=== PATIENT | male | born 1945 | race Caucasian/White ===

== ENCOUNTER 2020-05-11 07:26 | Outpatient (REF) | payer MEDICARE, SELFPAY ==
[2020-05-11 08:45] LABS: Alanine Aminotransferase 24 U/L (0-40); Alkaline Phosphatase 92 U/L (39-117); Anion Gap 10 (12-20); Aspartate Amino Transferase 22 U/L (5-37); Bilirubin Total 0.7 mg/dL (0.0-1.0); Blood Urea Nitrogen 14 mg/dL (9-16); Carbon Dioxide 27 mmol/L (22-29); Chloride 105 mmol/L (96-108); Cholesterol 131 mg/dL; Estimated Glomerular Filt Rate > 60; Glucose Fasting 98 mg/dL (60-99); HDL Cholesterol 47 mg/dL; LDL Cholesterol Calculated 71 mg/dl; Potassium 4.3 mmol/l (3.3-5.1); Sodium 138 mmol/L (135-145); Total Protein 6.2 g/dL (6.5-8.0); Triglycerides 66 mg/dL
== END 2020-05-11 07:27 | disposition home or self-care (01) ==
LOC: HO.LAB 07:26
PROVIDERS: PCP Internal Medicine; Visit Provider Internal Medicine
DX: I10 Essential (primary) hypertension (principal)
CPT/HCPCS: 36415; 80053; 80061

== ENCOUNTER → 2020-08-21 14:20 | Outpatient (BNVA) | payer MEDICARE, SELFPAY | PROVIDERS: PCP Internal Medicine; Visit Provider Internal Medicine | DX: J44.9 Chronic obstructive pulmonary disease, unspecified (principal); Z87.891 Personal history of nicotine dependence | CPT/HCPCS: 99212 ==

== ENCOUNTER → 2020-09-18 08:35 | Outpatient (BNVA) | payer MEDICARE, SELFPAY | PROVIDERS: PCP Internal Medicine; Visit Provider Internal Medicine Cardiovascular Disease | DX: I25.10 Atherosclerotic heart disease of native coronary artery without angina pectoris (principal); I10 Essential (primary) hypertension; I51.7 Cardiomegaly | CPT/HCPCS: 93005; 99212 ==

== ENCOUNTER → 2020-10-24 11:01 | Outpatient (BNVA) | payer MEDICARE, SELFPAY | PROVIDERS: PCP Internal Medicine; Visit Provider Nurse Practitioner | DX: R10.9 Unspecified abdominal pain (principal); K21.9 Gastro-esophageal reflux disease without esophagitis; D12.6 Benign neoplasm of colon, unspecified; Z79.899 Other long term (current) drug therapy | CPT/HCPCS: Q3014 ==

== ENCOUNTER 2020-10-25 07:47 | Outpatient (REF) | payer MEDICARE, SELFPAY ==
--- NOTE | ~2020-10-25 | US_ITS ---
EXAMINATION: US RETROPERITONEAL LIMITED (AORTA) CLINICAL INFORMATION: Aneurysm of unspecified site. COMPARISON: Abdominal aortic aneurysm screening dated 06/02/2019 TECHNIQUE: Christine-scale, color Doppler and spectral Doppler evaluation of the abdominal aorta. FINDINGS: The measurements of the aorta in maximum AP and transverse dimensions respectively are as follows: Proximal: 2.7 x 3.1 cm. Mid: 2.6 x 2.4 cm. Distal: 2.0 x 1.9 cm. PSV: 70.5 cm/s. The measurements of the common iliac arteries in maximum AP and TRV dimensions are as follows: Right Common Iliac Artery: 1.4 x 1.4 cm. Left Common Iliac Artery: 1.3 x 1.1 cm. US/US aorta IMPRESSION: The aorta is ectatic and nondilated. There is mild atherosclerosis. The common iliac arteries are normal caliber.
[2020-10-25 08:56] LABS: MANUAL DIFF FLAG NO
[2020-10-25 09:04] LABS: Basophils Absolute Auto 0.1 X10*3/uL (0.0-0.2); Basophils Percent Auto 0.7 % (0-2); Eosinophils Absolute Auto 0.2 X10*3/uL (0.0-0.4); Eosinophils Percent Auto 2.6 % (0-4); Hematocrit 44.3 % (42-52); Hemoglobin 14.7 g/dl (14.0-18.0); Imm Gran Abs Auto 0.03 X10*3/uL (0.00-0.03); Imm Gran Pct Auto 0.4 % (0.0-0.4); Lymphocytes Absolute Auto 1.2 X10*3/uL (1.2-4.9); Mean Corpuscular HGB Conc 33.2 g/dl (31.0-36.0); Mean Corpuscular Hemoglobin 29.7 pg (27.0-33.0); Mean Corpuscular Volume 89.5 fL (80-98); Mean Platelet Volume 8.8 fL (9.4-12.4); Monocytes Absolute Auto 0.6 X10*3/uL (0.1-1.2); Neutrophils Percent Auto 74.3 % (45-73); Platelet Count 306 X10*3/uL (160-400); Red Blood Count 4.95 X10*6/uL (4.60-5.80); Red Cell Distribution Width 13.3 % (11.0-16.0)
[2020-10-25 09:48] LABS: Alanine Aminotransferase 20 U/L (0-40); Albumin Level 4.2 g/dL (3.5-5.0); Alkaline Phosphatase 92 U/L (39-117); Anion Gap 11 (12-20); Aspartate Amino Transferase 24 U/L (5-37); Bilirubin Total 0.8 mg/dL (0.0-1.0); Blood Urea Nitrogen 19 mg/dL (9-16); Calcium 8.7 mg/dL (8.4-10.2); Carbon Dioxide 27 mmol/L (22-29); Chloride 103 mmol/L (96-108); Cholesterol 140 mg/dL; Estimated Glomerular Filt Rate > 60; Glucose Fasting 105 mg/dL (60-99); HDL Cholesterol 54 mg/dL; LDL Cholesterol Calculated 76 mg/dl; Potassium 4.4 mmol/L (3.3-5.1); Sodium 137 mmol/L (135-145); Total Protein 6.3 g/dL (6.5-8.0); Triglycerides 51 mg/dL
[2020-10-25 10:15] LABS: Prostate Specific Antigen Scr 2.19 ng/mL (<0.05-4.0)
== END 2020-10-25 07:48 | disposition home or self-care (01) ==
LOC: HO.US 07:47
PROVIDERS: Nurse Practitioner Family; PCP Internal Medicine; Visit Provider Internal Medicine
DX: Z00.00 Encounter for general adult medical examination without abnormal findings (principal); Z12.5 Encounter for screening for malignant neoplasm of prostate; I72.9 Aneurysm of unspecified site; E78.00 Pure hypercholesterolemia, unspecified; E78.5 Hyperlipidemia, unspecified
CPT/HCPCS: 36415; 76775; 80053; 80061; 84153; 85025

== ENCOUNTER → 2020-10-30 10:23 | Outpatient (REF) | payer MEDICARE, SELFPAY ==
--- NOTE | 2020-10-30 10:28 | CA_ITS ---
Transthoracic Echocardiogram Patient (Last, First, Middle): Be Fontenot R Gender: Male Date of : 1945 Age: 74 Procedure Date: 10/30/2020 Procedure Type: Transthoracic Echocardiogram Location: OP Height: 167.64 cm Weight: 58.97 kg BSA: 1.67 m2 Heart Rate: bpm BP: 163 / 94 mmHg Dockmaster: RACHEL Referring MD: Slim Peña MD Symptoms: I51.7 - Cardiomegaly Study Quality: Fair ECG Rhythm: Sinus Conclusions: - The left ventricular systolic function is normal. The calculated ejection fraction is 56% by biplane method. - There is mild calcification of the aortic valve. - There is mild dilatation of the ascending aorta measuring 4.00 cm. Findings Left Ventricle Normal left ventricular cavity size. The left ventricular systolic function is normal. The visually estimated ejection fraction is between 55-60%. The calculated ejection fraction is 56% by biplane method. There is no evidence of regional wall motion abnormalities. E/E prime ratio is between 8 and 15 consistent with indeterminate filling pressures. Evidence suggests grade I (mild) diastolic dysfunction. Right Ventricle Normal right ventricular cavity size and systolic function. Atria Both atria are normal in size. Aortic Valve There is a normal trileaflet aortic valve. There is mild calcification of the aortic valve. There is trace (trivial) aortic valve regurgitation. Mitral Valve The mitral valve appears normal. There is trace mitral valve regurgitation. There is no mitral valve stenosis. Pulmonic Valve The pulmonic valve was not well visualized. Tricuspid Valve Normal tricuspid valve structure. There is trace tricuspid valve regurgitation. The pulmonary artery systolic pressure is normal. Great Vessels There is mild dilatation of the ascending aorta measuring 4.00 cm. Venous The inferior vena cava is normal in size and collapses greater than 50% with inspiration. Pericardium/Pleural There is no evidence of pericardial effusion. Prior Study Comparison Changes noted compared to prior study dated: 06/26/2015. See comments on ascending aorta. Measurements M-Mode Liner Measurements Normals - Women/Men AOV Cusps: 1.70 1.5-2.6 cm/m2 2D Linear Measurements IVSd: 0.88 0.6-0.9/0.6-1.0 cm LVIDd: 4.32 3.9-5.3/4.2-5.9 cm LVIDd Index: 2.59 2.4-3.2/2.2-3.1 cm/m2 LVIDs: 3.12 2.0-3.6 cm LVPWd: 1.06 0.7-1.1 cm Ao Root: 3.80 2.1-3.5 cm LA Diam: 2.90 2.7-3.8/3.0-4.0 cm LAIDs Index: 1.74 1.5-2.3 cm/m2 LV Mass: 171.28 67-162/88-224 g LV Mass Index: 102.56 43-95/49-115 g/m2 LVOT Diam: 1.80 3.0+(-)1.3 cm 2D Systolic Function EF 4C: 51.30 >55% EF 2C: 61.10 >55% EF BiP: 55.50 >55% Mitral Valve MV Pk E: 0.69 MV PK A: 0.74 MV Decel Time: 232.00 E/A: 0.90 E'Lateral: 6.20 E'Medial: 5.44 E/E' Med: 12.70 E/E' Lat: 11.10 PHT: 68.00 MVA PHT: 3.24 Decel Lee: 2.96 Aortic Valve AoV Pk Nabeel: 1.10 AoV Pk Grad: 5.00 LVOT LVOT Pk Nabeel: 0.93 LVOT Mn Nabeel: 0.60 LVOT VTI: 0.19 LVOT Pk Grad: 3.00 LVOT Mn Grad: 2.00 LVOT Diam: 1.80 LVOT Area: 2.54 Diastolic Function MV Pk E: 0.69 MV Pk A: 0.74 E/A: 0.90 E'Medial: 5.44 E/E' Med: 12.70 E' Laterial: 6.20 E/E' Lat: 11.10 Tricuspid Valve TR Pk Nabeel: 2.05 TR Pk Grad: 17.00 RA Press: 3.00 RVSP: 20.00 Great Vessels Aorta Ao Root-2D: 3.80 2.0-3.7 cm Ao Asc: 4.00 2.1-3.4 cm Ao Arch: 2.40 Pulmonary Valve PV Pk Nabeel: 1.03 Peak PV Grad: 4.00 Updated in Other Vendor System with Status of Final Gumaro Spears MD electronically signed on 11/02/2020 11:35:34 AM with status of Final
== END ==
LOC: HO.CARD 10:23
PROVIDERS: PCP Internal Medicine; Visit Provider Internal Medicine Cardiovascular Disease
DX: I25.10 Atherosclerotic heart disease of native coronary artery without angina pectoris (principal); I10 Essential (primary) hypertension; I51.7 Cardiomegaly
CPT/HCPCS: 93306; 99212

== ENCOUNTER → 2020-11-06 11:22 | Outpatient (BNVA) | payer MEDICARE, SELFPAY | PROVIDERS: PCP Internal Medicine; Visit Provider Surgery Vascular Surgery | DX: I71.4 Abdominal aortic aneurysm, without rupture (principal); I65.23 Occlusion and stenosis of bilateral carotid arteries; R10.9 Unspecified abdominal pain | CPT/HCPCS: 99202 ==

== ENCOUNTER 2020-11-20 09:20 | Day surgery (SDC) | payer MEDICARE, SELFPAY ==
[2020-11-14 15:46] VITALS: BMI 20.9
--- NOTE | 2020-11-16 13:52 | HO.ANESPROP2 ---
Documented by User: Karen Milian 11/16/20 13:57 HPI - Anesthesia Eval Consult details Narrative: 74yo F for Colonoscopy PMFSH Active Problems Active Problems: All Active Problems (Updated 11/14/20 @ 15:43 by Micheline Jose) LVH (left ventricular hypertrophy) (Acute) Annual physical exam (Acute) Tubular adenoma of colon (Acute) Left flank pain (Acute) AAA (abdominal aortic aneurysm) without rupture (Acute) Carotid stenosis, bilateral (Acute) Abdominal pain (Acute) Aneurysmal dilatation (Acute) Screening for colon cancer (Acute) CAD (coronary artery disease) (Acute) COPD (chronic obstructive pulmonary disease) (Acute) Shoulder pain (Acute) Pure hypercholesterolemia (Acute) GERD (gastroesophageal reflux disease) (Acute) Essential hypertension (Acute) Neck pain (Acute) Past Medical History Medical History (Updated 11/20/20 @ 11:30 by Aditi Rubio) Aneurysmal dilatation CAD (coronary artery disease) COPD (chronic obstructive pulmonary disease) Essential hypertension GERD (gastroesophageal reflux disease) H/O: CVA (cerebrovascular accident) Neck pain Pure hypercholesterolemia Screening for colon cancer Shoulder pain Family History Family History Father Bone cancer Mother CVD (cardiovascular disease) Brother No problems noted. Sister No problems noted. Daughter No problems noted. Surgical History Surgical History (Updated 11/14/20 @ 15:41 by Micheline Jose) History of appendectomy History of cervical spinal surgery History of esophagogastroduodenoscopy (EGD) History of foot surgery History of hemicolectomy History of hernia repair History of laminectomy History of partial colectomy Hx of colonoscopy Stented coronary artery Social History Social History (Updated 11/20/20 @ 11:31 by Aditi Rubio) Alcohol intake: never Smoking Status: Former smoker Tobacco Type: Cigarette Years Smoked: once in a while Smoking Quit Date: 1994 Use of substances other than those prescribed or required for medical reasons: Yes 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 Last Used Substance Other:: Yesterday Advance Directives: No Advance Directives Information Provided: No Advance Directives on File: No Meds Allergies Allergy/AdvReac Type Severity Reaction Status Date / Time aspirin [ASA] Allergy Mild UPSET Verified 11/06/20 11:24 STOMACH PT TAKES BABY ASA INSTEAD, stomach upset acetaminophen [From Vicodin] AdvReac Severe upset Verified 11/06/20 11:24 stomach hydrocodone [From Vicodin] AdvReac Severe upset Verified 11/06/20 11:24 stomach Home Medications Medication Instructions Recorded Confirmed Last Taken Type aspirin 81 mg tablet,delayed 81 mg PO DAILY 07/12/20 11/14/20 Unknown History release atorvastatin 80 mg tablet 80 mg PO DAILY 07/12/20 11/14/20 Unknown History [id number]-oyl-[id number] acid 300 1 tab PO DAILY 07/12/20 11/14/20 Unknown History mcg-lycopene 600 mcg-lutein 300 mcg tablet omeprazole 20 mg capsule,delayed 20 mg PO DAILY 07/12/20 11/14/20 Unknown History release tamsulosin 0.4 mg capsule 0.8 mg PO DAILY 07/12/20 11/14/20 Unknown History flu vacc (66yr ml IM 08/21/20 10/08/20 Unknown History up)-MF59C(PF) 60 mcg(15 mcgx4)/0.5 mL IM syringe ropinirole 1 mg tablet 1 mg PO BEDTIME 09/18/20 11/14/20 Unknown History Exam Exam Date and Time: November 16, 2020 1352 Height,Weight and Vital Signs: Height 5 ft 6 in Weight 58.967 kg Pertinent Lab Results Pertinent Lab Results: Laboratory Tests 10/25/20 10/25/20 08:12 08:12 WBC 8.0 Hgb 14.7 Hct 44.3 Plt Count 306 Sodium 137 Potassium 4.4 Chloride 103 Carbon Dioxide 27 BUN 19 H Creatinine 1.03 Narrative Narrative: ECHO 10/2020 Conclusions: - The left ventricular systolic function is normal. The calculated ejection fraction is 56% by biplane method. - There is mild calcification of the aortic valve. - There is mild dilatation of the ascending aorta measuring 4.00 cm. 09/2020 SB @ 59 ?LVH Assessment and Plan Assessment Anesthesia Assessment: Chart Reviewed Documented by User: Aditi Rubio 11/20/20 11:33 [facility] Past Medical History Medical History (Updated 11/20/20 @ 11:30 by Aditi Rubio) Aneurysmal dilatation CAD (coronary artery disease) COPD (chronic obstructive pulmonary disease) Essential hypertension GERD (gastroesophageal reflux disease) H/O: CVA (cerebrovascular accident) Neck pain Pure hypercholesterolemia Screening for colon cancer Shoulder pain Family History Family History Father Bone cancer Mother CVD (cardiovascular disease) Brother No problems noted. Sister No problems noted. Daughter No problems noted. Family history of problems with anesthesia: No Surgical History Surgical History (Updated 11/14/20 @ 15:41 by Micheline Jose) History of appendectomy History of cervical spinal surgery History of esophagogastroduodenoscopy (EGD) History of foot surgery History of hemicolectomy History of hernia repair History of laminectomy History of partial colectomy Hx of colonoscopy Stented coronary artery History of Problems with Anesthesia: No Social History Social History (Updated 11/20/20 @ 11:31 by Aditi Rubio) Alcohol intake: never Smoking Status: Former smoker Tobacco Type: Cigarette Years Smoked: once in a while Smoking Quit Date: 1994 Use of substances other than those prescribed or required for medical reasons: Yes 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 Last Used Substance Other:: Yesterday Advance Directives: No Advance Directives Information Provided: No Advance Directives on File: No Meds Allergies Allergy/AdvReac Type Severity Reaction Status Date / Time aspirin [ASA] Allergy Mild UPSET Verified 11/06/20 11:24 STOMACH PT TAKES BABY ASA INSTEAD, stomach upset acetaminophen [From Vicodin] AdvReac Severe upset Verified 11/06/20 11:24 stomach hydrocodone [From Vicodin] AdvReac Severe upset Verified 11/06/20 11:24 stomach Home Medications Medication Instructions Recorded Confirmed Last Taken Type aspirin 81 mg tablet,delayed 81 mg PO DAILY 07/12/20 11/14/20 Unknown History release atorvastatin 80 mg tablet 80 mg PO DAILY 07/12/20 11/14/20 Unknown History kltyxcjx-hpp-ykvpr acid 300 1 tab PO DAILY 07/12/20 11/14/20 Unknown History mcg-lycopene 600 mcg-lutein 300 mcg tablet omeprazole 20 mg capsule,delayed 20 mg PO DAILY 07/12/20 11/14/20 Unknown History release tamsulosin 0.4 mg capsule 0.8 mg PO DAILY 07/12/20 11/14/20 Unknown History flu vacc 2020-(65yr ml IM 08/21/20 10/08/20 Unknown History up)-MF59C(PF) 60 mcg(15 mcgx4)/0.5 mL IM syringe ropinirole 1 mg tablet 1 mg PO BEDTIME 09/18/20 11/14/20 Unknown History Exam Height,Weight and Vital Signs: Vital Signs Temp Pulse Resp BP Pulse Ox 11/20/20 10:12 98.8 F 63 16 133/80 96 Airway Mallampati Class: II TM Dist: >3cm Neck ROM: Limited (S/p ACDF) Denture: Upper and Lower Heart: RRR Lungs: CTAB Assessment and Plan Assessment Anesthesia Assessment: Anesthesia Plan Discussed and Chart Reviewed Final Anesthetic Review NPO: Yes ASA Class: III Final Preanesthetic Review: No Changes in Pt Med Stat, Meds/Allgs Chart Reviewed, Consent Obtained/Reviewed and Anes Risks/Benef Reviewed Patient Risk: Intermediate Procedure Risk: Low Assessment/Block/Sedation in SS: Assess/Block/Sedation-SS Anesthetic Plan Anesthetic Plan: MAC: Disposition: Standard PACU
[2020-11-20 10:12] VITALS: BP 133/80; PULSE 63; RESP 16; TEMP 37.1; O2SAT 96
[2020-11-20] MEDS: Lactated Ringers 1,000 ML 100 ML IVCONT (10:21)
--- NOTE | 2020-11-20 10:33 | PC.NURSE ---
LAYING ON LEFT SIDE FOR FLEET ENEMA. PEYTON WELL. MD AN AWARE. AWAITING FOR RESULTS.
--- NOTE | 2020-11-20 10:49 | PC.NURSE ---
PATIENTS FECAL OUTPUT WAS CLEAR/YELLOW.
--- NOTE | 2020-11-20 11:30 | W.PM.OPN ---
Operative Note Operative Note Date of Service: 11/20/20 Narrative: Pre-op diagnosis: Colon cancer screening, history of colon polyps Post-op diagnosis: other (Colon polyp, diverticulosis, hemorrhoids) Procedure: COLONOSCOPY TILL CECUM WITH SNARE POLYPECTOMY Consent: Indications for the procedure and potential complications of bleeding, perforation, reaction to medications and missed diagnosis were discussed with the patient and informed consent was obtained. Instrument: Olympus PCF H 190 L variable stiffness pediatric colonoscope Monitoring: Vital signs and clinical assessment, intermittent blood pressure monitoring, continuous EKG monitoring, Pulse oximetry and Carbon Dioxide monitoring were done throughout the procedure. Colon withdrawl time was 18 minutes. Procedure: The patient was placed in the left lateral decubitis position and pre-procedure medications were administered. After a digital rectal examination of the ano-rectum, the video colonoscope was inserted into the rectum and advanced through the colon to the cecum. The colonoscope was slowly withdrawn in a retrograde panoramic fashion and the colon mucosa was carefully examined including a retroflexed view of the rectum. Findings and interventions are described below. Procedure Difficulty: Without difficulty Findings: Terminal Ileum: Not evaluated Cecum: A 1.5 to 2 cms flat polyp in the cecum overlying a fold opposite the ileocecal valve - removed with a hot snare Ascending Colon: Scattered diverticulosis Transverse Colon: Scattered diverticula Descending Colon: Scattered diverticula Sigmoid Colon: End to side colo-colic anastomosis at 20 cm and moderate diverticulosis Rectum: Normal Ano-rectum: Moderate internal hemorrhoids Colon preparation: Good copious irrigation Impression and Post Procedure Diagnosis: Colonoscopy Findings: One medium-size polyp removed Moderate diverticulosis seen in the entire colon Moderate hemorrhoids on retroflexed exam. Plan: Await pathology results Patient will be informed regarding biopsy results via letter Repeat Colonoscopy interval based on path results - in 3 years if polyps are adenomatous and 5 years due to history of colon polyps. Above findings were reviewed with the patient and colon polyps and diverticulosis handouts were given in the discharge area Surgeon: Louise Wells MD Anesthesia: MAC (Dr Rubio) [employer] Log[employer] Engineer: Hiren Lala Estimated blood loss (mL): 0 Pathology: other (A. cecal polyp x1) Condition: stable Disposition: PACU
--- NOTE | 2020-11-20 11:30 | MHC.SHP ---
Pre-Procedural Eval Section A The patient is an INPATIENT: No Changes since office visit: Yes Patient answered all questions; No Cold of Flu in the past 2 weeks, No New Medical Problems and No Changes in Medication The History & Physical has been completed within 30 days and I have reviewed it.: Yes Section B Chief Complaint: polyps Allergies: Allergies Allergy/AdvReac Type Severity Reaction Status Date / Time aspirin [ASA] Allergy Mild UPSET Verified 11/06/20 11:24 STOMACH PT TAKES BABY ASA INSTEAD, stomach upset acetaminophen [From Vicodin] AdvReac Severe upset Verified 11/06/20 11:24 stomach hydrocodone [From Vicodin] AdvReac Severe upset Verified 11/06/20 11:24 stomach Exam Surgical H&P Exam: Normal: Heart, Normal: Lungs, Normal: Extremities and Normal: Abdomen Plan Diagnosis/Plan: Unchanged I have reviewed the history and physical and performed a pertinent physical examination on my patient. No changes have occurred unless specified.
[2020-11-20 12:18] VITALS: BP 108/60; PULSE 70; RESP 14; TEMP 36.7; O2SAT 100
[2020-11-20 12:31] VITALS: BP 132/80; PULSE 68; RESP 18; TEMP 37.3; O2SAT 96
== END 2020-11-20 13:42 | disposition home or self-care (01) ==
PROVIDERS: PCP Internal Medicine; Visit Provider Internal Medicine Gastroenterology
PROC: 0DJD8ZZ Inspection of Lower Intestinal Tract, Via Natural or Artificial Opening Endoscopic (ICD-10-PCS; CPT 45378; principal; 2020-11-20 10:50)
DX: Z12.11 Encounter for screening for malignant neoplasm of colon (principal); Z86.010 Personal history of colon polyps; D12.0 Benign neoplasm of cecum; K57.30 Diverticulosis of large intestine without perforation or abscess without bleeding; K64.8 Other hemorrhoids; K21.9 Gastro-esophageal reflux disease without esophagitis; I10 Essential (primary) hypertension; J44.9 Chronic obstructive pulmonary disease, unspecified; I25.10 Atherosclerotic heart disease of native coronary artery without angina pectoris; Z98.61 Coronary angioplasty status; Z79.899 Other long term (current) drug therapy; Z79.51 Long term (current) use of inhaled steroids; Z79.82 Long term (current) use of aspirin; Z87.891 Personal history of nicotine dependence; Z90.49 Acquired absence of other specified parts of digestive tract; Z88.8 Allergy status to other drugs, medicaments and biological substances; Z86.73 Personal history of transient ischemic attack (TIA), and cerebral infarction without residual deficits
CPT/HCPCS: 45385; 88305

== ENCOUNTER 2020-11-21 09:54 | Outpatient (REF) | payer MEDICARE, SELFPAY ==
--- NOTE | ~2020-11-21 | US_ITS ---
EXAMINATION: US EXTRACRANIAL CAROTID DUPLEX, BILATERAL CLINICAL INFORMATION: Occlusion of the bilateral carotid arteries COMPARISON: None TECHNIQUE: Real-time ultrasound and Doppler techniques (integrating B-mode 2-D vascular images, Doppler spectral analysis and color-flow Doppler imaging) were utilized to interrogate the extracranial carotid arteries, the vertebral arteries and proximal subclavian arteries bilaterally. The degree of stenosis is determined by criteria similar to NASCET. FINDINGS: Right Side: 1. There is no significant atherosclerotic plaque seen in the bifurcation/proximal ICA region. 2. The common carotid artery PSV proximally is 54.2 cm/s and distally 54.6 cm/s. 3. The proximal internal carotid artery velocities are 50.3 cm/s systolic and 18.9 cm/s diastolic. 4. The proximal external carotid artery PSV is 66.0 cm/s. 5. The vertebral artery shows antegrade flow. 6. The subclavian artery waveforms are normal. Small amount of plaque in the proximal right subclavian artery. Left Side: 1. There is minimal atherosclerotic plaque seen in the bifurcation/proximal ICA region. 2. The common carotid artery PSV proximally is 72.1 cm/s and distally 53.4 cm/s. 3. The proximal internal carotid artery velocities are 33.6 cm/s systolic and 15.5 cm/s diastolic. 4. The proximal external carotid artery PSV is 96.7 cm/s. 5. The vertebral artery shows antegrade flow. 6. The subclavian artery waveforms are normal. US/US carotid duplex BI IMPRESSION: 1. RIGHT: Normal right internal carotid artery without atherosclerotic plaque or hemodynamically significant stenosis. 2. LEFT: Minimal, non-hemodynamically significant stenosis of the proximal left internal carotid artery corresponding to a 0-49% stenosis by velocity criteria. 3. Small amount of atherosclerotic plaque at the origin of the right subclavian artery.
== END 2020-11-21 09:55 | disposition home or self-care (01) ==
LOC: HO.US 09:54
PROVIDERS: PCP Internal Medicine; Visit Provider Surgery Vascular Surgery
DX: I65.23 Occlusion and stenosis of bilateral carotid arteries (principal)
CPT/HCPCS: 93880

== ENCOUNTER → 2020-11-23 11:26 | Outpatient (BNVA) | payer MEDICARE, SELFPAY | PROVIDERS: PCP Internal Medicine; Visit Provider Surgery Vascular Surgery | CPT/HCPCS: 99212 ==

== ENCOUNTER 2021-03-18 09:50 | Emergency (ER) | payer MEDICARE, OTHER, SELFPAY ==
[2021-03-18 10:26] VITALS: BP 131/93; PULSE 55; RESP 18; TEMP 36.6; O2SAT 97; BMI 21.7
--- NOTE | 2021-03-18 11:34 | ED.EXTPRO ---
HPI - Extremity Problem General Chief complaint: Extremity Problem Stated complaint: swollen finger Time Seen by Provider: 03/18/21 11:34 History of Present Illness HPI Narrative: Patient is a 75-year-old right-hand dominant male. Presents today with having pain to the left index finger distally. Patient claimed that there was a lesion there starting a few months ago. It has since gotten worse. Specifically worsened over the last 2 weeks or so. There is no discharge from the wound. There is no fever no chills. Patient is able to bend his finger. Finally came in for help. Patient denies any history of diabetes. Positive history of smoking but quit in 1993. History of coronary artery disease. History of COPD in the past. No fever no chills. No nausea no vomiting. No systemic complaints. Related Data Home Medications Medication Instructions Recorded Confirmed aspirin 81 mg tablet,delayed 81 mg PO DAILY 07/12/20 11/14/20 release (Adult Low Dose Aspirin) atorvastatin 80 mg tablet 80 mg PO DAILY 07/12/20 11/14/20 zvfvmhtb-zkf-mwort acid 300 1 tab PO DAILY 07/12/20 11/14/20 mcg-lycopene 600 mcg-lutein 300 mcg tablet (Centrum Silver Men) omeprazole 20 mg capsule,delayed 20 mg PO DAILY 07/12/20 11/14/20 release tamsulosin 0.4 mg capsule 0.8 mg PO DAILY 07/12/20 11/14/20 Previous Rx's Medication Instructions Recorded clotrimazole 10 mg lindsey 10 mg PO TID #21 gaurav 12/11/20 ropinirole 1 mg tablet 1 mg PO BEDTIME 90 Days #90 tab 02/28/21 oxycodone 10 mg tablet 10 mg PO Q6H PRN 30 Days #120 tab 03/14/21 Breo Ellipta 200 mcg-25 mcg/dose 1 ea PO DAILY #60 ea NS 03/18/21 powder for inhalation (fluticasone furoate-vilanterol) amoxicillin 875 mg-potassium 1 tab PO BID 7 Days #14 tab 03/18/21 clavulanate 125 mg tablet (Augmentin) Allergies Allergy/AdvReac Type Severity Reaction Status Date / Time aspirin [ASA] Allergy Mild UPSET Verified 03/18/21 10:25 STOMACH PT TAKES BABY ASA INSTEAD, stomach upset acetaminophen [From Vicodin] AdvReac Severe upset Verified 03/18/21 10:25 stomach hydrocodone [From Vicodin] AdvReac Severe upset Verified 03/18/21 10:25 stomach Review of Systems Review of Systems: Constitutional: No Weight loss, No Fever, No Chills, No Night Sweats, No Fatigue, No Malaise ENT/Mouth: No Hearing loss, No Ear Pain, No Nasal Congestion, No Sinus Pain, No Hoarseness, No sore throat, No Rhinorrhea, No Swallowing Difficulty Eyes: No Eye Pain, No Swelling, No Redness, No Foreign Body, No Discharge, No Vision Changes Cardiovascular: No Chest Pain, No SOB, No Dyspnea on Exertion, No Orthopnea, No Edema, No Palpitations Respiratory: No Cough, No Sputum, No Wheezing, No Smoke Exposure, No Dyspnea Gastrointestinal: No Nausea, No Vomiting, No Diarrhea, No Constipation, No abdominal Pain, No Hematochezia, No Melena Genitourinary: no irregular bleeding, No Dysuria, No Urinary Frequency, No Hematuria, No Urinary Incontinence, No Urgency, No Flank Pain, No Urinary Flow Changes, No Hesitancy Musculoskeletal: Positive swelling and lesion to the left index finger distally Skin: Positive skin lesion to the left index finger Neuro: No Weakness, No Numbness, No Paresthesias, No Loss of Consciousness, No Dizziness, No Headache Psych: No Anxiety/Panic, No Depression, No SI/HI/AH/VH, No Social Issues, Heme/Lymph: No Bruising, No Bleeding,No Lymphadenopathy Endocrine: No Polyuria, No Polydipsia, No Temperature Intolerance [facility] Past Medical History Attestation statement: The following information was validated with the patient. Medical History Aneurysmal dilatation CAD (coronary artery disease) COPD (chronic obstructive pulmonary disease) Essential hypertension GERD (gastroesophageal reflux disease) H/O: CVA (cerebrovascular accident) Neck pain Pure hypercholesterolemia Screening for colon cancer Shoulder pain Surgical History History of appendectomy History of cervical spinal surgery History of esophagogastroduodenoscopy (EGD) History of foot surgery History of hemicolectomy History of hernia repair History of laminectomy History of partial colectomy Hx of colonoscopy Stented coronary artery Family History Family History Father Bone cancer Mother CVD (cardiovascular disease) Brother No problems noted. Sister No problems noted. Daughter No problems noted. Social History Social History Alcohol intake: never Years Smoked: once in a while Substance Use Type: Marijuana Advance Directives: Yes Advance Directives Information Provided: Yes Advance Directives on File: No Physical Exam Vital Signs: Vital Signs: Last Vital Signs Temp 97.9 F 03/18/21 10:26 Pulse 55 03/18/21 10:26 Resp 18 03/18/21 10:26 BP 131/93 H 03/18/21 10:26 Pulse Ox 97 03/18/21 10:26 Body Mass Index 21.7 Appearance: Alert. Oriented X3. No acute distress. Eyes: Pupils equal, round and reactive to light. ENT: Pharynx normal. Neck: Normal inspection. Neck supple. No lymph nodes noted. No crepitus CVS: Normal heart rate and rhythm. Pulses normal. Normal S1 and S2 Respiratory: No respiratory distress. Breath sounds normal. No Wheezing. No rales Abdomen: Soft and nontender. No rigidity. No distention. good BS x4 Skin: Examination is skin and distal extremity on the left hand showed a lesion in the distal aspect of the left index finger it is approximately 1 cm x 1 cm in size. There is a slight red base there is slight opening. There is no discharge noted. There is no fluctuance noted. There is no pain on palpation of the distal IP joint. Patient has good capillary refill. Sensation intact. There is good movement of the proximal IP and MCP joint. There is no sausage fingers. Patient is able to move the finger without any difficulty. Extremities: No lower extremity edema. Neurovascular intact to all extremities. No Lacerations. See above Neuro: Oriented X 3. No motor deficit. No sensory deficit. Moving all extermities. No slurred speech MDM - Extremity (Nontraumatic) MDM Narrative Medical decision making narrative: Well-appearing there is good movement of the distal IP joint. There is no sausage finger observed. There is no pain on full extension. There is no tenderness on palpation of the flexor sheath. There is an area of erythema base. Question if it is a wart. Patient symptom has been ongoing for months. Will have patient follow-up with wound care. Will also give patient antibiotics and follow-up with orthopedic hand on an outpatient basis. In stable condition. No evidence for tenosynovitis at this point. Discharge Plan Discharge Clinical Impression: Wart, Cellulitis Patient Disposition: Home, Self-Care Instructions: Cellulitis (ED), Common Wart (ED) Prescriptions: New amoxicillin-pot clavulanate [Augmentin] 875-125 mg tablet 1 tab PO BID 7 Days Qty: 14 RF: 0 No Action clotrimazole 10 mg lindsey 10 mg PO TID Qty: 21 RF: 3 ropinirole 1 mg tablet 1 mg PO BEDTIME 90 Days Qty: 90 RF: 3 oxycodone 10 mg tablet 10 mg PO Q6H PRN (Reason: pain) 30 Days Qty: 120 RF: 0 Breo Ellipta 200-25 mcg/dose blister with device 1 ea PO DAILY Qty: 60 RF: 3 aspirin [Adult Low Dose Aspirin] 81 mg tablet,delayed release (DR/EC) 81 mg PO DAILY RF: 0 atorvastatin 80 mg tablet 80 mg PO DAILY RF: 0 tamsulosin 0.4 mg capsule 0.8 mg PO DAILY RF: 0 omeprazole 20 mg capsule,delayed release(DR/EC) 20 mg PO DAILY RF: 0 Centrum Silver Men 300-600-300 mcg tablet 1 tab PO DAILY RF: 0 Referrals: Bessy Blackman PA [Physician Float Operator] - 2 days Mikala Simmons MD [Physician] - 2 days
== END 2021-03-18 12:37 | disposition home or self-care (01) ==
PROVIDERS: Emergency Provider Emergency Medicine Emergency Medical Services; PCP Internal Medicine
DX: L03.012 Cellulitis of left finger (principal); J44.9 Chronic obstructive pulmonary disease, unspecified; I25.10 Atherosclerotic heart disease of native coronary artery without angina pectoris; F12.90 Cannabis use, unspecified, uncomplicated; Z79.899 Other long term (current) drug therapy
CPT/HCPCS: 99283

== ENCOUNTER 2021-03-20 08:30 | Outpatient (REF) | payer MEDICARE, SELFPAY ==
--- NOTE | ~2021-03-20 | XR_ITS ---
EXAMINATION: XR HAND, LEFT CLINICAL INFORMATION: Left hand pain. COMPARISON: None TECHNIQUE: PA, lateral, and oblique views of the left hand. FINDINGS: Soft tissue defect and swelling at the radial aspect of the 2nd distal phalanx. Soft tissue swelling extends through the entirety of the index finger. No acute osseous abnormality. No fracture or dislocation. Prominent joint space narrowing with marginal osteophytes at the triscaphe joint, 1st carpometacarpal joint, and 1st metacarpal phalangeal joint. More mild degenerative arthritis scattered throughout the remaining metacarpophalangeal and interphalangeal joints. No abnormal soft tissue calcification or radiopaque foreign body. XR/XR hand LT min 3V IMPRESSION: Soft tissue defect and prominent soft tissue swelling at the 2nd digit. No radiopaque foreign body. No acute osseous abnormality. Degenerative changes throughout the hand as described above.
== END 2021-03-20 08:31 | disposition home or self-care (01) ==
LOC: HO.HOSX 08:30
PROVIDERS: Visit Provider Orthopaedic Surgery
DX: L03.012 Cellulitis of left finger (principal); M79.89 Other specified soft tissue disorders
CPT/HCPCS: 73130; 99202

== ENCOUNTER 2021-03-21 10:39 | Day surgery (SDC) | payer MEDICARE, OTHER, SELFPAY ==
[2021-03-21 11:00] VITALS: BMI 21.7
[2021-03-21 11:01] VITALS: BP 126/83; PULSE 87; RESP 18; TEMP 36.8; O2SAT 96
--- NOTE | 2021-03-21 13:45 | HO.ANESPROP2 ---
COUNTS INCLUDE 234 BEDS AT THE [facility] Active Problems Active Problems: All Active Problems (Updated 03/20/21 @ 13:26 by Mikala Simmons MD) Felon of finger of left hand (Acute) Mass of soft tissue of left upper extremity (Acute) H/O: CVA (cerebrovascular accident) (Acute) LVH (left ventricular hypertrophy) (Acute) Annual physical exam (Acute) Tubular adenoma of colon (Acute) Left flank pain (Acute) AAA (abdominal aortic aneurysm) without rupture (Acute) Carotid stenosis, bilateral (Acute) Abdominal pain (Acute) Aneurysmal dilatation (Acute) Screening for colon cancer (Acute) CAD (coronary artery disease) (Acute) COPD (chronic obstructive pulmonary disease) (Acute) Shoulder pain (Acute) Pure hypercholesterolemia (Acute) GERD (gastroesophageal reflux disease) (Acute) Essential hypertension (Acute) Neck pain (Acute) Past Medical History Medical History Aneurysmal dilatation CAD (coronary artery disease) COPD (chronic obstructive pulmonary disease) Essential hypertension GERD (gastroesophageal reflux disease) H/O: CVA (cerebrovascular accident) Neck pain Pure hypercholesterolemia Screening for colon cancer Shoulder pain Family History Family History Father Bone cancer Mother CVD (cardiovascular disease) Brother No problems noted. Sister No problems noted. Daughter No problems noted. Family history of problems with anesthesia: No Surgical History Surgical History History of appendectomy History of cervical spinal surgery History of esophagogastroduodenoscopy (EGD) History of foot surgery History of hemicolectomy History of hernia repair History of laminectomy History of partial colectomy Hx of colonoscopy Stented coronary artery History of Problems with Anesthesia: No Social History Social History (Updated 03/20/21 @ 12:37 by Yris Marquez) Alcohol intake: never Patient Tobacco Use Status: Former Tobacco user Years Smoked: once in a while Use of substances other than those prescribed or required for medical reasons: Yes Substance Use Type: Marijuana Have you been hit, kicked, punched, or otherwise hurt by someone within the past year? 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 Meds Allergies Allergy/AdvReac Type Severity Reaction Status Date / Time aspirin [ASA] Allergy Mild UPSET Verified 03/21/21 11:09 STOMACH PT TAKES BABY ASA INSTEAD, stomach upset acetaminophen [From Vicodin] AdvReac Severe upset Verified 03/21/21 11:09 stomach hydrocodone [From Vicodin] AdvReac Severe upset Verified 03/21/21 11:09 stomach Active Medications: Current Medications Generic Name Dose Route Start Last Admin Trade Name Deonna PRN Reason Stop Dose Admin Acetaminophen 650 mg 03/21/21 11:53 Acetaminophen 325 Mg Tablet PO ONCE PRN Pain, Mild (Pain Scale 1-3) Hydromorphone HCl 0.25 mg 03/21/21 11:52 Hydromorphone Hcl 0.5 Mg/0.5 Ml Syringe IVPUSH Q5M PRN Pain, Severe (Pain Scale 7-10) Protocol Lactated Ringer's 1,000 mls @ 50 mls/hr 03/21/21 12:00 Lr IVCONT .Q20H BASIL Promethazine HCl 12.5 mg/ 50.5 mls @ 202 mls/hr 03/21/21 11:53 Sodium Chloride IV ONCE PRN Nausea and Vomiting Ondansetron HCl 4 mg 03/21/21 11:53 Ondansetron Hcl 4 Mg/2 Ml Vial IVPUSH ONCE PRN Nausea and Vomiting Oxycodone HCl 5 mg 03/21/21 11:52 Oxycodone Hcl Immed Release 5 Mg Tablet PO ONCE PRN Pain, Severe (Pain Scale 7-10) Home Medications Medication Instructions Recorded Confirmed Last Taken Type aspirin 81 mg tablet,delayed 81 mg PO DAILY 07/12/20 11/14/20 03/20/21 History release (Adult Low Dose Aspirin) atorvastatin 80 mg tablet 80 mg PO DAILY 07/12/20 11/14/20 Unknown History eqvyjeko-gsf-lhfhc acid 300 1 tab PO DAILY 07/12/20 11/14/20 Unknown History mcg-lycopene 600 mcg-lutein 300 mcg tablet (Centrum Silver Men) omeprazole 20 mg capsule,delayed 20 mg PO DAILY 07/12/20 11/14/20 Unknown History release tamsulosin 0.4 mg capsule 0.8 mg PO DAILY 07/12/20 11/14/20 Unknown History Exam Exam Date and Time: March 21, 2021 1345 Height,Weight and Vital Signs: Height 5 ft 6 in Weight 135 lb Last Vital Signs Temp 98.2 F 03/21/21 11:01 Pulse 87 03/21/21 11:01 Resp 18 03/21/21 11:01 BP 126/83 03/21/21 11:01 Pulse Ox 96 03/21/21 11:01 Airway Mallampati Class: II TM Dist: >3cm Neck ROM: Full Denture: Upper and Lower Heart: RRR Assessment and Plan Assessment Anesthesia Assessment: Anesthesia Plan Discussed and Chart Reviewed Final Anesthetic Review Family History of Problems with Anesthesia: No History of Problems with Anesthesia: No NPO: Yes ASA Class: III Final Preanesthetic Review: No Changes in Pt Med Stat, Meds/Allgs Chart Reviewed, Consent Obtained/Reviewed and Anes Risks/Benef Reviewed Patient Risk: Intermediate Procedure Risk: Low Anesthetic Plan Anesthetic Plan: GA and Regional Block Disposition: Standard PACU
[2021-03-21] MEDS: Lactated Ringers 1,000 ML 50 ML IVCONT (13:46)
[2021-03-21 15:50] VITALS: BP 126/75; PULSE 80; RESP 16; TEMP 36.2; O2SAT 98
--- NOTE | 2021-03-21 15:56 | P.OP_ITS ---
Operative Note Operative Note Date of Service: 03/21/21 Narrative: Operative Note Narrative: Preop diagnosis: 1. Left index finger felon 2. Left index finger mass Postop diagnosis: Same Procedure: 1. Left index finger I and D of felon 2. Left index finger mass excisional biopsy Surgeon: Mikala Simmons MD Anesthesia: Mac plus regional block Findings: Copious thick yellow creamy purulent material from the pulp area of the left index finger was cultured. There was a white somewhat empty cyst-like cavity that was removed from the finger and placed on the back table to be sent for histopathology. The pus under pressure caused some loss of skin over the volar radial aspect of the index finger distal to the D IP joint. Implants: None Tourniquet time: 5 minutes EBL: 5.0 ml Specimen: The purulent material was cultured, and the left index finger mass wa s sent for histopathology. Drains: None Complications: None Disposition: Brought to the recovery room in stable condition Plan: Continue Augmentin until finished. Follow-up tomorrow for wound check, and referral to wound care Indications: The patient is a 75 year old man with a history of a mass in the distal radial aspect of the left index finger that they and became red swollen painful in purulent over the last several days. . The risks and benefits of operative treatment, including but not limited to risk of damage to blood vessels, nerves, tendons, infection, recurrence, persistent pain or numbness, incomplete resolution of preoperative symptoms, or need for further surgery were discussed with the patient and they wished to proceed with surgery. Procedure: Once consent was obtained patient was brought back to the operating suite and placed in the operating table in a supine position. A regional block was performed by the anesthesia team before hand in preop hold. Mac anesthesia was administered by the anesthesia team. . We placed a finger tourniquet at the base of the left index finger. I then used a 15. Blade to make a longitudinal incision in the abscess on the volar radial aspect of the left index finger. It was a large abscess measuring perhaps 2 cm in length by 1.5-2 cm in width. This soon is the blade passed through the tissue copious thick yellow pus was expressed and cultured.. The finger tourniquet did not appear to be working very well so I used an Esmarch and wrapped around the hand and the wrist for a total time of perhaps 5 minutes. I used a 15. Blade to debride the skin that constituted the abscess bubble from the finger. The underlying tissue was hyperemic. There is also has more centralized area of skin loss. Within the wound I was able to visualize what looked like a white sac that had ruptured within the pulp of the finger. It is possible that this could have been an epithelial cyst that became infected. This was excised from the finger placed on the back table to be sent for histopathology. There was another white area of what I believe to be skin that measures perhaps 8 mm in length by perhaps 4 mm in width. It was somewhat unusual looking, but given that all of this skin and tissue was macerated and some of it was hyperemic I felt it best to allow this to heal as it may be normal but macerated skin. This was in the central aspect of the wound. We can evaluate this and see if it looks abnormal as the skin and wound is healing. The pulp was gently explored with tenotomy scissors to assure there were no other walled off areas of purulence. The finger and wound were then copiously irrigated with normal saline. At this point the Esmarch tourniquet was removed, and hemostasis obtained with a brief period of local pressure . The wound was copiously irrigated with normal saline. A sterile dressing was then applied. The patient appears to have tolerated the procedure well and with no complications. All digits were well vascularized conclusion of the case.
--- NOTE | 2021-03-21 15:56 | MHC.SHP ---
Pre-Procedural Eval Section A Date of Service: 03/21/21 The patient is an INPATIENT: No Changes since office visit: No Cold of Flu in the past 2 weeks, No New Medical Problems, No Changes in Medication and No Patient answered all questions The History & Physical has been completed within 30 days and I have reviewed it.: Yes Section B Chief Complaint: Cellulitis, Soft tissue disorder Allergies: Allergies Allergy/AdvReac Type Severity Reaction Status Date / Time aspirin [ASA] Allergy Mild UPSET Verified 03/21/21 11:09 STOMACH PT TAKES BABY ASA INSTEAD, stomach upset acetaminophen [From Vicodin] AdvReac Severe upset Verified 03/21/21 11:09 stomach hydrocodone [From Vicodin] AdvReac Severe upset Verified 03/21/21 11:09 stomach Plan I have reviewed the history and physical and performed a pertinent physical examination on my patient. No changes have occurred unless specified.
[2021-03-21 16:04] VITALS: BP 114/84; PULSE 66; RESP 16; O2SAT 97
[2021-03-21 16:20] VITALS: BP 157/89; PULSE 61; RESP 16; O2SAT 95
[2021-03-21 16:34] VITALS: BP 145/92; PULSE 64; RESP 16; TEMP 36.6; O2SAT 95
== END 2021-03-21 16:56 | disposition home or self-care (01) ==
PROVIDERS: PCP Internal Medicine; Visit Provider Orthopaedic Surgery
PROC: (CPT 10060; principal; 2021-03-21 12:30)
DX: M79.89 Other specified soft tissue disorders (principal); L03.012 Cellulitis of left finger; L72.0 Epidermal cyst; J44.9 Chronic obstructive pulmonary disease, unspecified; I25.10 Atherosclerotic heart disease of native coronary artery without angina pectoris; Z98.61 Coronary angioplasty status; I10 Essential (primary) hypertension; Z79.899 Other long term (current) drug therapy; Z88.8 Allergy status to other drugs, medicaments and biological substances; F12.90 Cannabis use, unspecified, uncomplicated; Z86.73 Personal history of transient ischemic attack (TIA), and cerebral infarction without residual deficits; Z87.891 Personal history of nicotine dependence
CPT/HCPCS: 10060; 87071; 87077; 87186; 87205; 88304; J0690; J1100; J2250

== ENCOUNTER → 2021-03-22 09:56 | Outpatient (BNVA) | payer MEDICARE, SELFPAY | PROVIDERS: PCP Internal Medicine; Visit Provider Physician Assistant | DX: L03.012 Cellulitis of left finger (principal); M79.89 Other specified soft tissue disorders | CPT/HCPCS: 99212 ==

== ENCOUNTER 2021-03-28 08:45 | Outpatient (RCR) | payer MEDICARE, SELFPAY | END 2021-04-04 10:43 | disposition home or self-care (01) | LOC: HO.WCC 08:45 | PROVIDERS: PCP Internal Medicine; Visit Provider Surgery | DX: S61.201D Unspecified open wound of left index finger without damage to nail, subsequent encounter (principal); L03.012 Cellulitis of left finger; F12.90 Cannabis use, unspecified, uncomplicated; Z87.891 Personal history of nicotine dependence | CPT/HCPCS: 99212; 99213 ==

== ENCOUNTER → 2021-04-02 09:34 | Outpatient (BNVA) | payer MEDICARE, SELFPAY | PROVIDERS: Visit Provider Physician Assistant | DX: Z48.817 Encounter for surgical aftercare following surgery on the skin and subcutaneous tissue (principal); M79.89 Other specified soft tissue disorders; L03.012 Cellulitis of left finger | CPT/HCPCS: 99212 ==

== ENCOUNTER 2021-04-15 12:11 | Emergency (ER) | payer MEDICARE, OTHER, SELFPAY ==
--- NOTE | ~2021-04-15 | XR_ITS ---
EXAMINATION: XR SHOULDER, LEFT CLINICAL INFORMATION: Pain COMPARISON: None TECHNIQUE: Three views of the left shoulder. FINDINGS: The humeral head articular to the glenoid. No visible acute fracture or dislocation. AC joint is intact. Limited evaluation/visualization of the glenohumeral joint space secondary to positioning/technique. No abnormal soft tissue calcification seen. No suspicious findings in the left hemithorax. XR/XR shoulder LT min 2V IMPRESSION: No radiographic evidence of acute fracture or dislocation.
[2021-04-15 12:16] VITALS: BP 146/84; PULSE 82; RESP 16; TEMP 36.7; O2SAT 96; BMI 20.9
== END 2021-04-15 14:59 | disposition left against medical advice (07) ==
PROVIDERS: Emergency Provider Emergency Medicine; PCP Internal Medicine
DX: M25.512 Pain in left shoulder (principal)
CPT/HCPCS: 73030; 99282; 99283

== ENCOUNTER 2021-04-19 06:24 | Emergency (ER) | payer MEDICARE, OTHER, SELFPAY ==
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
[2021-04-19 06:37] VITALS: BP 144/77; PULSE 77; RESP 20; O2SAT 95; BMI 20.9
--- NOTE | 2021-04-19 06:56 | ED.NECK ---
HPI - Neck Pain/Injury General Chief Complaint: Neck Pain/Injury Stated Complaint: neck pain Time Seen by Provider: 04/19/21 06:56 Source: patient Mode of arrival: ambulatory Limitations: no limitations History of Present Illness MD complaint: neck pain Onset (ago): day(s) (2) Place: home Radiation: right lateral and left lateral Severity: severe and constant Quality: spasming and throbbing Duration: constant Relieving factors: none Exacerbating factors: immobilization, movement of extremity and movement of neck Context: unknown (woke up one AM like this) Associated symptoms: none Treatments prior to arrival: prescription analgesic Related Data Home Medications Medication Instructions Recorded Confirmed aspirin 81 mg tablet,delayed 81 mg PO DAILY 07/12/20 04/11/21 release (Adult Low Dose Aspirin) atorvastatin 80 mg tablet 80 mg PO DAILY 07/12/20 04/11/21 [id number] acid 300 1 tab PO DAILY 07/12/20 04/11/21 mcg-lycopene 600 mcg-lutein 300 mcg tablet (Centrum Silver Men) omeprazole 20 mg capsule,delayed 20 mg PO DAILY 07/12/20 04/11/21 release Previous Rx's Medication Instructions Recorded clotrimazole 10 mg lindsey 10 mg PO TID #21 gaurav 12/11/20 ropinirole 1 mg tablet 1 mg PO BEDTIME 90 Days #90 tab 02/28/21 Breo Ellipta 200 mcg-25 mcg/dose 1 ea PO DAILY #60 ea NS 03/18/21 powder for inhalation (fluticasone furoate-vilanterol) oxycodone 10 mg tablet 10 mg PO Q6H PRN 30 Days #120 tab 04/11/21 oxycodone 5 mg tablet 10 mg PO .every 6 hours PRN 7 Days 04/16/21 #56 tab tamsulosin 0.4 mg capsule 0.4 mg PO BID 90 Days #180 cap 04/16/21 diazepam 5 mg tablet (Valium) 5 mg PO TID PRN #10 tab 04/19/21 lidocaine 4 % topical patch 1 patch TOPICAL DAILY PRN #10 ea 04/19/21 Allergies Allergy/AdvReac Type Severity Reaction Status Date / Time aspirin [ASA] Allergy Mild UPSET Verified 04/11/21 08:42 STOMACH PT TAKES BABY ASA INSTEAD, stomach upset acetaminophen [From Vicodin] AdvReac Severe upset Verified 04/11/21 08:42 stomach hydrocodone [From Vicodin] AdvReac Severe upset Verified 04/11/21 08:42 stomach Review of Systems Review of Systems: Constitutional : No Weight loss, No Fever, No Chills, No Fatigue, No Malaise ENT/Mouth : No sore throat, No Rhinorrhea Eyes: No Eye Pain, No Swelling, No Redness Cardiovascular : No Chest Pain, No SOB, No Dyspnea on Exertion, No Orthopnea, No Edema, No Palpitations Respiratory : No Cough, No Sputum, No Wheezing Gastrointestinal : No Nausea, No Vomiting, No Diarrhea, No Constipation, No abdominal Pain, No Hematochezia, No Melena Genitourinary : No Dysuria, No Urinary Frequency, No Hematuria, Musculoskeletal : pos joint pain, No Myalgias, No Joint Swelling Skin : No Skin Lesions, No rash Neuro : No Weakness, No Numbness, No Dizziness, No Headache Psych : No Anxiety/Panic, No Depression Heme/Lymph: No Bruising, No Bleeding,No Lymphadenopathy Endocrine : No Polyuria, No Polydipsia All other systems reviewed and are negative [facility] Past Medical History Medical History Aneurysmal dilatation CAD (coronary artery disease) COPD (chronic obstructive pulmonary disease) Essential hypertension GERD (gastroesophageal reflux disease) H/O: CVA (cerebrovascular accident) Neck pain Pure hypercholesterolemia Screening for colon cancer Shoulder pain Surgical History History of appendectomy History of cervical spinal surgery History of esophagogastroduodenoscopy (EGD) History of foot surgery History of hemicolectomy History of hernia repair History of laminectomy History of partial colectomy Hx of colonoscopy Stented coronary artery Family History Family History (Updated 04/11/21 @ 08:36 by Annemarie Davis) Father Bone cancer Mother CVD (cardiovascular disease) Brother No problems noted. Sister No problems noted. Daughter No problems noted. 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 Oriented X3. No acute distress. Eyes: Pupils equal, round and reactive to light. ENT: Pharynx normal. Neck: spasm of bilateral trapezius into posterior neck muscles, held down in flexion, distal NV in UE CVS: Normal heart rate and rhythm. Pulses normal. Respiratory: No respiratory distress. Breath sounds normal. Abdomen: Soft and nontender. Skin: Skin warm and dry. Normal skin color. Normal skin turgor. Extremities: No lower extremity edema. No calf ttp Neuro: Oriented X 3. No motor deficit. No sensory deficit. Course Course Course Narrative: feels better stable for DC will start on patches and valium MDM - Neck Pain/Injury MDM Narrative Medical decision making narrative: 75 yo male with hx of CVA, CAD< COPD not on AC therapy comes in with c/o neck pain upon waking 2 days ago he is distal NV intact, it appears MSK in nature has prior fusion - at this time will need CT cspine to check hardware, IM ativan for anti spasm Discharge Plan Discharge Clinical Impression: Muscle spasms of neck Patient Disposition: Home, Self-Care Instructions: Muscle Spasm (ED) Additional Instructions: return to ED for any worsening symptoms or concerns please call your doctor 1. Anterior cervical fusion C6-C7. Hardware intact. No destructive process. 2. No vertebral compression or prevertebral soft tissue swelling. Alignment is similar to prior study. 3. Multilevel facet degeneration and degenerative disc changes again noted. 4. Bilateral apical emphysematous changes and chronic right posterior apical pleural-parenchymal scarring. No pneumothorax. Prescriptions: New lidocaine 4 % adhesive patch,medicated 1 patch topical DAILY PRN (Reason: pain) Qty: 10 RF: 0 diazepam [Valium] 5 mg tablet 5 mg PO TID PRN (Reason: muscle spasm) Qty: 10 RF: 0 No Action clotrimazole 10 mg lindsey 10 mg PO TID Qty: 21 RF: 3 ropinirole 1 mg tablet 1 mg PO BEDTIME 90 Days Qty: 90 RF: 3 Breo Ellipta 200-25 mcg/dose blister with device 1 ea PO DAILY Qty: 60 RF: 3 oxycodone 5 mg tablet 10 mg PO .every 6 hours PRN (Reason: pain) 7 Days Qty: 56 RF: 0 tamsulosin 0.4 mg capsule 0.4 mg PO BID 90 Days Qty: 180 RF: 0 aspirin [Adult Low Dose Aspirin] 81 mg tablet,delayed release (DR/EC) 81 mg PO DAILY RF: 0 atorvastatin 80 mg tablet 80 mg PO DAILY RF: 0 omeprazole 20 mg capsule,delayed release(DR/EC) 20 mg PO DAILY RF: 0 Centrum Silver Men 300-600-300 mcg tablet 1 tab PO DAILY RF: 0 oxycodone 10 mg tablet 10 mg PO Q6H PRN (Reason: pain) 30 Days Qty: 120 RF: 0 Referrals: Francie Velazquez MD [Primary Care Provider] - 2 days Stand Alone Forms: Work/School Release
[2021-04-19] MEDS: LORazepam 2 MG/ML VIAL IM (07:29)
[2021-04-19 09:56] VITALS: BP 136/80; PULSE 78; RESP 16; TEMP 36.5; O2SAT 96
== END 2021-04-19 10:45 | disposition home or self-care (01) ==
PROVIDERS: Emergency Provider Emergency Medicine; PCP Internal Medicine
DX: M54.2 Cervicalgia (principal); M62.838 Other muscle spasm; Z79.899 Other long term (current) drug therapy; Z79.82 Long term (current) use of aspirin
CPT/HCPCS: 72125; 99283; 99284; J2060

== ENCOUNTER 2021-04-19 20:11 | Emergency (ER) | payer OTHER, MEDICARE, SELFPAY ==
--- NOTE | ~2021-04-19 | XR_ITS ---
EXAMINATION: XR CHEST CLINICAL INFORMATION: Cough COMPARISON: 07.03.2019 TECHNIQUE: 2 views of the chest were obtained. FINDINGS: Severe emphysema with biapical bullous changes. Chain sutures redemonstrated along the right superior hilar region and within the right upper lobe. Mild patchy opacities within right midlung. Left lung clear of infiltrates. Normal heart size and pulmonary vascularity. Aorta is atherosclerotic. XR/XR chest 2V IMPRESSION: Severe bullous emphysema. Patchy opacities within the right midlung may represent a superimposed infiltrate.
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
[2021-04-19 20:33] VITALS: BP 144/82; BP 166/91; PULSE 97; PULSE 98; RESP 16; TEMP 37.7; O2SAT 92; BMI 22.0
[2021-04-19 21:17] LABS: COVID-19 Test Negative (Negative)
[2021-04-19 21:38] VITALS: BP 160/94; PULSE 93; RESP 18
[2021-04-19 21:58] LABS: MANUAL DIFF FLAG NO
[2021-04-19 21:59] LABS: Basophils Percent Auto 0.2 % (0-2); Eosinophils Percent Auto 0.1 % (0-4); Hematocrit 40.1 % (42-52); Hemoglobin 14.3 g/dl (14.0-18.0); Imm Gran Abs Auto 0.05 X10*3/uL (0.00-0.03); Imm Gran Pct Auto 0.4 % (0.0-0.4); Lymphocytes Absolute Auto 0.7 X10*3/uL (1.2-4.9); Lymphocytes Percent Auto 5.1 % (20-40); Mean Corpuscular HGB Conc 35.7 g/dl (31.0-36.0); Mean Corpuscular Hemoglobin 30.6 pg (27.0-33.0); Mean Corpuscular Volume 85.7 fL (80-98); Mean Platelet Volume 8.4 fL (9.4-12.4); Monocytes Absolute Auto 1.2 X10*3/uL (0.1-1.2); Monocytes Percent Auto 9.2 % (2-11); Neutrophils Absolute Auto 10.9 X10*3/uL (2.0-8.3); Platelet Count 266 X10*3/uL (160-400); Red Blood Count 4.68 X10*6/uL (4.60-5.80); Red Cell Distribution Width 12.5 % (11.0-16.0); White Blood Count 12.8 X10*3/uL (4.8-10.8)
[2021-04-19 22:14] LABS: Alanine Aminotransferase 18 U/L (0-40); Albumin Level 3.9 g/dL (3.5-5.0); Alkaline Phosphatase 112 U/L (39-117); Anion Gap 13 (12-20); Aspartate Amino Transferase 17 U/L (5-37); Bilirubin Total 1.6 mg/dL (0.0-1.0); Blood Urea Nitrogen 13 mg/dL (9-16); Calcium 9.2 mg/dL (8.4-10.2); Carbon Dioxide 24 mmol/L (22-29); Chloride 101 mmol/L (96-108); Creatinine Clr Calc Pharmacy 66.2; Estimated Glomerular Filt Rate > 60; Glucose Random 96 mg/dL (60-115); Potassium 3.9 mmol/L (3.3-5.1); Sodium 134 mmol/L (135-145); Total Protein 6.4 g/dL (6.5-8.0)
--- NOTE | 2021-04-19 22:41 | PC.NURSE ---
IN ROOM FOR EVAL.
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
[2021-04-19] MEDS: Ketorolac Tromethamine 15 MG/ML VIAL IVPUSH (23:05)
[2021-04-19] MEDS: Acetaminophen 325 MG TABLET 975 MG PO (23:05)
[2021-04-19] MEDS: Lidocaine 4 % Patch ADH..PATCH 1 PATCH TRANSDERMA (23:06)
[2021-04-19 23:10] VITALS: BP 145/88; PULSE 90; RESP 18
--- NOTE | 2021-04-19 23:46 | PC.NURSE ---
c-collar applied to neck as per MD's orders. pt awaiting x-ray. pt still c/o pain in neck and head. will continue to monitor pt.
--- NOTE | 2021-04-20 01:16 | PC.NURSE ---
pt resting in stretcher, respirations easy, n/l. skin w/d. will continue to monitor pt.
[2021-04-20 01:32] VITALS: BP 142/85; PULSE 84; RESP 18; O2SAT 97
[2021-04-20 02:45] VITALS: BP 133/90; PULSE 78; RESP 18
--- NOTE | 2021-04-20 02:55 | PC.NURSE ---
pt to x-ray for cxr.
== END 2021-04-20 06:40 | disposition home or self-care (01) ==
PROVIDERS: Emergency Provider Student in an Organized Health Care Education/Training Program
DX: J18.9 Pneumonia, unspecified organism (principal); R51.9 Headache, unspecified; M54.5 Low back pain; M54.2 Cervicalgia; Z79.899 Other long term (current) drug therapy; F12.90 Cannabis use, unspecified, uncomplicated; Z20.822 Contact with and (suspected) exposure to COVID-19
CPT/HCPCS: 36415; 70450; 71046; 72125; 80053; 85025; 87635; 96374; 99283; 99284; J1885

== ENCOUNTER 2021-05-01 13:32 | Outpatient (REF) | payer MEDICARE, SELFPAY ==
--- NOTE | ~2021-05-01 | XR_ITS ---
EXAMINATION: XR CHEST CLINICAL INFORMATION: History of pneumonia. COMPARISON: Chest radiograph dated from 04/20/2021 and 03/15/2018. TECHNIQUE: 2 views of the chest were obtained. FINDINGS: Unchanged appearance of the cardiomediastinal silhouette. There is redemonstration of significant architectural distortion and parenchymal scarring in the right upper lobe which is progressed since 2018. Right apical surgical sutures are again noted. Hazy opacities in the right midlung are decreased since the most recent study from 04/20/2021. There is however a new small right pleural effusion. No pneumothorax. No acute osseous findings. Cervical ACDF is redemonstrated. XR/XR chest 2V IMPRESSION: New small right pleural effusion of uncertain etiology. Architectural distortion and parenchymal scarring in the right upper lobe has progressed since 2018. Consider further evaluation with a diagnostic chest CT to rule out underlying lesions.
== END 2021-05-01 13:33 | disposition home or self-care (01) ==
LOC: HO.XRAY 13:32
PROVIDERS: PCP Internal Medicine; Visit Provider Physician Assistant
DX: Z87.01 Personal history of pneumonia (recurrent) (principal)
CPT/HCPCS: 71046

== ENCOUNTER 2021-05-21 10:19 | Outpatient (REF) | payer MEDICARE, SELFPAY ==
--- NOTE | ~2021-05-21 | CT_ITS ---
EXAMINATION: CT CHEST WITHOUT CONTRAST CLINICAL INFORMATION: Pleural effusion. COMPARISON: Previous chest x-ray most recent April [address] July 2011 TECHNIQUE: Multidetector volumetric CT imaging of the chest was done. Axial MIP volume rendering provided. Sagittal and coronal reformatted images were obtained. This CT examination was performed using dose optimization techniques as appropriate, variously including the following: *Automated exposure control *Adjustment of mA and/or kV according to patient size (this includes techniques or standardized protocols for targeted exams where dose is matched to indication/reason for exam; i.e. extremities or head) *Use of iterative reconstruction technique DLP: 125 mGy-cm FINDINGS: LUNGS: There is severe emphysema. There is evidence of right apical pleural and parenchymal scarring and calcification. This is similar to July 2011 exam. There is a triangular-shaped abnormal parenchymal density at the right lung apex that measures approximately 2 cm axial image 105 series 5 that is stable. There is a new abnormal partially cystic, partially solid parenchymal density in the right upper lobe in the more inferior lateral right upper lobe. This measures approximately 2 x 5.5 cm in transverse and AP dimension and has area of cystic change or cavity formation and focal bronchiectasis and peripheral scarring. There is a second smaller similar-appearing abnormal parenchymal density in the adjacent superior segment of the right lower lobe with solid and cystic change. This measures approximately 2 cm including the solid and cystic component, has peripheral scarring and focal bronchiectasis. There is volume loss to the right upper lobe and thickening of the posterior right major fissure. There is a 3 mm calcified peripheral right upper lobe nodule axial image 125 series 5. There is a 5 mm noncalcified peripheral left upper lobe nodule axial image 159 series 5. There are partially calcified peripheral or subpleural nodules adjacent to the left upper lobe measuring 4 and 5 mm axial image 195 series 5. There are small peripheral or subpleural nodules adjacent to the left pleural fissure, largest partially calcified measuring 5 mm axial image 228 series 5. These are similar to July 2011 exam. There are peripheral pleural and parenchymal changes in both lower lobes at the lung bases that are unchanged. MEDIASTINUM: The ascending thoracic aorta is dilated and measures 4.8 cm in diameter. This is increased in size from 4.3 cm on July 2011 exam. There is coronary artery and aortic valve calcification. The heart does not appear enlarged. There is no pericardial effusion. PLEURA: There is no pleural effusion. No pleural mass or thickening. AXILLA: No lymphadenopathy. UPPER ABDOMEN: The gallbladder has been removed. OSSEOUS STRUCTURES: There are old right-sided rib fractures. There are degenerative changes of the thoracic spine. There are postsurgical changes of the cervical spine. CT/CT chest wo con IMPRESSION: Severe emphysema. Stable right apical pleural and parenchymal scarring. New abnormal parenchymal densities, partially solid, partially cystic or cavitary in the posterior segment of the right upper lobe and superior segment of the right lower lobe and thickening of the right major fissure. Infectious, inflammatory and neoplastic processes should be considered. Followup PET/CT scan, followup imaging or tissue sampling should be considered. Coronary artery and aortic valve calcification. Aneurysm of the ascending thoracic aorta. This measures 4.8 cm in diameter and is increased in size from July 2011 exam. No pleural effusion. Findings will be communicated by the [facility] work flow floor nurse Maliha Sparks.
== END 2021-05-21 10:20 | disposition home or self-care (01) ==
LOC: HO.CT 10:19
PROVIDERS: Visit Provider Physician Assistant
DX: J90 Pleural effusion, not elsewhere classified (principal); J98.4 Other disorders of lung
CPT/HCPCS: 71250

== ENCOUNTER → 2021-05-30 09:24 | Outpatient (BNVA) | payer MEDICARE, SELFPAY | PROVIDERS: PCP Internal Medicine; Visit Provider Internal Medicine | DX: J44.9 Chronic obstructive pulmonary disease, unspecified (principal); J84.10 Pulmonary fibrosis, unspecified; J98.4 Other disorders of lung | CPT/HCPCS: 99212 ==

== ENCOUNTER 2021-06-12 10:09 | Outpatient (REF) | payer MEDICARE, OTHER, SELFPAY ==
--- NOTE | ~2021-06-12 | XR_ITS ---
EXAMINATION: XR SHOULDER, LEFT CLINICAL INFORMATION: Pain in the left shoulder COMPARISON: 04/15/2021 TECHNIQUE: AP external rotation, Grashey, scapular Y, and axillary views of the left shoulder. FINDINGS: There is no fracture or dislocation. The glenohumeral joint is well aligned. Joint space is mildly narrowed with small marginal osteophytes. The acromioclavicular joint is intact. The visualized lung is clear. The visualized ribs are intact. Cervical fusion hardware noted. XR/XR shoulder LT min 2V IMPRESSION: Mild degenerative changes at the left glenohumeral joint.
== END 2021-06-12 10:10 | disposition home or self-care (01) ==
LOC: HO.XRAY 10:09
PROVIDERS: Visit Provider Internal Medicine
DX: M25.512 Pain in left shoulder (principal)
CPT/HCPCS: 73030

== ENCOUNTER 2021-07-09 10:00 | Outpatient (RCR) | payer MEDICARE, OTHER, SELFPAY ==
--- NOTE | 2021-06-07 09:45 | MHC.PT.EP ---
[facility] [place] Office [place] Office [place] Office [address] Jai Hernández [address] [phone] F: [phone] F: [phone] F: [phone] F: [phone] Physical Therapy Plan of Care Date of Evaluation: Date of Surgery: N/A Diagnosis: cervical spine degeneration Assessment: pt's symptoms appear to be related to recent acute trauma, habitual poor posturing, and chronic impaired cervical mobility secondary to cervical fusion. pt presents to physical therapy with pain, decreased range of motion, decreased strength, impaired functional mobility, impaired postural awareness, and gait deviations. pt is a fair candidate for skilled PT due to age, potential remediation of impairments, typical disease/condition progression and prognosis, comorbidities, and motivation. pt would benefit from tailored strengthening and stretching exercise program, functional training, gait training, postural re-training, neuromuscular re-education, modalities as needed for pain, equipment safety demonstration. Frequency and Duration: The patient will be seen 2x/wk for 4 wks Short Term Goals: pt will be I w/ HEP to promote self-management of condition. pt will demo proper sitting posture w/ lumbar roll to promote neutral spine w/ seated ADLs. pt will improve L shoulder flexion and abduction by 10 degrees to promote ease in reaching for objects on higher shelves. Expressive Therapist Goals: pt will report a statistically significant improvement in self-reported outcome measure to promote return to PLOF. pt will report <3/10 neck pain w/ cervical extension while performing shaving. pt will improve L shoulder strength to 4/5 in all planes to promote functional strengthening for rn managed care. Treatment Plan: Modalities to reduce pain, spasms and effusion. Manual therapy to restore motion and function. Therapeutic exercise to improve strength and flexibility. Neuromuscular re-education for posture and balance. Therapeutic activities to return to functional activities of daily living. Electronically signed by: Marychuy Boyd PT, DPT Please sign and return to therapist. Thank you for your referral.
--- NOTE | 2021-07-09 10:51 | MHC.PT.DC ---
[facility] [place] Office [place] Office [place] Office [address] Jai Hernández [address] [phone] F: [phone] F: [phone] F: [phone] F: [phone] Physical Therapy Discharge Report Diagnosis: cervical spine degeneration Date of Surgery: N/A Date of Evaluation: 06/07/21 Date of Discharge: 07/09/21 Treatments to Date: 8 Cancellations to Date: 0 No Shows to Date: 0 Discharge Status: Independent with HEP Recommend MD Follow-up Discharge Summary: The patient overall has been reporting no change in his pain symptoms since starting physical therapy. He still has reproduction of sharp cervical pain with extension movements which limits his ability to perform self-care tasks such as shaving. He has demonstrated a significant improvement in his sitting and standing posture and postural awareness. He demonstrates improved ability to find neutral position to reduce forward head and increased thoracic kyphosis. He has a home exercise program to continue to work on his cervical and thoracic mobility. He is discharged from this physical therapy plan of care. He would benefit from a follow-up with an orthopedic or pain management to determine another plan to work on managing his symptoms. Electronically signed by: Marychuy Boyd PT, DPT Please sign and return to therapist. Thank you for your referral.
== END 2021-07-09 10:52 | disposition home or self-care (01) ==
LOC: HO.PT 10:00
PROVIDERS: PCP Internal Medicine; Visit Provider Physician Assistant
DX: M47.12 Other spondylosis with myelopathy, cervical region (principal)
CPT/HCPCS: 97110; 97112; 97140; 97150; 97162

== ENCOUNTER 2021-07-22 12:55 | Outpatient (REF) | payer MEDICARE, OTHER, SELFPAY ==
[2021-07-22 13:34] LABS: COVID-19 Test Negative (Negative); IDNOW Serial# 16C4AD1C
== END 2021-07-22 12:56 | disposition home or self-care (01) ==
LOC: HO.LAB 12:55
PROVIDERS: Visit Provider Internal Medicine
DX: Z20.822 Contact with and (suspected) exposure to COVID-19 (principal)
CPT/HCPCS: 36415; 87635; C9803

== ENCOUNTER → 2021-07-25 12:10 | Outpatient (BNVA) | payer MEDICARE, OTHER, SELFPAY | PROVIDERS: Visit Provider Orthopaedic Surgery | DX: M75.102 Unspecified rotator cuff tear or rupture of left shoulder, not specified as traumatic (principal); M54.2 Cervicalgia; S13.4XXA Sprain of ligaments of cervical spine, initial encounter | CPT/HCPCS: 20610; 99202; J1100 ==

== ENCOUNTER 2021-08-07 11:22 | Outpatient (REF) | payer MEDICARE, OTHER, SELFPAY | END 2021-08-07 11:23 | disposition home or self-care (01) | LOC: HO.WFDLDS 11:22 | PROVIDERS: Visit Provider Internal Medicine | DX: Z20.822 Contact with and (suspected) exposure to COVID-19 (principal) | CPT/HCPCS: C9803; U0003; U0005 ==

== ENCOUNTER → 2021-08-27 09:13 | Outpatient (BNVA) | payer OTHER, SELFPAY | PROVIDERS: PCP Internal Medicine; Visit Provider Internal Medicine | DX: J44.9 Chronic obstructive pulmonary disease, unspecified (principal); J98.4 Other disorders of lung; J84.10 Pulmonary fibrosis, unspecified | CPT/HCPCS: 99212 ==

== ENCOUNTER → 2021-09-02 10:39 | Outpatient (BNVA) | payer OTHER, SELFPAY | PROVIDERS: PCP Internal Medicine; Visit Provider Anesthesiology | DX: M96.1 Postlaminectomy syndrome, not elsewhere classified (principal); M47.812 Spondylosis without myelopathy or radiculopathy, cervical region; G89.4 Chronic pain syndrome | CPT/HCPCS: 99202 ==

== ENCOUNTER 2021-09-17 07:21 | Outpatient (REF) | payer MEDICARE, OTHER, SELFPAY ==
--- NOTE | ~2021-09-17 | CT_ITS ---
EXAMINATION: CT CHEST WITHOUT CONTRAST CLINICAL INFORMATION: Pulmonary fibrosis. COMPARISON: Previous chest CT scans, most recent May 2021. TECHNIQUE: Multidetector volumetric CT imaging of the chest was done. Axial MIP volume rendering provided. Sagittal and coronal reformatted images were obtained. This CT examination was performed using dose optimization techniques as appropriate, variously including the following: *Automated exposure control *Adjustment of mA and/or kV according to patient size (this includes techniques or standardized protocols for targeted exams where dose is matched to indication/reason for exam; i.e. extremities or head) *Use of iterative reconstruction technique DLP: 142 mGy-cm FINDINGS: LUNGS: There is evidence of emphysema. There is right apical pleural-parenchymal scarring and calcification that is stable. There is volume loss to the right upper lobe. There is interval decrease in consolidation, scarring or atelectasis in the right upper lobe and superior segment of the right lower lobe adjacent to the major fissure. There is mild residual traction bronchiectasis seen in this region. There are severe cystic changes seen at the right lung base. There is a calcified 4 mm left upper lobe nodule axial image 69 series 10 that is stable. There is a 3 mm left upper lobe nodule axial image 64 series 10 that is stable. There is a 4 mm left upper lobe nodule axial image 69 series 10 that is stable. There are several new left upper lobe nodules. There is a linear abnormal parenchymal density in the left upper lobe measuring 5 x 1.4 cm axial image 40 series 10. There is a 5 mm left upper lobe nodule axial image 58 series 10. There is a peripheral or subpleural left upper lobe nodule that measures 3 x 9 mm axial image 70 series 10 that appears increased. There is a 5 x 10 mm peripheral or subpleural left lower lobe nodule axial image 100 series 10 that appears increased. There is a 4 mm peripheral or subpleural left upper lobe nodule axial image 122 series 10 that appears increased. There is a focal pleural thickening adjacent to the posterior medial left lower lobe measuring 5 x 20 mm axial image 146 series 10 that appears unchanged. MEDIASTINUM: The ascending thoracic aorta is dilated measuring up to 4.8 cm. This is unchanged. There is coronary artery and aortic valve calcification. The heart does not appear enlarged. There is no pericardial effusion. There are no enlarged hilar or mediastinal lymph nodes. PLEURA: There is no pleural effusion or pneumothorax. AXILLA: No lymphadenopathy. UPPER ABDOMEN: The gallbladder is been removed. OSSEOUS STRUCTURES: There are degenerative changes of the spine. CT/CT chest wo con IMPRESSION: Severe emphysema. Stable right apical pleural-parenchymal scarring and calcification. Interval decrease in the consolidation in the posterior segment of the right upper lobe and superior segment of the right lower lobe with new scarring and traction bronchiectasis and volume loss to the right upper lobe. Several new left upper lobe nodules and abnormal parenchymal densities. Attention on follow-up recommended. Coronary artery and aortic valve calcification. Dilated ascending thoracic aorta measuring up to 4.8 cm similar to most recent exam. Fleischner guidelines were followed.
== END 2021-09-17 07:22 | disposition home or self-care (01) ==
LOC: HO.CT 07:21
PROVIDERS: Visit Provider Internal Medicine
DX: J98.4 Other disorders of lung (principal)
CPT/HCPCS: 71250

== ENCOUNTER 2022-02-25 07:17 | Outpatient (REF) | payer MEDICARE, SELFPAY ==
[2022-02-25 08:21] LABS: Alanine Aminotransferase 27 U/L (0-40); Albumin Level 4.1 g/dL (3.5-5.0); Alkaline Phosphatase 99 U/L (39-117); Anion Gap 9 (12-20); Aspartate Amino Transferase 25 U/L (5-37); Bilirubin Total 0.6 mg/dL (0.0-1.0); Blood Urea Nitrogen 17 mg/dL (9-16); Calcium 8.9 mg/dL (8.4-10.2); Carbon Dioxide 28 mmol/L (22-29); Chloride 104 mmol/L (96-108); Cholesterol 129 mg/dL; Estimated Glomerular Filt Rate > 60; Glucose Fasting 105 mg/dL (60-99); HDL Cholesterol 51 mg/dL; LDL Cholesterol Calculated 67 mg/dl; Potassium 4.2 mmol/L (3.3-5.1); Sodium 137 mmol/L (135-145); Total Protein 6.3 g/dL (6.5-8.0); Triglycerides 58 mg/dL
== END 2022-02-25 07:18 | disposition home or self-care (01) ==
LOC: HO.LAB 07:17
PROVIDERS: PCP Internal Medicine; Visit Provider Internal Medicine
DX: J44.9 Chronic obstructive pulmonary disease, unspecified (principal); E78.5 Hyperlipidemia, unspecified
CPT/HCPCS: 36415; 80053; 80061

== ENCOUNTER → 2022-03-03 12:56 | Outpatient (BNVA) | payer MEDICARE, OTHER, SELFPAY | PROVIDERS: PCP Internal Medicine; Visit Provider Internal Medicine | DX: J44.9 Chronic obstructive pulmonary disease, unspecified (principal); J84.10 Pulmonary fibrosis, unspecified; R91.8 Other nonspecific abnormal finding of lung field; Z79.899 Other long term (current) drug therapy | CPT/HCPCS: 99212 ==

== ENCOUNTER → 2022-09-02 09:35 | Outpatient (BNVA) | payer OTHER, SELFPAY | PROVIDERS: PCP Internal Medicine; Visit Provider Internal Medicine | DX: J44.9 Chronic obstructive pulmonary disease, unspecified (principal); J84.10 Pulmonary fibrosis, unspecified; R91.8 Other nonspecific abnormal finding of lung field | CPT/HCPCS: 99212 ==

== ENCOUNTER 2022-09-17 09:42 | Outpatient (REF) | payer OTHER, SELFPAY ==
--- NOTE | ~2022-09-17 | CT_ITS ---
EXAMINATION: CT CHEST WITHOUT CONTRAST CLINICAL INFORMATION: COPD. COMPARISON: Prior chest CT examinations, most recently 09/17/2021. TECHNIQUE: Multidetector volumetric CT imaging of the chest was done. Axial MIP volume rendering provided. Sagittal and coronal reformatted images were obtained. This CT examination was performed using dose optimization techniques as appropriate, variously including the following: *Automated exposure control *Adjustment of mA and/or kV according to patient size (this includes techniques or standardized protocols for targeted exams where dose is matched to indication/reason for exam; i.e. extremities or head) *Use of iterative reconstruction technique DLP: 125 mGy-cm FINDINGS: LUNGS: There are diffuse centrilobular emphysematous changes. There is stable biapical pleural and parenchymal scarring, most pronounced posteriorly at the right apex, where there is associated calcification. There is increase in subpleural reticular markings noted at the right base, with honeycombing. There are scattered benign, calcified right lung granulomas. Within the anterior segment of the right upper lobe (11:76), a 3 mm noncalcified nodule is redemonstrated. Abutting the lower major fissure (11:126), a 1.2 cm x 0.8 mildly spiculated nodule is newly seen. Centrally within the left upper lobe (11:52), a 4 mm noncalcified nodule is newly seen. In the apicoposterior segment of the left upper lobe (11:55), a stable 5 mm noncalcified nodule is seen. There is a neighboring adjacent 4 mm noncalcified nodule (11:69), which appears stable. There are several further benign, calcified left lung granulomas. No mass, infiltrate or groundglass opacity is seen. There is no small airway thickening. The central airways appear patent. MEDIASTINUM: The thyroid is unremarkable. There is aneurysmal dilatation of the ascending thoracic aorta, which measures 4.6 x 4.6 cm (10:30). There are atherosclerotic calcifications of the great vessel origins, thoracic aorta and coronary arteries. No mediastinal or hilar lymphadenopathy is seen. CORONARY ARTERY CALCIFICATION: Moderate. PLEURA: There is no pleural effusion. There is no generalized pleural thickening. AXILLA: No lymphadenopathy. UPPER ABDOMEN: The gallbladder is surgically absent. Otherwise, unremarkable. OSSEOUS STRUCTURES: There is multi-level thoracic degenerative disc disease, spondylosis and Schmorl's node formation. Lower cervical orthopedic hardware is noted. No acute or aggressive osseous abnormality is seen. CT/CT chest wo IV con IMPRESSION: 1. Abutting the lower right major fissure, a 1.2 cm mildly spiculated pleural-based nodule is newly seen. Further evaluation with PET/CT is recommended. 2. A further 4 mm noncalcified nodule is newly seen within the left upper lobe. Recommend continued attention on follow-up. 3. There are further bilateral benign, stable noncalcified and calcified pulmonary nodules. 4. There are underlying changes of emphysema and chronic interstitial lung disease. 5. No thoracic lymphadenopathy or pleural effusion is seen. 6. No aggressive osseous lesion is seen. Fleischner guidelines were followed.
== END 2022-09-17 09:43 | disposition home or self-care (01) ==
LOC: HO.CT 09:42
PROVIDERS: PCP Internal Medicine; Visit Provider Internal Medicine
DX: J44.9 Chronic obstructive pulmonary disease, unspecified (principal); R91.1 Solitary pulmonary nodule
CPT/HCPCS: 71250

== ENCOUNTER 2022-11-06 09:44 | Outpatient (REF) | payer OTHER, SELFPAY ==
--- NOTE | ~2022-11-06 | XR_ITS ---
EXAMINATION: XR SHOULDER, LEFT CLINICAL INFORMATION: Left shoulder pain. COMPARISON: 06/14/2021 TECHNIQUE: AP external rotation, Grashey, scapular Y, and axillary views of the left shoulder. FINDINGS: There is no evidence of acute fracture or dislocation of the left shoulder. There is mild superior subluxation of the humeral head. There are pit erosions seen at the site of insertion of the supraspinatus tendon on the humeral head. No significant abnormality of the acromioclavicular joint is seen. There is some mild spurring about the glenohumeral joint without significant narrowing. No calcific tendinitis is identified. No widening of the coracoclavicular space is seen. Patient is status post previous cervical spine surgery. XR/XR shoulder LT min 2V IMPRESSION: Mild degenerative change of the left shoulder without evidence of acute fracture, dislocation, or calcific tendinitis.
[2022-11-06 12:06] LABS: Alanine Aminotransferase 25 U/L (0-40); Albumin Level 4.2 g/dL (3.5-5.0); Alkaline Phosphatase 100 U/L (39-117); Anion Gap 15 (12-20); Aspartate Amino Transferase 24 U/L (5-37); Bilirubin Total 0.9 mg/dL (0.0-1.0); Blood Urea Nitrogen 15 mg/dL (9-16); Calcium 9.4 mg/dL (8.4-10.2); Carbon Dioxide 26 mmol/L (22-29); Chloride 104 mmol/L (96-108); Cholesterol 146 mg/dL; Estimated Glomerular Filt Rate > 60; Glucose Fasting 101 mg/dL (60-99); HDL Cholesterol 52 mg/dL; LDL Cholesterol Calculated 81 mg/dl; Potassium 4.6 mmol/L (3.3-5.1); Sodium 140 mmol/L (135-145); Total Protein 6.3 g/dL (6.5-8.0); Triglycerides 66 mg/dL
== END 2022-11-06 09:45 | disposition home or self-care (01) ==
LOC: HO.XRAY 09:44
PROVIDERS: PCP Internal Medicine; Visit Provider Internal Medicine
DX: Z00.00 Encounter for general adult medical examination without abnormal findings (principal); E78.5 Hyperlipidemia, unspecified; M25.512 Pain in left shoulder
CPT/HCPCS: 36415; 73030; 80053; 80061

== ENCOUNTER → 2022-11-28 08:09 | Outpatient (BNVA) | payer OTHER, SELFPAY | PROVIDERS: PCP Internal Medicine; Visit Provider Physician Assistant | DX: M75.22 Bicipital tendinitis, left shoulder (principal); M75.82 Other shoulder lesions, left shoulder | CPT/HCPCS: 20610; 99212; J1040 ==

== ENCOUNTER 2022-12-15 10:31 | Day surgery (SDC) | payer OTHER, SELFPAY ==
--- NOTE | 2022-12-04 13:12 | ECG_ITS ---
Test Reason : PREOP Blood Pressure : / mmHG Vent. Rate : 069 BPM Atrial Rate : 069 BPM P-R Int : 166 ms QRS Dur : 094 ms QT Int : 402 ms P-R-T Axes : 087 082 080 degrees QTc Int : 430 ms Normal sinus rhythm Normal ECG When compared with ECG of 03-JUL-2018 13:36, No significant change was found Referred By: Dilma Chaudhary Electronically Signed By:Amando Darden
[2022-12-04 13:46] LABS: Hematocrit 44.4 % (42.0-52.0); Hemoglobin 15.1 g/dl (14.0-18.0); Mean Corpuscular Hemoglobin 29.8 pg (27.0-33.0); Mean Corpuscular Volume 87.6 fL (80.0-98.0); Mean Platelet Volume 8.5 fL (9.4-12.4); Platelet Count 316 X10*3/uL (160-400); Red Blood Count 5.07 X10*6/uL (4.60-5.80); Red Cell Distribution Width 13.2 % (11.0-16.0); White Blood Count 8.8 X10*3/uL (4.8-10.8)
[2022-12-04 14:03] LABS: Prothrombin Time 11.2 SEC (10.0-13.1)
[2022-12-04 14:11] LABS: Alanine Aminotransferase 30 U/L (0-40); Albumin Level 4.2 g/dL (3.5-5.0); Alkaline Phosphatase 99 U/L (39-117); Anion Gap 10 (12-20); Aspartate Amino Transferase 24 U/L (5-37); Bilirubin Total 0.5 mg/dL (0.0-1.0); Blood Urea Nitrogen 18 mg/dL (9-16); Calcium 9.7 mg/dL (8.4-10.2); Carbon Dioxide 27 mmol/L (22-29); Chloride 104 mmol/L (96-108); Cholesterol 137 mg/dL; Estimated Glomerular Filt Rate > 60; Glucose Fasting 135 mg/dL (60-99); Glucose Random 135 mg/dL (60-115); HDL Cholesterol 49 mg/dL; LDL Cholesterol Calculated 73 mg/dl; Potassium 4.2 mmol/L (3.3-5.1); Sodium 137 mmol/L (135-145); Total Protein 6.3 g/dL (6.5-8.0); Triglycerides 75 mg/dL
[2022-12-04 14:35] LABS: TSH reflex Free T4 1.21 uIU/mL (0.32-4.0)
[2022-12-10 09:38] VITALS: BMI 20.6
--- NOTE | 2022-12-12 08:06 | MHC.SHP ---
Pre-Procedural Eval Section A Date of Service: 12/12/22 The patient is an INPATIENT: No Changes since office visit: No Cold of Flu in the past 2 weeks, No New Medical Problems, No Changes in Medication and No Patient answered all questions The History & Physical has been completed within 30 days and I have reviewed it.: Yes Section B Chief Complaint: Age-related nuclear cataract, right eye Allergies: Allergies Allergy/AdvReac Type Severity Reaction Status Date / Time aspirin [ASA] Allergy Mild UPSET Verified 12/04/22 12:06 STOMACH PT TAKES BABY ASA INSTEAD, stomach upset acetaminophen [From Vicodin] AdvReac Severe upset Verified 12/04/22 12:06 stomach hydrocodone [From Vicodin] AdvReac Severe upset Verified 12/04/22 12:06 stomach Plan Diagnosis/Plan: Unchanged I have reviewed the history and physical and performed a pertinent physical examination on my patient. No changes have occurred unless specified. Time Spent With Patient Time: Total time managing care of this patient today ____ minutes.
[2022-12-15] MEDS: Lactated Ringers 500 ML 50 ML IV (11:32)
[2022-12-15] MEDS: Cyclopentolate 1 % Ophth Sol 2 ML DRPBTL 1 DROP EYE-RIGHT ×3 (11:35→11:49)
[2022-12-15] MEDS: Tetracaine HCl/PF 0.5% Oph Sol 4 ML DROPS 1 DROP EYE-RIGHT (11:35)
[2022-12-15] MEDS: Ketorolac Tromethamine 0.5% Op 5 ML DROPS 1 DROP EYE-RIGHT ×3 (11:35→11:48)
[2022-12-15] MEDS: Phenylephrine HCL 2.5% Oph SoL 2 ML BOTTLE 1 DROP EYE-RIGHT ×3 (11:35→11:48)
[2022-12-15] MEDS: Tropicamide 1 % Ophth Sol 3 ML BTL 1 DROP EYE-RIGHT ×3 (11:35→11:49)
--- NOTE | 2022-12-15 11:46 | P.CONAN_ITS ---
[facility] Active Problems Active Problems: All Active Problems (Updated 12/04/22 @ 13:00 by OMAIRA Torres) Cataract (Acute) Preoperative clearance (Acute) Tendonitis of left rotator cuff (Acute) Biceps tendonitis on left (Acute) LVH (left ventricular hypertrophy) (Acute) Annual physical exam (Acute) Tubular adenoma of colon (Acute) Left flank pain (Acute) AAA (abdominal aortic aneurysm) without rupture (Acute) Carotid stenosis, bilateral (Acute) Abdominal pain (Acute) Mass of soft tissue of left upper extremity (Acute) Felon of finger of left hand (Acute) Cervical spine degeneration (Acute) H/O: pneumonia (Acute) Scarring of lung (Acute) Pulmonary nodule (Acute) Ascending aortic aneurysm (Acute) Cervicalgia (Acute) Arthritis of shoulder region, left, degenerative (Acute) Whiplash (Acute) Painful arc syndrome of left shoulder (Acute) Left shoulder pain (Acute) Pulmonary nodules (Acute) Oral thrush (Acute) Physical exam (Acute) Chronic pain syndrome (Acute) Spondylosis, cervical (Acute) Postlaminectomy syndrome of cervical region (Acute) COPD (chronic obstructive pulmonary disease) (Acute) Left shoulder pain (Acute) Lung density on x-ray (Acute) Pulmonary fibrosis (Acute) Pleural effusion (Acute) H/O: CVA (cerebrovascular accident) (Acute) Aneurysmal dilatation (Acute) Screening for colon cancer (Acute) CAD (coronary artery disease) (Acute) COPD (chronic obstructive pulmonary disease) (Acute) Shoulder pain (Acute) Pure hypercholesterolemia (Acute) GERD (gastroesophageal reflux disease) (Acute) Essential hypertension (Acute) Neck pain (Acute) Past Medical History Medical History Aneurysmal dilatation CAD (coronary artery disease) Chronic pain syndrome COPD (chronic obstructive pulmonary disease) COPD (chronic obstructive pulmonary disease) Essential hypertension GERD (gastroesophageal reflux disease) H/O: CVA (cerebrovascular accident) Left shoulder pain Lung density on x-ray Neck pain Oral thrush Physical exam Pleural effusion Postlaminectomy syndrome of cervical region Pulmonary fibrosis Pulmonary nodules Pure hypercholesterolemia Screening for colon cancer Shoulder pain Spondylosis, cervical Family History Family History Father Bone cancer Mother CVD (cardiovascular disease) Brother No problems noted. Sister No problems noted. Daughter No problems noted. Family history of problems with anesthesia: No Surgical History Surgical History History of appendectomy History of back surgery History of cervical spinal surgery History of esophagogastroduodenoscopy (EGD) History of foot surgery History of hand surgery History of hemicolectomy History of hernia repair History of laminectomy History of partial colectomy Hx of colonoscopy Hx of neck surgery Stented coronary artery History of Problems with Anesthesia: No Social History Social History Household Members Other:: Daughter Housing: House Are you a primary managed care specialist to a significant other at home: No Do you presently have visiting nurse or other home services: No Alcohol intake: never Patient Tobacco Use Status: Former Tobacco user Years Smoked: once in a while e-Cigarette/Vaping Use: Never Used Second Hand Smoke Exposure: No Use of substances other than those prescribed or required for medical reasons: Yes Substance Use Type: Marijuana Substance Use Frequency: Occasionally Are you DNR?: No Advance Directives: Yes Advance Directives Information Provided: No Advance Directives on File: Yes Advance Directives Date on File: 09/13/12 service: No Current occupational status: retired 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 Cognitive needs: No Hearing needs: No Vision needs: No Meds Allergies Allergy/AdvReac Type Severity Reaction Status Date / Time aspirin [ASA] Allergy Mild UPSET Verified 12/04/22 12:06 STOMACH PT TAKES BABY ASA INSTEAD, stomach upset acetaminophen [From Vicodin] AdvReac Severe upset Verified 12/04/22 12:06 stomach hydrocodone [From Vicodin] AdvReac Severe upset Verified 12/04/22 12:06 stomach Active Medications: Current Medications Albuterol Sulfate (Albuterol Sulfate (0.083%) 2.5 Mg/3 Ml Vial.Neb) 2.5 mg INHALE ONCE PRN PRN Reason: Shortness of Breath/Wheezing Cyclopentolate HCl (Cyclopentolate 1 % Ophth Nataliia 2 Ml Drpbtl) 1 drop EYE-RIGHT Q5M [facility] Stop: 12/15/22 11:56 Lactated Ringer's (Lr) 500 mls @ 50 mls/hr IV .Q10H [facility] Stop: 12/15/22 21:29 Last Admin: 12/15/22 11:32 Dose: 50 mls/hr Ketorolac Tromethamine (Ketorolac Tromethamine 0.5% Op 5 Ml Drops) 1 drop EYE- RIGHT Q5M [facility] Stop: 12/15/22 11:56 Phenylephrine HCl (Phenylephrine Hcl 2.5% Oph Nataliia 2 Ml Bottle) 1 drop EYE-RIGHT Q5M [facility] Stop: 12/15/22 11:56 Povidone Iodine (Povidone Iodine 5 % Ophth Soln 30 Ml Bottle) 1 appl EYE-RIGHT PREOP PRN PRN Reason: Pre-Op Surgical Implant Prophy Povidone Iodine (Povidone Iodine 5 % Ophth Soln 30 Ml Bottle) 1 appl EYE-RIGHT PREOP PRN PRN Reason: Pre-Op Surgical Implant Prophy Tropicamide (Tropicamide 1 % Ophth Nataliia 3 Ml Btl) 1 drop EYE-RIGHT Q5M [facility] Stop: 12/15/22 11:56 Home Medications Medication Instructions Recorded Confirmed Last Taken Type aspirin 81 mg tablet,delayed 81 mg PO DAILY 07/12/20 12/10/22 03/20/21 History release (Adult Low Dose Aspirin) bgidqvqd-rqs-glybq acid 300 1 tab PO DAILY 07/12/20 12/10/22 Unknown History mcg-lycopene 600 mcg-lutein 300 mcg tablet (Centrum Silver Men) Exam Exam Date and Time: December 15, 2022 1146 Height,Weight and Vital Signs: Height 5 ft 6 in Weight 57.969 kg Pertinent Lab Results Pertinent Lab Results: Laboratory Tests 12/04/22 12/04/22 12/04/22 13:22 13:22 13:22 WBC 8.8 RBC 5.07 Hgb 15.1 Hct 44.4 MCV 87.6 MCH 29.8 MCHC 34.0 RDW 13.2 Plt Count 316 MPV 8.5 L Absolute Nucleated RBC 0.000 Nucleated RBC % (auto) 0.0 PT 11.2 INR 1.0 Sodium 137 Potassium 4.2 Chloride 104 Carbon Dioxide 27 Anion Gap 10 L BUN 18 H Creatinine 0.84 Estim Creat Clear Calc TNP Estimated GFR > 60 Random Glucose 135 H Fasting Glucose 135 H Calcium 9.7 Total Bilirubin 0.5 AST 24 ALT 30 Alkaline Phosphatase 99 Total Protein 6.3 L Albumin 4.2 Triglycerides 75 Cholesterol 137 LDL Cholesterol, Calc 73 HDL Cholesterol 49 TSH 12/04/22 13:22 WBC RBC Hgb Hct MCV MCH MCHC RDW Plt Count MPV Absolute Nucleated RBC Nucleated RBC % (auto) PT INR Sodium Potassium Chloride Carbon Dioxide Anion Gap BUN Creatinine Estim Creat Clear Calc Estimated GFR Random Glucose Fasting Glucose Calcium Total Bilirubin AST ALT Alkaline Phosphatase Total Protein Albumin Triglycerides Cholesterol LDL Cholesterol, Calc HDL Cholesterol TSH 1.21 Airway Mallampati Class: II (edentulous) TM Dist: >3cm Neck ROM: Full Denture: Upper and Lower Loose/Missing/Broken Teeth: Yes, Upper and Lower Heart: RRR Lungs: CTA Assessment and Plan Final Anesthetic Review Family History of Problems with Anesthesia: No History of Problems with Anesthesia: No NPO: Yes ASA Class: III Final Preanesthetic Review: Meds/Allgs Chart Reviewed, Consent Obtained/Reviewed and Anes Risks/Benef Reviewed Patient Risk: Intermediate Procedure Risk: Low Anesthetic Plan Anesthetic Plan: MAC: Disposition: Standard PACU
[2022-12-15 12:02] VITALS: BP 161/88; PULSE 59; RESP 18; TEMP 36.3; O2SAT 97
--- NOTE | 2022-12-15 12:59 | HO.PNOPHT ---
Ophthalmology Procedure Procedure Date of Service: 12/15/22 Ophthalmology Viscoelastic: Chris Khan Dual Pack Pro Ophthalmology Lenses: ANICETO [id number] (23) Procedure Notes: PREOPERATIVE DIAGNOSIS: Decreased visual acuity right eye secondary to cataract POSTOPERATIVE DIAGNOSIS: Same PROCEDURE: Right cataract extraction with intraocular lens insertion SURGEON: Donis Sanchez M.D. ANESTHESIA: Topical/MAC ESTIMATED BLOOD LOSS: None COMPLICATIONS: None After obtaining informed consent, the patient was brought to the operating room suite and placed in the supine position. After adequate sedation per anesthesia, topical drops of Tetracaine were given to the right eye. The eye was then prepped and draped in the usual sterile fashion. The operating room microscope was then positioned over the operative eye and a lid speculum placed. A paracentesis was created. Viscoelastic was then instilled into the anterior chamber. A three plane incision was then created temporally, utilizing a 2.85 mm keratome. Capsulotomy forceps were then utilized to create a circular tear capsulotomy. Hydrodissection and hydrodelineation were carried out until adequate mobilization of the nucleus occurred. Phacoemulsification was then utilized to remove the dense central nucleus followed by removal of the cortical material utilizing the automated aspiration irrigation unit. Viscoelastic was instilled into the posterior capsular bag followed by placement of a posterior chamber intraocular lens without difficulty. The residual Viscoelastic was then removed utilizing the automated IA machine. The wound was checked and found to be watertight. The patient tolerated the procedure well and the lid speculum was removed. Intracameral injection of Vigamox 0.1 mL followed by a subtenon injection of Kenalog-40 0.2 mL were administered. The patient will be seen in the a.m.
[2022-12-15 13:40] VITALS: BP 148/78; PULSE 68; RESP 16; TEMP 37.1; O2SAT 97
== END 2022-12-15 13:43 | disposition home or self-care (01) ==
PROVIDERS: Nurse Practitioner Family; PCP Internal Medicine; Visit Provider Ophthalmology
PROC: (CPT 66985; principal; 2022-12-15 13:00)
DX: H25.11 Age-related nuclear cataract, right eye (principal); H54.7 Unspecified visual loss; E78.5 Hyperlipidemia, unspecified; J44.9 Chronic obstructive pulmonary disease, unspecified; I10 Essential (primary) hypertension; I25.10 Atherosclerotic heart disease of native coronary artery without angina pectoris; Z86.73 Personal history of transient ischemic attack (TIA), and cerebral infarction without residual deficits; Z79.82 Long term (current) use of aspirin; Z79.51 Long term (current) use of inhaled steroids; Z79.899 Other long term (current) drug therapy; Z88.8 Allergy status to other drugs, medicaments and biological substances; Z87.891 Personal history of nicotine dependence
CPT/HCPCS: 66984; 36415; 80048; 80053; 80061; 84443; 85027; 85610; 93005; J2250; J3010; J3301; V2632

== ENCOUNTER 2022-12-29 09:23 | Day surgery (SDC) | payer OTHER, SELFPAY ==
--- NOTE | 2022-12-26 08:32 | MHC.SHP ---
Pre-Procedural Eval Section A Date of Service: 12/26/22 The patient is an INPATIENT: No Changes since office visit: No Cold of Flu in the past 2 weeks, No New Medical Problems, No Changes in Medication and No Patient answered all questions The History & Physical has been completed within 30 days and I have reviewed it.: Yes Section B Chief Complaint: Age-related nuclear cataract, left eye Allergies: Allergies Allergy/AdvReac Type Severity Reaction Status Date / Time aspirin [ASA] Allergy Mild UPSET Verified 12/15/22 12:06 STOMACH PT TAKES BABY ASA INSTEAD, stomach upset acetaminophen [From Vicodin] AdvReac Severe upset Verified 12/15/22 12:06 stomach hydrocodone [From Vicodin] AdvReac Severe upset Verified 12/15/22 12:06 stomach Plan Diagnosis/Plan: Unchanged I have reviewed the history and physical and performed a pertinent physical examination on my patient. No changes have occurred unless specified. Time Spent With Patient Time: Total time managing care of this patient today ____ minutes.
--- NOTE | 2022-12-26 09:40 | P.CONAN_ITS ---
Documented by User: Karen Milian NP 12/26/22 09:40 HPI - Anesthesia Eval Consult details Narrative: 76yo M for Left Cataract Extraction IOL Insertion PCP cleared 1st eye 12/15/22 with Fent 100, Midaz 2 PMFSH Active Problems Active Problems: All Active Problems (Updated 12/04/22 @ 13:00 by OMAIRA Torres) LVH (left ventricular hypertrophy) (Acute) Annual physical exam (Acute) Tubular adenoma of colon (Acute) Left flank pain (Acute) AAA (abdominal aortic aneurysm) without rupture (Acute) Carotid stenosis, bilateral (Acute) Abdominal pain (Acute) Mass of soft tissue of left upper extremity (Acute) Felon of finger of left hand (Acute) Cervical spine degeneration (Acute) H/O: pneumonia (Acute) Scarring of lung (Acute) Pulmonary nodule (Acute) Ascending aortic aneurysm (Acute) Cervicalgia (Acute) Arthritis of shoulder region, left, degenerative (Acute) Whiplash (Acute) Painful arc syndrome of left shoulder (Acute) Left shoulder pain (Acute) Biceps tendonitis on left (Acute) Tendonitis of left rotator cuff (Acute) Preoperative clearance (Acute) Cataract (Acute) Pulmonary nodules (Acute) Oral thrush (Acute) Physical exam (Acute) Chronic pain syndrome (Acute) Spondylosis, cervical (Acute) Postlaminectomy syndrome of cervical region (Acute) COPD (chronic obstructive pulmonary disease) (Acute) Left shoulder pain (Acute) Lung density on x-ray (Acute) Pulmonary fibrosis (Acute) Pleural effusion (Acute) H/O: CVA (cerebrovascular accident) (Acute) Aneurysmal dilatation (Acute) Screening for colon cancer (Acute) CAD (coronary artery disease) (Acute) COPD (chronic obstructive pulmonary disease) (Acute) Shoulder pain (Acute) Pure hypercholesterolemia (Acute) GERD (gastroesophageal reflux disease) (Acute) Essential hypertension (Acute) Neck pain (Acute) Past Medical History Medical History Aneurysmal dilatation CAD (coronary artery disease) Chronic pain syndrome COPD (chronic obstructive pulmonary disease) COPD (chronic obstructive pulmonary disease) Essential hypertension GERD (gastroesophageal reflux disease) H/O: CVA (cerebrovascular accident) Left shoulder pain Lung density on x-ray Neck pain Oral thrush Physical exam Pleural effusion Postlaminectomy syndrome of cervical region Pulmonary fibrosis Pulmonary nodules Pure hypercholesterolemia Screening for colon cancer Shoulder pain Spondylosis, cervical Family History Family History Father Bone cancer Mother CVD (cardiovascular disease) Brother No problems noted. Sister No problems noted. Daughter No problems noted. Family history of problems with anesthesia: No Surgical History Surgical History (Updated 12/19/22 @ 13:08 by Micheline Jose RN) History of appendectomy History of back surgery History of cervical spinal surgery History of esophagogastroduodenoscopy (EGD) History of foot surgery History of hand surgery History of hemicolectomy History of hernia repair History of laminectomy History of partial colectomy History of right cataract extraction Hx of colonoscopy Hx of neck surgery Stented coronary artery History of Problems with Anesthesia: No Social History Social History Household Members Other:: Daughter Housing: House Are you a primary transitional care manager to a significant other at home: No Do you presently have visiting nurse or other home services: No Alcohol intake: never Patient Tobacco Use Status: Former Tobacco user Years Smoked: once in a while e-Cigarette/Vaping Use: Never Used Second Hand Smoke Exposure: No Use of substances other than those prescribed or required for medical reasons: Yes Substance Use Type: Marijuana Are you DNR?: No Advance Directives: No Advance Directives Information Provided: Yes Advance Directives Date on File: 09/13/12 Recently lost weight without trying: No Nutrition Risks: No Nutritional Risk service: No Current occupational status: retired 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 Cognitive needs: No Hearing needs: No Vision needs: No Meds Allergies Allergy/AdvReac Type Severity Reaction Status Date / Time aspirin [ASA] Allergy Mild UPSET Verified 12/15/22 12:06 STOMACH PT TAKES BABY ASA INSTEAD, stomach upset acetaminophen [From Vicodin] AdvReac Severe upset Verified 12/15/22 12:06 stomach hydrocodone [From Vicodin] AdvReac Severe upset Verified 12/15/22 12:06 stomach Home Medications Medication Instructions Recorded Confirmed Last Taken Type aspirin 81 mg tablet,delayed 81 mg PO DAILY 07/12/20 12/10/22 12/15/22 History release (Adult Low Dose Aspirin) lbunimow-ofm-lpoxs acid 300 1 tab PO DAILY 07/12/20 12/10/22 Unknown History mcg-lycopene 600 mcg-lutein 300 mcg tablet (Centrum Silver Men) Exam Exam Date and Time: December 26, 2022 0940 Assessment and Plan Assessment Anesthesia Assessment: Chart Reviewed Final Anesthetic Review Family History of Problems with Anesthesia: No History of Problems with Anesthesia: No Documented by User: Vicky Levy MD 12/29/22 10:12 [facility] Past Medical History Medical History Aneurysmal dilatation CAD (coronary artery disease) Chronic pain syndrome COPD (chronic obstructive pulmonary disease) COPD (chronic obstructive pulmonary disease) Essential hypertension GERD (gastroesophageal reflux disease) H/O: CVA (cerebrovascular accident) Left shoulder pain Lung density on x-ray Neck pain Oral thrush Physical exam Pleural effusion Postlaminectomy syndrome of cervical region Pulmonary fibrosis Pulmonary nodules Pure hypercholesterolemia Screening for colon cancer Shoulder pain Spondylosis, cervical Family History Family History Father Bone cancer Mother CVD (cardiovascular disease) Brother No problems noted. Sister No problems noted. Daughter No problems noted. Surgical History Surgical History (Updated 12/19/22 @ 13:08 by Micheline Jose RN) History of appendectomy History of back surgery History of cervical spinal surgery History of esophagogastroduodenoscopy (EGD) History of foot surgery History of hand surgery History of hemicolectomy History of hernia repair History of laminectomy History of partial colectomy History of right cataract extraction Hx of colonoscopy Hx of neck surgery Stented coronary artery Social History Social History Household Members Other:: Daughter Housing: House Are you a primary transitional care manager to a significant other at home: No Do you presently have visiting nurse or other home services: No Alcohol intake: never Patient Tobacco Use Status: Former Tobacco user Years Smoked: once in a while e-Cigarette/Vaping Use: Never Used Second Hand Smoke Exposure: No Use of substances other than those prescribed or required for medical reasons: Yes Substance Use Type: Marijuana Are you DNR?: No Advance Directives: No Advance Directives Information Provided: Yes Advance Directives Date on File: 09/13/12 Recently lost weight without trying: No Nutrition Risks: No Nutritional Risk service: No Current occupational status: retired 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 Cognitive needs: No Hearing needs: No Vision needs: No Meds Allergies Allergy/AdvReac Type Severity Reaction Status Date / Time aspirin [ASA] Allergy Mild UPSET Verified 12/15/22 12:06 STOMACH PT TAKES BABY ASA INSTEAD, stomach upset acetaminophen [From Vicodin] AdvReac Severe upset Verified 12/15/22 12:06 stomach hydrocodone [From Vicodin] AdvReac Severe upset Verified 12/15/22 12:06 stomach Home Medications Medication Instructions Recorded Confirmed Last Taken Type aspirin 81 mg tablet,delayed 81 mg PO DAILY 07/12/20 12/10/22 12/15/22 History release (Adult Low Dose Aspirin) lefrbzhl-dxu-akklq acid 300 1 tab PO DAILY 07/12/20 12/10/22 Unknown History mcg-lycopene 600 mcg-lutein 300 mcg tablet (Centrum Silver Men) Exam Airway Mallampati Class: II TM Dist: >3cm Neck ROM: Full Denture: Upper and Lower Loose/Missing/Broken Teeth: Yes, Upper and Lower Heart: rrr Lungs: cta Assessment and Plan Assessment Anesthesia Assessment: Anesthesia Plan Discussed Final Anesthetic Review NPO: Yes ASA Class: III Final Preanesthetic Review: No Changes in Pt Med Stat, Meds/Allgs Chart Reviewed and Anes Risks/Benef Reviewed Patient Risk: Low Procedure Risk: Low Anesthetic Plan Anesthetic Plan: MAC: Disposition: Standard PACU
[2022-12-29 09:58] VITALS: BMI 21.8
[2022-12-29] MEDS: Tetracaine HCl/PF 0.5% Oph Sol 4 ML DROPS 1 DROP EYE-LEFT (10:10)
[2022-12-29] MEDS: Lactated Ringers 500 ML 50 ML IV (10:11)
[2022-12-29] MEDS: Tropicamide 1 % Ophth Sol 3 ML BTL 1 DROP EYE-LEFT ×3 (10:11→10:22)
[2022-12-29] MEDS: Cyclopentolate 1 % Ophth Sol 2 ML DRPBTL 1 DROP EYE-LEFT ×3 (10:12→10:23)
[2022-12-29] MEDS: Ketorolac Tromethamine 0.5% Op 5 ML DROPS 1 DROP EYE-LEFT ×3 (10:13→10:24)
[2022-12-29] MEDS: Phenylephrine HCL 2.5% Oph SoL 2 ML BOTTLE 1 DROP EYE-LEFT ×3 (10:14→10:25)
--- NOTE | 2022-12-29 11:38 | HO.PNOPHT ---
Ophthalmology Procedure Procedure Date of Service: 12/29/22 Ophthalmology Viscoelastic: Chris Sparrowt Dual Pack Pro Ophthalmology Lenses: [id number] (23) Procedure Notes: PREOPERATIVE DIAGNOSIS: Decreased visual acuity left eye secondary to cataract POSTOPERATIVE DIAGNOSIS: Same PROCEDURE: Left cataract extraction with intraocular lens insertion SURGEON: Donis Sanchez M.D. ANESTHESIA: Topical/MAC ESTIMATED BLOOD LOSS: None COMPLICATIONS: None After obtaining informed consent, the patient was brought to the operation room suite and placed in the supine position. After adequate sedation per anesthesia, topical drops of Tetracaine were given to the left eye. The eye was then prepped and draped in the usual sterile fashion. The operating room microscope was then positioned over the operative eye and a lid speculum placed. A paracentesis was created. Poor dilation reqired MPF lidocaine 1% with placement of a Maylygin Ring. Viscoelastic was then instilled into the anterior chamber. A three plane incision was then created temporally, utilizing a 2.85 mm keratome. Capsulotomy forceps were then utilized to create a circular tear capsulotomy. Hydrodissection and hydrodelineation were carried out until adequate mobilization of the nucleus occurred. Phacoemulsification was then utilized to remove the dense central nucleus followed by removal of the cortical material utilizing the automated aspiration irrigation unit. Viscoat elastic was instilled into the posterior capsular bag followed by placement of a posterior chamber intraocular lens without difficulty. The Maylygin Ring was removed. The residual Viscoat elastic was then removed utilizing the automated IA machine. The wound was check and found to be watertight. The patient tolerated the procedure well and the lid speculum was removed. Intracameral injection of Vigamox 0.1 mL followed by a subtenon injection of Kenalog-40 0.2 mL were administered. The patient will be seen in the a.m.
[2022-12-29 12:10] VITALS: BP 152/90; PULSE 72; RESP 16; TEMP 36.7; O2SAT 95
== END 2022-12-29 12:23 | disposition home or self-care (01) ==
PROVIDERS: PCP Internal Medicine; Visit Provider Ophthalmology
PROC: (CPT 66985; principal; 2022-12-29 12:20)
DX: H25.12 Age-related nuclear cataract, left eye (principal); H52.4 Presbyopia; H40.033 Anatomical narrow angle, bilateral; I25.10 Atherosclerotic heart disease of native coronary artery without angina pectoris; Z95.5 Presence of coronary angioplasty implant and graft; I10 Essential (primary) hypertension; J44.9 Chronic obstructive pulmonary disease, unspecified; E78.00 Pure hypercholesterolemia, unspecified; Z86.73 Personal history of transient ischemic attack (TIA), and cerebral infarction without residual deficits; G89.29 Other chronic pain; R91.8 Other nonspecific abnormal finding of lung field; Z79.82 Long term (current) use of aspirin; Z79.51 Long term (current) use of inhaled steroids; Z79.899 Other long term (current) drug therapy; Z88.8 Allergy status to other drugs, medicaments and biological substances; Z90.49 Acquired absence of other specified parts of digestive tract; Z98.890 Other specified postprocedural states; Z87.891 Personal history of nicotine dependence
CPT/HCPCS: 66984; J2250; J3010; J3301; V2632

== ENCOUNTER 2023-01-09 10:12 | Emergency (ER) | payer OTHER, SELFPAY ==
[2023-01-09 10:21] VITALS: BP 135/76; PULSE 81; RESP 16; TEMP 36.6; O2SAT 99; BMI 21.8
--- NOTE | 2023-01-09 10:36 | PC.NURSE ---
TICK REMOVED WITHOUT DIFFICULTY
[2023-01-09] MEDS: Doxycycline Monohydrate 100 MG CAPSULE PO ×2 (10:48)
--- NOTE | 2023-01-09 10:55 | ED.SKABFB ---
HPI - Skin/Abscess/Foreign Bdy General Chief complaint: Skin/Abscess/Foreign Body Stated complaint: tick bite Time Seen by Provider: 01/09/23 10:23 History of Present Illness HPI narrative: Patient complains of tick attached to his back for over 24 hours, no other complaint no fever no rash Related Data Home Medications Medication Instructions Recorded Confirmed aspirin 81 mg tablet,delayed 81 mg PO DAILY 07/12/20 12/10/22 release (Adult Low Dose Aspirin) clgurqdh-ncq-kwafg acid 300 1 tab PO DAILY 07/12/20 12/10/22 mcg-lycopene 600 mcg-lutein 300 mcg tablet (Centrum Silver Men) Previous Rx's Medication Instructions Recorded tamsulosin 0.4 mg capsule 0.4 mg PO BID 90 days #180 caps 06/11/22 Breo Ellipta 200 mcg-25 mcg/dose 1 ea PO DAILY #60 ea 09/08/22 powder for inhalation (fluticasone furoate-vilanterol) ropinirole 1 mg tablet 1 mg PO BEDTIME 90 days #90 tabs 09/08/22 omeprazole 20 mg capsule,delayed 20 mg PO DAILY 90 days #90 caps 09/10/22 release atorvastatin 80 mg tablet 80 mg PO DAILY 90 days #90 tabs 10/14/22 fluocinolone acetonide oil 0.01 % 5 drp otic (ear) left BID 7 days 10/28/22 ear drops (DermOtic Oil) #20 mL clotrimazole 10 mg lindsey 10 mg PO TID PRN oral thrush 10 12/03/22 days #30 gaurav oxycodone 10 mg tablet 10 mg PO Q6H PRN pain 30 days #120 12/17/22 tabs Allergies Allergy/AdvReac Type Severity Reaction Status Date / Time aspirin [ASA] Allergy Mild UPSET Verified 12/15/22 12:06 STOMACH PT TAKES BABY ASA INSTEAD, stomach upset acetaminophen [From Vicodin] AdvReac Severe upset Verified 12/15/22 12:06 stomach hydrocodone [From Vicodin] AdvReac Severe upset Verified 12/15/22 12:06 stomach PMFSH Past Medical History Source: nursing notes reviewed Medical History (Updated 01/09/23 @ 10:57 by KASSANDRA Jensen) Aneurysmal dilatation CAD (coronary artery disease) Chronic pain syndrome COPD (chronic obstructive pulmonary disease) COPD (chronic obstructive pulmonary disease) Essential hypertension GERD (gastroesophageal reflux disease) H/O: CVA (cerebrovascular accident) Left shoulder pain Lung density on x-ray Neck pain Oral thrush Physical exam Pleural effusion Postlaminectomy syndrome of cervical region Pulmonary fibrosis Pulmonary nodules Pure hypercholesterolemia Screening for colon cancer Shoulder pain Spondylosis, cervical Surgical History (Updated 12/19/22 @ 13:08 by Micheline Jose RN) History of appendectomy History of back surgery History of cervical spinal surgery History of esophagogastroduodenoscopy (EGD) History of foot surgery History of hand surgery History of hemicolectomy History of hernia repair History of laminectomy History of partial colectomy History of right cataract extraction Hx of colonoscopy Hx of neck surgery Stented coronary artery Family History Family History Father Bone cancer Mother CVD (cardiovascular disease) Brother No problems noted. Sister No problems noted. Daughter No problems noted. 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 Cognitive needs: No Hearing needs: No Vision needs: No Physical Exam Vital Signs: Vital Signs: Last Vital Signs Temp 97.9 F 01/09/23 10:21 Pulse 81 01/09/23 10:21 Resp 16 01/09/23 10:21 BP 135/76 01/09/23 10:21 Pulse Ox 99 01/09/23 10:21 O2 Del Method Room Air 01/09/23 10:21 BMI result Body Mass Index 21.8 General appearance no distress Neck is supple Respiratory no distress Skin exam on the right upper back there is an attached tick, there is no surrounding rash or redness Course Course Course Narrative: Tick easily removed with tweezers Given prophylactic doxycycline Medications Administered Discontinued Medications Generic Name Dose Route Start Last Admin Trade Name Freq PRN Reason Stop Dose Admin Doxycycline Monohydrate 100 mg 01/09/23 10:36 01/09/23 10:48 Doxycycline Monohydrate 100 Mg Capsule PO 01/09/23 10:37 100 mg ONCE ONE Administration Doxycycline Monohydrate 100 mg 01/09/23 10:37 01/09/23 10:48 Doxycycline Monohydrate 100 Mg Capsule PO 01/09/23 10:38 100 mg ONCE ONE Administration Discharge Plan Discharge Clinical Impression: Tick bite Patient Disposition: Home, Self-Care Additional Instructions: Tick was easily removed We gave doxycycline 1 time dose to help prevent Lyme disease Symptoms of Lyme disease are bull's-eye rash, any new rash, fever illness then you would refer turn to your doctor for Lyme testing or possible treatment Prescriptions: No Action tamsulosin 0.4 mg capsule 0.4 mg PO BID 90 Days Qty: 180 0RF ropinirole 1 mg tablet 1 mg PO BEDTIME 90 Days Qty: 90 3RF Breo Ellipta 200-25 mcg/dose blister with device 1 ea PO DAILY Qty: 60 3RF omeprazole 20 mg capsule,delayed release(DR/EC) 20 mg PO DAILY 90 Days Qty: 90 3RF atorvastatin 80 mg tablet 80 mg PO DAILY 90 Days Qty: 90 2RF fluocinolone acetonide oil [DermOtic Oil] 0.01 % drops 5 drp otic (ear) left BID 7 Days Qty: 20 0RF clotrimazole 10 mg lindsey 10 mg PO TID PRN (Reason: oral thrush) 10 Days Qty: 30 1RF oxycodone 10 mg tablet 10 mg PO Q6H PRN (Reason: pain) 30 Days Qty: 120 0RF aspirin [Adult Low Dose Aspirin] 81 mg tablet,delayed release (DR/EC) 81 mg PO DAILY Centrum Silver Men 300-600-300 mcg tablet 1 tab PO DAILY
== END 2023-01-09 11:03 | disposition home or self-care (01) ==
PROVIDERS: Emergency Provider Emergency Medicine; PCP Internal Medicine
DX: S20.461A Insect bite (nonvenomous) of right back wall of thorax, initial encounter (principal); W57.XXXA Bitten or stung by nonvenomous insect and other nonvenomous arthropods, initial encounter; Y93.9 Activity, unspecified; Y92.9 Unspecified place or not applicable; Y99.9 Unspecified external cause status
CPT/HCPCS: 99282; 99283

== ENCOUNTER 2023-02-11 09:00 | Outpatient (RCR) | payer OTHER, SELFPAY ==
--- NOTE | 2023-01-16 12:58 | MHC.PT.EP ---
[facility] [place] Office [place] Office [place] Office [address] [phone] F: [phone] F: [phone] F: [phone] F: [phone] Physical Therapy Plan of Care Date of Evaluation: Date of Surgery: Diagnosis: L shoulder bicipital tendonitis (MD Dx) LEFT shoulder subacromial impingement, likely supraspinatus (PT Dx) Assessment: Patient is a 77 y.o. male who is referred to PT by KASSANDRA Westbrook, with Dx of LEFT shoulder bicipital tendonitis. PT diagnosis is LEFT shoulder subacromial impingement, likely supraspinatus. Patient impairments include poor posture, pain, limited ROM in neck and shoulders, weakness i shoulders, cervical stabilizers and scapular stabilizers. 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 Patient will benefit from skilled PT to address aforementioned impairments and functional limitations to meet established goals. Frequency and Duration: The patient will be seen 2x/week for 4 weeks Short Term Goals: 2 weeks Patient demonstrates consistency and independence with HEP to self manage symptoms. Patient presents without slouched posture in sitting with neck and shoulders in neutral position without needing cues for correction. Chcf Goals: 4 weeks Patient presents with increased L shoulder flexion 160 degrees to be able to reach to high cabinet. Patient presents with increased L shoulder flexion strength MMT 4+/5 to lift and carry gallon of milk. Treatment Plan: Modalities to reduce pain, spasms and effusion. Manual therapy to restore motion and function. Therapeutic exercise to improve strength and flexibility. Neuromuscular re-education for posture and balance. Therapeutic activities to return to functional activities of daily living. Electronically signed by: Abdiel Williamson, PT, DPT Please sign and return to therapist. Thank you for your referral.
--- NOTE | 2023-03-09 13:19 | MHC.PT.DC ---
[facility] [place] Office [place] Office [place] Office [address] Hernández [address] [phone] F: [phone] F: [phone] F: [phone] F: [phone] Physical Therapy Discharge Report Diagnosis: L shoulder bicipital tendonitis (MD Dx) LEFT shoulder subacromial impingement, likely supraspinatus (PT Dx) Date of Surgery: Date of Evaluation: 01/16/23 Date of Discharge: 03/09/23 Treatments to Date: 8 Cancellations to Date: No Shows to Date: Discharge Status: Independent with HEP Patient Elected to Stop Discharge Summary: Patient would benefit form continued PT as this was my assessment during his last visit with me on 02/11/23, He reports having a previous MRI of his shoulder 1-2 years ago but cannot recall results, does not have print out. He reports he plans on calling to get the report. He is showing improved ROM and strength in shoulder, but pain levels still remain moderate to high with functional deficits persisting. He is still tending to impinge subacromial space with overhead reach/lift. I want to continue to work on this with him with PT interventions including modalities (US, moist heat), manual therapy to improve joint mobility to reduce impingement and exercise program to improve posture, increase strength and ROM. Recommend continued PT 2x/week for 4 weeks for 8 total visits. However, patient NS and cancelled appointments after 02/11/23 and ceased attending PT on his own accord. Electronically signed by: Abdiel Williamson, PT, DPT Please sign and return to therapist. Thank you for your referral.
== END 2023-04-02 08:10 | disposition home or self-care (01) ==
LOC: HO.PT 09:00
PROVIDERS: PCP Internal Medicine; Visit Provider Physician Assistant
DX: M75.22 Bicipital tendinitis, left shoulder (principal); M75.82 Other shoulder lesions, left shoulder
CPT/HCPCS: 97035; 97110; 97112; 97140; 97162

== ENCOUNTER 2023-03-05 09:29 | Outpatient (AMB) | payer OTHER, SELFPAY ==
[2023-03-05 09:32] VITALS: BP 124/70; BMI 19.4
--- NOTE | 2023-03-05 09:32 | MHC.PC.OV ---
Vital Signs 03/05/23 09:32 Height 5 ft 6 in Weight 120 lb BMI 19.4 BP 124/70 Blood Pressure Location Lt brachial Position Sitting Intake Visit Reasons: lipids, copd Intake Note: Patient here for a follow up lipids, copd Etiology Teacher Required: No Accompanied by: Self / Same As Patient Allergies aspirin [ASA] Allergy (Mild, Verified 03/05/23 09:41) UPSET STOMACH PT TAKES BABY ASA INSTEAD, stomach upset acetaminophen [From Vicodin] Adverse Reaction (Severe, Verified 03/05/23 09:41) upset stomach hydrocodone [From Vicodin] Adverse Reaction (Severe, Verified 03/05/23 09:41) upset stomach Medication List - Last Reconciled 03/05/23 by Francie Ann MD aspirin (Adult Low Dose Aspirin) 81 mg PO DAILY atorvastatin 80 mg PO DAILY 90 days Breo Ellipta 200-25 mcg/dose (fluticasone furoate-vilanterol) 1 ea PO DAILY NS clotrimazole 10 mg PO TID PRN 10 days nakrpvze-hac-ZE-lycopen-lutein 300-600-300 mcg (Centrum Silver Men) 1 tab PO DAILY omeprazole 20 mg PO DAILY 90 days oxycodone 10 mg PO Q6H PRN 30 days ropinirole 1 mg PO BEDTIME 90 days tamsulosin 0.4 mg PO BID 90 days Tobacco use date assessed: 12/04/22 Fall risk assessment: No Falls in past year Last assessed Fall Risk: 03/05/23 Dental Screening Dental Screen Date: 03/05/23 Did you have a dental visit in the last 12 months?: Yes Did you have a dental problem in the last 6 months where you did not have access to dental care?: No Was dental information given to patient?: Patient has dentist HPI HPI Comments History of Present Illness Details This is a 77-year-old male with COPD, GERD and pure hypercholesterolemia that comes today complaining of left shoulder pain with limited elevation and abduction that has been present for over 6 months. He did receive physical therapy with no improvement. I will refer him to Ortho. Labs show impaired glucose tolerance with a fasting blood glucose over 126 and I will repeat fasting blood glucose. He denies any unintentional weight loss, polyuria or polydipsia. GERD stable with PPIs. COPD stable with Breo and use rescue inhaler once or twice a month. Cholesterol well controlled with statins. Has BPH and complain of some occasional nocturia and will be referred to Urology. [facility] Medical History (Updated 03/05/23 @ 09:48 by Francie Ann MD) Aneurysmal dilatation CAD (coronary artery disease) Chronic pain syndrome COPD (chronic obstructive pulmonary disease) COPD (chronic obstructive pulmonary disease) Essential hypertension GERD (gastroesophageal reflux disease) H/O: CVA (cerebrovascular accident) Left shoulder pain Lung density on x-ray Neck pain Oral thrush Physical exam Pleural effusion Postlaminectomy syndrome of cervical region Pulmonary fibrosis Pulmonary nodules Pure hypercholesterolemia Screening for colon cancer Shoulder pain Spondylosis, cervical Surgical History History of appendectomy History of back surgery History of cervical spinal surgery History of esophagogastroduodenoscopy (EGD) History of foot surgery History of hand surgery History of hemicolectomy History of hernia repair History of laminectomy History of partial colectomy History of right cataract extraction Hx of colonoscopy Hx of neck surgery Stented coronary artery Family History Father Bone cancer Mother CVD (cardiovascular disease) Brother No problems noted. Sister No problems noted. Daughter No problems noted. 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 Omar Cesar, Thalia Castillo, Bassam Pelletier and colleagues, with an educational becki from [employer] Review of Systems Const All systems reviewed & are unremarkable except as noted in HPI and below Eyes Reports no additional complaints, Denies change in vision and Denies other visual disturbances Card Denies chest pain at rest, Denies chest pain with activity, Denies edema, Denies irregular heart rhythm, Denies claudication, Denies dyspnea, Denies dyspnea on exertion, Denies orthopnea, Denies paroxysmal nocturnal dyspnea and Denies slow heart rate Resp Denies cough, Denies dyspnea and Denies dyspnea on exertion GI Denies abdominal pain, Denies change in bowel habits, Denies excessive flatus, Denies nausea and Denies vomiting Denies urinary hesitancy, Denies urinary incontinence and Denies urinary urgency Musc Denies abnormal gait, Denies atrophy, Denies deformity and Denies limited range of motion Skin/Breast Denies bleeding lesions, Denies changing lesions and Denies rash Neuro Denies abnormal gait and Denies lack of coordination Physical exam (Primary Care) Vital Signs: Last Vital Signs BP 124/70 03/05/23 09:32 BMI result Body Mass Index 19.4 Tobacco/Smoking Status: Tobacco use Status Tobacco use date assessed 12/04/22 03/05/23 09:37 Patient Tobacco Use Status Former Tobacco user 03/05/23 09:37 e-Cigarette/Vaping Use Never Used 03/05/23 09:37 Thrive Assessment: Date of Thrive Assessment Date Thrive assessed 10/28/22 03/05/23 09:37 Eyes General: appearance normal, both eyes and all related structures Eyelids: Yes eyelids normal Conjunctivae: conjunctivae normal Neck Neck: Yes normal visual inspection and Yes supple Resp Effort & Inspection: normal respiratory effort Auscultation: clear to auscultation bilaterally Cardio Jugular venous distension: no JVD Rate: regular rate Rhythm: regular rhythm Heart sounds: S1 normal heart sound present and S2 normal heart sound present Extrem Left upper extremity: shoulder/upper arm Details: abnormal ROM Details: pain with active ROM Details: in ABduction Assessment and Plan Assessment & Plan (1) COPD (chronic obstructive pulmonary disease): Comment: Patient does have chronic obstructive pulmonary disease but it is well controlled with the current regimen. TX: Advised to continue: Breo-200 1 inhalation daily. And ProAir 2 puffs Q 4-6 hours only p.r.n. FOR INCREASED COUGH USE ROBITUSSIN, LIQUID 2 TSP 3 TIMES A DAY ESPECIALLY IN THE MORNING HOURS. Code(s): J44.9 - Chronic obstructive pulmonary disease, unspecified Plan: Continue Breo. Use rescue inhaler as needed. (2) GERD (gastroesophageal reflux disease): Code(s): K21.9 - Gastro-esophageal reflux disease without esophagitis Qualifiers: Esophagitis presence: esophagitis presence not specified Qualified Code(s): K21.9 - Gastro-esophageal reflux disease without esophagitis Plan: Continue PPIs (3) Pure hypercholesterolemia: Code(s): E78.00 - Pure hypercholesterolemia, unspecified Plan: Continue statins. (4) Impaired glucose tolerance: Code(s): R73.02 - Impaired glucose tolerance (oral) Plan: Repeat fasting blood glucose. (5) Arthritis of shoulder region, left, degenerative: Code(s): M19.012 - Primary osteoarthritis, left shoulder Plan: Continue oxycodone as needed. Referred to Ortho. Orders: Orders Comprehensive Irma. Panel Fast Today R73.02 - Impaired glucose tolerance (oral) Referrals Orthopedics Referral M19.012 - Primary osteoarthritis, left shoulder Urology Referral N40.0 - Benign prostatic hyperplasia without lower urinary tract symptoms Coding Level of Care Code Est Pt Level 4 (78133) Diagnoses COPD (chronic obstructive pulmonary disease) J44.9 GERD (gastroesophageal reflux disease) K21.9 Esophagitis presence: esophagitis presence not specified Pure hypercholesterolemia E78.00 Impaired glucose tolerance R73.02 Arthritis of shoulder region, left, degenerative M19.012 Time Spent (min) 24
== END 2023-03-05 09:49 | disposition home or self-care (01) ==
PROVIDERS: PCP Internal Medicine; Visit Provider Internal Medicine
DX: J44.9 Chronic obstructive pulmonary disease, unspecified (principal); K21.9 Gastro-esophageal reflux disease without esophagitis; E78.00 Pure hypercholesterolemia, unspecified; R73.02 Impaired glucose tolerance (oral); M19.012 Primary osteoarthritis, left shoulder
CPT/HCPCS: 99214

== ENCOUNTER 2023-03-10 09:38 | Outpatient (AMB) | payer OTHER, SELFPAY ==
[2023-03-10 09:44] VITALS: BP 130/70; PULSE 72; O2SAT 97; BMI 19.2
--- NOTE | 2023-03-10 09:44 | MHC.OFFVIS ---
Intake Vital Signs 03/10/23 09:44 Height 5 ft 6 in Weight 119 lb BMI 19.2 BP 130/70 Blood Pressure Location Lt brachial Position Standing Pulse 72 Pulse Source Pulse Oximeter Pulse Oximetry (%) 97 Oxygen Delivery Method Room Air Intake Visit Reasons: COPD Intake Note: pt is here for follow up and states he does get shortness of breath with stairs and exertion. Director Of Loss Prevention Required: No Allergies aspirin [ASA] Allergy (Mild, Verified 03/10/23 10:04) UPSET STOMACH PT TAKES BABY ASA INSTEAD, stomach upset acetaminophen [From Vicodin] Adverse Reaction (Severe, Verified 03/10/23 10:04) upset stomach hydrocodone [From Vicodin] Adverse Reaction (Severe, Verified 03/10/23 10:04) upset stomach Medication List - Last Reconciled 03/10/23 by Angela Michelle MD aspirin (Adult Low Dose Aspirin) 81 mg PO DAILY atorvastatin 80 mg PO DAILY 90 days Breo Ellipta 200-25 mcg/dose (fluticasone furoate-vilanterol) 1 ea PO DAILY NS clotrimazole 10 mg PO TID PRN 10 days [id number] mcg (Centrum Silver Men) 1 tab PO DAILY omeprazole 20 mg PO DAILY 90 days oxycodone 10 mg PO Q6H PRN 30 days ropinirole 1 mg PO BEDTIME 90 days tamsulosin 0.4 mg PO BID 90 days Do you need a note to return to daycare/school/sports/work: No HPI COPD HPI Details 77 years old very pleasant gentleman, comes for his 6 months follow-up. Past history of smoking but quit in mid Being treated for COPD with Breo-25 only 1 inhalation daily, and he hardly needs to use the rescue inhaler. He does have some congestion and cough only in the morning hours. Physically remains active, does get short of breath if he does heavy physical work or walking up hill or climbing stairs. He is being monitored for pulmonary nodules. Last CT scan in September 2022 showed a new 1.2 cm spiculated nodule in right lower lobe abutting the major fissure. This needs to be followed up. He eats well but remains physically active and sometimes forgets to eat during the day. Thus his weight is not changing much. The weight remains on the low side but has been stable. [facility] Medical History (Updated 03/10/23 @ 10:20 by Angela Michelle MD) Aneurysmal dilatation CAD (coronary artery disease) Chronic pain syndrome COPD (chronic obstructive pulmonary disease) COPD (chronic obstructive pulmonary disease) Essential hypertension GERD (gastroesophageal reflux disease) H/O: CVA (cerebrovascular accident) Left shoulder pain Lung density on x-ray Neck pain Oral thrush Physical exam Pleural effusion Postlaminectomy syndrome of cervical region Pulmonary fibrosis Pulmonary nodule Pulmonary nodules Pure hypercholesterolemia Screening for colon cancer Shoulder pain Spondylosis, cervical Surgical History History of appendectomy History of back surgery History of cervical spinal surgery History of esophagogastroduodenoscopy (EGD) History of foot surgery History of hand surgery History of hemicolectomy History of hernia repair History of laminectomy History of partial colectomy History of right cataract extraction Hx of colonoscopy Hx of neck surgery Stented coronary artery Family History Father Bone cancer Mother CVD (cardiovascular disease) Brother No problems noted. Sister No problems noted. Daughter No problems noted. 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 Cognitive needs: No Hearing needs: No Vision needs: No Review of Systems Const All systems reviewed & are unremarkable except as noted in HPI and below Eyes Reports no additional complaints ENT Reports no additional complaints Card Denies chest pain, Denies irregular heart rhythm and Denies leg edema Resp Reports as per HPI GI Reports heartburn (Controlled with med) Reports no additional complaints Musc Reports back pain Skin/Breast Reports system reviewed and no additional complaints, except as documented Neuro Reports no additional complaints Psych Reports no additional complaints Endo Reports no additional complaints Physical Exam Vital Signs: Last Vital Signs Pulse 72 03/10/23 09:44 BP 130/70 03/10/23 09:44 Pulse Ox 97 03/10/23 09:44 Oxygen Delivery Method Room Air 03/10/23 09:44 BMI result Body Mass Index 19.2 Const General: comfortable, no acute distress, alert and awake Orientation/consciousness: patient oriented x3 HEENT Head: Yes normal to inspection General nose exam: No nasal polyps present and No nasal discharge present Face and sinus: Yes sinuses nontender Mouth: oropharynx normal Throat: Yes posterior oropharynx normal Eyes General: appearance normal, both eyes and all related structures Neck Neck: Yes normal visual inspection, Yes no lymphadenopathy, Yes trachea midline and Yes no JVD Thyroid: Thyroid normal Chest Chest palpation & inspection: normal inspection of the chest, normal palpation of entire chest wall and no tenderness Resp Other: Percussion note hyper-resonant on both sides, Breath sounds are distant with prolonged expiratory phase. No wheezes rhonchi or crepitations are heard. Cardio Palpation: normal PMI Rate: regular rate Rhythm: regular rhythm Heart sounds: no gallops and no murmurs Peripheral pulses: Peripheral pulses 2+ throughout GI Palpation (GI): Soft to palpation, nontender, No hepatosplenomegaly present and no masses Auscultation: normal bowel sounds Back/Spine/Pelvis Thoracic/Lumbar Spine: thoracic and lumbar spine normal to inspection Skin General skin exam: no rashes or lesions noted Neuro General: patient oriented x3 and no focal motor deficits Cranial nerves: Yes CN's II-XII intact bilaterally Extrem General: Yes normal to inspection, Yes no clubbing, cyanosis or edema and Yes no calf tenderness Psych Appearance: grossly normal and well kempt Speech and movement: Normal speech and movement present Results Reviewed Results Reviewed: CT scan of the chest on 09/17/2022, 1.2 cm spiculated pulmonary nodule, in right lower lobe, pleural based, abutting right lower lobe major fissure was noted. In addition he has small pulmonary nodules which remain unchanged. SPIROMETRY TODAY : OFG=065 % FEV1= 101 % FEV1/FVC= 61 FEF 25-75 = 69 % STABLE , ACTUALLY THE NUNBERS ARE SLIGHTLY IMPROVED COMPARED TO SPIROMETRY IN 2020 Assessment & Plan Assessment & Plan (1) COPD (chronic obstructive pulmonary disease): Comment: Patient does have chronic obstructive pulmonary disease but it is well controlled with the current regimen. TX: Advised to continue: Breo-200 1 inhalation daily. And ProAir 2 puffs Q 4-6 hours only p.r.n. FOR INCREASED COUGH USE ROBITUSSIN, LIQUID 2 TSP 3 TIMES A DAY ESPECIALLY IN THE MORNING HOURS. Code(s): J44.9 - Chronic obstructive pulmonary disease, unspecified (2) Pulmonary fibrosis: Comment: As per his previous the CT scan, patient does have pleural and parenchymal scarring in right upper lobe, related to his previous surgery. Patient had thoracostomy and repair of ruptured lung in mid . It is staying quite stable. Code(s): J84.10 - Pulmonary fibrosis, unspecified (3) Pulmonary nodule: Comment: 1.2 CM , PARTIALLY SPICULATED,, PLEURAL BASED ABUTTING THE MAJOR FISSURE OF RIGHT LOWER LOBE,, WAS SEEN ON CT SCAN IN SEPTEMBER 2022. NEEDS CLOSE FOLLOW-UP. A REPEAT CT SCAN IS ORDERED, AND FURTHER DECISION ABOUT TREATMENT WILL BE MADE AFTER THIS CURRENT CT SCAN. I DISCUSSED WITH THE PATIENT IN DETAIL. Code(s): R91.1 - Solitary pulmonary nodule Orders: Orders CT chest wo IV con Today J44.9 - Chronic obstructive pulmonary disease, unspecified, R91.1 - Solitary pulmonary nodule Coding Level of Care Code Est Pt Level 3 (45260) Diagnoses COPD (chronic obstructive pulmonary disease) J44.9 Pulmonary fibrosis J84.10 Pulmonary nodule R91.1
== END 2023-03-10 10:14 | disposition home or self-care (01) ==
PROVIDERS: PCP Internal Medicine; Visit Provider Internal Medicine
DX: J44.9 Chronic obstructive pulmonary disease, unspecified (principal); J84.10 Pulmonary fibrosis, unspecified; R91.1 Solitary pulmonary nodule
CPT/HCPCS: 94010; 99213

== ENCOUNTER → 2023-03-10 09:38 | Outpatient (BNVA) | payer OTHER, SELFPAY | PROVIDERS: PCP Internal Medicine; Visit Provider Internal Medicine | DX: J44.9 Chronic obstructive pulmonary disease, unspecified (principal); J84.10 Pulmonary fibrosis, unspecified; R91.1 Solitary pulmonary nodule | CPT/HCPCS: 94010; 99212 ==

== ENCOUNTER 2023-03-26 07:20 | Outpatient (REF) | payer OTHER, SELFPAY ==
--- NOTE | ~2023-03-26 | CT_ITS ---
EXAMINATION: CT CHEST WITHOUT CONTRAST CLINICAL INFORMATION: Solitary pulmonary nodule. COMPARISON: Previous chest CT September 2022. TECHNIQUE: Multidetector volumetric CT imaging of the chest was done. Axial MIP volume rendering provided. Sagittal and coronal reformatted images were obtained. This CT examination was performed using dose optimization techniques as appropriate, variously including the following: *Automated exposure control *Adjustment of mA and/or kV according to patient size (this includes techniques or standardized protocols for targeted exams where dose is matched to indication/reason for exam; i.e. extremities or head) *Use of iterative reconstruction technique DLP: 192 mGy-cm FINDINGS: LUNGS: There is evidence of severe emphysema. There is biapical pleural and parenchymal scarring and volume loss. Right lung: In the right upper lobe there is focal bronchiectasis extending to the right lung apex. There is extensive pleural and parenchymal calcification at the right lung apex. There is a focal 1.5 x 2 cm pleural and parenchymal calcification for example axial image 46 series 5 that is stable. There is right upper lobe bronchiectasis, areas of scarring and calcified and noncalcified nodules that are all stable. There is increased focal pleural thickening adjacent to the right lower lobe axial image 198 series 5. There is a new peripheral or subpleural right lower lobe nodule measuring 5 mm axial image 345 series 5. There is extensive cystic change with question of honeycombing in the right lower lobe. Left lung: There is a stable 7 x 13 mm noncalcified nodule in the left upper lobe axial image 116 series 5. Immediately adjacent to this there are multiple new nodular opacities seen in the left upper lobe. There is a new 1 x 1.5 cm peripheral or subpleural nodular opacity with question cystic or cavitary change versus bronchiectasis in the anterior segment of the left upper lobe. There is a more solid-appearing 1.8 x 1 cm nodule axial image 96 series 5. This has spicules that extend to the pleural surface. There is new peripheral or subpleural consolidation in the lateral apical posterior segment of the left upper lobe abutting the major fissure and some involvement of the superior segment of the left lower lobe for example axial image 164 series 5. Calcified left pulmonary nodules are stable. MEDIASTINUM: Atherosclerotic disease. Dilated ascending thoracic aorta up to 4.6 cm. This is similar to previous exams. Aortic valve calcification. Normal heart size. Trace pericardial effusion. Triple-vessel coronary artery calcification. No enlarged hilar or mediastinal lymph nodes. Normal visualized thyroid gland. CORONARY ARTERY CALCIFICATION: Moderate to severe. PLEURA: There is no pleural effusion. No pleural mass or thickening. AXILLA: No lymphadenopathy. UPPER ABDOMEN: Unremarkable. OSSEOUS STRUCTURES: Degenerative changes of the thoracic spine. Postsurgical changes to the lower cervical spine. CT/CT chest wo IV con IMPRESSION: Severe emphysema. Severe volume loss and scarring in both upper lobes. New 5 mm peripheral or subpleural right lower lobe nodule. Multiple new nodular opacities in the left upper lobe. Given new appearance in a short period of time, this probably represents an infectious or inflammatory process. Short-term followup chest CT in several months recommended. 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 Fleischner guidelines were followed.
== END 2023-03-26 07:21 | disposition home or self-care (01) ==
LOC: HO.CT 07:20
PROVIDERS: PCP Internal Medicine; Visit Provider Internal Medicine
DX: R91.1 Solitary pulmonary nodule (principal); J44.9 Chronic obstructive pulmonary disease, unspecified
CPT/HCPCS: 71250

== ENCOUNTER 2023-03-26 09:18 | Outpatient (AMB) | payer OTHER, SELFPAY ==
[2023-03-26 09:21] VITALS: BMI 19.2
--- NOTE | 2023-03-26 09:21 | MHC.OFFVIS ---
Intake Vital Signs 03/26/23 09:21 Height 5 ft 6 in Weight 119 lb BMI 19.2 Intake Visit Reasons: OV - Left Shoulder OA - Last Injection 11/28/22 Intake Note: Be is a 77 year old male who presents today for a follow up of his left shoulder. Last injections done 11/28/2022. Patient reports that this injection was helpful. He is unsure about repeat injection. He takes oxycodone which is prescribed by his pcp, this helps his pain until he is active Allergies aspirin [ASA] Allergy (Mild, Verified 03/26/23 09:24) UPSET STOMACH PT TAKES BABY ASA INSTEAD, stomach upset acetaminophen [From Vicodin] Adverse Reaction (Severe, Verified 03/26/23 09:24) upset stomach hydrocodone [From Vicodin] Adverse Reaction (Severe, Verified 03/26/23 09:24) upset stomach HPI OV - Left Shoulder OA - Last Injection 11/28/22 HPI Details Be Fontenot is a 77-year-old male who presents today in the office for a follow-up of left shoulder osteoarthritis. The patient has been complaining of left shoulder pain with limited elevation and abduction since his accident in 2020. He tried physical therapy with no benefits. The patient had two injections in the past. He received his left shoulder injection on 11/28/22 with moderate relief. He has difficulty sleeping on his sides. He states that occasionally his shoulder pain radiates upward to his neck, back, and hands. [facility] Medical History (Updated 03/26/23 @ 09:40 by Jorge Lee MD) Aneurysmal dilatation CAD (coronary artery disease) Chronic pain syndrome COPD (chronic obstructive pulmonary disease) COPD (chronic obstructive pulmonary disease) Essential hypertension GERD (gastroesophageal reflux disease) H/O: CVA (cerebrovascular accident) Internal derangement of left shoulder Left shoulder pain Lung density on x-ray Neck pain Oral thrush Physical exam Pleural effusion Postlaminectomy syndrome of cervical region Pulmonary fibrosis Pulmonary nodule Pulmonary nodules Pure hypercholesterolemia Screening for colon cancer Shoulder pain Spondylosis, cervical Surgical History History of appendectomy History of back surgery History of cervical spinal surgery History of esophagogastroduodenoscopy (EGD) History of foot surgery History of hand surgery History of hemicolectomy History of hernia repair History of laminectomy History of partial colectomy History of right cataract extraction Hx of colonoscopy Hx of neck surgery Stented coronary artery Family History Father Bone cancer Mother CVD (cardiovascular disease) Brother No problems noted. Sister No problems noted. Daughter No problems noted. 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 Cognitive needs: No Hearing needs: No Vision needs: No Physical Exam Vital Signs: BMI result Body Mass Index 19.2 Const General: no acute distress, alert and awake Orientation/consciousness: patient oriented x3 HEENT Head: Yes normocephalic and Yes atraumatic Eyes EOM: EOMs intact bilaterally Resp Effort & Inspection: normal respiratory effort and able to speak in complete sentences Cardio Jugular venous distension: no JVD Skin General skin exam: turgor normal Rashes: no rashes Neuro General: patient oriented x3 Extrem Other: + brady and Neer Neg emty can +O'demetri's Full ROM Psych Appearance: grossly normal Affect: normal affect Attitude: cooperative Results Reviewed Results Reviewed: I personally reviewed relevant radiographs. Mild shoulder OA Assessment & Plan Assessment & Plan (1) Internal derangement of left shoulder: Code(s): M24.812 - Other specific joint derangements of left shoulder, not elsewhere classified Plan 77 yo with ongoing shoulder pain for 2 years. No improvement iwth PT nad injections. I ordered an MRI scan of the left shoulder for further evaluation. The patient will follow up to review the result and discuss further treatment options. Scribed for Dr. Jorge Lee by Sid Tubbs, medical or surgical instrument maker, on 03/26/2023. I, Dr. Jorge Lee, have personally reviewed and agree with the information entered by the scribe. Orders: Orders MR shoulder LT wo con Today M24.812 - Other specific joint derangements of left shoulder, not elsewhere classified Coding Level of Care Code Est Pt Level 3 (21993) Diagnoses Internal derangement of left shoulder M24.812
== END 2023-03-26 09:41 | disposition home or self-care (01) ==
PROVIDERS: PCP Internal Medicine; Visit Provider Orthopaedic Surgery
DX: M24.812 Other specific joint derangements of left shoulder, not elsewhere classified (principal)
CPT/HCPCS: 99214

== ENCOUNTER 2023-04-03 09:57 | Outpatient (AMB) | payer OTHER, SELFPAY ==
--- NOTE | 2023-04-03 10:00 | A.OFFVIS_ITS ---
Intake Intake Visit Reasons: Benign prostatic hyperplasia Intake Note: New Patient presents for initial visit BPH (previously seen Dr. Mirza) Urology Medications: tamsulosin Blood Thinner: aspirin PVR: 21ml's Financial Foundations Associate Required: No Accompanied by: Self / Same As Patient Allergies aspirin [ASA] Allergy (Mild, Verified 04/03/23 10:28) UPSET STOMACH PT TAKES BABY ASA INSTEAD, stomach upset acetaminophen [From Vicodin] Adverse Reaction (Severe, Verified 04/03/23 10:28) upset stomach hydrocodone [From Vicodin] Adverse Reaction (Severe, Verified 04/03/23 10:28) upset stomach Medication List - Last Reconciled 04/03/23 by OMAIRA Dacosta-BC aspirin (Adult Low Dose Aspirin) 81 mg PO DAILY atorvastatin 80 mg PO DAILY 90 days Breo Ellipta 200-25 mcg/dose (fluticasone furoate-vilanterol) 1 ea PO DAILY NS clotrimazole 10 mg PO TID PRN 10 days [id number] 821-21-234-300 mcg (Centrum Silver Men) 1 tab PO DAILY omeprazole 20 mg PO DAILY 90 days oxycodone 10 mg PO Q6H PRN 30 days ropinirole 1 mg PO BEDTIME 90 days tamsulosin 0.4 mg PO BID 90 days HPI HPI Comments History of Present Illness Details Be is a very pleasant 77-year-old male patient of Dr. Pappas. He has a past medical history of coronary artery disease, chronic pain syndrome, COPD, GERD, hypertension, CVA, pulmonary fibrosis, postlaminectomy syndrome of cervical region, pulmonary nodule, hypercholesteremia, and cervical spondylosis. He presents to the office today as a new patient for ongoing lower urinary tract symptoms. In discussion with the patient today he reports to be doing and feeling well. He reports discussing with his PCP at annual follow-up that he is experiencing urinary frequency, urgency, and nocturia at which time patient was referred here. When asked he reports to the have been on Flomax for a couple of years now in feels this is not working for him anymore. When asked he does endorse to drinking increased amounts of [employer] root beer. He otherwise denies incontinence, hematuria, dysuria, foul smelling urine, changes to urinary stream, flank pain, fever, and or chills. Discussed obtaining retroperitoneal ultrasound for further assessment evaluation as well as PSA discuss trial of terazosin. In office urinalysis results reviewed with the patient today. PVR 21 mL. SHERYL offered however deferred. Patient otherwise denies any other issues or concerns at this time. FORMERLY [facility] Medical History Aneurysmal dilatation CAD (coronary artery disease) Chronic pain syndrome COPD (chronic obstructive pulmonary disease) COPD (chronic obstructive pulmonary disease) Essential hypertension GERD (gastroesophageal reflux disease) H/O: CVA (cerebrovascular accident) Internal derangement of left shoulder Left shoulder pain Lung density on x-ray Neck pain Oral thrush Physical exam Pleural effusion Postlaminectomy syndrome of cervical region Pulmonary fibrosis Pulmonary nodule Pulmonary nodules Pure hypercholesterolemia Screening for colon cancer Shoulder pain Spondylosis, cervical Surgical History History of appendectomy History of back surgery History of cervical spinal surgery History of esophagogastroduodenoscopy (EGD) History of foot surgery History of hand surgery History of hemicolectomy History of hernia repair History of laminectomy History of partial colectomy History of right cataract extraction Hx of colonoscopy Hx of neck surgery Stented coronary artery Family History Father Bone cancer Mother CVD (cardiovascular disease) Brother No problems noted. Sister No problems noted. Daughter No problems noted. 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 Cognitive needs: No Hearing needs: No Vision needs: No Review of Systems Const Reports as per HPI Eyes Reports no additional complaints ENT Reports no additional complaints Card Reports as per HPI Resp Reports as per HPI GI Reports no additional complaints Reports as per HPI Musc Reports as per HPI Neuro Reports as per HPI Psych Reports no additional complaints Endo Reports no additional complaints Physical Exam Const General: cooperative, comfortable, no acute distress, well developed, alert and awake Orientation/consciousness: patient oriented x3 Limitations: no limitations HEENT Head: Yes normal to inspection, Yes normocephalic and Yes atraumatic Ears: hearing grossly normal bilaterally Eyes General: appearance normal, both eyes and all related structures Neck Neck: Yes normal visual inspection and Yes trachea midline Chest Chest palpation & inspection: normal inspection of the chest Resp Effort & Inspection: normal respiratory effort and able to speak in complete sentences Cardio Rate: regular rate GI Inspection: Yes normal to inspection Rectal Exam - Male: Yes deferred General: Yes no CVA tenderness Back/Spine/Pelvis Back: no CVA tenderness Skin General skin exam: no rashes or lesions noted Neuro General: patient oriented x3 Extrem General: Yes normal to inspection Psych Appearance: grossly normal and well kempt Mental Status: mental status grossly normal Speech and movement: Normal speech and movement present and Clear speech present Affect: normal affect Attitude: cooperative Thought process: Normal thought process present Thought content: Normal thought content present Insight: Fair insight present (Psych) Judgement: Fair judgement present (Psych) Office Procedures Post Void Residual Post Residual Void Post Void Residual (PVR): 21 [id number] Void Residual by ultrasound Results AMB Urinalysis, Automated UA Leukoctes 0 Herminia/uL Last Edit by Jennifer Jarrett on 04/03/23 10:22 UA Nitrite Last Edit by Jennifer Jarrett on 04/03/23 10:22 UA Urobilinogen 0.2 mg/dL Last Edit by Jennifer Jarrett on 04/03/23 10:22 UA Protein 0 mg/dL Last Edit by Jennifer Jarrett on 04/03/23 10:22 UA pH 6.0 Last Edit by [employer]Whe[employer] Jarrett on 04/03/23 10:22 UA Blood 0 Parvez/uL Last Edit by [employer] Jarrett on 04/03/23 10:22 UA [place] 1.025 Last Edit by Jennifer Jarrett on 04/03/23 10:22 UA Ketone Negative Last Edit by KarstenSkycast Solutionscharles Jarrett on 04/03/23 10:22 UA Bilirubin 0 mg/dL Last Edit by Jennifer Jarrett on 04/03/23 10:22 UA Glucose 0 mg/dL Last Edit by Jennifer Jarrett on 04/03/23 10:22 Results Reviewed Results Reviewed: Laboratory Last Values Urine pH (Auto) 6.0 04/03/23 10:03 [place] (Auto) 1.025 04/03/23 10:03 Urine Protein (Auto) 0 mg/dL 04/03/23 10:03 Glucose (UA)(Auto) 0 mg/dL 04/03/23 10:03 Urine Ketones (Auto) Negative 04/03/23 10:03 Urine Blood (Auto) 0 Parvez/uL 04/03/23 10:03 Urine Bilirubin (Auto) 0 mg/dL 04/03/23 10:03 Urine Urobilinogen (Auto) 0.2 mg/dL 04/03/23 10:03 Leukocyte Esterase (Auto) 0 Herminia/uL 04/03/23 10:03 Assessment & Plan Assessment & Plan (1) Nocturia: Code(s): R35.1 - Nocturia (2) Urinary frequency: Code(s): R35.0 - Frequency of micturition (3) Lower urinary tract symptoms: Code(s): R39.9 - Unspecified symptoms and signs involving the genitourinary system Plan In office urinalysis results reviewed with the patient today; as noted above. PVR 21ml's SHERYL offered however deferred. Discussed obtaining retroperitoneal ultrasound for further assessment evaluation. Will obtain PSA for further assessment evaluation. Stop Flomax as discussed. Start terazosin 5 mg as discussed and prescribed. Discussed bladder triggers/irritants. Discussed at length importance of limiting fluids 2-3 hours prior to bed to assist with decreasing episodes of nocturia. Discussed importance of drinking plenty of water daily. Discussed nicotine dependence on urinary symptoms as well as overall health and well-being. Follow-up in 6-8 weeks with imaging and lab to be completed prior; or sooner with any issues, concerns, and or questions. Orders: Orders PSA,Total (Free>4and<10) 04/03/23 N40.0 - Benign prostatic hyperplasia without lower urinary tract symptoms US retroperitoneal comp 04/03/23 R35.0 - Frequency of micturition, R35.1 - Nocturia AMB Urinalysis Automated 04/03/23 Z13.9 - Encounter for screening, unspecified AMB Post Void Residual by ultrasound 08/25/23 N40.0 - Benign prostatic hyperplasia without lower urinary tract symptoms Medications: New terazosin 5 mg PO BEDTIME 30 days 30 caps 1RF N40.1 - Benign prostatic hyperplasia with lower urinary tract symptoms, R35.0 - Frequency of micturition Discontinued tamsulosin Discontinued Reason: Doctor's Order 0.4 mg PO BID 90 days 180 caps 0RF Coding Level of Care Code New Pt Level 4 (94894) Diagnoses Nocturia R35.1 Urinary frequency R35.0 Lower urinary tract symptoms R39.9 CPT Codes Post Residual Void - PVR CPT Code: 84722-Ueek Void Residual by ultrasound ([id number])
== END 2023-04-03 10:36 | disposition home or self-care (01) ==
PROVIDERS: PCP Internal Medicine; Visit Provider Nurse Practitioner Family
DX: Z13.9 Encounter for screening, unspecified (principal)
CPT/HCPCS: 99204; 99214

== ENCOUNTER → 2023-04-03 09:57 | Outpatient (BNVA) | payer OTHER, SELFPAY | PROVIDERS: PCP Internal Medicine; Visit Provider Nurse Practitioner Family | DX: N40.1 Benign prostatic hyperplasia with lower urinary tract symptoms (principal); R35.1 Nocturia; R35.0 Frequency of micturition; R39.9 Unspecified symptoms and signs involving the genitourinary system | CPT/HCPCS: 51798; 81003; 99202 ==

== ENCOUNTER 2023-04-15 08:34 | Outpatient (REF) | payer OTHER, SELFPAY ==
[2023-04-15 10:19] LABS: Alanine Aminotransferase 25 U/L (0-40); Albumin Level 3.8 g/dL (3.5-5.0); Alkaline Phosphatase 87 U/L (39-117); Anion Gap 12 (12-20); Aspartate Amino Transferase 25 U/L (5-37); Bilirubin Total 0.5 mg/dL (0.0-1.0); Blood Urea Nitrogen 12 mg/dL (9-16); Calcium 9.2 mg/dL (8.4-10.2); Carbon Dioxide 27 mmol/L (22-29); Chloride 107 mmol/L (96-108); Estimated Glomerular Filt Rate > 60; Glucose Fasting 104 mg/dL (60-99); Potassium 3.9 mmol/L (3.3-5.1); Sodium 142 mmol/L (135-145)
== END 2023-04-15 08:35 | disposition home or self-care (01) ==
LOC: HO.LAB 08:34
PROVIDERS: Absent Provider Nurse Practitioner Family; PCP Internal Medicine; Visit Provider Internal Medicine
DX: Z12.5 Encounter for screening for malignant neoplasm of prostate (principal); R73.02 Impaired glucose tolerance (oral); N40.0 Benign prostatic hyperplasia without lower urinary tract symptoms
CPT/HCPCS: 36415; 80053; 84153

== ENCOUNTER 2023-04-29 10:06 | Outpatient (REF) | payer OTHER, SELFPAY ==
--- NOTE | ~2023-04-29 | US_ITS ---
EXAMINATION: US RETROPERITONEAL COMPLETE (RENAL) CLINICAL INFORMATION: Nocturia. COMPARISON: CT abdomen and pelvis 09/07/2012. TECHNIQUE: Real-time imaging of the kidneys and bladder. FINDINGS: RIGHT KIDNEY: 10.4 x 4.0 x 5.1 cm (SAG x AP x TRV). The kidney is normal in size, contour, and echogenicity. Renal cortical thickness is normal. No renal calculi or hydronephrosis. Benign-appearing renal cyst measuring 1.5 cm. No follow up imaging is recommended. Incidentally noted extrarenal pelvis. LEFT KIDNEY: 10.0 x 3.5 x 4.5 cm (SAG x AP x TRV). The kidney is normal in size, contour, and echogenicity. Renal cortical thickness is normal. No calculi or focal parenchymal lesions. No hydronephrosis. BLADDER: Well distended. Bilateral ureteral jets are demonstrated. Prevoid bladder volume is 201 mL. Postvoid bladder volume is 140 mL. 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 Enlarged prostate, volume measuring 67.9 mL. US/US retroperitoneal comp IMPRESSION: * Prostatomegaly. 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 Large postvoid bladder residual of 140 mL. * No hydronephrosis or nephrolithiasis.
== END 2023-04-29 10:07 | disposition home or self-care (01) ==
LOC: HO.US 10:06
PROVIDERS: Visit Provider Nurse Practitioner Family
DX: R35.1 Nocturia (principal); R35.0 Frequency of micturition
CPT/HCPCS: 76770

== ENCOUNTER 2023-05-12 13:18 | Outpatient (AMB) | payer OTHER, SELFPAY ==
--- NOTE | 2023-05-12 13:31 | A.OFFVIS_ITS ---
Intake Intake Visit Reasons: BPH- follow up/PSA/US(set) Intake Note: Patient presents for follow up visit BPH /psa/ultrasound (psa 2.70) (imaging 04/29/23) Urology Medications: tamsulosin Blood Thinner: aspirin PVR: 0ml's Formulator Compounder Required: No Accompanied by: Self / Same As Patient Allergies aspirin [ASA] Allergy (Mild, Verified 04/03/23 10:28) UPSET STOMACH PT TAKES BABY ASA INSTEAD, stomach upset acetaminophen [From Vicodin] Adverse Reaction (Severe, Verified 04/03/23 10:28) upset stomach hydrocodone [From Vicodin] Adverse Reaction (Severe, Verified 04/03/23 10:28) upset stomach Medication List - Last Reconciled 05/12/23 by HUGH Dacosta aspirin (Adult Low Dose Aspirin) 81 mg PO DAILY atorvastatin 80 mg PO DAILY 90 days Breo Ellipta 200-25 mcg/dose (fluticasone furoate-vilanterol) 1 ea PO DAILY NS clotrimazole 10 mg PO TID PRN 10 days doxazosin 4 mg PO BEDTIME 30 days finasteride 5 mg PO DAILY 30 days [id number] 807-82-644-300 mcg (Centrum Silver Men) 1 tab PO DAILY omeprazole 20 mg PO DAILY 90 days oxycodone 10 mg PO Q6H PRN 30 days ropinirole 1 mg PO BEDTIME 90 days HPI HPI Comments History of Present Illness Details Be is a very pleasant 77-year-old male patient of Dr. Pappas. He has a past medical history of coronary artery disease, chronic pain syndrome, COPD, GERD, hypertension, CVA, pulmonary fibrosis, postlaminectomy syndrome of cervical region, pulmonary nodule, hypercholesteremia, and cervical spondylosis. He presents to the office today for follow-up. Of note, patient was seen approximately 6 weeks ago as a new patient for ongoing lower urinary tract symptoms at which time a retroperitoneal ultrasound was ordered and a PSA. These results reviewed with the patient today. Right kidney with no calculi and or hydronephrosis.Benign-appearing renal cyst measuring 1.5 cm. No follow up imaging is recommended per radiology report. Incidentally noted extrarenal pelvis. Left kidney with no calculi, lesions, and or hydronephrosis. The bladder is well distended. Bilateral ureteral jets are demonstrated. Prevoid bladder volume is approximately 200 mL. Postvoid bladder volume is approximate and 40 mL. 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 Enlarged prostate, volume measuring approximately 70 mLs. In discussion with the patient today regarding his lower urinary tract symptoms he had been experiencing (urinary frequency, urgency, and nocturia) he feel symptoms had been improving with terazosin however have since somewhat return. He had previously been on Flomax with no improvement. He otherwise denies incontinence, hematuria, dysuria, foul-smelling urine, changes to urinary stream, flank pain, fever, and or chills. Recent PSA results reviewed with the patient today. PSA 05/02--2.7. Discussed given retroperitoneal ultrasound noting enlarged prostate and PSA 2.7 trial finasteride to help with enlarged prostate versus continuation of surveillance monitoring. Unable to obtain urine for urinalysis however PVR 0ml's. Patient otherwise denies any issues or concerns at this time. FORMERLY [facility] Medical History Aneurysmal dilatation CAD (coronary artery disease) Chronic pain syndrome COPD (chronic obstructive pulmonary disease) COPD (chronic obstructive pulmonary disease) Essential hypertension GERD (gastroesophageal reflux disease) H/O: CVA (cerebrovascular accident) Internal derangement of left shoulder Left shoulder pain Lung density on x-ray Neck pain Oral thrush Physical exam Pleural effusion Postlaminectomy syndrome of cervical region Pulmonary fibrosis Pulmonary nodule Pulmonary nodules Pure hypercholesterolemia Screening for colon cancer Shoulder pain Spondylosis, cervical Surgical History History of appendectomy History of back surgery History of cervical spinal surgery History of esophagogastroduodenoscopy (EGD) History of foot surgery History of hand surgery History of hemicolectomy History of hernia repair History of laminectomy History of partial colectomy History of right cataract extraction Hx of colonoscopy Hx of neck surgery Stented coronary artery Family History Father Bone cancer Mother CVD (cardiovascular disease) Brother No problems noted. Sister No problems noted. Daughter No problems noted. 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 Cognitive needs: No Hearing needs: No Vision needs: No Review of Systems Const Reports as per HPI Eyes Reports no additional complaints ENT Reports no additional complaints Card Reports as per HPI Resp Reports as per HPI GI Reports no additional complaints Reports as per HPI Musc Reports as per HPI Neuro Reports as per HPI Psych Reports no additional complaints Endo Reports no additional complaints Physical Exam Const General: cooperative, comfortable, no acute distress, well developed, alert and awake Orientation/consciousness: patient oriented x3 Limitations: no limitations HEENT Head: Yes normal to inspection, Yes normocephalic and Yes atraumatic Ears: hearing grossly normal bilaterally Eyes General: appearance normal, both eyes and all related structures Neck Neck: Yes normal visual inspection and Yes trachea midline Chest Chest palpation & inspection: normal inspection of the chest Resp Effort & Inspection: normal respiratory effort and able to speak in complete sentences Cardio Rate: regular rate GI Inspection: Yes normal to inspection Rectal Exam - Male: Yes deferred General: Yes no CVA tenderness Back/Spine/Pelvis Back: no CVA tenderness Skin General skin exam: no rashes or lesions noted Neuro General: patient oriented x3 Extrem General: Yes normal to inspection Psych Appearance: grossly normal and well kempt Mental Status: mental status grossly normal Speech and movement: Normal speech and movement present and Clear speech present Affect: normal affect Attitude: cooperative Thought process: Normal thought process present Thought content: Normal thought content present Insight: Fair insight present (Psych) Judgement: Fair judgement present (Psych) Office Procedures Post Void Residual Post Residual Void Post Void Residual (PVR): 0 [id number] Void Residual by ultrasound Results Reviewed Results Reviewed: Date of Service: 04/29/23 EXAMINATION: US RETROPERITONEAL COMPLETE (RENAL) FINDINGS: RIGHT KIDNEY: 10.4 x 4.0 x 5.1 cm (SAG x AP x TRV). The kidney is normal in size, contour, and echogenicity. Renal cortical thickness is normal. No renal calculi or hydronephrosis. Benign-appearing renal cyst measuring 1.5 cm. No follow up imaging is recommended. Incidentally noted extrarenal pelvis. LEFT KIDNEY: 10.0 x 3.5 x 4.5 cm (SAG x AP x TRV). The kidney is normal in size, contour, and echogenicity. Renal cortical thickness is normal. No calculi or focal parenchymal lesions. No hydronephrosis. BLADDER: Well distended. Bilateral ureteral jets are demonstrated. Prevoid bladder volume is 201 mL. Postvoid bladder volume is 140 mL. 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 Enlarged prostate, volume measuring 67.9 mL. IMPRESSION: * Prostatomegaly. 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 Large postvoid bladder residual of 140 mL. * No hydronephrosis or nephrolithiasis. Assessment & Plan Assessment & Plan (1) Lower urinary tract symptoms: Code(s): R39.9 - Unspecified symptoms and signs involving the genitourinary system (2) Urinary frequency: Code(s): R35.0 - Frequency of micturition (3) Nocturia: Code(s): R35.1 - Nocturia (4) Enlarged prostate: Code(s): N40.0 - Benign prostatic hyperplasia without lower urinary tract symptoms (5) Bladder diverticulum: Code(s): N32.3 - Diverticulum of bladder (6) Bladder trabeculation: Code(s): N32.89 - Other specified disorders of bladder Plan Unable to obtain urine for urinalysis however PVR 0 mL. Stop terazosin 5 mg Start finasteride 5 mg daily. Start doxazosin 4 mg at bedtime. Discussed at length affects of recreational marijuana on urinary system as well as overall health and well-being. Recent retroperitoneal ultrasound results reviewed with the patient today; as noted above. Recent PSA results reviewed with the patient today; as noted above. Discussed, educated, encouraged on the importance of drinking plenty of water daily. Discussed possible near future in office cystoscopy if symptoms persist and/or worsen Follow-up in 6 weeks with PVR; or sooner with any issues, concerns, and or questions Orders: Orders AMB Post Void Residual by ultrasound Today N40.0 - Benign prostatic hyperplasia without lower urinary tract symptoms Medications: New finasteride 5 mg PO DAILY 30 days 30 tabs 1RF N40.1 - Benign prostatic hyperplasia with lower urinary tract symptoms, R33.9 - Retention of urine, unspecified doxazosin 4 mg PO BEDTIME 30 days 30 tabs 1RF N13.8 - Other obstructive and reflux uropathy, N40.0 - Benign prostatic hyperplasia without lower urinary tract symptoms, N40.1 - Benign prostatic hyperplasia with lower urinary tract symptoms Discontinued terazosin Discontinued Reason: Doctor's Order 5 mg PO BEDTIME 30 days 30 caps 1RF N40.1 - Benign prostatic hyperplasia with lower urinary tract symptoms, R35.0 - Frequency of micturition Patient Instructions: The patient had an opportunity to ask questions regarding the treatment plan. All questions were answered. Physical exam, labs, and imaging were discussed and reviewed in detail. As well as risks, benefits, and discussion of treatment choices. No major barriers to understanding were identified. The patient expressed understanding and agreement with the above treatment plan. The patient was made aware they should contact our office by phone for worsening of their current condition, the appearance of new symptoms, or with any questions or concerns. Compliance is encouraged with any medications and follow up testing that is ordered. It is a privilege to be allowed the opportunity to participate in? your urological care.? Again, if you have any questions or concerns If you have any questions or concerns please do not hesitate to contact me. The office is [phone]. This note is constructed using voice recognition software. While every effort has been made to ensure accuracy district adviser errors may have been included. Yours sincerely, HUGH Dacosta Coding Level of Care Code Est Pt Level 4 (26113) Diagnoses Lower urinary tract symptoms R39.9 Urinary frequency R35.0 Nocturia R35.1 Enlarged prostate N40.0 Bladder diverticulum N32.3 Bladder trabeculation N32.89 CPT Codes Post Residual Void - PVR CPT Code: 14222-[id number] Void Residual by ultrasound ([id number])
== END 2023-05-12 14:03 | disposition home or self-care (01) ==
PROVIDERS: PCP Internal Medicine; Visit Provider Nurse Practitioner Family
DX: R39.9 Unspecified symptoms and signs involving the genitourinary system (principal); R35.0 Frequency of micturition; R35.1 Nocturia; N40.0 Benign prostatic hyperplasia without lower urinary tract symptoms; N32.3 Diverticulum of bladder; N32.89 Other specified disorders of bladder
CPT/HCPCS: 99214

== ENCOUNTER → 2023-05-12 13:18 | Outpatient (BNVA) | payer OTHER, SELFPAY | PROVIDERS: PCP Internal Medicine; Visit Provider Nurse Practitioner Family | DX: N40.1 Benign prostatic hyperplasia with lower urinary tract symptoms (principal); R35.0 Frequency of micturition; R35.1 Nocturia; N32.3 Diverticulum of bladder; N32.89 Other specified disorders of bladder; R39.9 Unspecified symptoms and signs involving the genitourinary system | CPT/HCPCS: 51798; 99212 ==

== ENCOUNTER 2023-06-03 08:44 | Outpatient (REF) | payer OTHER, SELFPAY ==
--- NOTE | ~2023-06-03 | MR_ITS ---
EXAMINATION: MR SHOULDER WITHOUT CONTRAST, LEFT CLINICAL INFORMATION: Left shoulder pain and decreased range of motion. COMPARISON: Left shoulder radiographs dated 01/06/2023. TECHNIQUE: Multisequence MR imaging of the left shoulder was obtained without contrast on a high-field strength scanner. FINDINGS: Evaluation somewhat limited secondary to patient motion. ROTATOR CUFF: Supraspinatus and infraspinatus tendinosis. Significant attenuation and irregularity of the distal tendon fibers consistent with irregular articular surface partial tearing measuring up to 3.7 x 3.2 cm (AP x ML). There are small full-thickness components to the tear. Moderate subscapularis tendinosis with distal bursal surface partial tearing measuring up to 2.5 cm in ML dimension. Mild supraspinatus and infraspinatus muscle atrophy. BICEPS: Medial subluxation of the proximal long head biceps tendon through the subscapularis tendon tear. The tendon is flattened and irregular with longitudinal split tearing. Mild tenosynovitis. No full-thickness transverse tendon tear or tendon retraction. CORACOACROMIAL ARCH: The undersurface of the acromion is curved with no subacromial spur. Mild acromioclavicular osteoarthritis. LABRUM/CAPSULE: Linear fluid within the undersurface of the superior, posterosuperior, posterior, and posteroinferior labrum consistent with nondisplaced undersurface tearing. Intact inferior joint capsule. GLENOHUMERAL JOINT/MARROW: Mild articular cartilage signal heterogeneity with tiny marginal osteophytes. Small joint effusion. MR/MR shoulder LT wo con IMPRESSION: 1. Supraspinatus and infraspinatus tendinosis with irregular articular surface partial tearing measuring 3.7 x 3.2 cm (AP x ML). Small full-thickness components to the tear. Moderate subscapularis tendinosis with distal bursal surface partial tearing measuring 2.5 cm in ML dimension. Mild supraspinatus and infraspinatus muscle atrophy. 2. Medial subluxation of the proximal long head biceps tendon through the subscapularis tendon tear with longitudinal split tearing and mild tenosynovitis. No full-thickness transverse tendon tear or tendon retraction. 3. Mild acromioclavicular osteoarthritis. 4. Nondisplaced undersurface tearing of the superior, posterosuperior, posterior, and posteroinferior labrum. 5. Mild glenohumeral osteoarthritis and small joint effusion.
== END 2023-06-03 08:45 | disposition home or self-care (01) ==
LOC: HO.MRI 08:44
PROVIDERS: PCP Internal Medicine; Visit Provider Orthopaedic Surgery
DX: M24.812 Other specific joint derangements of left shoulder, not elsewhere classified (principal)
CPT/HCPCS: 73221

== ENCOUNTER 2023-06-11 11:26 | Emergency (ER) | payer OTHER, SELFPAY ==
--- NOTE | ~2023-06-11 | XR_ITS ---
EXAMINATION: BILATERAL ANKLES, BILATERAL FEET CLINICAL INFORMATION: Bilateral foot and ankle pain COMPARISON: Left foot 01/20/2019 TECHNIQUE: 2 views each ankle, 3 views each foot FINDINGS: Right: There is bilateral soft tissue swelling at the ankle, medial greater than lateral the ankle mortise appears stable. No fracture or dislocation. Imaging of the foot demonstrate degenerative changes at the DIP joints. No fracture is or dislocations. Left: There is a tiny linear calcifications seen at the distal end within the medial malleolus which is probably secondary to old trauma as there is no soft tissue swelling associated with this area. The ankle mortise appears stable. No acute fracture is seen. In the foot, there has been fusion at the first metatarsal phalangeal joint with a plate and screw device as well as a screw extending from the proximal phalanx into the metatarsal. A single screw is present in the second metatarsal head. No acute fractures are seen. XR/XR ankle RT min 3V IMPRESSION: 1. Soft tissue swelling around the right ankle. 2. No acute fracture is seen. 3. Postoperative changes left foot as described above.
--- NOTE | ~2023-06-11 | XR_ITS ---
EXAMINATION: BILATERAL ANKLES, BILATERAL FEET CLINICAL INFORMATION: Bilateral foot and ankle pain COMPARISON: Left foot 01/20/2019 TECHNIQUE: 2 views each ankle, 3 views each foot FINDINGS: Right: There is bilateral soft tissue swelling at the ankle, medial greater than lateral the ankle mortise appears stable. No fracture or dislocation. Imaging of the foot demonstrate degenerative changes at the DIP joints. No fracture is or dislocations. Left: There is a tiny linear calcifications seen at the distal end within the medial malleolus which is probably secondary to old trauma as there is no soft tissue swelling associated with this area. The ankle mortise appears stable. No acute fracture is seen. In the foot, there has been fusion at the first metatarsal phalangeal joint with a plate and screw device as well as a screw extending from the proximal phalanx into the metatarsal. A single screw is present in the second metatarsal head. No acute fractures are seen. XR/XR foot LT min 3V IMPRESSION: 1. Soft tissue swelling around the right ankle. 2. No acute fracture is seen. 3. Postoperative changes left foot as described above.
--- NOTE | ~2023-06-11 | XR_ITS ---
EXAMINATION: BILATERAL ANKLES, BILATERAL FEET CLINICAL INFORMATION: Bilateral foot and ankle pain COMPARISON: Left foot 01/20/2019 TECHNIQUE: 2 views each ankle, 3 views each foot FINDINGS: Right: There is bilateral soft tissue swelling at the ankle, medial greater than lateral the ankle mortise appears stable. No fracture or dislocation. Imaging of the foot demonstrate degenerative changes at the DIP joints. No fracture is or dislocations. Left: There is a tiny linear calcifications seen at the distal end within the medial malleolus which is probably secondary to old trauma as there is no soft tissue swelling associated with this area. The ankle mortise appears stable. No acute fracture is seen. In the foot, there has been fusion at the first metatarsal phalangeal joint with a plate and screw device as well as a screw extending from the proximal phalanx into the metatarsal. A single screw is present in the second metatarsal head. No acute fractures are seen. XR/XR ankle LT min 3V IMPRESSION: 1. Soft tissue swelling around the right ankle. 2. No acute fracture is seen. 3. Postoperative changes left foot as described above.
--- NOTE | ~2023-06-11 | CT_ITS ---
Indication: Pain, fall EXAMINATION: CT brain, CT cervical spine. Comparison previous dated 04/20/2021., CT chest dated 03/26/[address] examination was performed using dose optimization techniques as appropriate, variously including the following: *Automated exposure control *Adjustment of mA and/or kV according to patient size (this includes techniques or standardized protocols for targeted exams where dose is matched to indication/reason for exam; i.e. extremities or head) *Use of iterative reconstruction technique. Radiation dose [address] brain; There is no midline shift. There is no mass effect. There is no hemorrhage. The basal cisterns appear patent. The posterior fossa is grossly within normal limits. No extra-axial collection. Note is made of White matter ischemic changes. No evidence for fracture on the bone windows. Cervical spine; Hardware and degenerative changes. No evidence for an acute fracture or dislocation. Once again significant abnormality in the partially visualized upper lung dc. CT/CT head/brain wo IV con IMPRESSION: Negative acute noncontrast CT the brain. No acute fracture or dislocation of the cervical spine. Once again significant parenchymal abnormalities in the upper lung zones. As per recommendation of CT chest dated 03/26/[address] of the chest is recommended for further evaluation. This may be done on an outpatient basis
--- NOTE | ~2023-06-11 | XR_ITS ---
EXAMINATION: BILATERAL ANKLES, BILATERAL FEET CLINICAL INFORMATION: Bilateral foot and ankle pain COMPARISON: Left foot 01/20/2019 TECHNIQUE: 2 views each ankle, 3 views each foot FINDINGS: Right: There is bilateral soft tissue swelling at the ankle, medial greater than lateral the ankle mortise appears stable. No fracture or dislocation. Imaging of the foot demonstrate degenerative changes at the DIP joints. No fracture is or dislocations. Left: There is a tiny linear calcifications seen at the distal end within the medial malleolus which is probably secondary to old trauma as there is no soft tissue swelling associated with this area. The ankle mortise appears stable. No acute fracture is seen. In the foot, there has been fusion at the first metatarsal phalangeal joint with a plate and screw device as well as a screw extending from the proximal phalanx into the metatarsal. A single screw is present in the second metatarsal head. No acute fractures are seen. XR/XR foot RT min 3V IMPRESSION: 1. Soft tissue swelling around the right ankle. 2. No acute fracture is seen. 3. Postoperative changes left foot as described above.
--- NOTE | ~2023-06-11 | CT_ITS ---
Indication: Pain, fall EXAMINATION: CT brain, CT cervical spine. Comparison previous dated 04/20/2021., CT chest dated 03/26/[address] examination was performed using dose optimization techniques as appropriate, variously including the following: *Automated exposure control *Adjustment of mA and/or kV according to patient size (this includes techniques or standardized protocols for targeted exams where dose is matched to indication/reason for exam; i.e. extremities or head) *Use of iterative reconstruction technique. Radiation dose [address] brain; There is no midline shift. There is no mass effect. There is no hemorrhage. The basal cisterns appear patent. The posterior fossa is grossly within normal limits. No extra-axial collection. Note is made of White matter ischemic changes. No evidence for fracture on the bone windows. Cervical spine; Hardware and degenerative changes. No evidence for an acute fracture or dislocation. Once again significant abnormality in the partially visualized upper lung dc. CT/CT cervical spine wo IV con IMPRESSION: Negative acute noncontrast CT the brain. No acute fracture or dislocation of the cervical spine. Once again significant parenchymal abnormalities in the upper lung zones. As per recommendation of CT chest dated 03/26/[address] of the chest is recommended for further evaluation. This may be done on an outpatient basis
[2023-06-11 12:01] VITALS: BP 156/86; PULSE 70; RESP 18; TEMP 36.3; O2SAT 95; BMI 20.2
--- NOTE | 2023-06-11 12:04 | ED_ITS ---
HPI - Extremity Problem General Chief complaint: Extremity Injury, Lower Stated complaint: l and r foot pain fell on Thursday Time Seen by Provider: 06/11/23 12:10 Source: patient Mode of arrival: ambulatory Limitations: no limitations History of Present Illness HPI Narrative: Patient is a 77 year old assigned male at with a history of AAA, COPD, and CAD presenting to the emergency department today with bilateral foot and ankle pain. Patient states that 4 days ago, on 06/06/2023,he was working on a roof and fell off, approximately 10 feet, landing on his feet. Patient denies any head strike or loss of consciousness. Patient denies any dizziness, lightheadedness, abdominal pain, nausea, vomiting, fever, chills, blurry vision, double vision, loss of vision, chest pain, difficulty breathing, shortness of breath, back pain, night sweats, pain with urination, increased urinary frequency, increased urinary urgency, blood in his urine or stool, syncope or a near syncopal episode, bowel incontinence, bladder incontinence, bowel retention, bladder retention, or any other complaints at this time. MD Complaint: extremity pain Onset (ago): day(s) (4) Pain Consistency: constant Location: left, right and lower extremity Radiation: none Relieving factors: nothing Exacerbating factors: nothing Associated symptoms: denies other symptoms Related Data Home Medications Medication Instructions Recorded Confirmed aspirin 81 mg tablet,delayed 81 mg PO DAILY 07/12/20 05/12/23 release (Adult Low Dose Aspirin) [id number]-[id number] 300 mcg-K 60 1 tab PO DAILY 07/12/20 05/12/23 mcg-lycop 600 mcg-lutein 300 mcg tablet (Centrum Silver Men) Previous Rx's Medication Instructions Recorded ropinirole 1 mg tablet 1 mg PO BEDTIME 90 days #90 tabs 09/08/22 omeprazole 20 mg capsule,delayed 20 mg PO DAILY 90 days #90 caps 09/10/22 release atorvastatin 80 mg tablet 80 mg PO DAILY 90 days #90 tabs 10/14/22 doxazosin 4 mg tablet 4 mg PO BEDTIME 30 days #30 tabs 05/12/23 finasteride 5 mg tablet 5 mg PO DAILY 30 days #30 tabs 05/12/23 Breo Ellipta 200 mcg-25 mcg/dose 1 ea PO DAILY #60 ea 06/05/23 powder for inhalation (fluticasone furoate-vilanterol) clotrimazole 10 mg lindsey 10 mg PO TID PRN oral thrush 10 06/08/23 days #30 gaurav oxycodone 10 mg tablet 10 mg PO Q6H PRN pain 30 days #120 06/09/23 tabs Allergies Allergy/AdvReac Type Severity Reaction Status Date / Time aspirin [ASA] Allergy Mild UPSET Verified 04/03/23 10:28 STOMACH PT TAKES BABY ASA INSTEAD, stomach upset acetaminophen [From Vicodin] AdvReac Severe upset Verified 04/03/23 10:28 stomach hydrocodone [From Vicodin] AdvReac Severe upset Verified 04/03/23 10:28 stomach Review of Systems Constitutional: Constitutional: Reports no additional constitutional complaints, Denies chills, Denies fever(s) and Denies night sweats Eyes: Eyes: Reports no additional eye complaints, Denies blurry vision, Denies change in vision, Denies diplopia, Denies eye discharge, Denies loss of vision and Denies eye pain ENT: Denies dizziness Cardiovascular: Cardiovascular: Reports no additional cardiovascular complaints, Denies chest pain, Denies lightheadedness, Denies Loss of Consciousness and Denies dyspnea Respiratory: Respiratory: Reports no additional respiratory complaints and Denies dyspnea Gastrointestinal: Gastrointestinal: Reports no additional gastrointestinal complaints, Denies abdominal pain, Denies melena, Denies hematochezia, Denies change in bowel habits and Denies change in stool character Genitourinary: Genitourinary: Reports no additional male genitourinary complaints, Denies hematuria, Denies oliguria, Denies difficulty urinating, Denies dysuria, Denies urinary frequency, Denies urinary hesitancy, Denies urinary incontinence and Denies urinary urgency Musculoskeletal: Musculoskeletal: Reports no additional musculoskeletal complaints, Denies numbness and Denies tingling Comments: bilateral foot and ankle pain Neurologic: Denies dizziness, Denies loss of vision, Denies numbness and Denies tingling Psychiatric: Psychiatric: Reports no additional psychiatric complaints Endocrine: Endocrine: Reports no additional endocrine complaints Hematologic/Lymphatic: Hematologic/Lymphatic: Reports no additional hematologic/lymphatic complaints Allergic/Immunologic: Allergic/Immunologic: Reports no additional allergic/immunologic complaints PMFSH Past Medical History Attestation statement: The following information was validated with the patient. Source: old records reviewed and nursing notes reviewed Medical History Lower urinary tract symptoms Preoperative clearance Left shoulder pain Whiplash H/O: pneumonia Felon of finger of left hand Abdominal pain Left flank pain Annual physical exam Internal derangement of left shoulder Pulmonary nodule Pulmonary nodules Oral thrush Physical exam Chronic pain syndrome Spondylosis, cervical Postlaminectomy syndrome of cervical region COPD (chronic obstructive pulmonary disease) Left shoulder pain Lung density on x-ray Pulmonary fibrosis Pleural effusion H/O: CVA (cerebrovascular accident) Aneurysmal dilatation Screening for colon cancer CAD (coronary artery disease) COPD (chronic obstructive pulmonary disease) Shoulder pain Pure hypercholesterolemia GERD (gastroesophageal reflux disease) Essential hypertension Neck pain Surgical History History of right cataract extraction Hx of neck surgery History of back surgery History of hand surgery History of partial colectomy History of esophagogastroduodenoscopy (EGD) Hx of colonoscopy Stented coronary artery History of foot surgery History of hemicolectomy History of cervical spinal surgery History of laminectomy History of hernia repair History of appendectomy Family History Family History Father Bone cancer Mother CVD (cardiovascular disease) Brother No problems noted. Sister No problems noted. Daughter No problems noted. 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 Cognitive needs: No Hearing needs: No Vision needs: No Physical Exam Vital Signs: Vital Signs: Last Vital Signs Temp 97.4 F 06/11/23 12:01 Pulse 70 06/11/23 12:01 Resp 18 06/11/23 12:01 BP 156/86 H 06/11/23 12:01 Pulse Ox 95 11/02/23 12:01 O2 Del Method Room Air 06/11/23 12:01 BMI result Body Mass Index 20.2 Const: General: cooperative, no acute distress, alert and awake Nutritional Appearance: well nourished Orientation/consciousness: patient oriented x3 Limitations: no limitations HEENT: Head: Yes normal to inspection and Yes atraumatic Ears: hearing g rossly normal bilaterally and external ears normal General nose exam: Normal external nose present, no nasal discharge noted and no epistaxis Face and sinus: Yes normal facial exam, No abrasion and No laceration Mouth: Normal oral and palatal mucosa present, no drooling and no muffled voice Eyes: General: appearance normal, both eyes and all related structures Periorbital: periorbital findings normal Eyelids: Yes eyelids normal Conjunctivae: conjunctivae normal Pupils: Equal, round and reactive pupils present EOM: EOMs intact bilaterally Neck: Neck: Yes normal visual inspection, Yes full ROM and Yes no lymphadenopathy Chest: Chest palpation & inspection: normal inspection of the chest Resp: Effort & Inspection: normal respiratory effort and able to speak in complete sentences GI: Inspection: Yes normal to inspection Neuro: General: patient oriented x3 and moves all extremities Cranial nerves: Yes Equal, round and reactive pupils present Cognition (Neuro): normal cognition Motor exam (neuro): 5/5 motor strength present throughout Sensory Exam: Normal double simultaneous stimulation for sensation Coordination: qjasfl-vs-[id number] test normal Extrem: Other: minimal swelling present to the right ankle General: Yes full ROM and Yes capillary refill normal Psych: Appearance: grossly normal Mental Status: mental status grossly normal Affect: normal affect Attitude: cooperative Thought process: Normal thought process present Thought content: Normal thought content present Insight: Good insight present (Psych) Course Course Course Narrative: Patient complains of right foot and ankle pain worse than left foot and ankle pain both of which started hurting after he fell off a 10 ft roof and landed on his feet 5 days ago, he has been walking on it but it is painful Denies any other injury or new pain or new complaint since the fall This is rapid medical exam in triage pending full evaluation by provider in the ER for full history and physical review results and dispo X-rays over right and left foot and ankle are ordered Medical Decision Making Medical Decision Making MDM Narrative: Patient is a 77 year old assigned male at with a history of CAD, COPD, and AAA presenting to the emergency department today with bilateral foot pain after a fall. Patient's physical exam showed minimal swelling to the right ankle but was otherwise unremarkable. Patient's bilateral foot and ankle x-rays showed no acute process. Patient's head CT was negative for any acute process. Patient's c-spine CT showed no acute process but did show significant parenchymal abnormalities in the upper lungs. I explained my physical exam findings as well as all test results to the patient. I answered all questions asked by the patient. Patient stated that he was already aware of the chest findings and has follow up scheduled. Patient's right ankle was placed in a walking boot, without incident. Patient's PMS was intact prior to and after boot placement. I stressed the importance of the patient taking his medication as prescribed. I stressed the importance of the patient following up with his primary care provider and an orthopedic provider. I stressed the importance of the patient returning to the emergency department immediately if his symptoms were to worsen or if he were to develop any dizziness, shortness of breath, difficulty breathing, chest pain, blurry vision, loss of vision, nausea, vomiting, abdominal pain, fever, chills, back pain, or any other complaints. Patient verbalized agreement and understanding with this treatment plan and discharge. Differential Diagnosis Differential Diagnoses: The differential diagnosis associated with the presentation includes Fall Ankle fracture Foot fracture Ankle sprain Foot sprain Independent Interpretation I performed an independent interpretation of an: Plain X-Ray and CT Scan Interpretation: My interpretation is in agreement with the radiologist's impression of these imaging studies. EXAMINATION: CT brain, CT cervical spine. Comparison previous dated 04/20/2021., CT chest dated 03/26/[address] examination was performed using dose optimization techniques as appropriate, variously including the following: *Automated exposure control *Adjustment of mA and/or kV according to patient size (this includes techniques or standardized protocols for targeted exams where dose is matched to indication/reason for exam; i.e. extremities or head) *Use of iterative reconstruction technique. Radiation dose [address] brain; There is no midline shift. There is no mass effect. There is no hemorrhage. The basal cisterns appear patent. The posterior fossa is grossly within normal limits. No extra-axial collection. Note is made of White matter ischemic changes. No evidence for fracture on the bone windows. Cervical spine; Hardware and degenerative changes. No evidence for an acute fracture or dislocation. Once again significant abnormality in the partially visualized upper lung dc. CT/CT cervical spine wo IV con IMPRESSION: Negative acute noncontrast CT the brain. No acute fracture or dislocation of the cervical spine. Once again significant parenchymal abnormalities in the upper lung zones. As per recommendation of CT chest dated 03/26/[address] of the chest is recommended for further evaluation. This may be done on an outpatient basis Dictated By: Fazal Pierre MD Signed By: Electronically signed by Fazal Pierre MD 06/11/23 1427 EXAMINATION: BILATERAL ANKLES, BILATERAL FEET CLINICAL INFORMATION: Bilateral foot and ankle pain COMPARISON: Left foot 01/20/2019 TECHNIQUE: 2 views each ankle, 3 views each foot FINDINGS: Right: There is bilateral soft tissue swelling at the ankle, medial greater than lateral the ankle mortise appears stable. No fracture or dislocation. Imaging of the foot demonstrate degenerative changes at the DIP joints. No fracture is or dislocations. Left: There is a tiny linear calcifications seen at the distal end within the medial malleolus which is probably secondary to old trauma as there is no soft tissue swelling associated with this area. The ankle mortise appears stable. No acute fracture is seen. In the foot, there has been fusion at the first metatarsal phalangeal joint with a plate and screw device as well as a screw extending from the proximal phalanx into the metatarsal. A single screw is present in the second metatarsal head. No acute fractures are seen. XR/XR foot RT min 3V IMPRESSION: 1. Soft tissue swelling around the right ankle. 2. No acute fracture is seen. 3. Postoperative changes left foot as described above Dictated By: Floyd Miller MD Signed By: Electronically signed by Floyd Miller MD 06/11/23 0594 Radiology Impression Discussion of test interpretation with radiology: I have reviewed the radiologist's reading. Procedures Orthopedic Splinting/Casting Injury #1: Side: right Lower Extremity Injury Location: ankle and foot Lower Extremity Immobilizer: boot orthosis Discharge Plan Discharge Clinical Impression: Ankle sprain Patient Disposition: Home, Self-Care Instructions: Ankle Sprain (DC) Additional Instructions: Follow up with your primary care provider and an orthopedic provider. Return to the emergency department immediately if your symptoms worsen or if you develop any dizziness, shortness of breath, difficulty breathing, chest pain, blurry vision, loss of vision, nausea, vomiting, abdominal pain, fever, chills, back pain, or any other complaints. Prescriptions: No Action ropinirole 1 mg tablet 1 mg PO BEDTIME 90 Days Qty: 90 3RF omeprazole 20 mg capsule,delayed release(DR/EC) 20 mg PO DAILY 90 Days Qty: 90 3RF atorvastatin 80 mg tablet 80 mg PO DAILY 90 Days Qty: 90 2RF Breo Ellipta 200-25 mcg/dose blister with device 1 ea PO DAILY Qty: 60 0RF clotrimazole 10 mg lindsey 10 mg PO TID PRN (Reason: oral thrush) 10 Days Qty: 30 1RF oxycodone 10 mg tablet 10 mg PO Q6H PRN (Reason: pain) 30 Days Qty: 120 0RF aspirin [Adult Low Dose Aspirin] 81 mg tablet,delayed release (DR/EC) 81 mg PO DAILY Centrum Silver Men 300-600-300 mcg tablet 1 tab PO DAILY doxazosin 4 mg tablet 4 mg PO BEDTIME 30 Days Qty: 30 1RF finasteride 5 mg tablet 5 mg PO DAILY 30 Days Qty: 30 1RF Referrals: [facility] [place] [facility] [Provider Group] (Call to establish and follow up with an orthopedic provider.) Francie Velazquez MD [Primary Care Provider] - Discharge Date/Time: 06/11/23 14:47 Print Language: Ug[place]an
--- NOTE | 2023-06-11 12:27 | PC.NURSE ---
Pt reports he was pulling a tarp over his roof when he fell backwards off the roof on Thursday. Pt states he landed on his feet, denies head/neck trauma. Reports 7/10 pain in R ankle at this time. R ankle is more visibly swollen at this time
--- NOTE | 2023-06-11 13:43 | PC.NURSE ---
pt ambulating well with walking boot at this time
== END 2023-06-11 14:47 | disposition home or self-care (01) ==
PROVIDERS: Emergency Provider Emergency Medicine; PCP Internal Medicine
DX: S93.401A Sprain of unspecified ligament of right ankle, initial encounter (principal); S19.9XXA Unspecified injury of neck, initial encounter; R51.9 Headache, unspecified; M54.2 Cervicalgia; M25.571 Pain in right ankle and joints of right foot; M25.572 Pain in left ankle and joints of left foot; I25.10 Atherosclerotic heart disease of native coronary artery without angina pectoris; W13.2XXA Fall from, out of or through roof, initial encounter; Y93.9 Activity, unspecified; Y92.9 Unspecified place or not applicable; Y99.0 Civilian activity done for income or pay; Z87.891 Personal history of nicotine dependence; Z79.899 Other long term (current) drug therapy
CPT/HCPCS: 29515; 70450; 72125; 73610; 73630; 99284

== ENCOUNTER 2023-06-19 09:54 | Outpatient (AMB) | payer OTHER, SELFPAY ==
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
== END 2023-06-19 10:51 | disposition home or self-care (01) ==
PROVIDERS: PCP Internal Medicine; Visit Provider Orthopaedic Surgery
DX: M75.102 Unspecified rotator cuff tear or rupture of left shoulder, not specified as traumatic (principal); M25.571 Pain in right ankle and joints of right foot; J84.10 Pulmonary fibrosis, unspecified; I25.10 Atherosclerotic heart disease of native coronary artery without angina pectoris
CPT/HCPCS: 99214

== ENCOUNTER → 2023-06-19 09:54 | Outpatient (BNVA) | payer OTHER, SELFPAY | PROVIDERS: PCP Internal Medicine; Visit Provider Orthopaedic Surgery | DX: M75.102 Unspecified rotator cuff tear or rupture of left shoulder, not specified as traumatic (principal); M25.571 Pain in right ankle and joints of right foot; I25.10 Atherosclerotic heart disease of native coronary artery without angina pectoris; J84.10 Pulmonary fibrosis, unspecified | CPT/HCPCS: 99212 ==

== ENCOUNTER 2023-06-23 09:26 | Outpatient (AMB) | payer OTHER, SELFPAY ==
--- NOTE | 2023-06-23 09:30 | A.OFFVIS_ITS ---
Intake Intake Visit Reasons: 6w/PVR Intake Note: Patient presents for follow up visit BPH/PVR Urology Medications: finasteride, doxazosin Blood Thinner: aspirin PVR: 74ml's Central Office Equipment Installer Required: No Accompanied by: Self / Same As Patient Allergies aspirin [ASA] Allergy (Mild, Verified 06/23/23 09:37) UPSET STOMACH PT TAKES BABY ASA INSTEAD, stomach upset acetaminophen [From Vicodin] Adverse Reaction (Severe, Verified 06/23/23 09:37) upset stomach hydrocodone [From Vicodin] Adverse Reaction (Severe, Verified 06/23/23 09:37) upset stomach HPI HPI Comments History of Present Illness Details Be is a very pleasant 77-year-old male patient of Dr. Pappas. He has a past medical history of coronary artery disease, chronic pain syndrome, COPD, GERD, hypertension, CVA, pulmonary fibrosis, postlaminectomy syndrome of cervical region, pulmonary nodule, hypercholesteremia, and cervical spondylosis. He presents to the office today for follow-up. Of note, patient was seen approximately 6 weeks ago at which time recommendations were made for discontinuation of terazosin in trial of doxazosin 4 mg at bedtime. In discussion with the patient today he reports feeling lower urinary tract symptoms he had been experiencing has significantly improved with 4 mg of doxazosin at bedtime. Previous workup has included a retroperitoneal ultrasound noting right kidney with no calculi and or hydronephrosis. Benign-appearing renal cyst measuring 1.5 cm. No follow up imaging is recommended per radiology report. Incidentally noted extrarenal pelvis. Left kidney with no calculi, lesions, and or hydronephrosis. The bladder is well distended. Bilateral uretera l jets are demonstrated. Prevoid bladder volume is approximately 200 mL. Postvoid bladder volume is approximate and 40 mL. 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 Enlarged prostate, volume measuring approximately 70 mLs.He otherwise denies incontinence, hematuria, dysuria, foul-smelling urine, changes to urinary stream, flank pain, fever, and or chills. Recent PSA results reviewed with the patient today. PSA 05/02--2.7. Unable to obtain urine for urinalysis today as patient is unable to void however PVR 74 mL. Patient otherwise denies any issues or concerns at this time. [facility] Medical History Lower urinary tract symptoms Preoperative clearance Left shoulder pain Whiplash H/O: pneumonia Felon of finger of left hand Abdominal pain Left flank pain Annual physical exam Internal derangement of left shoulder Pulmonary nodule Pulmonary nodules Oral thrush Physical exam Chronic pain syndrome Spondylosis, cervical Postlaminectomy syndrome of cervical region COPD (chronic obstructive pulmonary disease) Left shoulder pain Lung density on x-ray Pulmonary fibrosis Pleural effusion H/O: CVA (cerebrovascular accident) Aneurysmal dilatation Screening for colon cancer CAD (coronary artery disease) COPD (chronic obstructive pulmonary disease) Shoulder pain Pure hypercholesterolemia GERD (gastroesophageal reflux disease) Essential hypertension Neck pain Surgical History History of right cataract extraction Hx of neck surgery History of back surgery History of hand surgery History of partial colectomy History of esophagogastroduodenoscopy (EGD) Hx of colonoscopy Stented coronary artery History of foot surgery History of hemicolectomy History of cervical spinal surgery History of laminectomy History of hernia repair History of appendectomy Family History Father Bone cancer Mother CVD (cardiovascular disease) Brother No problems noted. Sister No problems noted. Daughter No problems noted. 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 Cognitive needs: No Hearing needs: No Vision needs: No Review of Systems Const Reports as per HPI Eyes Reports no additional complaints ENT Reports no additional complaints Card Reports as per HPI Resp Reports as per HPI GI Reports no additional complaints Reports as per HPI Musc Reports as per HPI Neuro Reports as per HPI Psych Reports no additional complaints Endo Reports no additional complaints Physical Exam Const General: no acute distress, alert and awake Orientation/consciousness: patient oriented x3 Limitations: no limitations HEENT Head: Yes normocephalic and Yes atraumatic Ears: hearing grossly normal bilaterally Eyes General: appearance normal, both eyes and all related structures EOM: EOMs intact bilaterally Neck Neck: Yes normal visual inspection and Yes trachea midline Chest Chest palpation & inspection: normal inspection of the chest Resp Effort & Inspection: normal respiratory effort and able to speak in complete sentences Cardio Jugular venous distension: no JVD Rate: regular rate GI Inspection: Yes normal to inspection Rectal Exam - Male: Yes deferred General: Yes no CVA tenderness Back/Spine/Pelvis Back: no CVA tenderness Skin General skin exam: turgor normal Rashes: no rashes Neuro General: patient oriented x3 Extrem Other: Right Shoulder: 4/5 EC neg lag +H/N 45/90/130/L1 Right Ankle: Mild medial malleolus ttp General: Yes normal to inspection Psych Appearance: grossly normal Mental Status: mental status grossly normal Speech and movement: Normal speech and movement present and Clear speech present Affect: normal affect Attitude: cooperative Thought process: Normal thought process present Thought content: Normal thought content present Insight: Fair insight present (Psych) Judgement: Fair judgement present (Psych) Office Procedures Post Void Residual Post Residual Void Post Void Residual (PVR): [id number] Void Residual by ultrasound Assessment & Plan Assessment & Plan (1) Lower urinary tract symptoms: Code(s): R39.9 - Unspecified symptoms and signs involving the genitourinary system (2) Urinary frequency: Code(s): R35.0 - Frequency of micturition (3) Nocturia: Code(s): R35.1 - Nocturia (4) Enlarged prostate: Code(s): N40.0 - Benign prostatic hyperplasia without lower urinary tract symptoms (5) Bladder diverticulum: Code(s): N32.3 - Diverticulum of bladder (6) Bladder trabeculation: Code(s): N32.89 - Other specified disorders of bladder Plan Unable to obtain urine for urinalysis however PVR 76 mL. Continue doxazosin and finasteride as discussed and prescribed. Discussed at length potential causes for lower urinary tract symptoms patient has experience. Discussed near future in office cystoscopy if symptoms persist and/or worsen. Patient reports to be happy with current voiding parameters with doxazosin and finasteride daily. He denies any bothersome urinary issues or concerns at this time. PSA in 6 months. Follow-up in 6 months with PVR and lab to be completed prior; or sooner with any issues, concerns, and or questions. Orders: Orders AMB Urinalysis Automated 06/23/23 Z13.9 - Encounter for screening, unspecified Prostate Specific Antigen 6 Months N40.0 - Benign prostatic hyperplasia without lower urinary tract symptoms, R39.9 - Unspecified symptoms and signs involving the genitourinary system AMB Post Void Residual by ultrasound 06/23/23 R35.1 - Nocturia Patient Instructions: The patient had an opportunity to ask questions regarding the treatment plan. All questions were answered. Physical exam, labs, and imaging were discussed and reviewed in detail. As well as risks, benefits, and discussion of treatment choices. No major barriers to understanding were identified. The patient expressed understanding and agreement with the above treatment plan. The patient was made aware they should contact our office by phone for worsening of their current condition, the appearance of new symptoms, or with any questions or concerns. Compliance is encouraged with any medications and follow up testing that is ordered. It is a privilege to be allowed the opportunity to participate in? your urological care.? Again, if you have any questions or concerns If you have any questions or concerns please do not hesitate to contact me. The office is [phone]. This note is constructed using voice recognition software. While every effort has been made to ensure accuracy computer assistant errors may have been included. Yours sincerely, HUGH Dacosta Coding Level of Care Code Est Pt Level 3 (90063) Diagnoses Lower urinary tract symptoms R39.9 Urinary frequency R35.0 Nocturia R35.1 Enlarged prostate N40.0 Bladder diverticulum N32.3 Bladder trabeculation N32.89 CPT Codes Post Residual Void - PVR CPT Code: 10374-[id number] Void Residual by ultrasound ([id number])
== END 2023-06-23 11:02 | disposition home or self-care (01) ==
PROVIDERS: PCP Internal Medicine; Visit Provider Nurse Practitioner Family
DX: R39.9 Unspecified symptoms and signs involving the genitourinary system (principal); R35.0 Frequency of micturition; R35.1 Nocturia; N40.0 Benign prostatic hyperplasia without lower urinary tract symptoms; N32.3 Diverticulum of bladder; N32.89 Other specified disorders of bladder
CPT/HCPCS: 99213

== ENCOUNTER → 2023-06-23 09:26 | Outpatient (BNVA) | payer OTHER, SELFPAY | PROVIDERS: PCP Internal Medicine; Visit Provider Nurse Practitioner Family | DX: R39.9 Unspecified symptoms and signs involving the genitourinary system (principal); N32.3 Diverticulum of bladder; N32.89 Other specified disorders of bladder; N40.0 Benign prostatic hyperplasia without lower urinary tract symptoms; R35.0 Frequency of micturition; R35.1 Nocturia | CPT/HCPCS: 51798; 99212 ==

== ENCOUNTER 2023-07-30 09:48 | Outpatient (AMB) | payer OTHER, SELFPAY ==
[2023-07-30 09:49] VITALS: BP 126/80; PULSE 85; TEMP 36.1; BMI 21.5
--- NOTE | 2023-07-30 09:49 | A.OFFPC_ITS ---
Vital Signs 07/30/23 09:49 Height 5 ft 6 in Weight 133 lb BMI 21.5 BP 126/80 Blood Pressure Location Lt brachial Position Sitting Pulse 85 Pulse Source Pulse Oximeter Temp 97 F Temp Source Temporal Artery Scan Intake Visit Reasons: pre-op Intake Note: Patient here for a pre-op L RTC repair surgery with NE on 08/26/23 Fitting Room Inspector Required: No Accompanied by: Self / Same As Patient Allergies aspirin [ASA] Allergy (Mild, Verified 07/30/23 09:57) UPSET STOMACH PT TAKES BABY ASA INSTEAD, stomach upset acetaminophen [From Vicodin] Adverse Reaction (Severe, Verified 07/30/23 09:57) upset stomach hydrocodone [From Vicodin] Adverse Reaction (Severe, Verified 07/30/23 09:57) upset stomach Medication List - Last Reconciled 07/30/23 by Francie Ann MD aspirin (Adult Low Dose Aspirin) 81 mg PO DAILY atorvastatin 80 mg PO DAILY 90 days Breo Ellipta 200-25 mcg/dose (fluticasone furoate-vilanterol) 1 ea PO DAILY NS clotrimazole 10 mg PO TID PRN 10 days doxazosin 4 mg PO BEDTIME 90 days finasteride 5 mg PO DAILY 90 days [id number] mcg (Centrum Silver Men) 1 tab PO DAILY omeprazole 20 mg PO DAILY 90 days oxycodone 10 mg PO Q6H PRN 30 days ropinirole 1 mg PO BEDTIME 90 days Tobacco use date assessed: 12/04/22 Fall risk assessment: 1 Fall in past year Last assessed Fall Risk: 07/30/23 Dental Screening Dental Screen Date: 07/30/23 Did you have a dental visit in the last 12 months?: No Did you have a dental problem in the last 6 months where you did not have access to dental care?: No Was dental information given to patient?: Patient has dentist HPI HPI Comments History of Present Illness Details This is a 77-year-old male with COPD, hypertension, pure hypercholesterolemia and GERD that comes today as preop evaluation for left rotator cough tear repair scheduled for 08/26/2023. COPD has been stable with longstanding inhaler and this is follow by pulmonology. Blood pressure stable. Cholesterol well controlled with statins. GERD stable with medications. He complains of left shoulder pain that has been present for over 6 months with limited abduction. Labs and EKG are still pending for medical clearance. [facility] Medical History (Updated 07/30/23 @ 10:02 by Francie Ann MD) Lower urinary tract symptoms Preoperative clearance Left shoulder pain Whiplash H/O: pneumonia Felon of finger of left hand Abdominal pain Left flank pain Annual physical exam Internal derangement of left shoulder Pulmonary nodule Pulmonary nodules Oral thrush Physical exam Chronic pain syndrome Spondylosis, cervical Postlaminectomy syndrome of cervical region COPD (chronic obstructive pulmonary disease) Left shoulder pain Lung density on x-ray Pulmonary fibrosis Pleural effusion H/O: CVA (cerebrovascular accident) Aneurysmal dilatation Screening for colon cancer CAD (coronary artery disease) COPD (chronic obstructive pulmonary disease) Shoulder pain Pure hypercholesterolemia GERD (gastroesophageal reflux disease) Essential hypertension Neck pain Surgical History History of right cataract extraction Hx of neck surgery History of back surgery History of hand surgery History of partial colectomy History of esophagogastroduodenoscopy (EGD) Hx of colonoscopy Stented coronary artery History of foot surgery History of hemicolectomy History of cervical spinal surgery History of laminectomy History of hernia repair History of appendectomy Family History Father Bone cancer Mother CVD (cardiovascular disease) Brother No problems noted. Sister No problems noted. Daughter No problems noted. 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 Omar Cesar, Thalia Castillo, Bassam Pelletier and colleagues, with an educational becki from [employer]. Review of Systems Const All systems reviewed & are unremarkable except as noted in HPI and below Eyes Reports no additional complaints, Denies change in vision and Denies other visual disturbances Card Denies chest pain at rest, Denies chest pain with activity, Denies edema, Denies irregular heart rhythm, Denies claudication, Denies dyspnea, Denies dyspnea on exertion, Denies orthopnea, Denies paroxysmal nocturnal dyspnea and Denies slow heart rate Resp Denies cough, Denies dyspnea and Denies dyspnea on exertion GI Denies abdominal pain, Denies change in bowel habits, Denies excessive flatus, Denies nausea and Denies vomiting Denies urinary hesitancy, Denies urinary incontinence and Denies urinary urgency Musc Denies abnormal gait, Denies atrophy, Denies deformity and Denies limited range of motion Skin/Breast Denies bleeding lesions, Denies changing lesions and Denies rash Neuro Denies abnormal gait, Denies behavioral changes, Denies confusion and Denies lack of coordination Psych Denies behavioral changes and Denies confusion Physical exam (Primary Care) Vital Signs: Last Vital Signs Temp 97 F 07/30/23 09:49 Pulse 85 07/30/23 09:49 BP 126/80 07/30/23 09:49 BMI result Body Mass Index 21.5 Tobacco/Smoking Status: Tobacco use Status Tobacco use date assessed 12/04/22 07/30/23 09:55 Patient Tobacco Use Status Former Tobacco user 07/30/23 09:55 e-Cigarette/Vaping Use Never Used 07/30/23 09:55 Thrive Assessment: Date of Thrive Assessment Date Thrive assessed 10/28/22 07/30/23 09:55 Const General: No confusion Orientation/consciousness: patient oriented x3 and No confusion Eyes General: appearance normal, both eyes and all related structures Eyelids: Yes eyelids normal Conjunctivae: conjunctivae normal Neck Neck: Yes normal visual inspection and Yes supple Resp Effort & Inspection: normal respiratory effort Auscultation: clear to auscultation bilaterally Cardio Jugular venous distension: no JVD Rate: regular rate Rhythm: regular rhythm Heart sounds: S1 normal heart sound present and S2 normal heart sound present GI Inspection: Yes normal to inspection Palpation (GI): Soft to palpation and nontender Auscultation: normal bowel sounds Neuro General: patient oriented x3, no focal motor deficits and No confusion Extrem General: Yes full ROM Assessment and Plan Assessment & Plan (1) Pre-op evaluation: Code(s): Z01.818 - Encounter for other preprocedural examination Plan: Labs and EKG pending for medical clearance. Hold aspirin 5 days before surgery. (2) COPD (chronic obstructive pulmonary disease): Comment: Patient does have chronic obstructive pulmonary disease but it is well controlled with the current regimen. TX: Advised to continue: Breo-200 1 inhalation daily. And ProAir 2 puffs Q 4-6 hours only p.r.n. FOR INCREASED COUGH USE ROBITUSSIN, LIQUID 2 TSP 3 TIMES A DAY ESPECIALLY IN THE MORNING HOURS. Code(s): J44.9 - Chronic obstructive pulmonary disease, unspecified Plan: Continue longstanding inhaler. Use rescue inhaler as needed. Follow-up with pulmonology. (3) Essential hypertension: Code(s): I10 - Essential (primary) hypertension Plan: Continue doxazosin. Blood pressure goal is equal or less than 130/80. (4) GERD (gastroesophageal reflux disease): Code(s): K21.9 - Gastro-esophageal reflux disease without esophagitis Qualifiers: Esophagitis presence: esophagitis presence not specified Qualified Code(s): K21.9 - Gastro-esophageal reflux disease without esophagitis Plan: Continue PPIs (5) Pure hypercholesterolemia: Code(s): E78.00 - Pure hypercholesterolemia, unspecified Plan: Continue statins. LDL goal is less than 70. Orders: Orders ECG 12 lead EKG Today Z01.818 - Encounter for other preprocedural examination Comprehensive [place]. Panel Fast Today M75.82 - Other shoulder lesions, left shoulder Complete Blood Count Auto Diff Today M75.82 - Other shoulder lesions, left shoulder Coding Level of Care Code Est Pt Level 4 (85682) Diagnoses Pre-op evaluation Z01.81 COPD (chronic obstructive pulmonary disease) J44.9 Essential hypertension I10 Gastroesophageal reflux disease, unspecified whether esophagitis present K21.9 Esophagitis presence: esophagitis presence not specified Pure hypercholesterolemia E78.00 Time Spent (min) 22
== END 2023-07-30 10:05 | disposition home or self-care (01) ==
PROVIDERS: PCP Internal Medicine; Visit Provider Internal Medicine
DX: Z01.818 Encounter for other preprocedural examination (principal); J44.9 Chronic obstructive pulmonary disease, unspecified; I10 Essential (primary) hypertension; K21.9 Gastro-esophageal reflux disease without esophagitis; E78.00 Pure hypercholesterolemia, unspecified
CPT/HCPCS: 99214

== ENCOUNTER 2023-08-05 10:25 | Outpatient (AMB) | payer OTHER, SELFPAY ==
--- NOTE | 2023-08-05 10:33 | A.OFFVIS_ITS ---
Intake Vital Signs 08/05/23 10:34 Height 5 ft 6 in Weight 132 lb 4.438 oz BMI 21.3 BP 122/72 Blood Pressure Location Rt brachial Position Sitting Pulse 80 Pulse Source Pulse Oximeter Pulse Oximetry (%) 96 Oxygen Delivery Method Room Air Intake Visit Reasons: pre-op Intake Note: Pt reports nothing has changed since his last visit. Supervisor [employer] Required: No Allergies aspirin [ASA] Allergy (Mild, Verified 08/05/23 11:08) UPSET STOMACH PT TAKES BABY ASA INSTEAD, stomach upset acetaminophen [From Vicodin] Adverse Reaction (Severe, Verified 08/05/23 11:08) upset stomach hydrocodone [From Vicodin] Adverse Reaction (Severe, Verified 08/05/23 11:08) upset stomach Medication List - Last Reconciled 08/05/23 by Angela Michelle MD aspirin (Adult Low Dose Aspirin) 81 mg PO DAILY atorvastatin 80 mg PO DAILY 90 days Breo Ellipta 200-25 mcg/dose (fluticasone furoate-vilanterol) 1 ea PO DAILY NS clotrimazole 10 mg PO TID PRN 10 days doxazosin 4 mg PO BEDTIME 90 days finasteride 5 mg PO DAILY 90 days [id number] mcg (Centrum Silver Men) 1 tab PO DAILY omeprazole 20 mg PO DAILY 90 days oxycodone 10 mg PO Q6H PRN 30 days ropinirole 1 mg PO BEDTIME 90 days Do you need a note to return to daycare/school/sports/work: No HPI pre-op HPI Details This 77 years old gentleman is a known case of chronic obstructive pulmonary disease. He is remaining very stable, and has had no acute infection or acute exa cerbation. He can walk around on level ground without getting short of breath . He has very little cough or wheezing. He does not smoke. Uses his meds regularly. He is to undergo repair of rotator cuff of the left shoulder. [facility] Medical History Lower urinary tract symptoms Preoperative clearance Left shoulder pain Whiplash H/O: pneumonia Felon of finger of left hand Abdominal pain Left flank pain Annual physical exam Internal derangement of left shoulder Pulmonary nodule Pulmonary nodules Oral thrush Physical exam Chronic pain syndrome Spondylosis, cervical Postlaminectomy syndrome of cervical region COPD (chronic obstructive pulmonary disease) Left shoulder pain Lung density on x-ray Pulmonary fibrosis Pleural effusion H/O: CVA (cerebrovascular accident) Aneurysmal dilatation Screening for colon cancer CAD (coronary artery disease) COPD (chronic obstructive pulmonary disease) Shoulder pain Pure hypercholesterolemia GERD (gastroesophageal reflux disease) Essential hypertension Neck pain Surgical History History of right cataract extraction Hx of neck surgery History of back surgery History of hand surgery History of partial colectomy History of esophagogastroduodenoscopy (EGD) Hx of colonoscopy Stented coronary artery History of foot surgery History of hemicolectomy History of cervical spinal surgery History of laminectomy History of hernia repair History of appendectomy Family History Father Bone cancer Mother CVD (cardiovascular disease) Brother No problems noted. Sister No problems noted. Daughter No problems noted. 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 Cognitive needs: No Hearing needs: No Vision needs: Yes Review of Systems Const All systems reviewed & are unremarkable except as noted in HPI and below Eyes Reports no additional complaints ENT Reports no additional complaints Card Denies chest pain, Denies irregular heart rhythm and Denies leg edema Resp Reports as per HPI GI Reports heartburn (Controlled with med) Reports no additional complaints Musc Reports back pain Skin/Breast Reports system reviewed and no additional complaints, except as documented Neuro Reports no additional complaints Psych Reports no additional complaints Endo Reports no additional complaints Physical Exam Vital Signs: Last Vital Signs Pulse 80 08/05/23 10:34 BP 122/72 08/05/23 10:34 Pulse Ox 96 12/27/23 10:34 Oxygen Delivery Method Room Air 12/27/23 10:34 BMI result Body Mass Index 21.3 Const General: comfortable, no acute distress, alert and awake Orientation/consciousness: patient oriented x3 HEENT Head: Yes normal to inspection General nose exam: No nasal polyps present and No nasal discharge present Face and sinus: Yes sinuses nontender Mouth: oropharynx normal Throat: Yes posterior oropharynx normal Eyes General: appearance normal, both eyes and all related structures Neck Neck: Yes normal visual inspection, Yes no lymphadenopathy, Yes trachea midline and Yes no JVD Thyroid: Thyroid normal Chest Chest palpation & inspection: normal inspection of the chest, normal palpation of entire chest wall and no tenderness Resp Other: Percussion note hyper-resonant on both sides, Breath sounds are distant with prolonged expiratory phase. No wheezes rhonchi or crepitations are heard. Cardio Palpation: normal PMI Rate: regular rate Rhythm: regular rhythm Heart sounds: no gallops and no murmurs Peripheral pulses: Peripheral pulses 2+ throughout GI Palpation (GI): Soft to palpation, nontender, No hepatosplenomegaly present and no masses Auscultation: normal bowel sounds Back/Spine/Pelvis Thoracic/Lumbar Spine: thoracic and lumbar spine normal to inspection Skin General skin exam: no rashes or lesions noted Neuro General: patient oriented x3 and no focal motor deficits Cranial nerves: Yes CN's II-XII intact bilaterally Extrem General: Yes normal to inspection, Yes no clubbing, cyanosis or edema and Yes no calf tenderness Psych Appearance: grossly normal and well kempt Speech and movement: Normal speech and movement present Results Reviewed Results Reviewed: SPIROMETRY FVC 131% FEV1 91 % FEV1/FVC= 52 FEF 25-75 = 50 % C/W MILD TO MODERATE DEGREE OF OBSTRUCTIVE AIRWAY DISORDER. Assessment & Plan Assessment & Plan (1) COPD (chronic obstructive pulmonary disease): Comment: Patient does have chronic obstructive pulmonary disease mild to moderately severe but it is well controlled with the current regimen. Code(s): J44.9 - Chronic obstructive pulmonary disease, unspecified Plan: TX: Advised to continue: Breo-200 1 inhalation daily. And ProAir 2 puffs Q 4-6 hours only p.r.n. FOR INCREASED COUGH USE ROBITUSSIN, LIQUID 2 TSP 3 TIMES A DAY ESPECIALLY IN THE MORNING HOURS. (2) Pulmonary nodules: Comment: Multiple small nodules in the left upper lobe. Will monitor with yearly CT scan. CT scan IMPRESSION: Severe emphysema. Severe volume loss and scarring in both upper lobes. New 5 mm peripheral or subpleural right lower lobe nodule. Multiple new nodular opacities in the left upper lobe. Given new appearance in a short period of time, this probably represents an infectious or inflammatory process. Short-term followup chest CT in several months recommended. 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 Code(s): R91.8 - Other nonspecific abnormal finding of lung field Plan: will order a FU CT scan on next visit (3) Pre-op evaluation: Comment: PATIENT PRESENTS FOR PREOP PULMONARY EVALUATION FOR REPAIR OF LEFT LEFT SHOULDER ROTATOR COUGH. Code(s): Z01.818 - Encounter for other preprocedural examination Plan: IS HAS PER SPIROMETRY HIS COPD REMAINS VERY STABLE AND IS WELL CONTROLLED. NO CONTRAINDICATION NOTED TO HIS SURGERY. HE IS ADVISED TO CONTINUE USING HIS REGULAR REGIMEN. Coding Level of Care Code Est Pt Level 4 (64102) Diagnoses COPD (chronic obstructive pulmonary disease) J44.9 Pulmonary nodules R91.8 Pre-op evaluation Z01.818
[2023-08-05 10:34] VITALS: BP 122/72; PULSE 80; O2SAT 96; BMI 21.3
== END 2023-08-05 11:06 | disposition home or self-care (01) ==
PROVIDERS: PCP Internal Medicine; Visit Provider Internal Medicine
DX: J44.9 Chronic obstructive pulmonary disease, unspecified (principal); R91.8 Other nonspecific abnormal finding of lung field; Z01.818 Encounter for other preprocedural examination
CPT/HCPCS: 99214

== ENCOUNTER → 2023-08-05 10:25 | Outpatient (BNVA) | payer OTHER, SELFPAY | PROVIDERS: PCP Internal Medicine; Visit Provider Internal Medicine | DX: Z01.818 Encounter for other preprocedural examination (principal); R91.8 Other nonspecific abnormal finding of lung field; J44.9 Chronic obstructive pulmonary disease, unspecified | CPT/HCPCS: 99212 ==

== ENCOUNTER 2023-08-06 08:01 | Outpatient (REF) | payer OTHER, SELFPAY ==
[2023-08-06 08:12] LABS: MANUAL DIFF FLAG NO
--- NOTE | 2023-08-06 08:13 | ECG_ITS ---
Test Reason : pre op Blood Pressure : / mmHG Vent. Rate : 065 BPM Atrial Rate : 065 BPM P-R Int : 170 ms QRS Dur : 084 ms QT Int : 418 ms P-R-T Axes : 083 079 079 degrees QTc Int : 434 ms Normal sinus rhythm Normal ECG When compared with ECG of 04-DEC-2022 13:13, No significant change was found Referred By: Francie Ann Electronically Signed By:BERNARDO SANDOVAL
[2023-08-06 08:19] LABS: Basophils Absolute Auto 0.1 X10*3/uL (0.0-0.2); Eosinophils Absolute Auto 0.2 X10*3/uL (0.0-0.4); Eosinophils Percent Auto 2.9 % (0-4); Hematocrit 41.8 % (42.0-52.0); Hemoglobin 14.1 g/dl (14.0-18.0); Imm Gran Abs Auto 0.03 X10*3/uL (0.00-0.03); Imm Gran Pct Auto 0.4 % (0.0-0.4); Lymphocytes Absolute Auto 1.5 X10*3/uL (1.2-4.9); Lymphocytes Percent Auto 21.7 % (20-40); Mean Corpuscular HGB Conc 33.7 g/dl (31.0-36.0); Mean Corpuscular Hemoglobin 29.3 pg (27.0-33.0); Mean Corpuscular Volume 86.7 fL (80.0-98.0); Mean Platelet Volume 8.3 fL (9.4-12.4); Monocytes Absolute Auto 0.7 X10*3/uL (0.1-1.2); Monocytes Percent Auto 9.9 % (2-11); Neutrophils Absolute Auto 4.4 x10*3/uL (2.0-8.3); Neutrophils Percent Auto 64.1 % (45-73); Platelet Count 280 X10*3/uL (160-400); Red Blood Count 4.82 X10*6/uL (4.60-5.80); Red Cell Distribution Width 13.5 % (11.0-16.0); White Blood Count 6.9 X10*3/uL (4.8-10.8)
[2023-08-06 09:44] LABS: Alanine Aminotransferase 22 U/L (0-40); Albumin Level 3.9 g/dL (3.5-5.0); Alkaline Phosphatase 86 U/L (39-117); Anion Gap 12 (12-20); Aspartate Amino Transferase 22 U/L (5-37); Bilirubin Total 0.4 mg/dL (0.0-1.0); Blood Urea Nitrogen 15 mg/dL (9-16); Calcium 9.2 mg/dL (8.4-10.2); Carbon Dioxide 25 mmol/L (22-29); Chloride 106 mmol/L (96-108); Estimated Glomerular Filt Rate > 60; Glucose Fasting 95 mg/dL (60-99); Potassium 3.9 mmol/L (3.3-5.1); Sodium 139 mmol/L (135-145); Total Protein 6.3 g/dL (6.5-8.0)
== END 2023-08-06 08:02 | disposition home or self-care (01) ==
LOC: HO.LAB 08:01
PROVIDERS: PCP Internal Medicine; Visit Provider Internal Medicine
DX: Z01.818 Encounter for other preprocedural examination (principal); M75.82 Other shoulder lesions, left shoulder
CPT/HCPCS: 36415; 80053; 85025; 93005

== ENCOUNTER → 2023-08-06 08:13 | Outpatient (BNV) | payer OTHER, SELFPAY | PROVIDERS: PCP Internal Medicine; Visit Provider Internal Medicine | DX: Z01.810 Encounter for preprocedural cardiovascular examination (principal); M75.82 Other shoulder lesions, left shoulder | CPT/HCPCS: 93010 ==

== ENCOUNTER 2023-08-20 10:18 | Outpatient (AMB) | payer MEDICARE, SELFPAY ==
[2023-08-20 10:24] VITALS: BMI 21.8
--- NOTE | 2023-08-20 10:24 | A.OFFVIS_ITS ---
Intake Vital Signs 08/20/23 10:24 Height 5 ft 6 in Weight 135 lb BMI 21.8 Intake Visit Reasons: Pre Op L RTC 08/26/23 NE Intake Note: Be is a 77 year old male who presents today for a pre op appointment for his left shoulder RTC 08/26/23 NE. Pt also reports a tingling sensation starting from his ear down to his neck. The pain began 08/17/23 but there was no injury that caused the onset of the pain but it is causing him difficulty while sleeping. Death Clearance Coordinator Required: No Allergies aspirin [ASA] Allergy (Mild, Verified 08/20/23 10:27) UPSET STOMACH PT TAKES BABY ASA INSTEAD, stomach upset acetaminophen [From Vicodin] Adverse Reaction (Severe, Verified 08/20/23 10:27) upset stomach hydrocodone [From Vicodin] Adverse Reaction (Severe, Verified 08/20/23 10:27) upset stomach HPI Pre Op L RTC 08/26/23 NE HPI Details 77-year-old right hand dominant male who presents in the office today for his preoperative history and physical exam prior to a left shoulder rotator cuff repair to be performed on 08/26/[address] Lee. While in the office today the patient reports a tingling sensation from his ear radiating down to his neck. He also reports pain that began on 08/17/2023 with no injury to cause the onset of this pain. He states the pain is causing him to have a difficult time sleeping. Patient has an allergy history, as follows: -Aspirin; GI upset (Can take baby Aspiri n) -Acetaminophen; GI upset -Hydrocodone; GI upset Patient is currently taking, as follows: -Aspirin 81 mg PO daily -Atorvastatin 80 mg PO bedtime -Clotrimazole 10 mg PO TID PRN -Doxazosin 4 mg PO bedtime -Finasteride 5 mg PO daily -Fluticasone furoate-vilanterol 200-25 m cg/dose 1 inhalation daily -Vj-fob-yrtif-[id number]-[id number]-ofjtez 300-60-6 00-300 mcg 1 tab PO daily -Omeprazole 20 mg PO daily -Oxycodone 10 mg PO Q6H PRN -Ropinirole 1 mg PO bedtime Patient has a medical history, as follows: -Diverticulitis -Pulmonary nodule -Postlaminectomy syndrome of cervical re gion -Chronic pain syndrome -Spondylosis, cervical -COPD (chronic obstructive pulmonary dis ease) -Pulmonary fibrosis -Pleural effusion -H/O: CVA (cerebrovascular accident) -Aneurysmal dilatation -CAD (coronary artery disease) -Pure hypercholesterolemia -GERD (gastroesophageal reflux disease) -Essential hypertension Patient has a surgical history, as follows: -History of repair of right rotator cuff ; ? 2000 -Hx of cataract extraction; left -History of right cataract extraction; - Dr. Sanchez -Hx of neck surgery -History of back surgery -History of hand surgery; 2020- Excision Left Index Finger Mass- Dr. Simmons -History of partial colectomy; Remote in the from severe diverticulitis -History of esophagogastroduodenoscopy ( EGD) -Hx of colonoscopy; 2016- Dr Hernández -Stented coronary artery; Drug-eluting s tent to LAD and diagonal, April 2009 for exertional angina -History of foot surgery; 10/2017 (calcan eal bone graft, hallux valgus repair) -History of hemicolectomy; secondary to diverticulitis -History of cervical spinal surgery; 199 9 cervical disc repair with plate -History of laminectomy -History of hernia repair -History of appendectomy Patient has a social history, as follows: - Former smoker -Substance use: Marijuana [facility] Medical History (Updated 08/14/23 @ 12:46 by Ghada Sanchez, RN) Cough Diverticulitis Lower urinary tract symptoms Internal derangement of left shoulder Pulmonary nodule Preoperative clearance Pulmonary nodules Oral thrush Chronic pain syndrome Spondylosis, cervical Postlaminectomy syndrome of cervical region COPD (chronic obstructive pulmonary disease) Whiplash Left shoulder pain Lung density on x-ray Pulmonary fibrosis Pleural effusion H/O: pneumonia Felon of finger of left hand H/O: CVA (cerebrovascular accident) Left flank pain Aneurysmal dilatation Screening for colon cancer Annual physical exam CAD (coronary artery disease) Shoulder pain Pure hypercholesterolemia GERD (gastroesophageal reflux disease) Essential hypertension Neck pain Surgical History (Updated 08/14/23 @ 12:36 by Ghada Sanchez, RN) History of repair of right rotator cuff Hx of cataract extraction History of right cataract extraction Hx of neck surgery History of back surgery History of hand surgery History of partial colectomy History of esophagogastroduodenoscopy (EGD) Hx of colonoscopy Stented coronary artery History of foot surgery History of hemicolectomy History of cervical spinal surgery History of laminectomy History of hernia repair History of appendectomy Family History Father Bone cancer Mother CVD (cardiovascular disease) Brother No problems noted. Sister No problems noted. Daughter No problems noted. 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 Cognitive needs: No Hearing needs: No Vision needs: Yes Review of Systems Const All systems reviewed & are unremarkable except as noted in HPI and below Physical Exam Vital Signs: BMI result Body Mass Index 21.8 Const General: cooperative, healthy appearing, comfortable, no acute distress, well developed, alert and awake Orientation/consciousness: patient oriented x3 HEENT Head: Yes normal to inspection, Yes normocephalic and Yes atraumatic Eyes General: appearance normal, both eyes and all related structures EOM: EOMs intact bilaterally Neck Neck: Yes normal visual inspection and Yes no lymphadenopathy Resp Effort & Inspection: normal respiratory effort and able to speak in complete sentences Cardio Jugular venous distension: no JVD Rate: regular rate Peripheral pulses: Peripheral pulses 2+ throughout GI Inspection: Yes normal to inspection Palpation (GI): Soft to palpation Skin General skin exam: no rashes or lesions noted Rashes: no rashes Neuro General: patient oriented x3 Extrem Other: Left Shoulder: Skin is clean, dry, and intact. 4/5 EC neg lag +H/N 45/90/130/L1 Psych Appearance: grossly normal Mental Status: mental status grossly normal Affect: normal affect Attitude: cooperative Assessment & Plan Assessment & Plan (1) Left rotator cuff tear: Comment: MRI May 2023 left shoulder supraspinatus and infraspinatus partial tear/tendinosis acromioclavicular osteoarthritis nondisplaced labral tear superior posterior superior posterior posterior inferior glenohumeral osteoarthritis Code(s): M75.102 - Unspecified rotator cuff tear or rupture of left shoulder, not specified as traumatic Plan Mr. Fontenot is a 77-year-old right hand dominant male who presents in the office today for his preoperative history and physical exam prior to a left shoulder rotator cuff repair to be performed on 08/26/[address] Lee. While in the office today the patient reports a tingling sensation from his ear radiating down to his neck. He also reports pain that began on 08/17/2023 with no injury to cause the onset of this pain. He states the pain is causing him to have a difficult time sleeping. Patient has an allergy history, as follows: -Aspirin; GI upset (Can take baby Aspirin) -Acetaminophen; GI upset -Hydrocodone; GI upset Patient is currently taking, as follows: -Aspirin 81 mg PO daily -Atorvastatin 80 mg PO bedtime -Clotrimazole 10 mg PO TID PRN -Doxazosin 4 mg PO bedtime -Finasteride 5 mg PO daily -Fluticasone furoate-vilanterol 200-25 mcg/dose 1 inhalation daily -Ct-nbj-[id number]-[id number]-lshtovh-[id number] 545-69-326-300 mcg 1 tab PO daily -Omeprazole 20 mg PO daily -Oxycodone 10 mg PO Q6H PRN -Ropinirole 1 mg PO bedtime Patient has a medical history, as follows: -Diverticulitis -Pulmonary nodule -Postlaminectomy syndrome of cervical region -Chronic pain syndrome -Spondylosis, cervical -COPD (chronic obstructive pulmonary disease) -Pulmonary fibrosis -Pleural effusion -H/O: CVA (cerebrovascular accident) -Aneurysmal dilatation -CAD (coronary artery disease) -Pure hypercholesterolemia -GERD (gastroesophageal reflux disease) -Essential hypertension Patient has a surgical history, as follows: -History of repair of right rotator cuff; ? 1999 -Hx of cataract extraction; left -History of right cataract extraction; 12/15/21- Dr. Sanchez -Hx of neck surgery -History of back surgery -History of hand surgery; 2020- Excision Left Index Finger Mass- Dr. Simmons -History of partial colectomy; Remote in the from severe diverticulitis -History of esophagogastroduodenoscopy (EGD) -Hx of colonoscopy; 2017- Dr Hernández -Stented coronary artery; Drug-eluting stent to LAD and diagonal, April 2009 for exertional angina -History of foot surgery; 10/2017 (calcaneal bone graft, hallux valgus repair) -History of hemicolectomy; secondary to diverticulitis -History of cervical spinal surgery; 1998 cervical disc repair with plate -History of laminectomy -History of hernia repair -History of appendectomy Patient has a social history, as follows: - Former smoker -Substance use: Marijuana I discussed in detail the procedure and what to expect pre and post operatively. We discussed the risks, benefits and alternatives to the surgery as well as the rehabilitation course. The risks; which include, but are not limited to infection, bleeding, nerve injury, ongoing pain, swelling, and stiffness, perioperative risk of injury to bones and soft tissues, and blood clots. I have answered all questions and with their understanding they have consented to move forward with a left shoulder rotator cuff repair to be performed on 08/26/[address] Jorge Lee. Follow up will be at the post operative appointment on 09/01/2023, or sooner if needed. I will reach out to Dr. Pappas for the post operative pain management medications since he is currently prescribed Oxycodone 10mg q^hrs PO for chronic pain by Dr. Pappas. He was give a home exercise worksheet to work on after surgery, these were also demonstrated while in the office today. The physical therapy order was placed while in the office today. Patient was fitted for the sling, while in the office today. Orders: Orders PT Evaluation and Treatment Today M75.102 - Unspecified rotator cuff tear or rupture of left shoulder, not specified as traumatic Patient Instructions: Scribed for Alicia Montoya PA-C by Dania Tapia medical office secretary, on 08/20/2023 at 10:30 am, EST. Coding Level of Care Code Global (94530) Diagnoses Left rotator cuff tear M75.102
== END 2023-08-20 10:56 | disposition home or self-care (01) ==
PROVIDERS: PCP Internal Medicine; Visit Provider Physician Assistant
DX: M75.102 Unspecified rotator cuff tear or rupture of left shoulder, not specified as traumatic (principal)
CPT/HCPCS: 99024

== ENCOUNTER → 2023-08-20 10:18 | Outpatient (BNVA) | payer MEDICARE, SELFPAY | PROVIDERS: PCP Internal Medicine; Visit Provider Physician Assistant | DX: M75.102 Unspecified rotator cuff tear or rupture of left shoulder, not specified as traumatic (principal) | CPT/HCPCS: 99212 ==

== ENCOUNTER 2023-08-26 05:55 | Day surgery (SDC) | payer MEDICARE, SELFPAY ==
[2023-08-14 12:18] VITALS: BMI 21.6
[2023-08-14 12:22] VITALS: BP 156/86; PULSE 66; RESP 16; O2SAT 95
--- NOTE | 2023-08-14 12:49 | HO.ANESPROP2 ---
Documented by User: Karen Milian NP 08/14/23 13:01 HPI - Anesthesia Eval Consult details Narrative: 77yo M for Left Arthroscopic Rotator Cuff Repair Medically cleared Pulmo cleared No recent illness No CP/SOB with house projects COPD. Stable with daily Breo. No rescue inhaler Possible CVA 2008 CAD s/p stents 2008. No cardiac issues. Has not seen cardiology for a couple years. Follows PCP GERD. Well controlled with ppi [facility] Active Problems Active Problems: All Active Problems (Updated 08/14/23 @ 12:46 by Ghada Sanchez RN) Pre-op evaluation (Acute) Right ankle pain (Acute) Left rotator cuff tear (Acute) Rotator cuff arthropathy of left shoulder (Acute) Bladder trabeculation (Acute) Bladder diverticulum (Acute) Enlarged prostate (Acute) Urinary frequency (Acute) Nocturia (Acute) BPH (benign prostatic hyperplasia) (Acute) Impaired glucose tolerance (Acute) Cataract (Acute) Tendonitis of left rotator cuff (Acute) Biceps tendonitis on left (Acute) Physical exam (Acute) Painful arc syndrome of left shoulder (Acute) Arthritis of shoulder region, left, degenerative (Acute) Cervicalgia (Acute) Ascending aortic aneurysm (Acute) Pulmonary nodule (Acute) Scarring of lung (Acute) Cervical spine degeneration (Acute) Mass of soft tissue of left upper extremity (Acute) Carotid stenosis, bilateral (Acute) AAA (abdominal aortic aneurysm) without rupture (Acute) Tubular adenoma of colon (Acute) LVH (left ventricular hypertrophy) (Acute) COPD (chronic obstructive pulmonary disease) (Acute) Lower urinary tract symptoms (Acute) Internal derangement of left shoulder (Acute) Pulmonary nodule (Acute) Pulmonary nodules (Acute) Oral thrush (Acute) Chronic pain syndrome (Acute) Spondylosis, cervical (Acute) Postlaminectomy syndrome of cervical region (Acute) COPD (chronic obstructive pulmonary disease) (Acute) Left shoulder pain (Acute) Lung density on x-ray (Acute) Pulmonary fibrosis (Acute) Pleural effusion (Acute) H/O: CVA (cerebrovascular accident) (Acute) Aneurysmal dilatation (Acute) Screening for colon cancer (Acute) CAD (coronary artery disease) (Acute) Shoulder pain (Acute) Pure hypercholesterolemia (Acute) GERD (gastroesophageal reflux disease) (Acute) Essential hypertension (Acute) Neck pain (Acute) Past Medical History Medical History Cough Diverticulitis Lower urinary tract symptoms Internal derangement of left shoulder Pulmonary nodule Preoperative clearance Pulmonary nodules Oral thrush Chronic pain syndrome Spondylosis, cervical Postlaminectomy syndrome of cervical region COPD (chronic obstructive pulmonary disease) Whiplash Left shoulder pain Lung density on x-ray Pulmonary fibrosis Pleural effusion H/O: pneumonia Felon of finger of left hand H/O: CVA (cerebrovascular accident) Left flank pain Aneurysmal dilatation Screening for colon cancer Annual physical exam CAD (coronary artery disease) Shoulder pain Pure hypercholesterolemia GERD (gastroesophageal reflux disease) Essential hypertension Neck pain Family History Family History Father Bone cancer Mother CVD (cardiovascular disease) Brother No problems noted. Sister No problems noted. Daughter No problems noted. Family history of problems with anesthesia: No Surgical History Surgical History History of repair of right rotator cuff Hx of cataract extraction History of right cataract extraction Hx of neck surgery History of back surgery History of hand surgery History of partial colectomy History of esophagogastroduodenoscopy (EGD) Hx of colonoscopy Stented coronary artery History of foot surgery History of hemicolectomy History of cervical spinal surgery History of laminectomy History of hernia repair History of appendectomy History of Problems with Anesthesia: No Social History Social History Household Members Other:: Daughter Housing: House Are you a primary customer care specialist to a significant other at home: No Do you presently have visiting nurse or other home services: No Alcohol intake: never Patient Tobacco Use Status: Former Tobacco user Quit Date: 1994 Smoked: once in a while e-Cigarette/Vaping Use: Never Used Second Hand Smoke Exposure: No Use of substances other than those prescribed or required for medical reasons: Yes 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 Have you been hit, kicked, punched, or otherwise hurt by someone within the past year? 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 Cognitive needs: No Hearing needs: No Vision needs: Yes Meds Allergies Allergy/AdvReac Type Severity Reaction Status Date / Time aspirin [ASA] Allergy Mild UPSET Verified 08/20/23 10:27 STOMACH PT TAKES BABY ASA INSTEAD, stomach upset acetaminophen [From Vicodin] AdvReac Severe upset Verified 08/20/23 10:27 stomach hydrocodone [From Vicodin] AdvReac Severe upset Verified 08/20/23 10:27 stomach Home Medications Medication Instructions Recorded Confirmed Last Taken Type aspirin 81 mg tablet,delayed 81 mg PO DAILY 07/12/20 08/26/23 08/25/23 History release (Adult Low Dose Aspirin) [id number] 300 mcg-K 60 1 tab PO DAILY 07/12/20 08/14/23 Unknown History mcg-lycop 600 mcg-lutein 300 mcg tablet (Centrum Silver Men) atorvastatin 80 mg tablet 80 mg PO BEDTIME 08/14/23 08/14/23 Unknown History fluticasone furoate 200 1 inh inhalation DAILY 08/14/23 08/14/23 Unknown History mcg-vilanterol 25 mcg/dose inhalation powder (Breo Ellipta) Exam Height,Weight and Vital Signs: Height 5 ft 6 in Weight 60.781 kg Last Vital Signs Pulse 66 08/14/23 12:22 Resp 16 08/14/23 12:22 BP 156/86 H 08/14/23 12:22 Pulse Ox 95 08/14/23 12:22 O2 Del Method Room Air 08/14/23 12:22 Pertinent Lab Results Pertinent Lab Results: Laboratory Tests 08/06/23 08:11 WBC 6.9 Hgb 14.1 Hct 41.8 L Plt Count 280 Sodium 139 Potassium 3.9 Chloride 106 Carbon Dioxide 25 BUN 15 Creatinine 0.96 Narrative Narrative: EKG 07/2023 Vent. Rate : 065 BPM Atrial Rate : 065 BPM P-R Int : 170 ms QRS Dur : 084 ms QT Int : 418 ms P-R-T Axes : 083 079 079 degrees QTc Int : 434 ms Normal sinus rhythm Normal ECG When compared with ECG of 04-DEC-2022 13:13, No significant change was found Airway Mallampati Class: II TM Dist: >3cm Neck ROM: Limited (s/p cspine surgery with plate) Denture: Upper and Lower Heart: RRR Lungs: Faint wheeze upper lobes. Lower lobes clear. Assessment and Plan Assessment Anesthesia Assessment: Anesthesia Plan Discussed and PAT Visit Final Anesthetic Review Family History of Problems with Anesthesia: No History of Problems with Anesthesia: No Documented by User: Vicky Levy MD 08/26/23 08:46 PMFSH Past Medical History Medical History Cough Diverticulitis Lower urinary tract symptoms Internal derangement of left shoulder Pulmonary nodule Preoperative clearance Pulmonary nodules Oral thrush Chronic pain syndrome Spondylosis, cervical Postlaminectomy syndrome of cervical region COPD (chronic obstructive pulmonary disease) Whiplash Left shoulder pain Lung density on x-ray Pulmonary fibrosis Pleural effusion H/O: pneumonia Felon of finger of left hand H/O: CVA (cerebrovascular accident) Left flank pain Aneurysmal dilatation Screening for colon cancer Annual physical exam CAD (coronary artery disease) Shoulder pain Pure hypercholesterolemia GERD (gastroesophageal reflux disease) Essential hypertension Neck pain Family History Family History Father Bone cancer Mother CVD (cardiovascular disease) Brother No problems noted. Sister No problems noted. Daughter No problems noted. Surgical History Surgical History History of repair of right rotator cuff Hx of cataract extraction History of right cataract extraction Hx of neck surgery History of back surgery History of hand surgery History of partial colectomy History of esophagogastroduodenoscopy (EGD) Hx of colonoscopy Stented coronary artery History of foot surgery History of hemicolectomy History of cervical spinal surgery History of laminectomy History of hernia repair History of appendectomy Social History Social History Household Members Other:: Daughter Housing: House Are you a primary customer care specialist to a significant other at home: No Do you presently have visiting nurse or other home services: No Alcohol intake: never Patient Tobacco Use Status: Former Tobacco user Quit Date: 1994 Smoked: once in a while e-Cigarette/Vaping Use: Never Used Second Hand Smoke Exposure: No Use of substances other than those prescribed or required for medical reasons: Yes 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 Have you been hit, kicked, punched, or otherwise hurt by someone within the past year? 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 Cognitive needs: No Hearing needs: No Vision needs: Yes Meds Allergies Allergy/AdvReac Type Severity Reaction Status Date / Time aspirin [ASA] Allergy Mild UPSET Verified 08/20/23 10:27 STOMACH PT TAKES BABY ASA INSTEAD, stomach upset acetaminophen [From Vicodin] AdvReac Severe upset Verified 08/20/23 10:27 stomach hydrocodone [From Vicodin] AdvReac Severe upset Verified 08/20/23 10:27 stomach Home Medications Medication Instructions Recorded Confirmed Last Taken Type aspirin 81 mg tablet,delayed 81 mg PO DAILY 07/12/20 08/26/23 08/25/23 History release (Adult Low Dose Aspirin) kxsrigej-sz-irajg 300 mcg-K 60 1 tab PO DAILY 07/12/20 08/14/23 Unknown History mcg-lycop 600 mcg-lutein 300 mcg tablet (Centrum Silver Men) atorvastatin 80 mg tablet 80 mg PO BEDTIME 08/14/23 08/14/23 Unknown History fluticasone furoate 200 1 inh inhalation DAILY 08/14/23 08/14/23 Unknown History mcg-vilanterol 25 mcg/dose inhalation powder (Breo Ellipta) Assessment and Plan Assessment Anesthesia Assessment: Smoking Cess. Discussed and Chart Reviewed Final Anesthetic Review ASA Class: III Final Preanesthetic Review: No Changes in Pt Med Stat, Meds/Allgs Chart Reviewed, Consent Obtained/Reviewed and Anes Risks/Benef Reviewed Patient Risk: Intermediate Procedure Risk: Intermediate Anesthetic Plan Anesthetic Plan: GA and Regional Block Disposition: Standard PACU
[2023-08-26] VITALS (9 sets, daily range): BP systolic 118–144; BP diastolic 70–92; PULSE 57–71; RESP 7–18; TEMP 36.8–37.1; O2SAT 94–99; BMI 20.8
[2023-08-26] MEDS: Lactated Ringers 1,000 ML 100 ML IVCONT (06:46)
--- NOTE | 2023-08-26 09:49 | PM.OP ---
Brief Operative Note Date of Service: 08/26/23 Pre-op diagnosis: left rotator cuff tear Post-op diagnosis: same Procedure: RTC repair Biceps tenotomy sub acromial decompression Surgeon: Jorge Lee MD Anesthesia: GETA and regional Was an [employer] used for this Procedure?: Yes [employer]: [employer] Estimated blood loss (mL): 15 IV fluids (mL): 1,000 Pathology: none sent Condition: stable Disposition: PACU
--- NOTE | 2023-08-31 07:58 | P.OP_ITS ---
Operative Note Operative Note Date of Service: 08/26/23 Narrative: Date of Service: 08/26/23 Pre-op diagnosis: left rotator cuff tear Post-op diagnosis: same Procedure: RTC repair Biceps tenotomy sub acromial decompression Surgeon: Jorge Lee MD Anesthesia: GETA and regional Was an Asbestos Cloth Inspector used for this Procedure?: Yes Asbestos Cloth Inspector: Alicia Montoya Estimated blood loss (mL): 15 IV fluids (mL): 1,000 Pathology: none sent Condition: stable Disposition: PACU Procedure in detail: Patient was brought to the operating room and placed the the beach chair position. All bony prominences were well padded and the limb was prepped and draped in standard sterile fashion. A time out was called to identify proper site, proper procedure and proper surgeon. IV antibiotics per weight were administered. I began by making a posterolateral stab incision with a 15 blade. A blunt trochar was placed into the glenohumeral joint and I insufflated the joint with saline and a 30 degree arthroscope was placed. I established an outside- in anterior portal just distal to the biceps tendon. I then began my inspection of the glenohumeral joint. There was a large degenerative SLAP tear at the biceps anchor ( Type 2). There were mG1-2 cartilage changes at the inferior and anterior glenoid without humeral head changes. There was a full thickness undersurface RTC tear. The subcapularis was intact with partial thickness chronic tearing of the superior 20 %. I debrided the subscapularis and the loose cartilage of the glenoid and the degenerative labral tearing and performed a biceps tenotomy. I then removed the trochar and entered the subacromial space. A direct lateral portal was then established and I performed a bursectomy. The cuff was then examined. There was a full thickness tear of the supraspinatus without retraction. The tear was mobile. I placed two medial row double loaded anchors after using a tap just adjacent to the articular cartilage and then brought the suture limbs ( 8) through the medial cuff. I then debrided the bare area down to bleeding bone and, using a cross bridge configuration, brought 4 limbs to each of two lateral 5.0 anchors. This re-approximated the cuff anatomy anatomically. I then perfromed a 5mm anterior subacromial decompression. Once I was satisfied with the repair final images were captured and I removed all instrumentation. Portals were closed with nylon. Patient was placed in an abduction sling, extubated and brought to the recovery room in stable condition. There were no known complications.
== END 2023-08-26 12:21 | disposition home or self-care (01) ==
LOC: HO.SSS 05:55
PROVIDERS: PCP Internal Medicine; Visit Provider Orthopaedic Surgery
PROC: (CPT 29827; principal; 2023-08-26 07:30)
DX: M75.102 Unspecified rotator cuff tear or rupture of left shoulder, not specified as traumatic (principal); M19.012 Primary osteoarthritis, left shoulder; I10 Essential (primary) hypertension; J44.9 Chronic obstructive pulmonary disease, unspecified; Z86.73 Personal history of transient ischemic attack (TIA), and cerebral infarction without residual deficits
CPT/HCPCS: 29827; 29826; C1713; J0171; J0665; J0690; J1100; J2250; J2371; J2405; J2598; J2704; J3010

== ENCOUNTER → 2023-08-26 05:55 | Outpatient (BNV) | payer MEDICARE, SELFPAY | PROVIDERS: PCP Internal Medicine; Visit Provider Orthopaedic Surgery | DX: S43.432A Superior glenoid labrum lesion of left shoulder, initial encounter (principal); S46.012A Strain of muscle(s) and tendon(s) of the rotator cuff of left shoulder, initial encounter | CPT/HCPCS: 29827 ==

== ENCOUNTER 2023-09-01 09:48 | Outpatient (AMB) | payer MEDICARE, SELFPAY ==
--- NOTE | 2023-09-01 09:50 | MHC.OFFVIS ---
Intake Vital Signs 09/01/23 09:53 Height 5 ft 6 in Weight 135 lb BMI 21.8 Handedness Right Intake Visit Reasons: PO L RTC 08/26/23 NE Intake Note: Be is a 77 year old right hand dominant male who presents today for a post op appointment s/p L RTC 08/26/23 NE. Patient reports his pain is minimal like a 2/10 on the pain scale. Denies numbness and tingling. Allergies aspirin [ASA] Allergy (Mild, Verified 09/01/23 09:51) UPSET STOMACH PT TAKES BABY ASA INSTEAD, stomach upset acetaminophen [From Vicodin] Adverse Reaction (Severe, Verified 09/01/23 09:51) upset stomach hydrocodone [From Vicodin] Adverse Reaction (Severe, Verified 09/01/23 09:51) upset stomach HPI PO L RTC 08/26/23 NE HPI Details 77-year-old right hand dominant male who presents in the office today 6 days status post left rotator cuff repair, biceps tenotomy, and subacromial decompression, which was performed on 08/26/[address] Lee. The patient reports his pain at a 2/10 while in the office today. He denies numbness or tingling. [facility] Medical History Cough Diverticulitis Lower urinary tract symptoms Internal derangement of left shoulder Pulmonary nodule Preoperative clearance Pulmonary nodules Oral thrush Chronic pain syndrome Spondylosis, cervical Postlaminectomy syndrome of cervical region COPD (chronic obstructive pulmonary disease) Whiplash Left shoulder pain Lung density on x-ray Pulmonary fibrosis Pleural effusion H/O: pneumonia Felon of finger of left hand H/O: CVA (cerebrovascular accident) Left flank pain Aneurysmal dilatation Screening for colon cancer Annual physical exam CAD (coronary artery disease) Shoulder pain Pure hypercholesterolemia GERD (gastroesophageal reflux disease) Essential hypertension Neck pain Surgical History History of repair of right rotator cuff Hx of cataract extraction History of right cataract extraction Hx of neck surgery History of back surgery History of hand surgery History of partial colectomy History of esophagogastroduodenoscopy (EGD) Hx of colonoscopy Stented coronary artery History of foot surgery History of hemicolectomy History of cervical spinal surgery History of laminectomy History of hernia repair History of appendectomy Family History Father Bone cancer Mother CVD (cardiovascular disease) Brother No problems noted. Sister No problems noted. Daughter No problems noted. Social History Household Members Other:: Daughter Housing: House Are you a primary pediatric care coordinator to a significant other at home: No Do you presently have visiting nurse or other home services: No Alcohol intake: never Patient Tobacco Use Status: Former Tobacco user Quit Date: 1994 Smoked: once in a while e-Cigarette/Vaping Use: Never Used Second Hand Smoke Exposure: No Substance Use Type: Marijuana Advance Directives Date on File: 09/13/12 service: No Current occupational status: retired 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 Cognitive needs: No Hearing needs: No Vision needs: Yes Review of Systems Const All systems reviewed & are unremarkable except as noted in HPI and below Physical Exam Vital Signs: BMI result Body Mass Index 21.8 Const General: cooperative, healthy appearing and no acute distress Resp Effort & Inspection: normal respiratory effort and able to speak in complete sentences Cardio Rate: regular rate Peripheral pulses: Peripheral pulses 2+ throughout GI Palpation (GI): Soft to palpation Skin Lesions: no lesions Rashes: no rashes Extrem Other: Left shoulder: Incision site is clean, dry, and intact. Sutures intact. No surrounding erythema or drainage. No signs of infection. Forward flexion and abduction to 40 degrees. External rotation to neutral. NVI. Assessment & Plan Assessment & Plan (1) Status post rotator cuff repair: Comment: Left rotator cuff repair, biceps tenotomy, and subacromial decompression 08/26/2023 Dr. Jorge Lee Code(s): Z98.890 - Other specified postprocedural states Plan Mr. Fontenot is a 77-year-old right hand dominant male who presents in the office today 6 days status post left rotator cuff repair, biceps tenotomy, and subacromial decompression, which was performed on 08/26/[address] Lee. The patient reports his pain at a 2/10 while in the office today. He denies numbness or tingling. The patient will remain in the sling for 6 weeks post operatively. Sutures were removed and steri-stripes were applied while in the office today. The patient is scheduled for physical therapy today after his appointment here, which he will attend. Follow up will be in [address] Lee, or sooner if needed. Patient Instructions: Scribed for Alicia Montoya PA-C by Dania Tapia medical assistant supervisor, on 09/01/2023 at 9:53 am, EST. Coding Level of Care Code Global (95498) Diagnoses Status post rotator cuff repair Z98.890
[2023-09-01 09:53] VITALS: BMI 21.8
== END 2023-09-01 10:13 | disposition home or self-care (01) ==
PROVIDERS: PCP Internal Medicine; Visit Provider Physician Assistant
DX: Z98.890 Other specified postprocedural states (principal)
CPT/HCPCS: 99024

== ENCOUNTER → 2023-09-01 09:48 | Outpatient (BNVA) | payer MEDICARE, SELFPAY | PROVIDERS: PCP Internal Medicine; Visit Provider Physician Assistant | DX: Z47.89 Encounter for other orthopedic aftercare (principal) | CPT/HCPCS: 99212 ==

== ENCOUNTER 2023-10-01 12:21 | Outpatient (AMB) | payer MEDICARE, SELFPAY ==
[2023-10-01 12:29] VITALS: BMI 21.8
--- NOTE | 2023-10-01 12:29 | A.OFFVIS_ITS ---
Intake Vital Signs 10/01/23 12:29 Height 5 ft 6 in Weight 135 lb BMI 21.8 Intake Visit Reasons: PO-L RTC 08/26/23 NE Intake Note: Be otero 77 year old right hand dominant male presents today for a post op appointment s/p L RTC 08/26/23 NE. Patient reports is doing well.He complains of swelling in his hand and pain with numbness in his Left hand at bed time. He states that he is going to PT and do his exercises at home and both are going well. Allergies aspirin [ASA] Allergy (Mild, Verified 10/01/23 12:35) UPSET STOMACH PT TAKES BABY ASA INSTEAD, stomach upset acetaminophen [From Vicodin] Adverse Reaction (Severe, Verified 10/01/23 12:35) upset stomach hydrocodone [From Vicodin] Adverse Reaction (Severe, Verified 10/01/23 12:35) upset stomach HPI PO-L RTC 08/26/23 NE HPI Details 77-year-old right hand dominant male who presents in the office today 1 month status post left rotator cuff repair, biceps tenotomy, and subacromial decompression, which was performed on 08/26/[address] Lee. I last saw the patient in the office on 09/01/2023 where the patient was referred to physical therapy. While in the office today the patient reports he is doing well. He reports edema and pain in the left hand with numbness at bedtime. He confirms participating in physical therapy and working on his exercises at home, both of which he states are going well. [facility] Medical History Cough Diverticulitis Lower urinary tract symptoms Internal derangement of left shoulder Pulmonary nodule Preoperative clearance Pulmonary nodules Oral thrush Chronic pain syndrome Spondylosis, cervical Postlaminectomy syndrome of cervical region COPD (chronic obstructive pulmonary disease) Whiplash Left shoulder pain Lung density on x-ray Pulmonary fibrosis Pleural effusion H/O: pneumonia Felon of finger of left hand H/O: CVA (cerebrovascular accident) Left flank pain Aneurysmal dilatation Screening for colon cancer Annual physical exam CAD (coronary artery disease) Shoulder pain Pure hypercholesterolemia GERD (gastroesophageal reflux disease) Essential hypertension Neck pain Surgical History History of repair of right rotator cuff Hx of cataract extraction History of right cataract extraction Hx of neck surgery History of back surgery History of hand surgery History of partial colectomy History of esophagogastroduodenoscopy (EGD) Hx of colonoscopy Stented coronary artery History of foot surgery History of hemicolectomy History of cervical spinal surgery History of laminectomy History of hernia repair History of appendectomy Family History Father Bone cancer Mother CVD (cardiovascular disease) Brother No problems noted. Sister No problems noted. Daughter No problems noted. Social History Household Members Other:: Daughter Housing: House Are you a primary family day carer to a significant other at home: No Do you presently have visiting nurse or other home services: No Alcohol intake: never Patient Tobacco Use Status: Former Tobacco user Quit Date: 1994 Smoked: once in a while e-Cigarette/Vaping Use: Never Used Second Hand Smoke Exposure: No Substance Use Type: Marijuana Advance Directives Date on File: 09/13/12 service: No Current occupational status: retired 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 Cognitive needs: No Hearing needs: No Vision needs: Yes Review of Systems Const All systems reviewed & are unremarkable except as noted in HPI and below Physical Exam Vital Signs: BMI result Body Mass Index 21.8 Const General: cooperative, healthy appearing and no acute distress Resp Effort & Inspection: normal respiratory effort and able to speak in complete sentences Cardio Rate: regular rate Peripheral pulses: Peripheral pulses 2+ throughout GI Palpation (GI): Soft to palpation Skin Lesions: no lesions Rashes: no rashes Extrem Other: Left shoulder: Forward flexion to 80 degrees. Abduction to 45 degrees. External rotation to neutral. NVI. Assessment & Plan Assessment & Plan (1) Status post rotator cuff repair: Onset Date: ~08/26/23 Comment: Left rotator cuff repair, biceps tenotomy, and subacromial decompression Dr. Jorge Lee Code(s): Z98.890 - Other specified postprocedural states Plan Mr. Fontenot is a 77-year-old right hand dominant male who presents in the office today 1 month status post left rotator cuff repair, biceps tenotomy, and subacromial decompression, which was performed on 08/26/[address] Lee. I last saw the patient in the office on 09/01/2023 where the patient was referred to physical therapy. While in the office today the patient reports he is doing well. He reports edema and pain in the left hand with numbness at bedtime. He confirms participating in physical therapy and working on his exercises at home, both of which he states are going well. The patient will continue to work with physical therapy. He reports he has been wearing the sling, but states the wrist has been hanging out. I feel this has contributed tot he numbness and tingling he reports in his left hand. He will discontinue the use of the sling tomorrow, 10/02/2023, after attending physical therapy to try to avoid the numbness and tingling from becoming worse. Follow up will be in [address] Lee, who has not seen the patient for post op yet, or sooner if needed. Patient Instructions: Scribed by Dania Tapia medical records director, for Alicia Montoya PA-C on 10/01/2023 at 12:27 pm, EST. Coding Level of Care Code Global (72684) Diagnoses Status post rotator cuff repair Z98.890
== END 2023-10-01 13:04 | disposition home or self-care (01) ==
PROVIDERS: PCP Internal Medicine; Visit Provider Physician Assistant
DX: Z98.890 Other specified postprocedural states (principal)
CPT/HCPCS: 99024

== ENCOUNTER → 2023-10-01 12:21 | Outpatient (BNVA) | payer MEDICARE, SELFPAY | PROVIDERS: PCP Internal Medicine; Visit Provider Physician Assistant | DX: Z98.890 Other specified postprocedural states (principal) | CPT/HCPCS: 99212 ==

== ENCOUNTER 2023-10-15 08:55 | Outpatient (AMB) | payer MEDICARE, SELFPAY ==
[2023-10-15 08:57] VITALS: BP 147/78; PULSE 78; BMI 20.8
--- NOTE | 2023-10-15 08:57 | A.OFFVIS_ITS ---
Intake Vital Signs 10/15/23 08:57 Height 5 ft 6 in Weight 129 lb 3.054 oz BMI 20.8 BP 147/78 H Blood Pressure Location Rt brachial Position Sitting Pulse 78 Intake Visit Reasons: 2 year follow up Intake Note: 2 year follow up Allergies aspirin [ASA] Allergy (Mild, Verified 10/01/23 12:35) UPSET STOMACH PT TAKES BABY ASA INSTEAD, stomach upset acetaminophen [From Vicodin] Adverse Reaction (Severe, Verified 10/01/23 12:35) upset stomach hydrocodone [From Vicodin] Adverse Reaction (Severe, Verified 10/01/23 12:35) upset stomach Medication List - Last Reconciled 10/15/23 by Slim Peña MD aspirin (Adult Low Dose Aspirin) 81 mg PO DAILY atorvastatin 80 mg PO BEDTIME clotrimazole 10 mg PO TID PRN 10 days doxazosin 4 mg PO BEDTIME 90 days finasteride 5 mg PO DAILY 90 days fluticasone furoate-vilanterol 200-25 mcg/dose (Breo Ellipta) 1 inh inhalation DAILY [id number] mcg (Centrum Silver Men) 1 tab PO DAILY omeprazole 20 mg PO DAILY 90 days oxycodone 10 mg PO Q6H PRN 30 days ropinirole 1 mg PO BEDTIME 90 days trazodone 50 mg PO BEDTIME PRN 30 days HPI HPI Comments History of Present Illness Details Be comes for follow-up after a very long gap. He has symptoms of exertional shortness of breath when he goes up and down a flight of stairs. No associated chest discomfort. Denies orthopnea, PND, leg edema. Denies any prolonged palpitations, lightheadedness, syncope. Takes all his medications regularly. He thinks his shortness of breath is related to his COPD. His most recent LDL was 73 mg/dL. He is taking all his medications including aspirin. He has not had any recent carotid screening. [facility] Medical History Cough Diverticulitis Lower urinary tract symptoms Internal derangement of left shoulder Pulmonary nodule Preoperative clearance Pulmonary nodules (~10/15/23) Oral thrush Chronic pain syndrome Spondylosis, cervical Postlaminectomy syndrome of cervical region COPD (chronic obstructive pulmonary disease) Whiplash Left shoulder pain Lung density on x-ray Pulmonary fibrosis Pleural effusion H/O: pneumonia Felon of finger of left hand H/O: CVA (cerebrovascular accident) Left flank pain Aneurysmal dilatation Screening for colon cancer Annual physical exam CAD (coronary artery disease) Shoulder pain Pure hypercholesterolemia GERD (gastroesophageal reflux disease) Essential hypertension Neck pain Surgical History History of repair of right rotator cuff Hx of cataract extraction History of right cataract extraction Hx of neck surgery History of back surgery History of hand surgery History of partial colectomy History of esophagogastroduodenoscopy (EGD) Hx of colonoscopy Stented coronary artery History of foot surgery History of hemicolectomy History of cervical spinal surgery History of laminectomy History of hernia repair History of appendectomy Family History Father Bone cancer Mother CVD (cardiovascular disease) Brother No problems noted. Sister No problems noted. Daughter No problems noted. 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 Cognitive needs: No Hearing needs: No Vision needs: Yes Review of Systems Const Denies chills, Denies fatigue, Denies fever(s), Denies frequent falls, Denies weakness, Denies weight gain and Denies weight loss ENT Denies dizziness Card Denies chest pain, Denies chest pain with activity, Denies syncope, Denies rapid heart rate, Denies pedal edema, Denies edema, Denies leg edema, Denies lightheadedness, Denies palpitations, Denies dyspnea, Denies dyspnea on exertion, Denies orthopnea and Denies other (loss of consciousness) Resp Denies cough, Denies dyspnea and Denies dyspnea on exertion GI Denies hematochezia and Denies change in stool character Musc Denies abnormal gait, Denies muscle cramps, Denies muscle weakness, Denies numbness, Denies radiating pain into limb and Denies tingling Neuro Denies abnormal gait, Denies dizziness, Denies syncope, Denies frequent falls, Denies numbness, Denies tingling and Denies weakness Endo Denies fatigue and Denies palpitations Physical Exam Vital Signs: Last Vital Signs Pulse 78 10/15/23 08:57 BP 147/78 H 10/15/23 08:57 BMI result Body Mass Index 20.8 Const General: cooperative, comfortable, alert and awake Nutritional Appearance: thin Orientation/consciousness: patient oriented x3 Limitations: no limitations Neck Neck: Yes trachea midline, Yes supple and Yes no JVD Chest Chest palpation & inspection: normal inspection of the chest Resp Effort & Inspection: normal respiratory effort Auscultation: clear to auscultation bilaterally Cardio Jugular venous distension: no JVD Palpation: normal PMI Rate: regular rate Rhythm: regular rhythm Heart sounds: S1 normal heart sound present and S2 normal heart sound present Skin General skin exam: no rashes or lesions noted Neuro General: patient oriented x3 and no focal motor deficits Extrem General: Yes no clubbing, cyanosis or edema Psych Appearance: grossly normal Assessment & Plan Assessment & Plan (1) CAD (coronary artery disease): Comment: Sees Dr Peña Code(s): I25.10 - Atherosclerotic heart disease of tetlin coronary artery without angina pectoris Plan: Diffuse atherosclerotic disease in this elderly gentleman with prior CAD st enting remotely in 2008. Will follow-up exercise myocardial perfusion imaging to evaluate for stent patency and progressive atherosclerosis. Given his bilateral carotid disease as well will suggest carotid duplex to assess for the same. Given his shortness of breath exertion although possibility related to aging and COPD LV systolic and diastolic function will be evaluated and associated pulmonary hypertension by echocardiogram. This test will be scheduled in near future. Meanwhile have discussed about aggressive management of his atherosclerotic disease. Continue low-dose aspirin therapy. Continue high-intensity statin therapy. LDL is close to optimize a 73 mg/dL. Blood pressure is currently well optimized. Encouraged to continue to participate in regular physical activity. Will follow up in the clinic in 1 year's time, sooner p.r.n.. Thank you for allowing me to partake in his care Orders: Orders CA stress test Today I25.10 - Atherosclerotic heart disease of tetlin coronary artery without angina pectoris NM cardiolite stress test 2 Weeks I25.10 - Atherosclerotic heart disease of tetlin coronary artery without angina pectoris, R07.9 - Chest pain, unspecified Coding Level of Care Code Est Pt Level 4 (51412) Diagnoses CAD (coronary artery disease) I25.10
== END 2023-10-15 09:24 | disposition home or self-care (01) ==
PROVIDERS: PCP Internal Medicine; Visit Provider Internal Medicine Cardiovascular Disease
DX: I25.10 Atherosclerotic heart disease of native coronary artery without angina pectoris (principal)
CPT/HCPCS: 99214

== ENCOUNTER → 2023-10-15 08:55 | Outpatient (BNVA) | payer MEDICARE, SELFPAY | PROVIDERS: PCP Internal Medicine; Visit Provider Internal Medicine Cardiovascular Disease | DX: I25.10 Atherosclerotic heart disease of native coronary artery without angina pectoris (principal) | CPT/HCPCS: 99212 ==

== ENCOUNTER 2023-10-27 15:18 | Outpatient (AMB) | payer MEDICARE, SELFPAY ==
[2023-10-27 15:23] VITALS: BP 122/78; PULSE 63; O2SAT 96; BMI 21.0
--- NOTE | 2023-10-27 15:23 | MHC.OFFVIS ---
Intake Vital Signs 10/27/23 15:23 Height 5 ft 6 in Weight 130 lb 1.164 oz BMI 21.0 BP 122/78 Blood Pressure Location Lt brachial Position Sitting Pulse 63 Pulse Source Pulse Oximeter Pulse Oximetry (%) 96 Oxygen Delivery Method Room Air Intake Visit Reasons: copd Intake Note: pt is here for follow up and states his breathing is about the same Territory Manager General Sales Required: No Allergies aspirin [ASA] Allergy (Mild, Verified 10/27/23 15:49) UPSET STOMACH PT TAKES BABY ASA INSTEAD, stomach upset acetaminophen [From Vicodin] Adverse Reaction (Severe, Verified 10/27/23 15:49) upset stomach hydrocodone [From Vicodin] Adverse Reaction (Severe, Verified 10/27/23 15:49) upset stomach Medication List - Last Reconciled 10/27/23 by Angela Michelle MD aspirin (Adult Low Dose Aspirin) 81 mg PO DAILY atorvastatin 80 mg PO BEDTIME clotrimazole 10 mg PO TID PRN 10 days doxazosin 4 mg PO BEDTIME 90 days finasteride 5 mg PO DAILY 90 days fluticasone furoate-vilanterol 200-25 mcg/dose (Breo Ellipta) 1 inh inhalation DAILY [id number] mcg (Centrum Silver Men) 1 tab PO DAILY omeprazole 20 mg PO DAILY 90 days oxycodone 10 mg PO Q6H PRN 30 days ropinirole 1 mg PO BEDTIME 90 days trazodone 50 mg PO BEDTIME PRN 30 days Do you need a note to return to daycare/school/sports/work: No HPI copd HPI Details TAYLOR IS 77 YEARS OLD GENTLEMAN, COMES FOR FOLLOW-UP FOR HIS BREATHING. HE IS BEING TREATED FOR COPD, WITH BREO 200-25 1 INHALATION DAILY HE CLAIMS THAT HIS BREATHING REMAINS A NO CONTROL AND HE REALLY DOES NOT EVEN NEED TO USE THE RESCUE INHALER. HE WALKS AROUND AND DOES HIS HOUSEHOLD ACTIVITIES WITHOUT MUCH SHORTNESS OF BREATH. HE HAS ONLY OCCASIONAL COUGH. HIS CT SCAN IN MARCH 2023 HAD SHOWN. SEVERE EMPHYSEMA, AND SOME VOLUME LOSS WITH SCARRING IN BOTH UPPER LOBE. A NEW 5 MM PERIPHERAL RIGHT LOWER LOBE NODULE WAS NOTED AND MULTIPLE NEW NODULAR DENSITIES IN THE LEFT UPPER LOBE. GIVEN THESE FINDINGS THE A REPEAT CT SCAN AT 6 MONTHS INTERVAL WAS RECOMMENDED [facility] Medical History Cough Diverticulitis Lower urinary tract symptoms Internal derangement of left shoulder Pulmonary nodule Preoperative clearance Pulmonary nodules (~10/15/23) Oral thrush Chronic pain syndrome Spondylosis, cervical Postlaminectomy syndrome of cervical region COPD (chronic obstructive pulmonary disease) Whiplash Left shoulder pain Lung density on x-ray Pulmonary fibrosis Pleural effusion H/O: pneumonia Felon of finger of left hand H/O: CVA (cerebrovascular accident) Left flank pain Aneurysmal dilatation Screening for colon cancer Annual physical exam CAD (coronary artery disease) Shoulder pain Pure hypercholesterolemia GERD (gastroesophageal reflux disease) Essential hypertension Neck pain Surgical History History of repair of right rotator cuff Hx of cataract extraction History of right cataract extraction Hx of neck surgery History of back surgery History of hand surgery History of partial colectomy History of esophagogastroduodenoscopy (EGD) Hx of colonoscopy Stented coronary artery History of foot surgery History of hemicolectomy History of cervical spinal surgery History of laminectomy History of hernia repair History of appendectomy Family History Father Bone cancer Mother CVD (cardiovascular disease) Brother No problems noted. Sister No problems noted. Daughter No problems noted. 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 Cognitive needs: No Hearing needs: No Vision needs: Yes Review of Systems Const All systems reviewed & are unremarkable except as noted in HPI and below Eyes Reports no additional complaints ENT Reports no additional complaints Card Denies chest pain, Denies irregular heart rhythm and Denies leg edema Resp Reports as per HPI GI Reports heartburn (Controlled with med) Reports no additional complaints Musc Reports back pain Skin/Breast Reports system reviewed and no additional complaints, except as documented Neuro Reports no additional complaints Psych Reports no additional complaints Endo Reports no additional complaints Physical Exam Vital Signs: Last Vital Signs Pulse 63 10/27/23 15:23 BP 122/78 10/27/23 15:23 Pulse Ox 96 10/27/23 15:23 Oxygen Delivery Method Room Air 10/27/23 15:23 BMI result Body Mass Index 21.0 Const General: comfortable, no acute distress, alert and awake Orientation/consciousness: patient oriented x3 HEENT Head: Yes normal to inspection General nose exam: No nasal polyps present and No nasal discharge present Face and sinus: Yes sinuses nontender Mouth: oropharynx normal Throat: Yes posterior oropharynx normal Eyes General: appearance normal, both eyes and all related structures Neck Neck: Yes normal visual inspection, Yes no lymphadenopathy, Yes trachea midline and Yes no JVD Thyroid: Thyroid normal Chest Chest palpation & inspection: normal inspection of the chest, normal palpation of entire chest wall and no tenderness Resp Other: Percussion note hyper-resonant on both sides, Breath sounds are distant with prolonged expiratory phase. No wheezes rhonchi or crepitations are heard. Cardio Palpation: normal PMI Rate: regular rate Rhythm: regular rhythm Heart sounds: no gallops and no murmurs Peripheral pulses: Peripheral pulses 2+ throughout GI Palpation (GI): Soft to palpation, nontender, No hepatosplenomegaly present and no masses Auscultation: normal bowel sounds Back/Spine/Pelvis Thoracic/Lumbar Spine: thoracic and lumbar spine normal to inspection Skin General skin exam: no rashes or lesions noted Neuro General: patient oriented x3 and no focal motor deficits Cranial nerves: Yes CN's II-XII intact bilaterally Extrem General: Yes normal to inspection, Yes no clubbing, cyanosis or edema and Yes no calf tenderness Psych Appearance: grossly normal and well kempt Speech and movement: Normal speech and movement present Assessment & Plan Assessment & Plan (1) COPD (chronic obstructive pulmonary disease): Comment: KNOWN CASE OF CHRONIC OBSTRUCTIVE PULMONARY DISEASE, MODERATELY SEVERE, WELL CONTROLLED AT THIS TIME. HIS ACTIVITY LEVEL IS ONLY SLIGHTLY SUB OPTIMAL . Code(s): J44.9 - Chronic obstructive pulmonary disease, unspecified Qualifiers: COPD type: unspecified COPD Qualified Code(s): J44.9 - Chronic obstructive pulmonary disease, unspecified Plan: TX: HE IS ADVISED TO CONTINUE BREO 200/25 1 INHALATION DAILY AND USE PROAIR 2 PUFFS Q.4-6 HOURS ONLY P.R.N.. (2) Pulmonary nodules: Onset Date: ~10/15/23 Comment: Multiple small nodules in the left upper lobe. Will monitor with yearly CT scan. CT scan 81/ IMPRESSION: Severe emphysema. Severe volume loss and scarring in both upper lobes. New 5 mm peripheral or subpleural right lower lobe nodule. Multiple new nodular opacities in the left upper lobe. Given new appearance in a short period of time, this probably represents an infectious or inflammatory process. Short-term followup chest CT in several months recommended. 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 Code(s): R91.8 - Other nonspecific abnormal finding of lung field Plan: REPEAT CT SCAN OF THE CHEST IS ORDERED TO MONITOR THE SIZE OF THE PULMONARY NODULES. Orders: Orders CT chest wo IV con Today R91.8 - Other nonspecific abnormal finding of lung field Coding Level of Care Code Est Pt Level 3 (65440) Diagnoses Chronic obstructive pulmonary disease, unspecified COPD type J44.9 COPD type: unspecified COPD Pulmonary nodules R91.8
== END 2023-10-27 15:49 | disposition home or self-care (01) ==
PROVIDERS: PCP Internal Medicine; Visit Provider Internal Medicine
DX: J44.9 Chronic obstructive pulmonary disease, unspecified (principal); R91.8 Other nonspecific abnormal finding of lung field
CPT/HCPCS: 99213

== ENCOUNTER → 2023-10-27 15:18 | Outpatient (BNVA) | payer MEDICARE, SELFPAY | PROVIDERS: PCP Internal Medicine; Visit Provider Internal Medicine | DX: J44.9 Chronic obstructive pulmonary disease, unspecified (principal); R91.8 Other nonspecific abnormal finding of lung field | CPT/HCPCS: 99212 ==

== ENCOUNTER 2023-11-03 09:15 | Outpatient (AMB) | payer MEDICARE, SELFPAY ==
[2023-11-03 09:18] VITALS: BP 136/80; BMI 20.5
--- NOTE | 2023-11-03 09:18 | A.OFFPC_ITS ---
Vital Signs 11/03/23 09:18 Height 5 ft 6 in Weight 127 lb BMI 20.5 BP 136/80 Blood Pressure Location Lt brachial Position Sitting Intake Visit Reasons: Annual Exam Intake Note: Patient here for an annual physical exam Ladle Cleaner Required: No Accompanied by: Self / Same As Patient Allergies aspirin [ASA] Allergy (Mild, Verified 11/03/23 09:37) UPSET STOMACH PT TAKES BABY ASA INSTEAD, stomach upset acetaminophen [From Vicodin] Adverse Reaction (Severe, Verified 11/03/23 09:37) upset stomach hydrocodone [From Vicodin] Adverse Reaction (Severe, Verified 11/03/23 09:37) upset stomach Medication List - Last Reconciled 11/03/23 by Francie Ann MD aspirin (Adult Low Dose Aspirin) 81 mg PO DAILY atorvastatin 80 mg PO BEDTIME clotrimazole 10 mg PO TID PRN 10 days doxazosin 4 mg PO BEDTIME 90 days finasteride 5 mg PO DAILY 90 days fluticasone furoate-vilanterol 200-25 mcg/dose (Breo Ellipta) 1 inh inhalation DAILY [id number] [id number] mcg (Centrum Silver Men) 1 tab PO DAILY omeprazole 20 mg PO DAILY 90 days oxycodone 10 mg PO Q6H PRN 30 days ropinirole 1 mg PO BEDTIME 90 days trazodone 50 mg PO BEDTIME PRN 30 days Tobacco use date assessed: 11/03/23 Fall risk assessment: No Falls in past year Last assessed Fall Risk: 11/03/23 Dental Screening Dental Screen Date: 11/03/23 Did you have a dental visit in the last 12 months?: No Did you have a dental problem in the last 6 months where you did not have access to dental care?: No Was dental information given to patient?: Patient declined HPI HPI Comments History of Present Illness Details This is a 77-year-old male that comes for his physical exam. He has COPD follow by pulmonology and stable with long-acting inhaler. Will have CT of the chest soon. Last colonoscopy was 2020 and was normal. No chest pain. Occasional dyspnea on exertion. He also has pulmonary fibrosis follow by pulmonology which has been stable. [facility] Medical History (Updated 11/03/23 @ 10:48 by Francie Ann MD) Ascending aortic aneurysm AAA (abdominal aortic aneurysm) without rupture Cough Diverticulitis Lower urinary tract symptoms Internal derangement of left shoulder Pulmonary nodule Preoperative clearance Pulmonary nodules (~10/15/23) Oral thrush Chronic pain syndrome Spondylosis, cervical Postlaminectomy syndrome of cervical region COPD (chronic obstructive pulmonary disease) Whiplash Left shoulder pain Lung density on x-ray Pulmonary fibrosis Pleural effusion H/O: pneumonia Felon of finger of left hand H/O: CVA (cerebrovascular accident) Left flank pain Aneurysmal dilatation Screening for colon cancer Annual physical exam CAD (coronary artery disease) Shoulder pain Pure hypercholesterolemia GERD (gastroesophageal reflux disease) Essential hypertension Neck pain Surgical History Rotator cuff arthropathy of left shoulder History of repair of right rotator cuff Hx of cataract extraction History of right cataract extraction Hx of neck surgery History of back surgery History of hand surgery History of partial colectomy History of esophagogastroduodenoscopy (EGD) Hx of colonoscopy Stented coronary artery History of foot surgery History of hemicolectomy History of cervical spinal surgery History of laminectomy History of hernia repair History of appendectomy Family History Father Bone cancer Mother CVD (cardiovascular disease) Brother No problems noted. Sister No problems noted. Daughter No problems noted. 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 1. Little interest or pleasure in doing things: not at all 2. Feeling down, depressed, or hopeless: not at all 3. Trouble falling or staying asleep, or sleeping too much: not at all 4. Feeling tired or having little energy: not at all 5. Poor appetite or overeating: not at all 6. Feeling bad about yourself - or that you are a failure or have let yourself or your family down: not at all 7. Trouble concentrating on things, such as reading the newspaper or watching television: not at all 8. Moving or speaking so slowly that other people could have noticed. Or the opposite - being so fidgety or restless that you have been moving around a lot more than usual: not at all 9. Thoughts that you would be better off or of hurting yourself in some way: not at all Total score: 0 Depression Screening Interpretation: Negative Depression Screening Done: Yes 17675 - PHQ-9 Billing: Yes Source: Developed by Drs. Omar Cesar, Thalia Castillo, Bassam Pelletier and colleagues, with an educational becki from [employer]. Thrive Questionnaire Date Thrive assessed: 11/03/23 I am a: Patient What is your living situation today?: I have a steady place to live Within the past 12 months, did the food you bought not last and you didn't have the money to get more?: Never true Within the past 12 months, did you worry whether your food would run out before you got money to buy more?: Never true Do you have trouble paying for medicines?: No Do you have trouble getting transportation to medical appointments?: No Do you have trouble paying your heating and electricity bill?: No Do you have trouble taking care of your child, family member or friend?: No Do you have trouble with day-to-day activities such as bathing, preparing meals, shopping, managing finances, etc.?: No Are you currently unemployed and looking for a job?: No Are you interested in more education?: No Please select the resources that you would like help with: None Currently or been in a relationship where the following occur: no concerns reported THRIVE Score: 0 AUDIT C Alcohol Use Questionnaire (AUDIT-C) 1. How often do you have a drink containing alcohol?: Never Total Score: 0 Score Reviewed/Action Taken: No CHAS-7 AMB Questionnaire CHAS-7 Date CHAS - 7 assessed: 11/03/23 Feeling nervous, anxious, or on edge: 0 = Not at all Not being able to stop or control worryin = Not at all Worrying too much about different things: 0 = Not at all Trouble relaxin = Not at all Being so restless that it is hard to sit still: 0 = Not at all Becoming easily annoyed or irritable: 0 = Not at all Feeling afraid as if something awful might happen: 0 = Not at all Total CHAS-7 score (0-4 normal; 5-9 mild; 10-14 moderate; 15-21 severe): 0 Source: Developed by Drs. Omar Cesar, Thalia Castillo, Bassam Pelletier and colleagues, with an educational becki from [employer]. CHAS-7 Assessment Billing CHAS-7 Assessment Tool: CHAS-7 Assessment 79255 Review of Systems Const All systems reviewed & are unremarkable except as noted in HPI and below Eyes Reports no additional complaints, Denies change in vision and Denies other visual disturbances Card Denies chest pain at rest, Denies chest pain with activity, Denies edema, Denies irregular heart rhythm, Denies claudication, Denies dyspnea, Denies dyspnea on exertion, Denies orthopnea, Denies paroxysmal nocturnal dyspnea and Denies slow heart rate Resp Denies cough, Denies dyspnea and Denies dyspnea on exertion GI Denies abdominal pain, Denies change in bowel habits, Denies excessive flatus, Denies nausea and Denies vomiting Denies urinary hesitancy, Denies urinary incontinence and Denies urinary urgency Musc Denies abnormal gait, Denies atrophy, Denies deformity and Denies limited range of motion Skin/Breast Denies bleeding lesions, Denies changing lesions and Denies rash Neuro Denies abnormal gait and Denies lack of coordination Physical exam (Primary Care) Vital Signs: Last Vital Signs BP 136/80 11/03/23 09:18 BMI result Body Mass Index 20.5 Tobacco/Smoking Status: Tobacco use Status Tobacco use date assessed 11/03/23 11/03/23 09:26 Patient Tobacco Use Status Former Tobacco user 11/03/23 09:26 e-Cigarette/Vaping Use Never Used 11/03/23 09:26 PHQ-9: PHQ-9 Score PHQ-9: Total score 0 11/03/23 09:42 Depression Screening Interpretation: Negative Thrive Assessment: Date of Thrive Assessment Date Thrive assessed 11/03/23 11/03/23 09:26 Currently or been in a relationship where the following occur: no concerns reported Const Orientation/consciousness: patient oriented x3 [facility] Head: Yes normal to inspection, Yes normocephalic and Yes atraumatic Ears: external ears normal Eyes General: appearance normal, both eyes and all related structures Eyelids: Yes eyelids normal Conjunctivae: conjunctivae normal Neck Neck: Yes normal visual inspection and Yes supple Resp Effort & Inspection: normal respiratory effort Auscultation: clear to auscultation bilaterally Cardio Jugular venous distension: no JVD Rate: regular rate Rhythm: regular rhythm Heart sounds: S1 normal heart sound present and S2 normal heart sound present GI Inspection: Yes normal to inspection Palpation (GI): Soft to palpation and nontender Auscultation: normal bowel sounds Skin General skin exam: no rashes or lesions noted Neuro General: patient oriented x3 and no focal motor deficits Extrem General: Yes full ROM Psych Appearance: grossly normal Assessment and Plan Assessment & Plan (1) Physical exam: Code(s): Z00.00 - Encounter for general adult medical examination without abnormal findings Plan: Repeat in a year. (2) COPD (chronic obstructive pulmonary disease): Comment: KNOWN CASE OF CHRONIC OBSTRUCTIVE PULMONARY DISEASE, MODERATELY SEVERE, WELL CONTROLLED AT THIS TIME. HIS ACTIVITY LEVEL IS ONLY SLIGHTLY SUB OPTIMAL . Code(s): J44.9 - Chronic obstructive pulmonary disease, unspecified Qualifiers: COPD type: unspecified COPD Qualified Code(s): J44.9 - Chronic obstructive pulmonary disease, unspecified Plan: Continue long-acting inhaler. Use rescue inhaler as needed. Follow-up with pulmonology. (3) Pulmonary fibrosis: Comment: As per his previous the CT scan, patient does have pleural and parenchymal scarring in right upper lobe, related to his previous surgery. Patient had thoracostomy and repair of ruptured lung in mid 90s. It is staying quite stable. Code(s): J84.10 - Pulmonary fibrosis, unspecified Plan: Follow-up with pulmonology. Orders: Orders PSA,Total (Free>4and<10) Today Z12.5 - Encounter for screening for malignant neoplasm of prostate Lipid Panel Today E78.5 - Hyperlipidemia, unspecified Comprehensive [place]. Panel Fast Today Z00.00 - Encounter for general adult medical examination without abnormal findings Medications: New trazodone 100 mg PO BEDTIME 90 days PRN 90 tabs 1RF sleep Discontinued trazodone Discontinued Reason: No Longer Medically Relevant 50 mg PO BEDTIME 30 days PRN 30 tabs 0RF sleep Coding Level of Care Code Est Pt Prev Care >65y(16994) Diagnoses Physical exam Z00.00 Chronic obstructive pulmonary disease, unspecified COPD type J44.9 COPD type: unspecified COPD Pulmonary fibrosis J84.10 Additional Codes CHAS-7 Assessment Billing - CHAS-7 Assessment Tool: CHAS-7 Assessment 38522 ([id number]) Time Spent (min) 32
== END 2023-11-03 09:50 | disposition home or self-care (01) ==
PROVIDERS: Visit Provider Internal Medicine
DX: Z00.00 Encounter for general adult medical examination without abnormal findings (principal); J44.9 Chronic obstructive pulmonary disease, unspecified; J84.10 Pulmonary fibrosis, unspecified
CPT/HCPCS: 99397

== ENCOUNTER 2023-11-04 08:07 | Outpatient (REF) | payer MEDICARE, SELFPAY ==
--- NOTE | ~2023-11-04 | US_ITS ---
EXAMINATION: US EXTRACRANIAL CAROTID DUPLEX, BILATERAL CLINICAL INFORMATION: Occlusion and stenosis of unspecified carotid artery COMPARISON: Carotid duplex 11/21/2020 TECHNIQUE: Real-time ultrasound and Doppler techniques (integrating B-mode 2-D vascular images, Doppler spectral analysis and color-flow Doppler imaging) were utilized to interrogate the extracranial carotid arteries, the vertebral arteries and proximal subclavian arteries bilaterally. The degree of stenosis is determined by criteria similar to NASCET. FINDINGS: Right Side: 1. There is mild atherosclerotic plaque seen in the bifurcation/proximal ICA region. 2. The common carotid artery PSV proximally is 64.3 cm/s and distally 53.2 cm/s. 3. The proximal internal carotid artery velocities are 55 cm/s systolic and 16.7 cm/s diastolic. 4. The proximal external carotid artery PSV is 66.2 cm/s. 5. The vertebral artery shows antegrade flow. 6. The subclavian artery waveforms are normal. Left Side: 1. There is mild atherosclerotic plaque seen in the bifurcation/proximal ICA region. 2. The common carotid artery PSV proximally is 83.9 cm/s and distally 50.9 cm/s. 3. The proximal internal carotid artery velocities are 81.6 cm/s systolic and 24 cm/s diastolic. 4. The proximal external carotid artery PSV is 54.9 cm/s. 5. The vertebral artery shows antegrade flow. 6. The subclavian artery waveforms are normal. US/US carotid duplex BI IMPRESSION: 1. RIGHT: Minimal, non-hemodynamically significant stenosis of the proximal right internal carotid artery corresponding to a 0-49% stenosis by velocity criteria. 2. LEFT: Minimal, non-hemodynamically significant stenosis of the proximal left internal carotid artery corresponding to a 0-49% stenosis by velocity criteria. 3. No significant interval change compared to 11/21/2020.
[2023-11-04 09:01] LABS: Alanine Aminotransferase 19 U/L (0-40); Albumin Level 4.1 g/dL (3.5-5.0); Alkaline Phosphatase 138 U/L (39-117); Anion Gap 11 (12-20); Aspartate Amino Transferase 25 U/L (5-37); Bilirubin Total 0.5 mg/dL (0.0-1.0); Blood Urea Nitrogen 19 mg/dL (9-16); Calcium 9.6 mg/dL (8.4-10.2); Carbon Dioxide 28 mmol/L (22-29); Chloride 102 mmol/L (96-108); Cholesterol 139 mg/dL (<200); Estimated Glomerular Filt Rate > 60; Glucose Fasting 105 mg/dL (60-99); HDL Cholesterol 49 mg/dL (>40); LDL Cholesterol Calculated 75 mg/dL (<100); Potassium 4.1 mmol/L (3.3-5.1); Sodium 137 mmol/L (135-145); Triglycerides 79 mg/dL (<150)
[2023-11-04 09:16] LABS: PSA,Total (Free>4and<10) 1.68 ng/mL (0.00-4.00)
== END 2023-11-04 08:08 | disposition home or self-care (01) ==
LOC: HO.US 08:07
PROVIDERS: Absent Provider Internal Medicine; PCP Internal Medicine; Visit Provider Internal Medicine Cardiovascular Disease
DX: Z00.00 Encounter for general adult medical examination without abnormal findings (principal); E78.5 Hyperlipidemia, unspecified; I65.23 Occlusion and stenosis of bilateral carotid arteries; Z12.5 Encounter for screening for malignant neoplasm of prostate
CPT/HCPCS: 36415; 80053; 80061; 84153; 93880

== ENCOUNTER 2023-11-16 10:09 | Outpatient (AMB) | payer MEDICARE, SELFPAY ==
--- NOTE | 2023-11-16 10:11 | A.OFFVIS_ITS ---
Intake Vital Signs 11/16/23 10:16 Height 5 ft 6 in Weight 130 lb BMI 21.0 Handedness Right Intake Visit Reasons: PO-L RTC 08/26/23 NE Intake Note: Be is a 77 year old right hand dominant male presents today for a post op appointment s/p L RTC 08/26/23 NE. Patient reports he is doing well but experiences mild pain when doing PT. He is having mild tingling in his fingers and states the tingling is improving each week. Allergies aspirin [ASA] Allergy (Mild, Verified 11/16/23 10:21) UPSET STOMACH PT TAKES BABY ASA INSTEAD, stomach upset acetaminophen [From Vicodin] Adverse Reaction (Severe, Verified 11/16/23 10:21) upset stomach hydrocodone [From Vicodin] Adverse Reaction (Severe, Verified 11/16/23 10:21) upset stomach HPI PO-L RTC 08/26/23 NE HPI Details Be is a 77 year old right hand dominant male presents today for a post op appointment s/p L RTC 08/26/23 NE. Patient reports he is doing well but experiences mild pain when doing PT. He is having mild tingling in his fingers and states the tingling is improving each week. [facility] Medical History Ascending aortic aneurysm AAA (abdominal aortic aneurysm) without rupture Cough Diverticulitis Lower urinary tract symptoms Internal derangement of left shoulder Pulmonary nodule Preoperative clearance Pulmonary nodules (~10/15/23) Oral thrush Chronic pain syndrome Spondylosis, cervical Postlaminectomy syndrome of cervical region COPD (chronic obstructive pulmonary disease) Whiplash Left shoulder pain Lung density on x-ray Pulmonary fibrosis Pleural effusion H/O: pneumonia Felon of finger of left hand H/O: CVA (cerebrovascular accident) Left flank pain Aneurysmal dilatation Screening for colon cancer Annual physical exam CAD (coronary artery disease) Shoulder pain Pure hypercholesterolemia GERD (gastroesophageal reflux disease) Essential hypertension Neck pain Surgical History Rotator cuff arthropathy of left shoulder History of repair of right rotator cuff Hx of cataract extraction History of right cataract extraction Hx of neck surgery History of back surgery History of hand surgery History of partial colectomy History of esophagogastroduodenoscopy (EGD) Hx of colonoscopy Stented coronary artery History of foot surgery History of hemicolectomy History of cervical spinal surgery History of laminectomy History of hernia repair History of appendectomy Family History Father Bone cancer Mother CVD (cardiovascular disease) Brother No problems noted. Sister No problems noted. Daughter No problems noted. 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 Jorge Lee Code(s): Z98.890 - Other specified postprocedural states Plan: Overall Be is doing very well. His range of motion exceeds my expectations but he had a large degenerative tear and he 77 so I still think he should be cautious and careful. He may follow up in 3 months' time. Continue strengthening exercises. Coding Level of Care Code Global (90698) Diagnoses Status post rotator cuff repair Z98.890
[2023-11-16 10:16] VITALS: BMI 21.0
== END 2023-11-16 12:33 | disposition home or self-care (01) ==
PROVIDERS: PCP Internal Medicine; Visit Provider Orthopaedic Surgery
DX: Z98.890 Other specified postprocedural states (principal)
CPT/HCPCS: 99024

== ENCOUNTER → 2023-11-16 10:09 | Outpatient (BNVA) | payer MEDICARE, SELFPAY | PROVIDERS: PCP Internal Medicine; Visit Provider Orthopaedic Surgery | DX: Z98.890 Other specified postprocedural states (principal) | CPT/HCPCS: 99212 ==

== ENCOUNTER → 2023-11-20 07:42 | Outpatient (REF) | payer MEDICARE, SELFPAY ==
--- NOTE | ~2023-11-20 | NM_ITS ---
Exercise Myocardial perfusion study Indication: CAD to evaluate for myocardial ischemia Technique: The patient was brought in for an exercise perfusion study on 11/20/2023. Patient performed exercise as per Robert protocol and was injected 25 mCi of sestamibi was given intravenously one target HR was achieved. Images were obtained using the SPECT gamma camera interlaced with the gating device. Images were obtained in supine position. Resting perfusion study was performed on 11/26/2023. Patient was administered 25 mCi of sestamibi intravenously at rest. Images were then obtained in supine position. Images obtained with and without CT attenuation. Total DLP 103 mGy-cm. Images were processed with the software and compared side to side in short axis, horizontal long axis and vertical long axis views. Findings: The stress perfusion study showed non attenuated images show mildly reduced uptake in the basal inferoseptal and septum of the LV myocardium. Is also mildly reduced uptake in the basal inferior wall of the LV myocardium. Remainder of the LV myocardium is normally perfused. Attenuated corrected images show some thinning of the basal septum of the LV myocardium is normal uptake in all segments.. The gated study shows normal LV systolic function with calculated LVEF of 59%. LV cavity is normal in size. The gated study shows normal systolic wall thickening and contraction of all segments. There is no transient ischemic dilation. Resting study shows no change in perfusion pattern compared to stress perfusion study. Gating at rest reveals normal systolic wall motion with ejection fraction at 56%. The findings are consistent with normal myocardial perfusion. NM/NM cardiolite stress test Impression: 1. Normal myocardial perfusion 2. Gated LVEF is 59% 3. Transient ischemic dilatation not present Stress EKG is negative for ischemia
--- NOTE | 2023-11-20 07:43 | CA_ITS ---
Transthoracic Echocardiogram Patient (Last, First, Middle): Be Fontenot R Gender: Male Date of : 1945 Age: 77 Procedure Date: 11/20/2023 Procedure Type: Transthoracic Echocardiogram Location: OP Height: 167.64 cm Weight: 55. kg BSA: 1.62 m2 Heart Rate: bpm BP: 108 / 68 mmHg Basket Maker: JENNIFER Referring MD: Slim Peña MD Symptoms: R06.02 - Shortness of breath Study Quality: Fair Conclusions: - Normal left ventricular size, thickness, and systolic function. The visually estimated ejection fraction is between 55-60%. - Normal right ventricular cavity size and systolic function. - There is mild dilatation of the ascending aorta measuring 4.20 cm. Findings Left Ventricle Normal left ventricular size, thickness, and systolic function. The visually estimated ejection fraction is between 55-60%. Abnormal diastolic function is noted. Spectral Doppler is indicative of an impaired relaxation filling pattern. E/E prime ratio is between 8 and 15 consistent with indeterminate filling pressures. Right Ventricle Normal right ventricular cavity size and systolic function. Atria The left atrium is normal in size. The right atrium is normal in size. Aortic Valve There is a normal trileaflet aortic valve. There is mild calcification of the aortic valve. There is no aortic valve stenosis. There is no aortic valve regurgitation. Mitral Valve Normal mitral valve structure and function. There is trace mitral valve regurgitation. There is no mitral valve stenosis. Pulmonic Valve The pulmonic valve is likely normal. Tricuspid Valve Normal tricuspid valve structure. There is no tricuspid valve regurgitation. Normal right atrial pressure. There is no evidence of pulmonary hypertension. Great Vessels There is mild dilatation of the ascending aorta measuring 4.20 cm. The visualized portions of the pulmonary artery and branches are normal. Venous The inferior vena cava is normal in size and collapses greater than 50% with inspiration. Pericardium/Pleural There is no evidence of pericardial effusion. Prior Study Comparison Changes noted compared to prior study dated: 10/30/2020. Ascending aorta 4.2 cm. Measurements 2D Linear Measurements IVSd: 0.94 0.6-0.9/0.6-1.0 cm LVIDd: 3.62 3.9-5.3/4.2-5.9 cm LVIDd Index: 2.23 2.4-3.2/2.2-3.1 cm/m2 LVIDs: 2.56 2.0-3.6 cm LVPWd: 0.92 0.7-1.1 cm Ao Root: 4.30 2.1-3.5 cm LA Diam: 2.90 2.7-3.8/3.0-4.0 cm LAIDs Index: 1.79 1.5-2.3 cm/m2 LV Mass: 121.25 67-162/88-224 g LV Mass Index: 74.85 43-95/49-115 g/m2 LVOT Diam: 2.10 3.0+(-)1.3 cm 2D Systolic Function EF 4C: 57.90 >55% EF 2C: 52.10 >55% EF BiP: 55.00 >55% Mitral Valve MV Pk E: 0.64 MV PK A: 0.78 MV Decel Time: 234.00 E/A: 0.80 E'Lateral: 5.98 E'Medial: 4.79 E/E' Med: 13.30 E/E' Lat: 10.70 PHT: 69.00 MVA PHT: 3.19 Decel Mcculloch: 2.73 Aortic Valve AoV Pk Nabeel: 1.39 AoV Mn Nabeel: 0.96 AoV VTI: 0.25 AoV Pk Grad: 8.00 Aov Mn Grad: 4.00 DMITRIY Cont.VTI: 2.89 LVOT LVOT Pk Nabeel: 0.96 LVOT Mn Nabeel: 0.66 LVOT VTI: 0.21 LVOT Pk Grad: 4.00 LVOT Mn Grad: 2.00 LVOT Diam: 2.10 LVOT Area: 3.46 Diastolic Function MV Pk E: 0.64 MV Pk A: 0.78 E/A: 0.80 E'Medial: 4.79 E/E' Med: 13.30 E' Laterial: 5.98 E/E' Lat: 10.70 Right Ventricle TAPSE (mm): 19.50 TVS' Nabeel: 11.10 Tricuspid Valve TR Pk Nabeel: 1.90 TR Pk Grad: 14.00 RA Press: 3.00 RVSP: 17.00 Great Vessels Aorta Ao Root-2D: 4.30 2.0-3.7 cm Ao Asc: 4.20 2.1-3.4 cm Ao Arch: 2.70 Updated in Other Vendor System with Status of Final Amando Darden MD electronically signed on 11/21/2023 11:20:46 PM with status of Final
--- NOTE | 2023-11-20 07:43 | CA_ITS ---
Acquisition Time: 2023-11-20 08:00:48 Total Exercise Time: 00:07:39 Test Indications: CP Medications: SEE H Protocol: MIKAEL Max HR: 127 BPM 88% of Pred: 144 BPM Max BP: 132/058 mmHG Max Work Load: 9.5 METS Exercise stress test exercise 7 min 39 sec of Mikael protocol achieving 86% MPHR, with mild SOB. no chest discomfort, with isolated PVCs and PACs, ventricularbigeminy, and short runs of VT, with normtoensive response to exercise, without EKG changes. Breathing returned to baseline with rest. Nuclear images pending. Test reviewed with Dr. Darden. Referred By: Slim Peña Overread By: Ayaka Bustos
== END ==
LOC: HO.CARD 07:42
PROVIDERS: PCP Internal Medicine; Visit Provider Internal Medicine Cardiovascular Disease
DX: R07.9 Chest pain, unspecified (principal); I25.10 Atherosclerotic heart disease of native coronary artery without angina pectoris; R06.02 Shortness of breath
CPT/HCPCS: 78452; 93017; 93306; A9500

== ENCOUNTER → 2023-11-20 07:43 | Outpatient (BNV) | payer MEDICARE, SELFPAY | PROVIDERS: PCP Internal Medicine; Visit Provider Nurse Practitioner | DX: I25.10 Atherosclerotic heart disease of native coronary artery without angina pectoris (principal) | CPT/HCPCS: 78452; 93016; 93018; 93320; 93350 ==

== ENCOUNTER 2023-12-03 11:00 | Outpatient (RCR) | payer MEDICARE, SELFPAY ==
--- NOTE | 2023-09-01 17:40 | MHC.PT.EP ---
[facility] [place] Office [place] Office [place] Office [address] Jai Hernández [address] [phone] F: [phone] F: [phone] F: [phone] F: [phone] Physical Therapy Plan of Care Date of Evaluation: 09/01/23 Date of Surgery: 08/26/23 Diagnosis: s/p LEFT RTC repair (full thickness supra), biceps tenotomy, and subacromial decompression (DOS: 08/26/23) Assessment: Patient is a pleasant 77 y.o. male who is referred to PT by Alicia Montoya PA-C, with Dx of s/p LEFT RTC repair (supra, infra), SAD and biceps tenotomy. Patient impairments include swelling in UE, bruising, pain, limited ROM and weakness that are typical post surgically. Patient current functional limitations are difficulty dressing, bathing, reaching, push/pull, cooking, cleaning, driving. Patient will benefit from skilled PT to address aforementioned impairments and functional limitations to meet established goals. Frequency and Duration: The patient will be seen 2x/week for 8 weeks Short Term Goals: 4 weeks Patient demonstrates consistency and independence with HEP and use of sling to adhere to protocol and allow appropriate tissue healing. Detention Goals: 8 weeks Patient presents with increased LEFT shoulder PROM flexion 170 degrees to restore overhead mobility for reaching. Patient presents with increased LEFT shoulder ER PROM 70 degrees to be able to restore mobility reaching behind back to tuck in clothes. Treatment Plan: Modalities to reduce pain, spasms and effusion. Manual therapy to restore motion and function. Therapeutic exercise to improve strength and flexibility. Neuromuscular re-education for posture and balance. Therapeutic activities to return to functional activities of daily living. Electronically signed by: Abdiel Williamson, PT, DPT Please sign and return to therapist. Thank you for your referral.
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
== END 2024-01-06 09:07 | disposition home or self-care (01) ==
LOC: HO.PT 11:00
PROVIDERS: PCP Internal Medicine; Visit Provider Physician Assistant
DX: M75.102 Unspecified rotator cuff tear or rupture of left shoulder, not specified as traumatic (principal)
CPT/HCPCS: 97110; 97140; 97162; 97530; 97535

== ENCOUNTER 2023-12-09 08:07 | Outpatient (REF) | payer MEDICARE, SELFPAY ==
--- NOTE | ~2023-12-09 | CT_ITS ---
EXAMINATION: CT CHEST WITHOUT CONTRAST CLINICAL INFORMATION: Follow-up of nodules COMPARISON: 03/26/2023 TECHNIQUE: Multidetector volumetric CT imaging of the chest was done. Axial MIP volume rendering provided. Sagittal and coronal reformatted images were obtained. This CT examination was performed using dose optimization techniques as appropriate, variously including the following: *Automated exposure control *Adjustment of mA and/or kV according to patient size (this includes techniques or standardized protocols for targeted exams where dose is matched to indication/reason for exam; i.e. extremities or head) *Use of iterative reconstruction technique DLP: 116 mGy-cm FINDINGS: LUNGS: Severe emphysema. Increased thickening versus nodular opacity of the right upper lobe measuring 8.1 x 7.7 cm (4:237), new from prior study. Interval decrease in left upper lobe spiculated opacity measuring 1.4 x 1.6 cm (4:132). Right lung base honeycombing is unchanged. PLEURA: No pleural effusion. MEDIASTINUM: No cardiomegaly. Ectatic descending aorta. Aneurysmal dilation of the ascending aorta measuring up to 4.5 x 4.6 cm similar to prior study. No mediastinal adenopathy. Lack of IV contrast limits evaluation for hilar adenopathy. CORONARY ARTERY CALCIFICATION: Coronary artery calcifications are noted. CHEST WALL/AXILLA: No axillary or internal mammary lymphadenopathy. UPPER ABDOMEN: Subcentimeter hepatic hypoattenuating lesions are again noted. Aortic atherosclerotic calcifications. OSSEOUS STRUCTURES: Upper cervical spine hardware noted. Degenerative changes of the spine. CT/CT chest wo IV con IMPRESSION: * Increased thickening versus nodular opacity of the right upper lobe measuring 8.1 x 7.7 cm, new from prior study. Differential considerations include infection, inflammation, or neoplastic disease. Recommend short interval follow-up or tissue sampling for further evaluation. * Interval decrease in left upper lobe spiculated opacity measuring 1.4 x 1.6 cm. * Aneurysmal dilation of the ascending aorta measuring up to 4.6 cm.
== END 2023-12-09 08:08 | disposition home or self-care (01) ==
LOC: HO.CT 08:07
PROVIDERS: PCP Internal Medicine; Visit Provider Internal Medicine
DX: R91.8 Other nonspecific abnormal finding of lung field (principal)
CPT/HCPCS: 71250

== ENCOUNTER 2023-12-22 08:34 | Outpatient (AMB) | payer MEDICARE, SELFPAY ==
--- NOTE | 2023-12-22 08:59 | A.OFFVIS_ITS ---
Intake Visit Reasons: Follow Up, 6 mth. with/lab, PSA(set) Intake Note: Patient presents for follow up visit BPH/PVR Urology Medications: finasteride, doxazosin Blood Thinner: aspirin PVR: 111ml's [place] Pruner Required: No Accompanied by: Self / Same As Patient Allergies aspirin [ASA] Allergy (Mild, Verified 12/22/23 09:08) UPSET STOMACH PT TAKES BABY ASA INSTEAD, stomach upset acetaminophen [From Vicodin] Adverse Reaction (Severe, Verified 12/22/23 09:08) upset stomach hydrocodone [From Vicodin] Adverse Reaction (Severe, Verified 12/22/23 09:08) upset stomach Medication List - Last Reconciled 12/22/23 by OMAIRA Dacosta-HUI aspirin (Adult Low Dose Aspirin) 81 mg PO DAILY atorvastatin 80 mg PO BEDTIME Breo Ellipta 200-25 mcg/dose (fluticasone furoate-vilanterol) 1 inh inhalation DAILY NS clotrimazole 10 mg PO TID PRN 10 days doxazosin 8 mg (2 x 4 mg) PO BEDTIME 90 days finasteride 5 mg PO DAILY 90 days [id number] mcg (Centrum Silver Men) 1 tab PO DAILY omeprazole 20 mg PO DAILY 90 days oxycodone 10 mg PO Q6H PRN 30 days ropinirole 1 mg PO BEDTIME 90 days trazodone 100 mg PO BEDTIME PRN 90 days HPI Comments Details: Be is a very pleasant 77-year-old male patient of Dr. Pappas. He has a past medical history of coronary artery disease, chronic pain syndrome, COPD, GERD, hypertension, CVA, pulmonary fibrosis, postlaminectomy syndrome of cervical region, pulmonary nodule, hypercholesteremia, and cervical spondylosis. He presents to the office today for follow-up. In discussion with the patient today he reports to be doing and feeling well. Recent PSA results reviewed with the patient today. PSAs are as noted PSA: 05/02 2.7, 10/31 1.7 Patient had previously been on terazosin however has since been switched to doxazosin 4 mg at bedtime. He feels this has been helpful however he does continue with episodes of nocturia and had hesitancy. He discusses feeling throughout the day his urinary symptoms are manageable however at night feels they worsen. He reports compliance with finasteride 5 mg daily and 4 mg of doxazosin at night. Previous workup has included a retroperitoneal ultrasound noting right kidney with no calculi and or hydronephrosis. Benign-appearing svitlana al cyst measuring 1.5 cm. No follow up imaging is recommended per radiology report. Incidentally noted extrarenal pelvis. Left kidney with no calculi, lesions, and or hydronephrosis. The bladder is well distended. Bilateral ureteral jets are demonstrated. Prevoid bladder volume is approximately 200 mL. Postvoid bladder volume is approximate and 40 mL. 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 Enlarged prostate, volume measuring approximately 70 mLs. He otherwise denies incontinence, hematuria, dysuria, foul-smelling urine, changes to urinary stream, flank pain, fever, and or chills. In office urinalysis results reviewed with the patient today. PVR 111ml's. Discussed causes and affects of incomplete bladder emptying. Patient otherwise denies any issues or concerns at this time. [facility] Medical History Ascending aortic aneurysm AAA (abdominal aortic aneurysm) without rupture Cough Diverticulitis Lower urinary tract symptoms Internal derangement of left shoulder Pulmonary nodule Preoperative clearance Pulmonary nodules (~10/15/23) Oral thrush Chronic pain syndrome Spondylosis, cervical Postlaminectomy syndrome of cervical region COPD (chronic obstructive pulmonary disease) Whiplash Left shoulder pain Lung density on x-ray Pulmonary fibrosis Pleural effusion H/O: pneumonia Felon of finger of left hand H/O: CVA (cerebrovascular accident) Left flank pain Aneurysmal dilatation Screening for colon cancer Annual physical exam CAD (coronary artery disease) Shoulder pain Pure hypercholesterolemia GERD (gastroesophageal reflux disease) Essential hypertension Neck pain Surgical History Rotator cuff arthropathy of left shoulder History of repair of right rotator cuff Hx of cataract extraction History of right cataract extraction Hx of neck surgery History of back surgery History of hand surgery History of partial colectomy History of esophagogastroduodenoscopy (EGD) Hx of colonoscopy Stented coronary artery History of foot surgery History of hemicolectomy History of cervical spinal surgery History of laminectomy History of hernia repair History of appendectomy Family History Father Bone cancer Mother CVD (cardiovascular disease) Brother No problems noted. Sister No problems noted. Daughter No problems noted. 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 Cognitive needs: No Hearing needs: No Vision needs: Yes Review of Systems Const Reports as per HPI Eyes Reports no additional complaints ENT Reports no additional complaints Card Reports as per HPI Resp Reports as per HPI GI Reports no additional complaints Reports as per HPI Musc Reports as per HPI Neuro Reports as per HPI Psych Reports no additional complaints Endo Reports no additional complaints Physical Exam Const General: cooperative, healthy appearing, comfortable, no acute distress, well developed, alert and awake Orientation/consciousness: patient oriented x3 Limitations: no limitations HEENT Head: Yes normocephalic and Yes atraumatic Ears: hearing grossly normal bilaterally Eyes General: appearance normal, both eyes and all related structures EOM: EOMs intact bilaterally Neck Neck: Yes normal visual inspection and Yes trachea midline Chest Chest palpation & inspection: normal inspection of the chest Resp Effort & Inspection: normal respiratory effort and able to speak in complete sentences Cardio Jugular venous distension: no JVD Rate: regular rate GI Inspection: Yes normal to inspection Rectal Exam - Male: Yes deferred General: Yes no CVA tenderness Back/Spine/Pelvis Back: no CVA tenderness Skin General skin exam: turgor normal Rashes: no rashes Neuro General: patient oriented x3 Extrem Other: Right Shoulder: 4/5 EC neg lag +H/N 45/90/130/L1 Right Ankle: Mild medial malleolus ttp General: Yes normal to inspection Psych Appearance: grossly normal Mental Status: mental status grossly normal Speech and movement: Normal speech and movement present and Clear speech present Affect: normal affect Attitude: cooperative Thought process: Normal thought process present Thought content: Normal thought content present Insight: Fair insight present (Psych) Judgement: Fair judgement present (Psych) Office Procedures Post Void Residual Post Residual Void Post Void Residual (PVR): 111 [id number] Void Residual by ultrasound Results AMB Urinalysis, Automated UA Leukoctes 0 Herminia/uL Last Edit by Jennifer Jarrett on 12/22/23 09:20 UA Nitrite Negative Last Edit by Jennifer Jarrett on 12/22/23 09:20 UA Urobilinogen 0.2 mg/dL Last Edit by Jennifer Jarrett on 12/22/23 09:20 UA Protein 15 mg/dL Last Edit by Jennifer Jarrett on 12/22/23 09:20 UA pH 6.5 Last Edit by Jennifer Jarrett on 12/22/23 09:20 UA Blood 0 Parvez/uL Last Edit by Jennifer Jarrett on 12/22/23 09:20 UA Specific [place] 1.015 Last Edit by Jennifer Jarrett on 12/22/23 09:20 UA Ketone Negative Last Edit by Jennifer Jarrett on 12/22/23 09:20 UA Bilirubin 0 mg/dL Last Edit by Jennifer Jarrett on 12/22/23 09:20 UA Glucose 0 mg/dL Last Edit by Jennifer Jarrett on 12/22/23 09:20 Results Reviewed Results Reviewed: Laboratory Last Values Urine pH (Auto) 6.5 12/22/23 09:18 Specific [place] (Auto) 1.015 12/22/23 09:18 Urine Protein (Auto) 15 mg/dL 12/22/23 09:18 Glucose (UA)(Auto) 0 mg/dL 12/22/23 09:18 Urine Ketones (Auto) Negative 12/22/23 09:18 Urine Blood (Auto) 0 Parvez/uL 12/22/23 09:18 Urine Nitrite (Auto) Negative 12/22/23 09:18 Urine Bilirubin (Auto) 0 mg/dL 12/22/23 09:18 Urine Urobilinogen (Auto) 0.2 mg/dL 12/22/23 09:18 Leukocyte Esterase (Auto) 0 Herminia/uL 12/22/23 09:18 Assessment & Plan Assessment & Plan (1) Bladder trabeculation: Code(s): N32.89 - Other specified disorders of bladder Category: Medical (2) Enlarged prostate: Code(s): N40.0 - Benign prostatic hyperplasia without lower urinary tract symptoms Category: Medical (3) Urinary frequency: Code(s): R35.0 - Frequency of micturition Category: Medical (4) Nocturia: Code(s): R35.1 - Nocturia Category: Medical (5) BPH (benign prostatic hyperplasia): Code(s): N40.0 - Benign prostatic hyperplasia without lower urinary tract symptoms Category: Medical (6) Lower urinary tract symptoms: Code(s): R39.9 - Unspecified symptoms and signs involving the genitourinary system Category: Medical (7) Incomplete bladder emptying: Code(s): R33.9 - Retention of urine, unspecified Category: Medical Plan In office urinalysis results reviewed with the patient today; as noted above. PVR 111 mL. Discussed at length potential causes for incomplete bladder emptying as well as affects of incomplete bladder emptying. Discussed attempting to double void to assist with decreasing postvoid residuals. Will increase doxazosin to 8 mg at bedtime. Recent PSA results reviewed with the patient today; as noted above. Continue finasteride as discussed and prescribed. Discussed, educated, and stressed the importance of limiting fluids 1-2 hours prior to bed to decrease episodes of nocturia. Discussed potential near future in office cystoscopy for further assessment evaluation. Follow-up in 1-2 months; or sooner with any issues, concerns, and or questions. Orders: Orders AMB Urinalysis Automated Today Z13.9 - Encounter for screening, unspecified AMB Post Void Residual by ultrasound Today R35.1 - Nocturia Medications: Changed From doxazosin 4 mg PO BEDTIME 90 days 90 tabs 1RF N13.8 - Other obstructive and reflux uropathy, N40.0 - Benign prostatic hyperplasia without lower urinary tract symptoms, N40.1 - Benign prostatic hyperplasia with lower urinary tract symptoms To doxazosin this is an increase in the dose 8 mg (2 x 4 mg) PO BEDTIME 180 tabs 1RF 90 days N13.8 - Other obstructive and reflux uropathy, N40.0 - Benign prostatic hyperplasia without lower urinary tract symptoms, N40.1 - Benign prostatic hyperplasia with lower urinary tract symptoms Patient Instructions: The patient had an opportunity to ask questions regarding the treatment plan. All questions were answered. Physical exam, labs, and imaging were discussed and reviewed in detail. As well as risks, benefits, and discussion of treatment choices. No major barriers to understanding were identified. The patient expressed understanding and agreement with the above treatment plan. The patient was made aware they should contact our office by phone for worsening of their current condition, the appearance of new symptoms, or with any questions or concerns. Compliance is encouraged with any medications and follow up testing that is ordered. It is a privilege to be allowed the opportunity to participate in? your urological care.? Again, if you have any questions or concerns If you have any questions or concerns please do not hesitate to contact me. The office is [phone]. This note is constructed using voice recognition software. While every effort has been made to ensure accuracy deputy chief magistrate errors may have been included. Yours sincerely, HUGH Dacosta Coding Level of Care Code Est Pt Level 4 (36199) Diagnoses Bladder trabeculation N32.89 Enlarged prostate N40.0 Urinary frequency R35.0 Nocturia R35.1 BPH (benign prostatic hyperplasia) N40.0 Lower urinary tract symptoms R39.9 Incomplete bladder emptying R33.9 CPT Codes Post Residual Void - PVR CPT Code: 25330-Egyq Void Residual by ultrasound ([id number]) Time Spent (min) 25
== END 2023-12-22 09:07 | disposition home or self-care (01) ==
PROVIDERS: PCP Internal Medicine; Visit Provider Nurse Practitioner Family
DX: N32.89 Other specified disorders of bladder (principal); N40.0 Benign prostatic hyperplasia without lower urinary tract symptoms; R35.0 Frequency of micturition; R35.1 Nocturia; R39.9 Unspecified symptoms and signs involving the genitourinary system; R33.9 Retention of urine, unspecified; Z13.9 Encounter for screening, unspecified
CPT/HCPCS: 99214

== ENCOUNTER → 2023-12-22 08:34 | Outpatient (BNVA) | payer MEDICARE, SELFPAY | PROVIDERS: PCP Internal Medicine; Visit Provider Nurse Practitioner Family | DX: N32.89 Other specified disorders of bladder (principal); N40.1 Benign prostatic hyperplasia with lower urinary tract symptoms; R35.0 Frequency of micturition; R35.1 Nocturia; R33.8 Other retention of urine; R39.9 Unspecified symptoms and signs involving the genitourinary system; Z79.899 Other long term (current) drug therapy | CPT/HCPCS: 51798; 81003; 99212 ==

== ENCOUNTER 2024-01-15 16:09 | Emergency (ER) | payer OTHER, SELFPAY ==
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
[2024-01-15 16:32] VITALS: BP 135/81; PULSE 67; RESP 20; TEMP 36.7; O2SAT 94; BMI 20.2
[2024-01-15 16:36] VITALS: BP 132/86; PULSE 72; O2SAT 96
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
[2024-01-15] MEDS: oxyCODONE HCl Immed Release 5 MG TABLET 10 MG PO (17:21)
[2024-01-15 18:00] VITALS: BP 139/86; PULSE 63; TEMP 35.8; O2SAT 95
--- NOTE | 2024-01-15 19:36 | PC.NURSE ---
Xray approached t/w stated that they were unable to locate patient. checked dept, unable to locate pt [employer]ER [employer]MBOSS[employer] notified
== END 2024-01-15 19:00 | disposition left against medical advice (07) ==
PROVIDERS: Emergency Provider Internal Medicine; PCP Internal Medicine
DX: S49.92XA Unspecified injury of left shoulder and upper arm, initial encounter (principal); S69.91XA Unspecified injury of right wrist, hand and finger(s), initial encounter; M54.2 Cervicalgia; R51.9 Headache, unspecified; M79.602 Pain in left arm; M79.601 Pain in right arm; V43.52XA Car driver injured in collision with other type car in traffic accident, initial encounter; Y93.9 Activity, unspecified; Y92.410 Unspecified street and highway as the place of occurrence of the external cause; Y99.8 Other external cause status; Z87.891 Personal history of nicotine dependence; Z79.899 Other long term (current) drug therapy
CPT/HCPCS: 70450; 72125; 99283; 99284

== ENCOUNTER 2024-01-16 08:43 | Emergency (ER) | payer OTHER, SELFPAY ==
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
[2024-01-16 08:58] VITALS: BP 131/84; PULSE 63; RESP 18; TEMP 36.1; O2SAT 98; BMI 20.1
[2024-01-16 11:34] VITALS: BP 136/67; PULSE 50; RESP 16; O2SAT 96
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
[2024-01-16] MEDS: Cyclobenzaprine HCl 10 MG TABLET PO (11:56)
[2024-01-16] MEDS: Ketorolac Tromethamine 30 MG/ML VIAL IM (11:57)
[2024-01-16] MEDS: Morphine Sulfate Immed Release 15 MG TABLET PO (13:54)
[2024-01-16 15:55] VITALS: BP 136/67; PULSE 50; RESP 16; TEMP 36.1; O2SAT 96
[2024-01-16 16:03] VITALS: BP 145/88; PULSE 62; RESP 20; TEMP 36.3; O2SAT 95
== END 2024-01-16 16:10 | disposition home or self-care (01) ==
PROVIDERS: Emergency Provider Emergency Medicine; PCP Internal Medicine
DX: Z04.1 Encounter for examination and observation following transport accident (principal); M25.551 Pain in right hip; M54.50 Low back pain, unspecified; I10 Essential (primary) hypertension; E78.00 Pure hypercholesterolemia, unspecified; G89.4 Chronic pain syndrome; J44.9 Chronic obstructive pulmonary disease, unspecified; Z86.73 Personal history of transient ischemic attack (TIA), and cerebral infarction without residual deficits; Z79.02 Long term (current) use of antithrombotics/antiplatelets; Z87.891 Personal history of nicotine dependence
CPT/HCPCS: 71111; 72100; 73502; 96372; 99284; J1885

== ENCOUNTER 2024-01-21 10:26 | Outpatient (AMB) | payer MEDICARE, SELFPAY ==
[2024-01-21 10:37] VITALS: BP 110/60; PULSE 94; O2SAT 96; BMI 19.6
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
== END 2024-01-21 11:10 | disposition home or self-care (01) ==
PROVIDERS: PCP Internal Medicine; Visit Provider Internal Medicine
DX: J44.9 Chronic obstructive pulmonary disease, unspecified (principal); R91.1 Solitary pulmonary nodule
CPT/HCPCS: 99213

== ENCOUNTER → 2024-01-21 10:26 | Outpatient (BNVA) | payer MEDICARE, SELFPAY | PROVIDERS: PCP Internal Medicine; Visit Provider Internal Medicine | DX: J44.9 Chronic obstructive pulmonary disease, unspecified (principal); R91.1 Solitary pulmonary nodule | CPT/HCPCS: 99212 ==

== ENCOUNTER 2024-01-28 08:34 | Outpatient (REF) | payer MEDICARE, SELFPAY ==
--- NOTE | ~2024-01-28 | XR_ITS ---
EXAMINATION: XR SHOULDER, LEFT CLINICAL INFORMATION: Pain in unspecified shoulder. COMPARISON: MR left shoulder 06/03/2023 and left shoulder radiographs of 01/06/2023. TECHNIQUE: Three views of the left shoulder. FINDINGS: Diffuse demineralization. Surgical anchors in the left humeral head. Mild osteoarthritic changes of the acromioclavicular joint. Redemonstration of postsurgical changes in the partially imaged upper thorax and surgical hardware in the imaged lower cervical spine. Glenohumeral alignment is maintained. XR/XR shoulder LT min 2V IMPRESSION: 1. Mild osteoarthritic changes of the acromioclavicular joints. 2. Postsurgical changes in the left humeral head.
== END 2024-01-28 08:35 | disposition home or self-care (01) ==
LOC: HO.HOSX 08:34
PROVIDERS: Visit Provider Orthopaedic Surgery
DX: M25.512 Pain in left shoulder (principal); M54.16 Radiculopathy, lumbar region; Z98.890 Other specified postprocedural states
CPT/HCPCS: 73030

== ENCOUNTER 2024-01-28 09:07 | Outpatient (AMB) | payer OTHER, MEDICARE, SELFPAY ==
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
== END 2024-01-28 09:44 | disposition home or self-care (01) ==
PROVIDERS: PCP Internal Medicine; Visit Provider Orthopaedic Surgery
DX: S46.012D Strain of muscle(s) and tendon(s) of the rotator cuff of left shoulder, subsequent encounter (principal); Z47.89 Encounter for other orthopedic aftercare; M54.16 Radiculopathy, lumbar region; Z04.3 Encounter for examination and observation following other accident
CPT/HCPCS: 99214

== ENCOUNTER 2024-02-01 08:52 | Outpatient (AMB) | payer OTHER, MEDICARE, SELFPAY ==
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
[2024-02-01 09:01] VITALS: BP 132/70; BMI 19.9
== END 2024-02-01 09:35 | disposition home or self-care (01) ==
PROVIDERS: PCP Internal Medicine; Visit Provider Internal Medicine
DX: M54.2 Cervicalgia (principal); M54.16 Radiculopathy, lumbar region
CPT/HCPCS: 99214; G2211

== ENCOUNTER 2024-02-23 08:44 | Outpatient (AMB) | payer MEDICARE, SELFPAY ==
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
== END 2024-02-23 09:01 | disposition home or self-care (01) ==
PROVIDERS: PCP Internal Medicine; Visit Provider Nurse Practitioner Family
DX: N32.89 Other specified disorders of bladder (principal); N40.0 Benign prostatic hyperplasia without lower urinary tract symptoms; R35.0 Frequency of micturition; R35.1 Nocturia; R39.9 Unspecified symptoms and signs involving the genitourinary system; R33.9 Retention of urine, unspecified
CPT/HCPCS: 99213; G2211

== ENCOUNTER → 2024-02-23 08:44 | Outpatient (BNVA) | payer MEDICARE, SELFPAY | PROVIDERS: PCP Internal Medicine; Visit Provider Nurse Practitioner Family | DX: N40.1 Benign prostatic hyperplasia with lower urinary tract symptoms (principal); N32.89 Other specified disorders of bladder; R35.0 Frequency of micturition; R35.1 Nocturia; R39.9 Unspecified symptoms and signs involving the genitourinary system; R33.8 Other retention of urine; Z79.899 Other long term (current) drug therapy | CPT/HCPCS: 51798; 99212 ==

== ENCOUNTER 2024-03-24 10:00 | Outpatient (RCR) | payer OTHER, MEDICARE, SELFPAY ==
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
== END 2024-03-24 13:22 | disposition home or self-care (01) ==
LOC: HO.PT 10:00
PROVIDERS: PCP Internal Medicine; Visit Provider Orthopaedic Surgery
DX: M54.2 Cervicalgia (principal); M54.16 Radiculopathy, lumbar region
CPT/HCPCS: 97014; 97110; 97140; 97162; 97530; 97535

== ENCOUNTER 2024-04-05 09:35 | Outpatient (AMB) | payer MEDICARE, MEDICAID, SELFPAY ==
[2024-04-05 09:51] VITALS: BP 114/60; PULSE 77; O2SAT 97; BMI 19.2
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
== END 2024-04-05 10:20 | disposition home or self-care (01) ==
PROVIDERS: PCP Internal Medicine; Visit Provider Internal Medicine
DX: J44.9 Chronic obstructive pulmonary disease, unspecified (principal); R91.1 Solitary pulmonary nodule; J84.10 Pulmonary fibrosis, unspecified
CPT/HCPCS: 99213

== ENCOUNTER → 2024-04-05 09:35 | Outpatient (BNVA) | payer MEDICARE, MEDICAID, SELFPAY | PROVIDERS: PCP Internal Medicine; Visit Provider Internal Medicine | DX: J44.9 Chronic obstructive pulmonary disease, unspecified (principal); J84.10 Pulmonary fibrosis, unspecified; R91.1 Solitary pulmonary nodule | CPT/HCPCS: 99212 ==

== ENCOUNTER 2024-05-17 09:31 | Outpatient (REF) | payer MEDICARE, MEDICAID, SELFPAY ==
[2024-05-17 11:05] LABS: Prostate Specific Antigen 0.98 ng/mL (<0.05-4.0)
== END 2024-05-17 09:32 | disposition home or self-care (01) ==
LOC: HO.LAB 09:31
PROVIDERS: PCP Internal Medicine; Visit Provider Nurse Practitioner Family
DX: N40.0 Benign prostatic hyperplasia without lower urinary tract symptoms (principal); R39.9 Unspecified symptoms and signs involving the genitourinary system; Z12.5 Encounter for screening for malignant neoplasm of prostate; E78.5 Hyperlipidemia, unspecified; M25.552 Pain in left hip; M54.16 Radiculopathy, lumbar region; G89.29 Other chronic pain; J44.9 Chronic obstructive pulmonary disease, unspecified; E78.00 Pure hypercholesterolemia, unspecified; K21.9 Gastro-esophageal reflux disease without esophagitis
CPT/HCPCS: 36415; 84153; 99212

== ENCOUNTER 2024-05-17 09:59 | Outpatient (AMB) | payer MEDICARE, MEDICAID, SELFPAY ==
[2024-05-17 10:01] VITALS: BP 126/78; BMI 19.0
--- NOTE | 2024-05-17 10:01 | A.OFFPC_ITS ---
Vital Signs 05/17/24 10:01 Height 5 ft 6 in Weight 118 lb BMI 19.0 BP 126/78 Blood Pressure Location Lt brachial Position Sitting Intake Visit Reasons: bp, chronic pain Intake Note: Patient here for a follow up BP, Chronic pain Sports Information Director Required: No Accompanied by: Self / Same As Patient Allergies aspirin [ASA] Allergy (Mild, Verified 05/17/24 10:16) UPSET STOMACH PT TAKES BABY ASA INSTEAD, stomach upset acetaminophen [From Vicodin] Adverse Reaction (Severe, Verified 05/17/24 10:16) upset stomach hydrocodone [From Vicodin] Adverse Reaction (Severe, Verified 05/17/24 10:16) upset stomach Medication List - Last Reconciled 05/17/24 by Francie Ann MD aspirin (Adult Low Dose Aspirin) 81 mg PO DAILY atorvastatin 80 mg PO BEDTIME Breo Ellipta 200-25 mcg/dose (fluticasone furoate-vilanterol) 1 ea inhalation DAILY NS clotrimazole 10 mg PO TID PRN 10 days doxazosin 8 mg (2 x 4 mg) PO BEDTIME 90 days finasteride 5 mg PO DAILY 90 days [id number] mcg (Centrum Silver Men) 1 tab PO DAILY omeprazole 20 mg PO DAILY 90 days oxycodone 10 mg PO Q6H PRN 30 days ropinirole 1 mg PO BEDTIME 90 days trazodone 100 mg PO BEDTIME PRN 90 days Tobacco use date assessed: 11/03/23 Fall risk assessment: No Falls in past year Last assessed Fall Risk: 05/17/24 Dental Screening Dental Screen Date: 05/17/24 Did you have a dental visit in the last 12 months?: No Did you have a dental problem in the last 6 months where you did not have access to dental care?: No Was dental information given to patient?: Patient has dentist HPI HPI Comments History of Present Illness Details This is a 78-year-old male with GERD, pure hypercholesterolemia and COPD that comes today complaining of left hip pain that started few days ago while he was walking. He felt a severe pain involving the groin area while walking and lasted about 40 seconds and resolve on its own. Has full active range of motion in the hip. He also has lumbar radiculopathy and has been complaining about pain and needs a refill on his opiates. GERD stable with PPIs. On statins for he has elevated cholesterol. COPD is follow by pulmonology and has been stable with long-acting inhaler. Use rescue inhaler few times a month. [facility] Medical History (Updated 05/17/24 @ 10:24 by Francie Ann MD) Ascending aortic aneurysm AAA (abdominal aortic aneurysm) without rupture Cough Diverticulitis Lower urinary tract symptoms Internal derangement of left shoulder Pulmonary nodule Preoperative clearance Pulmonary nodules (~10/15/23) Oral thrush Chronic pain syndrome Spondylosis, cervical Postlaminectomy syndrome of cervical region COPD (chronic obstructive pulmonary disease) Whiplash Left shoulder pain Lung density on x-ray Pulmonary fibrosis Pleural effusion H/O: pneumonia Felon of finger of left hand H/O: CVA (cerebrovascular accident) Left flank pain Aneurysmal dilatation Screening for colon cancer Annual physical exam CAD (coronary artery disease) Shoulder pain Pure hypercholesterolemia GERD (gastroesophageal reflux disease) Essential hypertension Neck pain Surgical History Rotator cuff arthropathy of left shoulder History of repair of right rotator cuff Hx of cataract extraction History of right cataract extraction Hx of neck surgery History of back surgery History of hand surgery History of partial colectomy History of esophagogastroduodenoscopy (EGD) Hx of colonoscopy Stented coronary artery History of foot surgery History of hemicolectomy History of cervical spinal surgery History of laminectomy History of hernia repair History of appendectomy Family History Father Bone cancer Mother CVD (cardiovascular disease) Brother No problems noted. Sister No problems noted. Daughter No problems noted. 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 Omar Cesar, Thalia Castillo, Bassam Pelletier and colleagues, with an educational becki from [employer]. Review of Systems Const All systems reviewed & are unremarkable except as noted in HPI and below Card Denies chest pain at rest, Denies chest pain with activity, Denies edema, Denies irregular heart rhythm, Denies claudication, Denies dyspnea, Denies dyspnea on exertion, Denies orthopnea, Denies paroxysmal nocturnal dyspnea and Denies slow heart rate Resp Denies cough, Denies dyspnea and Denies dyspnea on exertion GI Denies abdominal pain, Denies change in bowel habits, Denies excessive flatus, Denies nausea and Denies vomiting Denies urinary hesitancy, Denies urinary incontinence and Denies urinary urgency Musc Denies abnormal gait, Denies atrophy, Denies deformity and Denies limited range of motion Skin/Breast Denies bleeding lesions, Denies changing lesions and Denies rash Neuro Denies abnormal gait, Denies behavioral changes and Denies lack of coordination Psych Denies behavioral changes Physical exam (Primary Care) Vital Signs: Last Vital Signs BP 126/78 05/17/24 10:01 BMI result Body Mass Index 19.0 Tobacco/Smoking Status: Tobacco use Status Tobacco use date assessed 11/03/23 05/17/24 10:06 Patient Tobacco Use Status Former Tobacco user 05/17/24 10:06 e-Cigarette/Vaping Use Never Used 05/17/24 10:06 Thrive Assessment: Date of Thrive Assessment Date Thrive assessed 11/03/23 05/17/24 10:06 HENMT Head: Yes normal to inspection, Yes normocephalic and Yes atraumatic Ears: external ears normal Eyes General: appearance normal, both eyes and all related structures Eyelids: Yes eyelids normal Conjunctivae: conjunctivae normal Neck Neck: Yes normal visual inspection and Yes supple Resp Effort & Inspection: normal respiratory effort Auscultation: clear to auscultation bilaterally Cardio Jugular venous distension: no JVD Rate: regular rate Rhythm: regular rhythm Heart sounds: S1 normal heart sound present and S2 normal heart sound present GI Inspection: Yes normal to inspection Palpation (GI): Soft to palpation and nontender Auscultation: normal bowel sounds Skin General skin exam: no rashes or lesions noted Neuro General: no focal motor deficits Extrem General: Yes full ROM Psych Appearance: grossly normal Coding Level of Care Code Est Pt Level 4 (82535) Complex EM visit Add On G2211 Diagnoses Left hip pain M25.552 Lumbar radiculopathy M54.16 Chronic obstructive pulmonary disease, unspecified COPD type J44.9 COPD type: unspecified COPD Pure hypercholesterolemia E78.00 Gastroesophageal reflux disease, unspecified whether esophagitis present K21.9 Esophagitis presence: esophagitis presence not specified Time Spent (min) 22 Assessment & Plan Assessment & Plan (1) Left hip pain: Code(s): M25.552 - Pain in left hip Category: Medical Plan: CT of the hip ordered. (2) Lumbar radiculopathy: Code(s): M54.16 - Radiculopathy, lumbar region Category: Medical Plan: Continue opiates as needed. (3) COPD (chronic obstructive pulmonary disease): Comment: KNOWN CASE OF CHRONIC OBSTRUCTIVE PULMONARY DISEASE, MODERATELY SEVERE, WELL CONTROLLED AT THIS TIME. HIS ACTIVITY LEVEL IS ONLY SLIGHTLY SUB OPTIMAL . Code(s): J44.9 - Chronic obstructive pulmonary disease, unspecified Category: Medical Qualifiers: COPD type: unspecified COPD Qualified Code(s): J44.9 - Chronic obstructive pulmonary disease, unspecified Plan: Continue long-acting inhaler. (4) Pure hypercholesterolemia: Code(s): E78.00 - Pure hypercholesterolemia, unspecified Category: Medical Plan: Continue statins. (5) GERD (gastroesophageal reflux disease): Code(s): K21.9 - Gastro-esophageal reflux disease without esophagitis Category: Medical Qualifiers: Esophagitis presence: esophagitis presence not specified Qualified Code(s): K21.9 - Gastro-esophageal reflux disease without esophagitis Plan: Continue PPIs. Orders: Orders Lipid Panel 6 Months E78.5 - Hyperlipidemia, unspecified Comprehensive [place]. Panel Fast 6 Months M54.16 - Radiculopathy, lumbar region CT hip LT wo IV con Today M25.552 - Pain in left hip Medications: Refilled oxycodone 10 mg PO Q6H 30 days PRN 120 tabs 0RF pain
== END 2024-05-17 10:28 | disposition home or self-care (01) ==
PROVIDERS: PCP Internal Medicine; Visit Provider Internal Medicine
DX: M25.552 Pain in left hip (principal); M54.16 Radiculopathy, lumbar region; J44.9 Chronic obstructive pulmonary disease, unspecified; E78.00 Pure hypercholesterolemia, unspecified; K21.9 Gastro-esophageal reflux disease without esophagitis

== ENCOUNTER 2024-06-17 14:14 | Outpatient (AMB) | payer MEDICARE, MEDICAID, SELFPAY ==
[2024-06-17 14:17] VITALS: BP 111/60; PULSE 77; O2SAT 96; BMI 19.7
--- NOTE | 2024-06-17 14:17 | A.OFFVIS_ITS ---
Vital Signs 06/17/24 14:17 Height 5 ft 6 in Weight 122 lb 5.705 oz BMI 19.7 BP 111/60 Blood Pressure Location Rt brachial Position Sitting Pulse 77 Pulse Source Doppler Pulse Oximetry (%) 96 Oxygen Delivery Method Room Air Intake Visit Reasons: Cough/Dr. Michelle PT Allergies aspirin [ASA] Allergy (Mild, Verified 06/17/24 14:23) UPSET STOMACH PT TAKES BABY ASA INSTEAD, stomach upset acetaminophen [From Vicodin] Adverse Reaction (Severe, Verified 06/17/24 14:23) upset stomach hydrocodone [From Vicodin] Adverse Reaction (Severe, Verified 06/17/24 14:23) upset stomach HPI HPI Cough/Dr. Michelle PT: Details: 78-year-old gentleman with underlying COPD followed by Dr. Michelle presenting today complain of acute exacerbation symptomatic with cough productive of increased amount of sputum and mild wheezing. He continues on his Breo. Patient was seen by primary care and treated with a course of Mucinex with no significant changes. [facility], [facility] Medical History Ascending aortic aneurysm AAA (abdominal aortic aneurysm) without rupture Cough Diverticulitis Lower urinary tract symptoms Internal derangement of left shoulder Pulmonary nodule Preoperative clearance Pulmonary nodules (~10/15/23) Oral thrush Chronic pain syndrome Spondylosis, cervical Postlaminectomy syndrome of cervical region COPD (chronic obstructive pulmonary disease) Whiplash Left shoulder pain Lung density on x-ray Pulmonary fibrosis Pleural effusion H/O: pneumonia Felon of finger of left hand H/O: CVA (cerebrovascular accident) Left flank pain Aneurysmal dilatation Screening for colon cancer Annual physical exam CAD (coronary artery disease) Shoulder pain Pure hypercholesterolemia GERD (gastroesophageal reflux disease) Essential hypertension Neck pain Surgical History Rotator cuff arthropathy of left shoulder History of repair of right rotator cuff Hx of cataract extraction History of right cataract extraction Hx of neck surgery History of back surgery History of hand surgery History of partial colectomy History of esophagogastroduodenoscopy (EGD) Hx of colonoscopy Stented coronary artery History of foot surgery History of hemicolectomy History of cervical spinal surgery History of laminectomy History of hernia repair History of appendectomy Family History Father Bone cancer Mother CVD (cardiovascular disease) Brother No problems noted. Sister No problems noted. Daughter No problems noted. 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 Cognitive needs: No Hearing needs: No Vision needs: Yes Review of Systems Const Denies daytime sleepiness, Denies excessive sweating, Denies fatigue, Denies fever(s), Denies lethargy, Denies malaise, Denies night sweats, Denies snoring and Denies weight loss Eyes Denies blurry vision and Denies itchy eyes ENT Denies nasal congestion, Denies post nasal drip, Denies sinus pain, Denies sinus pressure and Denies other ( Thrush) Card Denies chest pain, Denies pedal edema, Denies dyspnea, Denies orthopnea and Denies paroxysmal nocturnal dyspnea Resp Reports cough, Denies hemoptysis, Reports excessive phlegm production, Denies dyspnea, Denies snoring and Denies wheezing GI Denies abdominal pain and Denies heartburn Musc Denies myalgias, Denies arthralgias and Denies joint swelling Skin/Breast Denies rash Neuro Denies memory loss and Denies seizure-like activity Psych Denies abnormal sleep pattern, Denies anxiety and Denies memory loss Endo Denies excessive sweating, Denies fatigue and Denies heat intolerance Sha/Lymph Denies easy bruising Aller/Immun Denies itchy eyes, Denies seasonal rhinorrhea and Denies wheezing Physical Exam Vital Signs: Last Vital Signs Pulse 77 06/17/24 14:17 BP 111/60 06/17/24 14:17 Pulse Ox 96 06/17/24 14:17 Oxygen Delivery Method Room Air 06/17/24 14:17 BMI result Body Mass Index 19.7 Const General: no acute distress and alert Nutritional Appearance: not obese Orientation/consciousness: Other orientation findings ( oriented) HEENT Head: Yes atraumatic Eyes General: appearance normal, both eyes and all related structures Sclerae: sclerae normal EOM: EOMs intact bilaterally Neck Neck: Yes supple Lymphatic: no lymphadenopathy noted Resp Effort & Inspection: normal respiratory effort and no use of accessory muscles Auscultation: clear to auscultation bilaterally Cardio Rate: regular rate Rhythm: regular rhythm Heart sounds: no gallops, no murmurs and no rubs Skin General skin exam: other ( warm) Extrem General: No clubbing, No cyanosis and No edema Assessment & Plan Assessment & Plan (1) COPD (chronic obstructive pulmonary disease): Comment: KNOWN CASE OF CHRONIC OBSTRUCTIVE PULMONARY DISEASE, MODERATELY SEVERE, WELL CONTROLLED AT THIS TIME. HIS ACTIVITY LEVEL IS ONLY SLIGHTLY SUB OPTIMAL . Code(s): J44.9 - Chronic obstructive pulmonary disease, unspecified Category: Medical Qualifiers: COPD type: unspecified COPD Qualified Code(s): J44.9 - Chronic obstructive pulmonary disease, unspecified (2) Bronchitis: Code(s): J40 - Bronchitis, not specified as acute or chronic Category: Medical Plan Acute bronchitic exacerbation of underlying COPD symptomatic with cough and sput um production, but no significant wheezing will treat with a course of Levaquin. Add albuterol MDI. Medications: New albuterol sulfate 90 mcg/actuation 2 puffs inhalation 6XD PRN 1 ea 6RF shortness of breath or wheezing levofloxacin 500 mg PO DAILY 7 tabs 0RF Coding Level of Care Code Est Pt Level 3 (07719) Complex EM visit Add On G2211 Diagnoses Chronic obstructive pulmonary disease, unspecified COPD type J44.9 COPD type: unspecified COPD Bronchitis J40
== END 2024-06-17 14:35 | disposition home or self-care (01) ==
PROVIDERS: PCP Internal Medicine; Visit Provider Internal Medicine Pulmonary Disease
DX: J44.9 Chronic obstructive pulmonary disease, unspecified (principal); J40 Bronchitis, not specified as acute or chronic
CPT/HCPCS: 99213; G2211

== ENCOUNTER → 2024-06-17 14:14 | Outpatient (BNVA) | payer MEDICARE, MEDICAID, SELFPAY | PROVIDERS: PCP Internal Medicine; Visit Provider Internal Medicine Pulmonary Disease | DX: J44.9 Chronic obstructive pulmonary disease, unspecified (principal); J40 Bronchitis, not specified as acute or chronic | CPT/HCPCS: 99212 ==

== ENCOUNTER 2024-07-04 09:34 | Outpatient (REF) | payer MEDICARE, MEDICAID, SELFPAY ==
--- NOTE | ~2024-07-04 | CT_ITS ---
EXAMINATION: CT CHEST WITHOUT CONTRAST CLINICAL INFORMATION: Solitary pulmonary nodule. Follow-up. COMPARISON: CT chest dated December 09, 2023. TECHNIQUE: Multidetector volumetric CT imaging of the chest was done. Axial MIP volume rendering provided. Sagittal and coronal reformatted images were obtained. This CT examination was performed using dose optimization techniques as appropriate, variously including the following: *Automated exposure control *Adjustment of mA and/or kV according to patient size (this includes techniques or standardized protocols for targeted exams where dose is matched to indication/reason for exam; i.e. extremities or head) *Use of iterative reconstruction technique DLP: 119 mGy-cm FINDINGS: Submitted for interpretation on July 20, 2024. There is a 4 cm thick wall and peripheral nodular with intraluminal thick septation cavitary lesion in the peripheral right upper lobe. The calcified pleural plaque/apical lung is normal and are present. Sutures in the right upper hemithorax into the superior right perihilar. There is volume loss and retraction of the right upper lobe and the superior margin of the right pulmonary hilum into the right upper hemithorax. Focal areas of bronchiectasis in the right upper hemithorax. Centrilobular and paraseptal emphysematous changes, bilaterally. Irregularly-shaped thick septations and attenuation's in the left upper hemithorax extending from the superior margin of the left pulmonary hilum into the apical posterior segment. Multifocal spiculated less than 2 cm pulmonary nodules in the right lower lung lobe. Peripheral honeycombing of the right upper lobe. Nonspecific prominent less than 12 mm mediastinal lymph nodes. The ascending thoracic aorta measures 4.6 cm. Calcified plaques throughout the thoracic aorta its main branches and the coronary arteries. Small trace pericardial effusion. No gross pleural effusion. No pneumothorax. Multilevel spondylosis. Osteopenia versus osteoporosis. Status post anterior cervical fusion lower cervical spine no fully evaluated. No lytic or blastic lesions. Degenerative changes in the shoulders. Metallic hardware in the proximal right humerus. Calcified plaques in the abdominal aorta wall and included mesenteric arteries. Status post cholecystectomy. Focal hypodensity in the right hepatic lobe. The kidneys appear small. 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 Fleischner guidelines were followed. Electronically signed by: Wayne Dorantes MD 07/20/2024 08:57 AM EST
== END 2024-07-04 09:35 | disposition home or self-care (01) ==
LOC: HO.CT 09:34
PROVIDERS: PCP Internal Medicine; Visit Provider Internal Medicine
DX: R91.1 Solitary pulmonary nodule (principal); J44.9 Chronic obstructive pulmonary disease, unspecified
CPT/HCPCS: 71250

== ENCOUNTER → 2024-07-04 09:36 | Outpatient (BNV) | payer MEDICARE, MEDICAID, SELFPAY | PROVIDERS: PCP Internal Medicine; Visit Provider Radiology Diagnostic Radiology | DX: R91.1 Solitary pulmonary nodule (principal) | CPT/HCPCS: 71250 ==

== ENCOUNTER 2024-07-12 15:35 | Outpatient (AMB) | payer MEDICARE, MEDICAID, SELFPAY ==
[2024-07-12 15:50] VITALS: BP 120/70; PULSE 70; O2SAT 97; BMI 20.6
--- NOTE | 2024-07-12 15:50 | MHC.OFFVIS ---
Vital Signs 07/12/24 15:50 Height 5 ft 6 in Weight 127 lb 13.89 oz BMI 20.6 BP 120/70 Blood Pressure Location Lt brachial Position Sitting Pulse 70 Pulse Source Pulse Oximeter Pulse Oximetry (%) 97 Oxygen Delivery Method Room Air Intake Visit Reasons: Coughing Intake Note: pt is here for follow up and states his cough is still there night and day and a lot of phelgm. [employer] Developer Required: No Allergies aspirin [ASA] Allergy (Mild, Verified 07/12/24 16:07) UPSET STOMACH PT TAKES BABY ASA INSTEAD, stomach upset acetaminophen [From Vicodin] Adverse Reaction (Severe, Verified 07/12/24 16:07) upset stomach hydrocodone [From Vicodin] Adverse Reaction (Severe, Verified 07/12/24 16:07) upset stomach Medication List - Last Reconciled 07/12/24 by Angela Michelle MD albuterol sulfate 90 mcg/actuation 2 puffs inhalation 6XD PRN aspirin (Adult Low Dose Aspirin) 81 mg PO DAILY atorvastatin 80 mg PO BEDTIME Breo Ellipta 200-25 mcg/dose (fluticasone furoate-vilanterol) 1 ea inhalation DAILY NS clotrimazole 10 mg PO TID PRN 10 days doxazosin 8 mg (2 x 4 mg) PO BEDTIME 90 days finasteride 5 mg PO DAILY 90 days guaifenesin ER (Mucinex) 600 mg PO BID 5 days [id number] mcg (Centrum Silver Men) 1 tab PO DAILY omeprazole 20 mg PO DAILY 90 days oxycodone 10 mg PO Q6H PRN 30 days ropinirole 1 mg PO BEDTIME 90 days trazodone 100 mg PO BEDTIME PRN 90 days Do you need a note to return to daycare/school/sports/work: No HPI HPI Coughing: Details: Be is 78 years old gentleman who has chronic obstructive pulmonary disorder. His main complaint is frequent cough. He is being followed for a pulmonary nodule. He quit cigarette smoking back in . He does smoke marijuana twice a day. Claims that he keeps on having frequent cough and sometime with expectoration of mucus. .He is not using Mucinex anymore Does use his inhalers. BE WAS SEEN BY DR. REYES , A FEW WEEKS AGO WITH ACUTE BRONCHITIS, AND TREATED WITH A COURSE OF LEVAQUIN 500 MG DAILY FOR [address] scan of the chest in December 2023 was abnormal, Recently he just had a chest x-ray which shows a large cavitary lesion in the right upper lobe. [facility] Medical History Ascending aortic aneurysm AAA (abdominal aortic aneurysm) without rupture Cough Diverticulitis Lower urinary tract symptoms Internal derangement of left shoulder Pulmonary nodule Preoperative clearance Pulmonary nodules (~10/15/23) Oral thrush Chronic pain syndrome Spondylosis, cervical Postlaminectomy syndrome of cervical region COPD (chronic obstructive pulmonary disease) Whiplash Left shoulder pain Lung density on x-ray Pulmonary fibrosis Pleural effusion H/O: pneumonia Felon of finger of left hand H/O: CVA (cerebrovascular accident) Left flank pain Aneurysmal dilatation Screening for colon cancer Annual physical exam CAD (coronary artery disease) Shoulder pain Pure hypercholesterolemia GERD (gastroesophageal reflux disease) Essential hypertension Neck pain Surgical History Rotator cuff arthropathy of left shoulder History of repair of right rotator cuff Hx of cataract extraction History of right cataract extraction Hx of neck surgery History of back surgery History of hand surgery History of partial colectomy History of esophagogastroduodenoscopy (EGD) Hx of colonoscopy Stented coronary artery History of foot surgery History of hemicolectomy History of cervical spinal surgery History of laminectomy History of hernia repair History of appendectomy Family History Father Bone cancer Mother CVD (cardiovascular disease) Brother No problems noted. Sister No problems noted. Daughter No problems noted. 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 Cognitive needs: No Hearing needs: No Vision needs: Yes Review of Systems Const All systems reviewed & are unremarkable except as noted in HPI and below Eyes Reports no additional complaints ENT Reports no additional complaints Card Denies chest pain, Denies irregular heart rhythm and Denies leg edema Resp Reports as per HPI GI Reports heartburn (Controlled with med) Reports no additional complaints Musc Reports back pain Skin/Breast Reports system reviewed and no additional complaints, except as documented Neuro Reports no additional complaints Psych Reports no additional complaints Endo Reports no additional complaints Physical Exam Vital Signs: Last Vital Signs Pulse 70 07/12/24 15:50 BP 120/70 07/12/24 15:50 Pulse Ox 97 07/12/24 15:50 Oxygen Delivery Method Room Air 07/12/24 15:50 BMI result Body Mass Index 20.6 Const General: comfortable, no acute distress, alert and awake Orientation/consciousness: patient oriented x3 HEENT Head: Yes normal to inspection General nose exam: No nasal polyps present and No nasal discharge present Face and sinus: Yes sinuses nontender Mouth: oropharynx normal Throat: Yes posterior oropharynx normal Eyes General: appearance normal, both eyes and all related structures Neck Neck: Yes normal visual inspection, Yes no lymphadenopathy, Yes trachea midline and Yes no JVD Thyroid: Thyroid normal Chest Chest palpation & inspection: normal inspection of the chest, normal palpation of entire chest wall and no tenderness Resp Other: Percussion note hyper-resonant on both sides, Breath sounds are distant with prolonged expiratory phase. No wheezes rhonchi or crepitations are heard. Cardio Palpation: normal PMI Rate: regular rate Rhythm: regular rhythm Heart sounds: no gallops and no murmurs Peripheral pulses: Peripheral pulses 2+ throughout GI Palpation (GI): Soft to palpation, nontender, No hepatosplenomegaly present and no masses Auscultation: normal bowel sounds Back/Spine/Pelvis Thoracic/Lumbar Spine: thoracic and lumbar spine normal to inspection Skin General skin exam: no rashes or lesions noted Neuro General: patient oriented x3 and no focal motor deficits Cranial nerves: Yes CN's II-XII intact bilaterally Extrem General: Yes normal to inspection, Yes no clubbing, cyanosis or edema and Yes no calf tenderness Psych Appearance: grossly normal and well kempt Speech and movement: Normal speech and movement present Results Reviewed Results Reviewed: Chest x-ray done, last week which has not been read yet. I reviewed the image and in addition to COPD he does a cavitary lesion in the right upper lobe. Assessment & Plan Assessment & Plan (1) COPD (chronic obstructive pulmonary disease): Comment: KNOWN CASE OF CHRONIC OBSTRUCTIVE PULMONARY DISEASE, MODERATELY SEVERE, CONTROLLED AT THIS TIME. HIS ACTIVITY LEVEL IS ONLY SLIGHTLY SUB OPTIMAL . Code(s): J44.9 - Chronic obstructive pulmonary disease, unspecified Category: Medical Qualifiers: COPD type: unspecified COPD Qualified Code(s): J44.9 - Chronic obstructive pulmonary disease, unspecified Plan: Continue using Breo 200-251 inhalation daily. Use albuterol HFA 2 puffs Q 6 hours p.r.n.. Also start using Mucinex 600 mg b.i.d. (2) Lung density on x-ray: Comment: Chest CT. In May showed changes of COPD and old fibrotic changes in both upper lobes. Also there was a density in right upper lobe as well as right lower lobe, which were new. For follow-up patient needs a short-term repeat CT scan, which is being ordered. Code(s): J98.4 - Other disorders of lung Category: Medical Plan: Chest x-ray shows the a larger cavitary lesion in the right upper lobe in addition to fibrotic changes. Patient needs a CT scan the lungs for further definition. (3) Pulmonary fibrosis: Comment: As per his previous the CT scan, patient does have pleural and parenchymal scarring in right upper lobe, related to his previous surgery. Patient had thoracostomy and repair of ruptured lung in mid 90s. It is staying quite stable. Code(s): J84.10 - Pulmonary fibrosis, unspecified Category: Medical Plan: Repeat CT scan of the chest is ordered Orders: Orders CT chest wo IV con Today J44.9 - Chronic obstructive pulmonary disease, unspecified, J84.10 - Pulmonary fibrosis, unspecified, J98.4 - Other disorders of lung Medications: New guaifenesin ER (Mucinex) 600 mg PO BID 30 days 60 tabs 4RF chronic bronchitis and COPD Coding Level of Care Code Est Pt Level 3 (79128) Diagnoses Chronic obstructive pulmonary disease, unspecified COPD type J44.9 COPD type: unspecified COPD Lung density on x-ray J98.4 Pulmonary fibrosis J84.10
== END 2024-07-12 16:34 | disposition home or self-care (01) ==
PROVIDERS: PCP Internal Medicine; Visit Provider Internal Medicine
DX: J44.9 Chronic obstructive pulmonary disease, unspecified (principal); J98.4 Other disorders of lung; J84.10 Pulmonary fibrosis, unspecified
CPT/HCPCS: 99213

== ENCOUNTER → 2024-07-12 15:35 | Outpatient (BNVA) | payer MEDICARE, MEDICAID, SELFPAY | PROVIDERS: PCP Internal Medicine; Visit Provider Internal Medicine | DX: J44.9 Chronic obstructive pulmonary disease, unspecified (principal); J98.4 Other disorders of lung; J84.10 Pulmonary fibrosis, unspecified; F12.90 Cannabis use, unspecified, uncomplicated; Z87.891 Personal history of nicotine dependence | CPT/HCPCS: 99212 ==

== ENCOUNTER 2024-08-12 08:00 | Outpatient (REF) | payer MEDICARE, MEDICAID, SELFPAY ==
[2024-08-12 09:45] LABS: Prostate Specific Antigen 1.34 ng/mL (<0.05-4.0)
== END 2024-08-12 08:01 | disposition home or self-care (01) ==
LOC: HO.LAB 08:00
PROVIDERS: Absent Provider Internal Medicine; PCP Internal Medicine; Visit Provider Nurse Practitioner Family
DX: R33.9 Retention of urine, unspecified (principal); N32.89 Other specified disorders of bladder; N40.0 Benign prostatic hyperplasia without lower urinary tract symptoms; Z12.5 Encounter for screening for malignant neoplasm of prostate
CPT/HCPCS: 36415; 84153

== ENCOUNTER 2024-08-24 08:37 | Outpatient (AMB) | payer MEDICARE, SELFPAY ==
--- NOTE | 2024-08-24 08:41 | MHC.OFFVIS ---
Intake Visit Reasons: 6m/PSA/PVR(set) Intake Note: Patient is Present for PVR/PSA Urology Med: Doxazosin, Finasteride Antibiotic Allergy: None Blood Thinner: Aspirin Last PVR: 0ml Todays PVR:123ml Customer Care Specialist Required: No Accompanied by: Self / Same As Patient Allergies aspirin [ASA] Allergy (Mild, Verified 08/24/24 09:15) UPSET STOMACH PT TAKES BABY ASA INSTEAD, stomach upset acetaminophen [From Vicodin] Adverse Reaction (Severe, Verified 08/24/24 09:15) upset stomach hydrocodone [From Vicodin] Adverse Reaction (Severe, Verified 08/24/24 09:15) upset stomach Medication List - Last Reconciled 08/24/24 by OMAIRA Dacosta-HUI albuterol sulfate 90 mcg/actuation 2 puffs inhalation 6XD PRN aspirin (Adult Low Dose Aspirin) 81 mg PO DAILY atorvastatin 80 mg PO DAILY 90 days Breo Ellipta 200-25 mcg/dose (fluticasone furoate-vilanterol) 1 ea inhalation DAILY NS clotrimazole 10 mg PO TID PRN 10 days doxazosin 8 mg (2 x 4 mg) PO BEDTIME 90 days finasteride 5 mg PO DAILY 90 days guaifenesin ER (Mucinex) 600 mg PO BID 5 days guaifenesin ER (Mucinex) 600 mg PO BID 30 days [id number] mcg (Centrum Silver Men) 1 tab PO DAILY omeprazole 20 mg PO DAILY 90 days oxycodone 10 mg PO Q6H PRN 30 days ropinirole 1 mg PO BEDTIME 90 days trazodone 100 mg PO BEDTIME PRN 90 days HPI Comments Details: Be is a very pleasant 78-year-old male patient of Dr. Pappas. He has a past medical history of coronary artery disease, chronic pain syndrome, COPD, GERD, hypertension, CVA, pulmonary fibrosis, postlaminectomy syndrome of cervical region, pulmonary nodule, hypercholesteremia, and cervical spondylosis. He presents to the office today for follow-up. In discussion with the patient today reports to be doing and feeling well. He reports compliance with doxazosin and finasteride as prescribed. Unable to obtain urine for urinalysis today however PVR 123 mL. He does report noting urinary dribbling as well as nocturia up to 2 times per night he otherwise denies incontinence, hematuria, dysuria, foul-smelling urine, changes to urinary stream, flank pain, fever, and or chills. Previous workup has included a retroperitoneal ultrasound 05/02 noting right kidney with no calculi and or hydronephrosis. Benign-appearing renal cyst measuring 1.5 cm. No follow up imaging is recommended per radiology report. Incidentally noted extrarenal pelvis. Left kidney with no calculi, lesions, and or hydronephrosis. The bladder is well distended. Bilateral ureteral jets are demonstrated. Prevoid bladder volume is approximately 200 mL. Postvoid bladder volume is approximate and 40 mL. 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 Enlarged prostate, volume measuring approximately 70 mLs. PSAs are as follows: PSA: 05/02 2.7, 10/31 1.7, 09/03 1.3 When asked he does report to be drinking fluids prior to bed. We discussed importance of limiting fluids prior to bed to decrease episodes of nocturia. We also discussed pelvic floor therapy/exercises to assist with urinary dribbling as well as attempting to sit when voiding. We also discussed further treatment options to include in office cystoscopy for further assessment evaluation or trial of different medication. Risks and benefits of these treatment options were discussed. All questions were answered. He otherwise offers no other issues or concerns at this time. [facility] Medical History Ascending aortic aneurysm AAA (abdominal aortic aneurysm) without rupture Cough Diverticulitis Lower urinary tract symptoms Internal derangement of left shoulder Pulmonary nodule Preoperative clearance Pulmonary nodules (~10/15/23) Oral thrush Chronic pain syndrome Spondylosis, cervical Postlaminectomy syndrome of cervical region COPD (chronic obstructive pulmonary disease) Whiplash Left shoulder pain Lung density on x-ray Pulmonary fibrosis Pleural effusion H/O: pneumonia Felon of finger of left hand H/O: CVA (cerebrovascular accident) Left flank pain Aneurysmal dilatation Screening for colon cancer Annual physical exam CAD (coronary artery disease) Shoulder pain Pure hypercholesterolemia GERD (gastroesophageal reflux disease) Essential hypertension Neck pain Surgical History Rotator cuff arthropathy of left shoulder History of repair of right rotator cuff Hx of cataract extraction History of right cataract extraction Hx of neck surgery History of back surgery History of hand surgery History of partial colectomy History of esophagogastroduodenoscopy (EGD) Hx of colonoscopy Stented coronary artery History of foot surgery History of hemicolectomy History of cervical spinal surgery History of laminectomy History of hernia repair History of appendectomy Family History Father Bone cancer Mother CVD (cardiovascular disease) Brother No problems noted. Sister No problems noted. Daughter No problems noted. 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 Cognitive needs: No Hearing needs: No Vision needs: Yes Review of Systems Const Reports as per HPI Eyes Reports no additional complaints ENT Reports no additional complaints Card Reports as per [facility] Resp Reports as per HPI GI Reports no additional complaints Reports as per [facility] Musc Reports as per [facility] Neuro Reports as per HPI Psych Reports no additional complaints Endo Reports no additional complaints Physical Exam Const General: cooperative, healthy appearing, comfortable, no acute distress, well developed, alert and awake Nutritional Appearance: thin Orientation/consciousness: patient oriented x3 Limitations: no limitations HEENT Head: Yes normocephalic and Yes atraumatic Ears: hearing grossly normal bilaterally Eyes General: appearance normal, both eyes and all related structures EOM: EOMs intact bilaterally Neck Neck: Yes normal visual inspection and Yes trachea midline Chest Chest palpation & inspection: normal inspection of the chest Resp Effort & Inspection: normal respiratory effort and able to speak in complete sentences Cardio Jugular venous distension: no JVD Rate: regular rate GI Inspection: Yes normal to inspection Rectal Exam - Male: Yes deferred General: Yes no CVA tenderness Back/Spine/Pelvis Back: no CVA tenderness Skin General skin exam: turgor normal Rashes: no rashes Neuro General: patient oriented x3 Extrem Other: Right Shoulder: 4/5 EC neg lag +H/N 45/90/130/L1 Right Ankle: Mild medial malleolus ttp General: Yes normal to inspection Psych Appearance: grossly normal Mental Status: mental status grossly normal Speech and movement: Normal speech and movement present and Clear speech present Affect: normal affect Attitude: cooperative Thought process: Normal thought process present Thought content: Normal thought content present Insight: Fair insight present (Psych) Judgement: Fair judgement present (Psych) Office Procedures Post Void Residual Post Residual Void Post Void Residual (PVR): 123 [id number] Void Residual by ultrasound Assessment & Plan Assessment & Plan (1) Bladder trabeculation: Code(s): N32.89 - Other specified disorders of bladder Category: Medical (2) Enlarged prostate: Code(s): N40.0 - Benign prostatic hyperplasia without lower urinary tract symptoms Category: Medical (3) Urinary frequency: Code(s): R35.0 - Frequency of micturition Category: Medical (4) Nocturia: Code(s): R35.1 - Nocturia Category: Medical (5) BPH (benign prostatic hyperplasia): Code(s): N40.0 - Benign prostatic hyperplasia without lower urinary tract symptoms Category: Medical (6) Lower urinary tract symptoms: Code(s): R39.9 - Unspecified symptoms and signs involving the genitourinary system Category: Medical (7) Incomplete bladder emptying: Code(s): R33.9 - Retention of urine, unspecified Category: Medical Plan Unable to obtain urine for urinalysis however PVR 123ml's Discussed at length potential causes for incomplete bladder emptying as well as affects of incomplete bladder emptying. Continue finasteride and doxazosin as prescribed. We discussed importance of limiting fluids 2-3 hours prior to bed to decrease episodes of nocturia. Information provided regarding pelvic floor exercises. Recent PSA results reviewed with the patient today; as noted above. Discussed further treatment options and risks and benefits of these treatment options. We discussed attempting to sit when voiding to relax pelvis in assist with emptying bladder. We discussed potential for near future in office cystoscopy for further assessment evaluation. Follow-up in 3 months with PVR; or sooner with any issues, concerns, and or questions. Orders: Orders AMB Post Void Residual by ultrasound Today R33.9 - Retention of urine, unspecified Patient Instructions: The patient had an opportunity to ask questions regarding the treatment plan. All questions were answered. Physical exam, labs, and imaging were discussed and reviewed in detail. As well as risks, benefits, and discussion of treatment choices. No major barriers to understanding were identified. The patient expressed understanding and agreement with the above treatment plan. The patient was made aware they should contact our office by phone for worsening of their current condition, the appearance of new symptoms, or with any questions or concerns. Compliance is encouraged with any medications and follow up testing that is ordered. It is a privilege to be allowed the opportunity to participate in? your urological care.? Again, if you have any questions or concerns If you have any questions or concerns please do not hesitate to contact me. The office is [phone]. This note is constructed using voice recognition software. While every effort has been made to ensure accuracy traffic rate clerk errors may have been included. Yours sincerely, HUGH Dacosta Coding Level of Care Code Est Pt Level 3 (94698) Diagnoses Bladder trabeculation N32.89 Enlarged prostate N40.0 Urinary frequency R35.0 Nocturia R35.1 BPH (benign prostatic hyperplasia) N40.0 Lower urinary tract symptoms R39.9 Incomplete bladder emptying R33.9 CPT Codes Post Residual Void - PVR CPT Code: 37214-Fwav Void Residual by ultrasound ([id number])
== END 2024-08-24 09:18 | disposition home or self-care (01) ==
PROVIDERS: PCP Internal Medicine; Visit Provider Nurse Practitioner Family
DX: N32.89 Other specified disorders of bladder (principal); N40.0 Benign prostatic hyperplasia without lower urinary tract symptoms; R35.0 Frequency of micturition; R35.1 Nocturia; R39.9 Unspecified symptoms and signs involving the genitourinary system; R33.9 Retention of urine, unspecified
CPT/HCPCS: 99213

== ENCOUNTER → 2024-08-24 08:37 | Outpatient (BNVA) | payer MEDICARE, SELFPAY | PROVIDERS: PCP Internal Medicine; Visit Provider Nurse Practitioner Family | DX: R35.0 Frequency of micturition (principal); N32.89 Other specified disorders of bladder; N40.1 Benign prostatic hyperplasia with lower urinary tract symptoms; R35.1 Nocturia; R33.8 Other retention of urine | CPT/HCPCS: 51798; 99212 ==

== ENCOUNTER 2024-09-30 09:34 | Outpatient (AMB) | payer OTHER, SELFPAY ==
[2024-09-30 09:43] VITALS: BMI 19.9
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
--- OUTSIDE RECORDS SUMMARY | 2024-09-30 10:06 | XMS_ITS | Clinical Summary ---
Author Organization [facility] Address [address] [place] [address] Care Team Providers Care In Processing Instructor Name Role Phone Francie Ann MD Primary Care Provider Surgical History Surgery Date Site/Laterality Comments TONSILLECTOMY ADENOIDECTOMY, BILATERAL MYRINGOTOMY AND TUBES PROCEDURE: NM TONSILLECTOMY & ADENOIDECTOMY <AGE 13 ROTATOR CUFF REPAIR Right PROCEDURE: HISTORICAL ROTATOR CUFF REPAIR CARDIAC SURGERY PROCEDURE: HISTORICAL HEART SURGERY(ASD,VSD,VALVES); COMMENT: 2 stents NECK SURGERY 1979 PROCEDURE: HISTORICAL NECK SURGERY Medical History Medical History Date Comments Heart disease DX:Heart disease Hyperlipidemia DX:Hyperlipidemi a Bronchitis DX:Bronchitis Esophageal reflux DX:Esophageal reflux Social History Tobacco Use Types Packs/Day Years Used Date Smoking Tobacco: Never Assessed Alcohol Use Standard Drinks/Week Comments Yes 0 (1 standard drink = 0.6 oz pur e alcohol) Sex and Gender Information Value Date Recorded Sex Assigned at Not on file Legal Sex Male 10:06 PM EST Gender Identity Not on file Sexual Orientation Not on file Obstetrics History Last Filed Vital Signs Vital Sign Reading Time Taken Comments Blood Pressure 154/80 03/10/2022 11:18 AM EDT Si tting R Arm Pulse 76 03/10/2022 11:18 AM EDT Temperature - - Respiratory Rate - - Oxygen Saturation - - Inhaled Oxygen Concentration - - Weight 59 kg (130 lb) 03/10/2022 11:18 AM EDT Height 167.6 cm (5' 6 ) 03/10/2022 11:18 AM EDT Body Mass Index 20.98 03/10/2022 11:18 AM EDT Plan of Treatment Health Maintenance Due Date Last Done Comments DTaP,Tdap,and Td Vaccines (1 - Tdap) 1965 Pneumococcal Vaccine: 50+ Ye ars (1 of 1 - PCV) 1996 Zoster Vaccines (1 of 2) 1996 RSV Immunization Patients 60 + Years Old (1 - 1-dose 75+ series) 2021 Cholesterol Screening (Lipid Panel) 07/12/2022 Depression Screening 07/12/2022 Falls Risk Assessment 07/12/2022 Hepatitis C Screening 07/12/2022 Social Influencers of Health Screening 07/12/2022 COVID-19 Vaccine ( - 2023-2 5 season) 2024 Influenza Vaccine (#1) 2024 HIB Vaccines Aged Out No longer eligi ble based on patient's age to complete this topic HPV Vaccines Aged Out No longer eligi ble based on patient's age to complete this topic Hepatitis A Vaccines Aged Out No long er eligible based on patient's age to complete this topic Hepatitis B Vaccines Aged Out No long er eligible based on patient's age to complete this topic IPV Vaccines Aged Out No longer eligi ble based on patient's age to complete this topic MMR Vaccines Aged Out No longer eligi ble based on patient's age to complete this topic Meningococcal ACWY Vaccine Aged Out N o longer eligible based on patient's age to complete this topic Meningococcal B Vacine Aged Out No lo nger eligible based on patient's age to complete this topic RSV Immunization Patients Un kaity 20 months Aged Out No longer eligible b ased on patient's age to complete this topic Varicella Vaccines Aged Out No longer eligible based on patient's age to complete this topic Care Teams In Processing Instructor Relationship Specialty Start Date End Date Francie Ann MD [address] [place] [address] , [address] [facility] D/B/A: [facility] NABIL Mares PCP - General Internal Medicine 01/29/22
== END 2024-09-30 10:06 | disposition home or self-care (01) ==
PROVIDERS: PCP Internal Medicine; Visit Provider Physician Assistant
DX: M54.16 Radiculopathy, lumbar region (principal); M16.11 Unilateral primary osteoarthritis, right hip
CPT/HCPCS: 99213

== ENCOUNTER 2024-10-13 14:20 | Outpatient (AMB) | payer OTHER, SELFPAY ==
--- NOTE | 2024-10-13 14:41 | MHC.PC.OV ---
Vital Signs 10/13/24 14:42 Height 5 ft 6 in Weight 114 lb 8 oz BMI 18.5 BP 120/60 Blood Pressure Location Lt brachial Position Sitting Pulse 85 Pulse Source Pulse Oximeter Temp 99.6 F Temp Source Temporal Artery Scan Pulse Oximetry (%) 90 L Oxygen Delivery Method Room Air Intake Visit Reasons: stomach pain after the pet scan Intake Note: Patient is here to follow up on stomach pain after Pet scan. Belly Packer Required: No Meat Packer: Not Required per policy Accompanied by: Self / Same As Patient Allergies aspirin [ASA] Allergy (Mild, Verified 10/13/24 14:42) UPSET STOMACH PT TAKES BABY ASA INSTEAD, stomach upset acetaminophen [From Vicodin] Adverse Reaction (Severe, Verified 10/13/24 14:42) upset stomach hydrocodone [From Vicodin] Adverse Reaction (Severe, Verified 10/13/24 14:42) upset stomach Medication List - Last Reconciled 10/13/24 by Sobeida Andrea PA-C albuterol sulfate 90 mcg/actuation 2 puffs inhalation 6XD PRN aspirin (Adult Low Dose Aspirin) 81 mg PO DAILY atorvastatin 80 mg PO DAILY 90 days Breo Ellipta 200-25 mcg/dose (fluticasone furoate-vilanterol) 1 ea inhalation DAILY NS clotrimazole 10 mg PO TID PRN 10 days doxazosin 8 mg (2 x 4 mg) PO BEDTIME 90 days finasteride 5 mg PO DAILY 90 days [id number]-[id number]-[id number]-nloolko-mretdt [id number] mcg (Centrum Silver Men) 1 tab PO DAILY omeprazole 20 mg PO DAILY 90 days oxycodone 10 mg PO Q6H PRN 30 days ropinirole 1 mg PO BEDTIME 90 days trazodone 100 mg PO BEDTIME PRN 90 days Tobacco use date assessed: 10/13/24 Fall risk assessment: No Falls in past year Last assessed Fall Risk: 10/13/24 Dental Screening Dental Screen Date: 10/13/24 Did you have a dental visit in the last 12 months?: No Did you have a dental problem in the last 6 months where you did not have access to dental care?: No Was dental information given to patient?: No HPI stomach pain after the pet scan HPI Details 78-year-old male with past medical history hypertension, GERD, hypercholesterolemia, coronary artery disease with history of CVA, pulmonary fibrosis, chronic pain syndrome, COPD, impaired glucose tolerance last seen 05/[address] Pappas coming in for acute problem. Patient completed PET scan at [facility] 10/04/2024 which showed Impression: Metabolic activity within both lungs appears fairly complex associated with peripheral airspace disease, nodules as well as right upper lobe cavitary lesion. Consider both infectious/inflammatory as well as neoplastic causes Focal activity along the cecum/ascending colon is nonspecific and may related to physiologic process however wall thickening suspected underlying neoplastic lesion is not excluded consider correlation with colonoscopy. Presenting with concerns of constipation and associated symptoms post-PET scan. The constipation commenced 9 days ago, following the PET scan, with no bowel movement since that day, despite passing gas. Previously experienced abdominal pain post-scan, now diminished. Other symptoms include a low-grade fever, new onset fatigue and cough which has been improving. Attempts at managing constipation with Mylanta have been ineffective. Recent dietary intake consists of fruits, possibly aimed at alleviating symptoms. The patient is also scheduled for a lung biopsy on the due to a discovered pulmonary mass. [facility] Medical History (Updated 10/13/24 @ 15:38 by Sobeida Andrea PA-C) Ascending aortic aneurysm AAA (abdominal aortic aneurysm) without rupture Cough Diverticulitis Lower urinary tract symptoms Internal derangement of left shoulder Pulmonary nodule Preoperative clearance Pulmonary nodules (~10/15/23) Oral thrush Chronic pain syndrome Spondylosis, cervical Postlaminectomy syndrome of cervical region COPD (chronic obstructive pulmonary disease) Whiplash Left shoulder pain Lung density on x-ray Pulmonary fibrosis Pleural effusion H/O: pneumonia Felon of finger of left hand H/O: CVA (cerebrovascular accident) Left flank pain Aneurysmal dilatation Screening for colon cancer Annual physical exam CAD (coronary artery disease) Shoulder pain Pure hypercholesterolemia GERD (gastroesophageal reflux disease) Essential hypertension Neck pain Surgical History Rotator cuff arthropathy of left shoulder History of repair of right rotator cuff Hx of cataract extraction History of right cataract extraction Hx of neck surgery History of back surgery History of hand surgery History of partial colectomy History of esophagogastroduodenoscopy (EGD) Hx of colonoscopy Stented coronary artery History of foot surgery History of hemicolectomy History of cervical spinal surgery History of laminectomy History of hernia repair History of appendectomy Family History Father Bone cancer Mother CVD (cardiovascular disease) Brother No problems noted. Sister No problems noted. Daughter No problems noted. 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 1. Little interest or pleasure in doing things: not at all 2. Feeling down, depressed, or hopeless: not at all 3. Trouble falling or staying asleep, or sleeping too much: not at all 4. Feeling tired or having little energy: not at all 5. Poor appetite or overeating: not at all 6. Feeling bad about yourself - or that you are a failure or have let yourself or your family down: not at all 7. Trouble concentrating on things, such as reading the newspaper or watching television: not at all 8. Moving or speaking so slowly that other people could have noticed. Or the opposite - being so fidgety or restless that you have been moving around a lot more than usual: not at all 9. Thoughts that you would be better off or of hurting yourself in some way: not at all Total score: 0 Depression Screening Interpretation: Negative Depression Screening Done: Yes Source: Developed by Drs. Omar Cesar, Thalia Castillo, Bassam Pelletier and colleagues, with an educational becki from [employer]. Thrive Questionnaire Date Thrive assessed: 10/13/24 I am a: Patient What is your living situation today?: I have a steady place to live Within the past 12 months, did the food you bought not last and you didn't have the money to get more?: Never true Within the past 12 months, did you worry whether your food would run out before you got money to buy more?: Never true Do you have trouble paying for medicines?: No Do you have trouble getting transportation to medical appointments?: No Do you have trouble paying your heating and electricity bill?: No Do you have trouble taking care of your child, family member or friend?: No Do you have trouble with day-to-day activities such as bathing, preparing meals, shopping, managing finances, etc.?: No Are you currently unemployed and looking for a job?: No Are you interested in more education?: No Please select the resources that you would like help with: None Currently or been in a relationship where the following occur: No concerns reported THRIVE Score: 0 AUDIT C Alcohol Use Questionnaire (AUDIT-C) 1. How often do you have a drink containing alcohol?: Never Total Score: 0 CHAS-7 AMB Questionnaire CHAS-7 Date CHAS - 7 assessed: 10/13/24 Feeling nervous, anxious, or on edge: 0 = Not at all Not being able to stop or control worryin = Not at all Worrying too much about different things: 0 = Not at all Trouble relaxin = Not at all Being so restless that it is hard to sit still: 0 = Not at all Becoming easily annoyed or irritable: 0 = Not at all Feeling afraid as if something awful might happen: 0 = Not at all Total CHAS-7 score (0-4 normal; 5-9 mild; 10-14 moderate; 15-21 severe): 0 Source: Developed by Drs. Omar Cesar, Thalia Castillo, Bassam Pelletier and colleagues, with an educational becki from [employer]. Review of Systems Const Reports body aches, Reports chills, Reports fatigue, Denies fever(s), Denies headache(s) and Denies poor appetite Eyes Reports no additional complaints ENT Denies dysphagia, Denies dizziness, Denies headache(s) and Denies odynophagia Card Denies chest pain, Denies syncope, Denies edema, Denies irregular heart rhythm, Denies lightheadedness and Denies dyspnea Resp Reports cough and Denies dyspnea GI Denies abdominal pain, Reports constipation, Denies dysphagia, Denies diarrhea, Denies nausea, Denies odynophagia and Denies vomiting Reports no additional complaints Musc Reports no additional complaints and Denies abnormal gait Skin/Breast Reports system reviewed and no additional complaints, except as documented Neuro Denies abnormal gait, Denies dizziness, Denies syncope and Denies headache(s) Psych Reports no additional complaints Endo Reports fatigue Physical exam (Primary Care) Vital Signs: Last Vital Signs Temp 99.6 F 10/13/24 14:42 Pulse 85 10/13/24 14:42 BP 120/60 10/13/24 14:42 Pulse Ox 90 L 10/13/24 14:42 Oxygen Delivery Method Room Air 10/13/24 14:42 BMI result Body Mass Index 18.5 Tobacco/Smoking Status: Tobacco use Status Tobacco use date assessed 10/13/24 10/13/24 14:45 Patient Tobacco Use Status Former Tobacco user 10/13/24 14:45 e-Cigarette/Vaping Use Never Used 10/13/24 14:45 PHQ-9: PHQ-9 Score PHQ-9: Total score 0 10/13/24 14:45 Depression Screening Interpretation: Negative Thrive Assessment: Date of Thrive Assessment Date Thrive assessed 10/13/24 10/13/24 14:45 Currently or been in a relationship where the following occur: No concerns reported Const General: cooperative, healthy appearing, comfortable and no acute distress Orientation/consciousness: patient oriented x3 HENMT Head: Yes normocephalic Ears: hearing grossly normal bilaterally General nose exam: Normal external nose present Eyes General: appearance normal, both eyes and all related structures Conjunctivae: conjunctivae normal Neck Neck: Yes full ROM and Yes no lymphadenopathy Resp Effort & Inspection: normal respiratory effort Auscultation: clear to auscultation bilaterally, no crackles, no rales, no rhonchi and no wheezes Cardio Rate: regular rate Rhythm: regular rhythm GI Inspection: Yes normal to inspection Palpation (GI): Soft to palpation, not firm, nontender, no guarding, not rigid, no masses and No Rebound tenderness present Skin General skin exam: no rashes or lesions noted Neuro General: patient oriented x3 Gait exam (Neuro): Normal gait present Extrem General: Yes normal to inspection, Yes full ROM and No edema Psych Affect: normal affect Attitude: cooperative Insight: Good insight present (Psych) Judgement: Good judgement present (Psych) Coding Level of Care Code Est Pt Level 3 (90006) Diagnoses Cavitary lesion of lung J98.4 Cough R05.9 Constipation K59.00 Assessment & Plan Assessment & Plan (1) Cavitary lesion of lung: Code(s): J98.4 - Other disorders of lung Category: Medical Plan: Performing viral testing to rule out infections such as COVID or influenza that could account for the cough and fever. The lung biopsy will evaluate the pulmonary mass. (2) Cough: Code(s): R05.9 - Cough, unspecified Category: Medical Plan: Performing viral testing to rule out infections such as COVID or influenza that could account for the cough and fever. The lung biopsy will evaluate the pulmonary mass. (3) Constipation: Code(s): K59.00 - Constipation, unspecified Category: Medical Plan: Patient is able to pass gas and does not have significant abdominal tenderness on exam today. Low suspicion for obstruction at this time. The patient is experiencing notable constipation requiring close monitoring. Management involves stool softeners and dietary adjustments with increased fiber and water intake. Plan This note was constructed using voice recognition software. While every effort has been made to ensure accuracy and hand assembler, still areas may have been included sometimes these areas may affect the content or meeting of the given symptoms. Total time spent caring for the patient today was 20 minutes. This includes time spent before the visit reviewing the chart, time spent during the visit, and time spent after the visit and documentation. Patient was informed and verbally consented to the use of an ambient scribe for clinic note documentation during this visit. Orders: Orders SARS-CoV2/FLU/RSV Today R09.89 - Other specified symptoms and signs involving the circulatory and respiratory systems T Spot TB Today J98.4 - Other disorders of lung Referrals Gastroenterology Referral Z12.11 - Encounter for screening for malignant neoplasm of colon Medications: New bisacodyl (Dulcolax (bisacodyl)) 5 mg PO BEDTIME 14 tabs 0RF
[2024-10-13 14:42] VITALS: BP 120/60; PULSE 85; TEMP 37.6; O2SAT 90; BMI 18.5
--- OUTSIDE RECORDS SUMMARY | 2024-10-13 17:36 | XMS_ITS | Clinical Summary ---
Author Organization [facility] Address [address] [place] [address] Phone Care Team Providers Care Role Player Name Role Phone Francie Ann MD Primary Care Provider [phone] Encounters Date Type Department Care Team Description 10/04/2024 8:31 AM EST - 10/04/2024 11:59 PM EST Hospital Encounter [facility] PET Scan [address] [place] [address] Solitary pulmonary nodule Discharge Disposition: Home or Self Care from Last 3 Months Surgical History Surgery Date Site/Laterality Comments TONSILLECTOMY ADENOIDECTOMY, BILATERAL MYRINGOTOMY AND TUBES PROCEDURE: [place] TONSILLECTOMY & ADENOIDECTOMY <AGE 13 ROTATOR CUFF [...] Signed Date: 10/05/2024 13:08 ET Workstation ID: [id number] Transcribed By: Self Edit Transcribed Date: 10/05/2024 [...] Signed Date: 10/05/2024 13:08 ET Workstation ID: [id number] Transcribed By: Self Edit Transcribed Date: 10/05/2024 12:59 ET [facility] [place] [facility] [place] PROCEDURES Final Result from Last 3 Months Care Teams Role Player Relationship Specialty Start Date End Date Francie Ann MD [address] [place] [address] , [address] [facility] D/B/A: [facility] [place] PCP - General Internal Medicine 01/29/22
--- OUTSIDE RECORDS SUMMARY | 2024-10-13 17:36 | XMS_ITS | Encounter Summary ---
Author Organization [facility] Address [address] [place] [address] Care Team Providers Care Manager Truck Name Role Phone Francie Ann MD Primary Care Provider [phone] Reason for Referral * Imaging (Routine) - Pending Review Specialty Diagnoses / Procedures Referred By Kerline tripp Referred To Contact Radiology Diagnoses Solitary pulmonary nodule Procedures PET CT Skull to Mid Thigh Initial Angela Michelle Phone: tel: fax: [facility] Referral ID Status Reason Start Date Expiration Date V isits Requested Visits Authorized [id number] Pending Review 10/03/2024 10/03/2025 1 1 Reason for Visit * Imaging (Routine) - Pending Review Specialty Diagnoses / Procedures Referred By Kerline tripp Referred To Contact Radiology Diagnoses Solitary pulmonary nodule Procedures PET CT Skull to Mid Thigh Initial Angela Michelle Phone: tel: fax: [facility] Referral ID Status Reason Start Date Expiration Date V isits Requested Visits Authorized [id number] Pending Review 10/03/2024 10/03/2025 1 1 Encounter Details Date Type Department Care Team (Latest Contact Info) Description 10/04/2024 8:31 AM EST - 10/04/2024 11:59 PM EST Hospital Encounter [facility] PET Scan [address] [place] [address] Solitary pulmonary nodule Discharge Disposition: Home or Self Care Social History Tobacco Use Types Packs/Day Years Used Date Smoking Tobacco: Never Assessed Alcohol Use Standard Drinks/Week Comments Yes 0 (1 standard drink = 0.6 oz pur e alcohol) Sex and Gender Information Value Date Recorded Sex Assigned at Not on file Legal Sex Male 10:06 PM EST Gender Identity Not on file Sexual Orientation Not on file documented as of this encounter Discharge Disposition Disposition Code Departure Means Destination Home or Self Care documented in this encounter Plan of Treatment Not on [...] Signed Date: 10/05/2024 13:08 ET Workstation ID: [id number] Transcribed By: Self Edit Transcribed Date: 10/05/2024 [...] Signed Date: 10/05/2024 13:08 ET Workstation ID: [id number] Transcribed By: Self Edit Transcribed Date: 10/05/2024 12:59 ET Angela Michelle IMG [place] PROCEDURES Final Result documented in this encounter [...] 10/04/2024 documented in this encounter Care Teams Manager Truck Relationship Specialty Start Date End Date Francie Ann MD [address] [place] [address] , [address] [facility] D/B/A: [facility] [place]ares PCP - General Internal Medicine 01/29/22 documented as of this encounter
== END 2024-10-13 15:19 | disposition home or self-care (01) ==
PROVIDERS: PCP Internal Medicine
DX: J98.4 Other disorders of lung (principal); R05.9 Cough, unspecified; K59.00 Constipation, unspecified

== ENCOUNTER 2024-10-14 08:56 | Outpatient (REF) | payer MEDICARE, SELFPAY ==
--- OUTSIDE RECORDS SUMMARY | 2024-10-14 09:41 | XMS_ITS | Clinical Summary ---
Author Organization [facility] Address [address] [place] [address] Phone Care Team Providers Care Hrbp Name Role Phone Francie Ann MD Primary Care Provider [phone] Encounters Date Type Department Care Team Description 10/04/2024 8:31 AM EST - 10/04/2024 11:59 PM EST Hospital Encounter [facility] PET Scan [address] [place] [address] Solitary pulmonary nodule Discharge Disposition: Home or Self Care from Last 3 Months Surgical History Surgery Date Site/Laterality Comments TONSILLECTOMY ADENOIDECTOMY, BILATERAL MYRINGOTOMY AND TUBES PROCEDURE: [place] TONSILLECTOMY & ADENOIDECTOMY <AGE 13 ROTATOR CUFF [...] Signed Date: 10/05/2024 13:08 ET Workstation ID: [id number] Transcribed By: Self Edit Transcribed Date: 10/05/2024 [...] Signed Date: 10/05/2024 13:08 ET Workstation ID: [id number] Transcribed By: Self Edit Transcribed Date: 10/05/2024 12:59 ET [facility] [place] PROCEDURES Final Result from Last 3 Months Care Teams Hrbp Relationship Specialty Start Date End Date Francie Ann MD [address] [place] [address] , [address] [facility] D/B/A: [facility] [place] PCP - General Internal Medicine 01/29/22
--- OUTSIDE RECORDS SUMMARY | 2024-10-14 09:41 | XMS_ITS | Encounter Summary ---
Author Organization [facility] Address [address] [place] [address] Care Team Providers Care Mortgage Branch Manager Name Role Phone Francie Ann MD Primary Care Provider [phone] Reason for Referral * Imaging (Routine) - Pending Review Specialty Diagnoses / Procedures Referred By Kerline tripp Referred To Contact Radiology Diagnoses Solitary pulmonary nodule Procedures PET CT Skull to Mid Thigh Initial Angela Michelle Phone: tel: fax: [facility] Referral ID Status Reason Start Date Expiration Date V isits Requested Visits Authorized [id number] Pending Review 10/03/2024 10/03/2025 1 1 Reason for Visit * Imaging (Routine) - Pending Review Specialty Diagnoses / Procedures Referred By Kerline tripp Referred To Contact Radiology Diagnoses Solitary pulmonary nodule Procedures PET CT Skull to Mid Thigh Initial Angela Michelle Phone: tel: fax: [facility] Referral ID Status Reason Start Date Expiration Date V isits Requested Visits Authorized [id number] Pending Review 10/03/2024 10/03/2025 1 1 Encounter Details Date Type Department Care Team (Latest Contact Info) Description 10/04/2024 8:31 AM EST - 10/04/2024 11:59 PM EST Hospital Encounter [facility] PET Scan [address] [place] [address] Solitary pulmonary nodule Discharge Disposition: [...] Signed Date: 10/05/2024 13:08 ET Workstation ID: [id number] Transcribed By: Self Edit Transcribed Date: 10/05/2024 [...] Signed Date: 10/05/2024 13:08 ET Workstation ID: [id number] Transcribed By: Self Edit Transcribed Date: 10/05/2024 [...] 10/04/2024 documented in this encounter Care Teams Mortgage Branch Manager Relationship Specialty Start Date End Date Francie Ann MD [address] [place] [address] , [address] [facility]ician Associ D/B/A: [facility] NABIL Mares PCP - General Internal Medicine 01/29/22 documented as of this encounter
[2024-10-14 09:53] LABS: Influenza A PCR NEGATIVE (Negative); Influenza B PCR NEGATIVE (Negative); Resp Syncy Virus RNA Qual PCR NEGATIVE (Negative); SARS COV2 PCR INHOUSE NEGATIVE (Negative)
[2024-10-14 10:07] LABS: Sodium 133 mmol/L (135-145)
[2024-10-14 10:08] LABS: Alanine Aminotransferase 18 U/L (0-40); Albumin Level 3.7 g/dL (3.5-5.0); Alkaline Phosphatase 137 U/L (39-117); Anion Gap 13 (12-20); Aspartate Amino Transferase 30 U/L (5-37); Blood Urea Nitrogen 16 mg/dL (9-16); Calcium 9.5 mg/dL (8.4-10.2); Carbon Dioxide 26 mmol/L (22-29); Chloride 98 mmol/L (96-108); Cholesterol 138 mg/dL (<200); Estimated Glomerular Filt Rate > 60; Glucose Fasting 96 mg/dL (60-99); HDL Cholesterol 36 mg/dL (>40); LDL Cholesterol Calculated 89 mg/dL (<100); Potassium 4.2 mmol/L (3.3-5.1); Total Protein 7.8 g/dL (6.5-8.0); Triglycerides 67 mg/dL (<150)
[2024-10-17 17:27] LABS: TS Negative Control Passed; TS Panel A 0; TS Panel B 0; TS Positive Control Passed; TSpotTB Negative (Negative)
== END 2024-10-14 08:57 | disposition home or self-care (01) ==
LOC: HO.LAB 08:56
PROVIDERS: Absent Provider Internal Medicine; PCP Internal Medicine
DX: M54.16 Radiculopathy, lumbar region (principal); E78.5 Hyperlipidemia, unspecified; R09.89 Other specified symptoms and signs involving the circulatory and respiratory systems; J98.4 Other disorders of lung; R05.8 Other specified cough
CPT/HCPCS: 0241U; 36415; 80053; 80061; 86481

== ENCOUNTER 2024-10-18 15:56 | Emergency (ER) | payer MEDICARE, SELFPAY ==
[2024-10-18] VITALS (10 sets, daily range): BP systolic 91–112; BP diastolic 45–94; PULSE 64–100; RESP 16–20; TEMP 36.7–37.7; O2SAT 93–100; BMI 14.5
--- NOTE | ~2024-10-18 | XR_ITS ---
CLINICAL HISTORY: cough 1 view chest x-ray Comparison: None Findings: Multifocal airspace disease is nonspecific. Differential considerations include pneumonitis and multifocal pneumonia superimposed on chronic lung disease with marked emphysematous changes noted. Heart size within normal limits for AP technique. No pneumothorax . Small amount of the pleural fluid suggested of the right lung apex laterally. Underlying cavitary lesion measures 5 cm in the right upper lobe. Mild widening of the right AC joint. Cervical spine hardware is partially imaged Multiple leads noted superficially IMPRESSION: 1. 5 cm cavitary lesion of the right upper lobe by radiographs. 2. Multifocal airspace disease. Differential considerations include multifocal pneumonia superimposed on chronic lung disease. Recommend attention on follow-up to ensure resolution of the airspace disease This document has been electronically signed by: Mohan Santos MD on 10/18/2024 21:03:21
--- NOTE | ~2024-10-18 | CT_ITS ---
CLINICAL HISTORY: pain, sbo?? CT abdomen and pelvis with contrast Comparison: CT of the abdomen and pelvis from 09/07/2012 Findings: Bilateral pulmonary opacities are nonspecific in the imaged lung bases and may be infectious/inflammatory superimposed on chronic lung disease. Multiple cystic lesions of the liver and kidneys are too small to characterize, with 1 new lesion in the left lobe of the liver measuring 5 mm (image 25 of series 2). Differential considerations include small cyst and hemangioma. Small metastasis is not excluded, as this lesion is new relative to comparison imaging. Adrenal glands and pancreas are unchanged. The spleen is nonenlarged. The gallbladder is surgically absent. Mild free fluid in the abdomen pelvis is nonspecific. No small bowel obstruction. The appendix is not definitively seen. Severe stool burden is present, including the cecum. Calcified and noncalcified plaque involving the aorta and its branches. Nonenlarged lymphadenopathy. Prostate gland measures 4.2 cm transverse. Mild distention of the urinary bladder. Degenerative changes include the hips, SI joints, and spine. Mild height loss of the L5 is old. Facet arthropathy is multifocal, particularly in the right lower lumbar spine IMPRESSION: 1. No small bowel obstruction. Severe stool burden is present. 2. One new subcentimeter cystic lesion in the liver. When compared to 2013. Please consider attention on follow-up to ensure stability. 3. New bibasilar pulmonary opacities. Differential considerations include multifocal pneumonia. Recommend attention on follow-up to ensure resolution This document has been electronically signed by: Mohan Santos MD on 10/18/2024 19:14:03
--- NOTE | 2024-10-18 16:28 | ED.GENADULT ---
HPI - General Adult General Chief complaint: Abdominal Pain Stated complaint: home, 02/16 stomach pain, constipated, weakness Time Seen by Provider: 10/18/24 16:28 Source: patient Limitations: no limitations History of Present Illness ED Provider: Geneva Amaya PA-C HPI narrative: 78-year-old male with a history of constipation, BPH, arthritis, chronic pain, COPD, hypertension, hyperlipidemia, known coronary artery disease, prior CVA who presents with the abdominal pain for ?weeks?. Patient can not recall when he had his last bowel movement. Denies abdominal distention or inability to pass flatus. Denies nausea vomiting. History limited as the patient is vague and a poor historian. Related Data Home Medications ?Medication ?Instructions ?Recorded ?Confirmed aspirin 81 mg tablet,delayed 81 mg PO DAILY 07/12/20 10/13/24 release (Adult Low Dose Aspirin) cpckdcub-kd-nanao 300 mcg-K 60 1 tab PO DAILY 07/12/20 10/13/24 mcg-lycop 600 mcg-lutein 300 mcg tablet (Centrum Silver Men) Previous Rx's ?Medication ?Instructions ?Recorded albuterol sulfate 90 mcg/actuation 2 puff inhalation 6XD PRN 06/17/24 aerosol inhaler shortness of breath or wheezing #1 ea atorvastatin 80 mg tablet 80 mg PO DAILY 90 days #90 tabs 08/18/24 finasteride 5 mg tablet 5 mg PO DAILY 90 days #90 tabs 09/09/24 clotrimazole 10 mg lindsey 10 mg PO TID PRN oral thrush 10 09/15/24 days #30 gaurav omeprazole 20 mg capsule,delayed 20 mg PO DAILY 90 days #90 caps 09/18/24 release trazodone 100 mg tablet 100 mg PO BEDTIME PRN sleep 90 09/18/24 days #90 tabs ropinirole 1 mg tablet 1 mg PO BEDTIME 90 days #90 tabs 09/19/24 Breo Ellipta 200 mcg-25 mcg/dose 1 ea inhalation DAILY #60 ea 10/10/24 powder for inhalation (fluticasone furoate-vilanterol) bisacodyl 5 mg tablet,delayed 5 mg PO BEDTIME #14 tabs 10/13/24 release (Dulcolax (bisacodyl)) doxazosin 4 mg tablet 8 mg (2 x 4 mg) PO BEDTIME 90 days 10/13/24 #180 tabs oxycodone 10 mg tablet 10 mg PO Q6H PRN pain 30 days #120 10/13/24 tabs amoxicillin 875 mg-potassium 1 tab PO BID #20 tabs 10/19/24 clavulanate 125 mg tablet azithromycin 250 mg tablet 250 mg PO DAILY 4 days #4 tabs 10/19/24 Allergies Allergy/AdvReac Type Severity Reaction Status Date / Time aspirin [ASA] Allergy Mild UPSET Verified 10/18/24 16:34 STOMACH PT TAKES BABY ASA INSTEAD, stomach upset acetaminophen [From Vicodin] AdvReac Severe upset Verified 10/18/24 16:34 stomach hydrocodone [From Vicodin] AdvReac Severe upset Verified 10/18/24 16:34 stomach Review of Systems Review of Systems: Yes all other systems are reviewed and are negative Constitutional: Constitutional: Denies fatigue, Denies fever(s), Reports lethargy and Reports malaise Cardiovascular: Cardiovascular: Denies chest pain and Denies dyspnea Respiratory: Respiratory: Denies dyspnea Gastrointestinal: Gastrointestinal: Reports abdominal pain, Reports constipation, Denies nausea and Denies vomiting Genitourinary: Genitourinary: Denies dysuria Endocrine: Endocrine: Denies fatigue [facility] Past Medical History Attestation statement: The following information was validated with the patient. Medical History (Updated 10/19/24 @ 00:50 by KASSANDRA Lewis) Ascending aortic aneurysm AAA (abdominal aortic aneurysm) without rupture Cough Diverticulitis Lower urinary tract symptoms Internal derangement of left shoulder Pulmonary nodule Preoperative clearance Pulmonary nodules (~10/15/23) Oral thrush Chronic pain syndrome Spondylosis, cervical Postlaminectomy syndrome of cervical region COPD (chronic obstructive pulmonary disease) Whiplash Left shoulder pain Lung density on x-ray Pulmonary fibrosis Pleural effusion H/O: pneumonia Felon of finger of left hand H/O: CVA (cerebrovascular accident) Left flank pain Aneurysmal dilatation Screening for colon cancer Annual physical exam CAD (coronary artery disease) Shoulder pain Pure hypercholesterolemia GERD (gastroesophageal reflux disease) Essential hypertension Neck pain Surgical History Rotator cuff arthropathy of left shoulder History of repair of right rotator cuff Hx of cataract extraction History of right cataract extraction Hx of neck surgery History of back surgery History of hand surgery History of partial colectomy History of esophagogastroduodenoscopy (EGD) Hx of colonoscopy Stented coronary artery History of foot surgery History of hemicolectomy History of cervical spinal surgery History of laminectomy History of hernia repair History of appendectomy Family History Family History Father Bone cancer Mother CVD (cardiovascular disease) Brother No problems noted. Sister No problems noted. Daughter No problems noted. 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 Cognitive needs: No Hearing needs: No Vision needs: Yes (Glasses) Physical Exam ED Vital Signs: Vital Signs - 24 hr 10/18/24 16:30 10/18/24 16:45 10/18/24 17:27 Temperature 98.3 F Pulse Rate 82 80 78 Respiratory Rate 18 18 18 Blood Pressure 91/55 L 100/56 L 105/94 H Pulse Oximetry 95 94 97 Oxygen Delivery Method Room Air Room Air Room Air 10/18/24 18:13 10/18/24 18:20 10/18/24 18:44 Temperature 99.8 F Pulse Rate 71 70 64 Respiratory Rate 16 18 18 Blood Pressure 94/45 L 103/49 L 99/53 L Pulse Oximetry 100 100 94 Oxygen Delivery Method Room Air Room Air Room Air 10/18/24 19:30 10/18/24 21:55 10/18/24 23:19 Temperature 98.5 F 98.0 F Pulse Rate 79 66 69 Respiratory Rate 20 18 18 Blood Pressure 101/55 L 94/53 L 96/50 L Pulse Oximetry 94 94 93 Oxygen Delivery Method Room Air Room Air Room Air 10/18/24 23:22 10/19/24 00:00 10/19/24 00:30 Temperature Pulse Rate 72 67 82 Respiratory Rate 18 18 Blood Pressure 92/60 91/54 L 99/61 Pulse Oximetry 94 94 Oxygen Delivery Method Room Air Room Air BMI result Body Mass Index 14.5 Const Other: Alert Orientation/consciousness: patient oriented x3 Resp Effort & Inspection: normal respiratory effort Cardio Other: Normal peripheral perfusion GI Other: Generalized tenderness to palpation no guarding, abdomen is soft nondistended Skin Other: Warm dry no rash Neuro General: patient oriented x3, gait normal, no focal motor deficits and CN's II-XI intact bilaterally Psych Other: Cooperative Course Reevaluation(s) Reevaluation #1: Concern for sepsis, the patient's blood pressure has become soft, adding blood cultures, lactic, he already had 1 L of fluid I am adding an additional this will meet his requirement for weight based IV fluid, starting ceftriaxone, the CT scan of the abdomen is pending. We are checking a rectal temperature Time: 18:09 Reevaluation #2: Pneumonia on CT abdomen, he is constipated, adding additional antibiotics and a x-ray and viral Medications Administered Discontinued Medications Generic Name Dose Route Start Last Admin Trade Name Freq PRN Reason Stop Dose Admin Bisacodyl 10 mg 10/18/24 20:06 10/18/24 20:26 Bisacodyl 5 Mg Tablet. PO 10/18/24 20:07 10 mg ONCE ONE Administration Ceftriaxone Sodium 2 gm 10/18/24 18:08 10/18/24 18:22 Ceftriaxone Sodium 2 Gm Vial IVPUSH 10/18/24 18:09 2 gm ONCE ONE Administration Diatrizoate Meglum/Diatrizoate Sod 30 ml 10/18/24 18:35 10/18/24 18:35 Diatrizoate Meglumine, Sodium 30 Ml Solution PO 10/18/24 18:36 30 ml ONCE ONE Administration Sodium Chloride 1,000 mls @ 999 mls/hr 10/18/24 16:30 10/18/24 18:06 Ns IV 10/18/24 17:30 Infused .Q1H1M BASIL Infusion Sodium Chloride 1,000 mls @ 999 mls/hr 10/18/24 18:15 10/18/24 19:30 Ns IV 10/18/24 19:15 Infused .Q1H1M BASIL Infusion Azithromycin 500 mg/ Sodium 250 mls @ 125 mls/hr 10/18/24 20:05 10/18/24 22:26 Chloride IV 10/18/24 22:04 Infused ONCE ONE Infusion Albumin Human 100 mls @ 100 mls/hr 10/18/24 22:00 10/18/24 23:19 Kedbumin 25 % IV 10/19/24 04:59 Not Given Q6H BASIL Albumin Human 100 mls @ 133.333 mls/hr 10/18/24 22:30 10/18/24 23:59 Kedbumin 25 % IV 10/19/24 00:14 Infused Q1H BASIL Infusion Iohexol 100 ml 10/18/24 18:33 10/18/24 18:35 Iohexol 350 Mg/Ml 100 Ml Infus..Btl IV 10/18/24 18:34 85 ml ONCE ONE Administration Magnesium Hydroxide 30 ml 10/18/24 20:07 10/18/24 20:26 Milk Of Magnesia 30 Ml Oral.Susp PO 10/18/24 20:08 30 ml ONCE ONE Administration Metoclopramide HCl 10 mg 10/18/24 16:29 10/18/24 16:43 Metoclopramide Hcl 10 Mg/2 Ml Vial IVPUSH 10/18/24 16:30 10 mg ONCE ONE Administration Medical Decision Making Medical Decision Making MDM Narrative: 78-year-old male with a history of constipation, BPH, arthritis, chronic pain, COPD, hypertension, hyperlipidemia, known coronary artery disease, prior CVA who presents with the abdominal pain for ?weeks?. Patient can not recall when he had his last bowel movement. Denies abdominal distention or inability to pass flatus. Denies nausea vomiting. History limited as the patient is vague and a poor historian. Problem: Known constipation History: Per patient I have considered the following differential diagnoses: Bowel obstruction, constipation, fecal impaction, obstipation Plan: We will be scanning the patient, he has chronic constipation, he is having vague abdominal pain without obstructive symptoms, this will be a p.o. contrast scan. We will give fluid, and Reglan. I have independently reviewed the following tests: Labs: Leukocytosis noted with left shift, not anemic, no electrolyte abnormality, lactic .9, viral panel neg, urine not in fact CT abdomen and pelvis:IMPRESSION: 1. No small bowel obstruction. Severe stool burden is present. 2. One new subcentimeter cystic lesion in the liver. When compared to 2013. Please consider attention on follow-up to ensure stability. 3. New bibasilar pulmonary opacities. Differential considerations include multifocal pneumonia. Recommend attention on follow-up to ensure resolution adding CXR and additional abx CXR: MPRESSION: 1. 5 cm cavitary lesion of the right upper lobe by radiographs. 2. Multifocal airspace disease. Differential considerations include multifocal pneumonia superimposed on chronic lung disease. Recommend attention on follow-up to ensure resolution of the airspace disease.....cavitary ;lesion is old Lab Data 10/18/24 16:42 10/18/24 16:42 Labs: Lab Results 10/18/24 10/18/24 10/18/24 Range/Units 16:42 18:21 20:34 WBC 18.7 H (4.8-10.8) X10*3/uL RBC 4.55 L (4.60-5.80) X10*6/uL Hgb 11.2 L D (14.0-18.0) g/dl Hct 34.1 L (42.0-52.0) % MCV 74.9 L (80.0-98.0) fL MCH 24.6 L (27.0-33.0) pg MCHC 32.8 (31.0-36.0) g/dl RDW 16.3 H (11.0-16.0) % Plt Count 476 H D (160-400) X10*3/uL MPV 8.3 L (9.4-12.4) fL Immature Gran % (Auto) 0.5 H (0.0-0.4) % Neut % (Auto) 91.4 H (45-73) % Lymph % (Auto) 3.6 L (20-40) % [place] % (Auto) 4.2 (2-11) % Eos % (Auto) 0.0 (0-4) % Baso % (Auto) 0.3 (0-2) % Lymph # (Auto) 0.7 L (1.2-4.9) X10*3/uL [place] # (Auto) 0.8 (0.1-1.2) X10*3/uL Eos # (Auto) 0.0 (0.0-0.4) X10*3/uL Baso # (Auto) 0.1 (0.0-0.2) X10*3/uL Abs Immat Gran (auto) 0.10 H (0.00-0.03) X10*3/uL Absolute Neuts (auto) 17.1 H (2.0-8.3) x10*3/uL Absolute Nucleated RBC 0.000 (0.0-0.012) X10*3/uL Nucleated RBC % (auto) 0.0 (0.0-0.2) /100WBC Smear Tech's Comments VERIFIED Sodium 136 (135-145) mmol/L Potassium 4.2 (3.3-5.1) mmol/L Chloride 104 (96-108) mmol/L Carbon Dioxide 23 (22-29) mmol/L Anion Gap 13 (12-20) BUN 20 H (9-16) mg/dL Creatinine 0.85 (0.5-1.4) mg/dL Estim Creat Clear Calc 42.0 Estimated GFR > 60 Random Glucose 106 (60-115) mg/dL Lactic Acid 0.9 (0.5-2.0) mmol/L Calcium 8.6 D (8.4-10.2) mg/dL Magnesium 2.2 (1.6-2.6) mg/dL Total Bilirubin 0.8 (0.0-1.0) mg/dL AST 24 (5-37) U/L ALT 13 (0-40) U/L Alkaline Phosphatase 118 H (39-117) U/L Total Protein 6.6 (6.5-8.0) g/dL Albumin 3.1 L (3.5-5.0) g/dL Lipase 15 (8-78) U/L Urine Color Yellow Urine Appearance Clear Urine pH 8.0 (5.0-9.0) Ur Specific [place] >= 1.030 H (1.005-1.025) Urine Protein Negative (Neg-Trace) mg/dL Urine Glucose (UA) Negative (Negative) mg/dL Urine Ketones Negative (Negative) mg/dL Urine Blood Negative (Negative) Urine Nitrite Negative (Negative) Ur Leukocyte Esterase Negative (Negative) Influenza Type A (PCR) NEGATIVE (Negative) Influenza Type B (PCR) NEGATIVE (Negative) RSV RNA Qual (PCR) NEGATIVE (Negative) SARS-CoV-2 RNA (RT-PCR) NEGATIVE (Negative) Discharge Plan Discharge Clinical Impression: Pneumonia, Constipation Patient Disposition: Home, Self-Care Instructions: Constipation (ED), Community Acquired Pneumonia (ED) Additional Instructions: You were found to be constipated. You need to be more aggressive with your bowel regimen at home. Take your Dulcolax twice a day. You need to purchase [id number] MiraLax and use it 2 to 3 times a day. You were also found to have pneumonia. See home care instructions. Take both the your antibiotics as directed. Follow up with your primary care provider within a week. Prescriptions: New amoxicillin-pot clavulanate 875-125 mg tablet 1 tab PO BID Qty: 20 0RF azithromycin 250 mg tablet 250 mg PO DAILY 4 Days Qty: 4 0RF Rx Instructions: start on day 2 of therapy No Action atorvastatin 80 mg tablet 80 mg PO DAILY 90 Days Qty: 90 1RF finasteride 5 mg tablet 5 mg PO DAILY 90 Days Qty: 90 1RF clotrimazole 10 mg lindsey 10 mg PO TID PRN (Reason: oral thrush) 10 Days Qty: 30 1RF omeprazole 20 mg capsule,delayed release(DR/EC) 20 mg PO DAILY 90 Days Qty: 90 3RF trazodone 100 mg tablet 100 mg PO BEDTIME PRN (Reason: sleep) 90 Days Qty: 90 1RF ropinirole 1 mg tablet 1 mg PO BEDTIME 90 Days Qty: 90 3RF fluticasone furoate-vilanterol [Breo Ellipta] 200-25 mcg/dose blister with device 1 ea inhalation DAILY Qty: 60 0RF oxycodone 10 mg tablet 10 mg PO Q6H PRN (Reason: pain) 30 Days Qty: 120 0RF doxazosin 4 mg tablet 8 mg PO BEDTIME 90 Days Qty: 180 1RF Rx Instructions: this is an increase in the dose aspirin [Adult Low Dose Aspirin] 81 mg tablet,delayed release (DR/EC) 81 mg PO DAILY Centrum Silver Men 300-600-300 mcg tablet 1 tab PO DAILY albuterol sulfate 90 mcg/actuation HFA aerosol inhaler 2 puff inhalation 6XD PRN (Reason: shortness of breath or wheezing) Qty: 1 6RF bisacodyl [Dulcolax (bisacodyl)] 5 mg tablet,delayed release (DR/EC) 5 mg PO BEDTIME Qty: 14 0RF Print Language: Mohawk
[2024-10-18] MEDS: Metoclopramide HCl 10 MG/2 ML VIAL IVPUSH (16:43)
[2024-10-18] MEDS: 0.9 % Sodium Chloride 1,000 ML 999 ML IV ×2 (16:44→18:20)
[2024-10-18 16:56] LABS: Basophils Absolute Auto 0.1 X10*3/uL (0.0-0.2); Basophils Percent Auto 0.3 % (0-2); Hematocrit 34.1 % (42.0-52.0); Hemoglobin 11.2 g/dl (14.0-18.0); Imm Gran Pct Auto 0.5 % (0.0-0.4); Lymphocytes Absolute Auto 0.7 X10*3/uL (1.2-4.9); Lymphocytes Percent Auto 3.6 % (20-40); MANUAL DIFF FLAG SCAN; Mean Corpuscular HGB Conc 32.8 g/dl (31.0-36.0); Mean Corpuscular Hemoglobin 24.6 pg (27.0-33.0); Mean Corpuscular Volume 74.9 fL (80.0-98.0); Mean Platelet Volume 8.3 fL (9.4-12.4); Monocytes Absolute Auto 0.8 X10*3/uL (0.1-1.2); Monocytes Percent Auto 4.2 % (2-11); Neutrophils Absolute Auto 17.1 x10*3/uL (2.0-8.3); Neutrophils Percent Auto 91.4 % (45-73); Platelet Count 476 X10*3/uL (160-400); Red Blood Count 4.55 X10*6/uL (4.60-5.80); Red Cell Distribution Width 16.3 % (11.0-16.0); SCAN SMEAR FLAG 1; White Blood Count 18.7 X10*3/uL (4.8-10.8)
[2024-10-18 17:14] LABS: Alanine Aminotransferase 13 U/L (0-40); Albumin Level 3.1 g/dL (3.5-5.0); Alkaline Phosphatase 118 U/L (39-117); Anion Gap 13 (12-20); Aspartate Amino Transferase 24 U/L (5-37); Bilirubin Total 0.8 mg/dL (0.0-1.0); Blood Urea Nitrogen 20 mg/dL (9-16); Calcium 8.6 mg/dL (8.4-10.2); Carbon Dioxide 23 mmol/L (22-29); Chloride 104 mmol/L (96-108); Estimated Glomerular Filt Rate > 60; Glucose Random 106 mg/dL (60-115); Lipase 15 U/L (8-78); Magnesium 2.2 mg/dL (1.6-2.6); Potassium 4.2 mmol/L (3.3-5.1); Sodium 136 mmol/L (135-145); Total Protein 6.6 g/dL (6.5-8.0)
[2024-10-18 17:24] LABS: SLIDE REVIEW VERIFIED
[2024-10-18] MEDS: cefTRIAXone sodium 2 GM VIAL IVPUSH (18:22)
--- NOTE | 2024-10-18 18:30 | PC.NURSE ---
Pt presents to ED via EMS from home for generalized ABD pain and constipation for 2 weeks, poor PO intake. Pt lives alone. Alert and oriented, breathing even and unlabored, skin warm, pale. ABD soft non-distended. BPs noted to become hypotensive, provider alerted. Bilat IV access placed with fluids infusing. NSR on bedside engine monitor.
[2024-10-18] MEDS: Diatrizoate Meglumine, Sodium 30 ML SOLUTION PO (18:35)
[2024-10-18] MEDS: iohexoL 350 MG/ML 100 ML INFUS..BTL IV (18:35)
[2024-10-18 18:41] LABS: Lactic Acid 0.9 mmol/L (0.5-2.0)
--- OUTSIDE RECORDS SUMMARY | 2024-10-18 19:30 | XMS_ITS | Clinical Summary ---
Author Organization [facility] Address [address] [place] [address] Phone Care Team Providers Care Setup Operator Name Role Phone Francie Ann MD Primary Care Provider [phone] Encounters Date Type Department Care Team Description 10/04/2024 8:31 AM EST - 10/04/2024 11:59 PM EST Hospital Encounter [facility] PET Scan [address] [place] [address] Solitary pulmonary nodule Discharge Disposition: Home or Self Care from Last 3 Months Surgical History Surgery Date Site/Laterality Comments TONSILLECTOMY ADENOIDECTOMY, BILATERAL MYRINGOTOMY AND TUBES PROCEDURE: VT TONSILLECTOMY & ADENOIDECTOMY <AGE 13 ROTATOR CUFF [...] Signed Date: 10/05/2024 13:08 ET Workstation ID: [id number] Transcribed By: Self Edit Transcribed Date: 10/05/2024 [...] Signed Date: 10/05/2024 13:08 ET Workstation ID: [id number] Transcribed By: Self Edit Transcribed Date: 10/05/2024 12:59 ET [facility] DE PROCEDURES Final Result from Last 3 Months Care Teams Setup Operator Relationship Specialty Start Date End Date Francie Ann MD [address] [place] [address] , [address] [facility] D/B/A: [facility] [place] PCP - General Internal Medicine 01/29/22
--- OUTSIDE RECORDS SUMMARY | 2024-10-18 19:30 | XMS_ITS | Encounter Summary ---
Author Organization [facility] Address [address] [place] [address] Care Team Providers Care Charge Master Specialist Name Role Phone Francie Ann MD Primary Care Provider Reason for Referral * Imaging (Routine) - Pending Review Specialty Diagnoses / Procedures Referred By Kerline tripp Referred To Contact Radiology Diagnoses Solitary pulmonary nodule Procedures PET CT Skull to Mid Thigh Initial Angela Michelle Phone: tel: fax: [facility] Referral ID Status Reason Start Date Expiration Date V isits Requested Visits Authorized [id number] Pending Review 10/03/2024 10/03/2025 1 1 Reason for Visit * Imaging (Routine) - Pending Review Specialty Diagnoses / Procedures Referred By Kerline tripp Referred To Contact Radiology Diagnoses Solitary pulmonary nodule Procedures PET CT Skull to Mid Thigh Initial Angela Michelle Phone: tel: fax: [facility] Referral ID Status Reason Start Date Expiration Date V isits Requested Visits Authorized [id number] Pending Review 10/03/2024 10/03/2025 1 1 Encounter Details Date Type Department Care Team (Latest Contact Info) Description 10/04/2024 8:31 AM EST - 10/04/2024 11:59 PM EST Hospital Encounter [facility] PET Scan [address] [place] [address] Solitary pulmonary nodule Discharge Disposition: [...] Signed Date: 10/05/2024 13:08 ET Workstation ID: [id number] Transcribed By: Self Edit Transcribed Date: 10/05/2024 [...] Signed Date: 10/05/2024 13:08 ET Workstation ID: [id number] Transcribed By: Self Edit Transcribed Date: 10/05/2024 [...] 10/04/2024 documented in this encounter Care Teams Charge Master Specialist Relationship Specialty Start Date End Date Francie Ann MD [address] [place] [address] , [address] [facility] D/B/A: [facility] NABIL Mares PCP - General Internal Medicine 01/29/22 documented as of this encounter
--- NOTE | 2024-10-18 19:50 | PC.NURSE ---
spoke with patients daughter per pt permission - Dilma [phone].
[2024-10-18] MEDS: Azithromycin 500 MG in 0.9 % Sodium Chloride 250 ML 125 MG IV (20:26)
[2024-10-18] MEDS: Milk of Magnesia 30 ML ORAL.SUSP PO (20:26)
[2024-10-18] MEDS: bisacodyL 5 MG TABLET.DR 10 MG PO (20:26)
[2024-10-18 20:44] LABS: Appearance Urine Clear; Color Urine Yellow; Glucose Urine UA Negative (Negative); Leukocyte Esterase Urine Negative (Negative); Nitrite Urine Negative (Negative); Specific Gravity - Urine >= 1.030 (1.005-1.025); Urine Blood Negative (Negative); Urine Ketones Negative (Negative); Urine Protein Negative (Neg-Trace)
[2024-10-18 21:30] LABS: Influenza A PCR NEGATIVE (Negative); Influenza B PCR NEGATIVE (Negative); Resp Syncy Virus RNA Qual PCR NEGATIVE (Negative); SARS COV2 PCR INHOUSE NEGATIVE (Negative)
--- NOTE | 2024-10-18 21:55 | PC.NURSE ---
2155 PA aware of BP states will order albumin.
[2024-10-18] MEDS: Albumin Human 25 % 100 ML 133.33 ML IV ×2 (22:09→23:18)
[2024-10-19] VITALS: BP 91/54; PULSE 67; RESP 18; O2SAT 94
[2024-10-19 00:30] VITALS: BP 99/61; PULSE 82
--- NOTE | 2024-10-19 00:30 | PC.NURSE ---
BP as documented following albumin infusion. PA aware.
[2024-10-19 01:07] VITALS: BP 101/55; PULSE 65; RESP 15; TEMP 37.1; O2SAT 95
== END 2024-10-19 01:31 | disposition home or self-care (01) ==
PROVIDERS: Physician Assistant Medical; Emergency Provider Emergency Medicine Emergency Medical Services; PCP Internal Medicine
DX: J18.9 Pneumonia, unspecified organism (principal); K59.00 Constipation, unspecified; I10 Essential (primary) hypertension; E78.00 Pure hypercholesterolemia, unspecified; J44.9 Chronic obstructive pulmonary disease, unspecified; Z87.891 Personal history of nicotine dependence; Z03.818 Encounter for observation for suspected exposure to other biological agents ruled out; Z79.82 Long term (current) use of aspirin; Z79.899 Other long term (current) drug therapy; Z79.02 Long term (current) use of antithrombotics/antiplatelets
CPT/HCPCS: 0241U; 36415; 71045; 74177; 80053; 81003; 83605; 83690; 83735; 85025; 87040; 96361; 96365; 96366; 96367; 99285; J0456; J0696; J2765; P9047; Q9967

== ENCOUNTER → 2024-10-18 16:29 | Outpatient (BNV) | payer MEDICARE, SELFPAY | PROVIDERS: Emergency Provider Emergency Medicine Emergency Medical Services; PCP Internal Medicine; Visit Provider Radiology Neuroradiology | DX: K76.89 Other specified diseases of liver (principal); K56.41 Fecal impaction; R91.1 Solitary pulmonary nodule | CPT/HCPCS: 71045; 74177 ==

== ENCOUNTER 2024-10-24 09:06 | Outpatient (AMB) | payer MEDICARE, SELFPAY ==
--- NOTE | 2024-10-24 09:21 | A.OFFVIS_ITS ---
Vital Signs 10/24/24 09:22 Height 5 ft 6 in Weight 121 lb 4.068 oz BMI 19.6 BP 120/74 Blood Pressure Location Lt brachial Position Sitting Pulse 78 Intake Visit Reasons: 1 year fu Intake Note: 1 year follow-up ekg c/o chest discomfort if laying on one side Protective Services Case Worker Required: No Allergies aspirin [ASA] Allergy (Mild, Verified 10/18/24 16:34) UPSET STOMACH PT TAKES BABY ASA INSTEAD, stomach upset acetaminophen [From Vicodin] Adverse Reaction (Severe, Verified 10/18/24 16:34) upset stomach hydrocodone [From Vicodin] Adverse Reaction (Severe, Verified 10/18/24 16:34) upset stomach Medication List - Last Reconciled 10/24/24 by Slim Peña MD albuterol sulfate 90 mcg/actuation 2 puffs inhalation 6XD PRN aspirin (Adult Low Dose Aspirin) 81 mg PO DAILY atorvastatin 80 mg PO DAILY 90 days azithromycin 250 mg PO DAILY 4 days bisacodyl (Dulcolax (bisacodyl)) 5 mg PO BEDTIME Breo Ellipta 200-25 mcg/dose (fluticasone furoate-vilanterol) 1 ea inhalation DAILY NS clotrimazole 10 mg PO TID PRN 10 days doxazosin 8 mg (2 x 4 mg) PO BEDTIME 90 days finasteride 5 mg PO DAILY 90 days ub-ait-yfmiy-E6-sxsueau-idrxiu 312-65-638-300 mcg (Centrum Silver Men) 1 tab PO DAILY omeprazole 20 mg PO DAILY 90 days oxycodone 10 mg PO Q6H PRN 30 days ropinirole 1 mg PO BEDTIME 90 days trazodone 100 mg PO BEDTIME PRN 90 days HPI Comments Details: Be comes for follow-up. Continues to have exertional shortness of breath. He said he is scheduled to undergo bronchoscopy for lung mass to assess for any malignant in etiology. Patient denies any exertional chest pain. Says he gets chest pressure in the right-sided chest when he moves from left to right position while in bed. No orthopnea, PND, leg edema. No prolonged palpitation irregular heartbeat. No lightheadedness, syncope. Last LDL is not well optimized. [facility] Medical History (Updated 10/20/24 @ 00:01 by Background Daemon) Ascending aortic aneurysm AAA (abdominal aortic aneurysm) without rupture Cough Diverticulitis Lower urinary tract symptoms Internal derangement of left shoulder Pulmonary nodule Preoperative clearance Pulmonary nodules (~10/15/23) Oral thrush Chronic pain syndrome Spondylosis, cervical Postlaminectomy syndrome of cervical region COPD (chronic obstructive pulmonary disease) Whiplash Left shoulder pain Lung density on x-ray Pulmonary fibrosis Pleural effusion H/O: pneumonia Felon of finger of left hand H/O: CVA (cerebrovascular accident) Left flank pain Aneurysmal dilatation Screening for colon cancer Annual physical exam CAD (coronary artery disease) Shoulder pain Pure hypercholesterolemia GERD (gastroesophageal reflux disease) Essential hypertension Neck pain Surgical History Rotator cuff arthropathy of left shoulder History of repair of right rotator cuff Hx of cataract extraction History of right cataract extraction Hx of neck surgery History of back surgery History of hand surgery History of partial colectomy History of esophagogastroduodenoscopy (EGD) Hx of colonoscopy Stented coronary artery History of foot surgery History of hemicolectomy History of cervical spinal surgery History of laminectomy History of hernia repair History of appendectomy Family History Father Bone cancer Mother CVD (cardiovascular disease) Brother No problems noted. Sister No problems noted. Daughter No problems noted. 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 Cognitive needs: No Hearing needs: No Vision needs: Yes (Glasses) Review of Systems Const Denies chills, Denies fatigue, Denies fever(s), Denies frequent falls, Denies weakness, Denies weight gain and Denies weight loss ENT Denies dizziness Card Reports chest pain, Denies leg edema, Denies lightheadedness, Denies palpitations, Denies dyspnea, Denies dyspnea on exertion, Denies orthopnea and Denies other (loss of consciousness) Resp Denies cough, Denies dyspnea and Denies dyspnea on exertion GI Denies hematochezia and Denies change in stool character Musc Denies abnormal gait, Denies muscle weakness, Denies numbness, Denies radiating pain into limb and Denies tingling Neuro Denies abnormal gait, Denies dizziness, Denies frequent falls, Denies numbness, Denies tingling and Denies weakness Endo Denies fatigue and Denies palpitations Physical Exam Vital Signs: Last Vital Signs Pulse 78 10/24/24 09:22 BP 120/74 10/24/24 09:22 BMI result Body Mass Index 19.6 Const General: cooperative, comfortable, alert and awake Nutritional Appearance: thin Orientation/consciousness: patient oriented x3 Limitations: no limitations Neck Neck: Yes trachea midline, Yes supple and Yes no JVD Chest Chest palpation & inspection: normal inspection of the chest Resp Effort & Inspection: normal respiratory effort Auscultation: clear to auscultation bilaterally Cardio Jugular venous distension: no JVD Palpation: normal PMI Rate: regular rate Rhythm: regular rhythm Heart sounds: S1 normal heart sound present and S2 normal heart sound present Skin General skin exam: no rashes or lesions noted Neuro General: patient oriented x3 and no focal motor deficits Extrem General: Yes no clubbing, cyanosis or edema Psych Appearance: grossly normal Office Procedures EKG Details: EKG shows normal sinus rhythm with normal EKG. 91060-[id number], Complete Assessment & Plan Assessment & Plan (1) CAD (coronary artery disease): Comment: Sees Dr Peña Code(s): I25.10 - Atherosclerotic heart disease of [place] coronary artery without angina pectoris Category: Medical Plan: Coronary artery disease with prior remote stenting with no current exertional symptoms that are concerning exertional shortness of breath which is most likely related to COPD and pulmonary capacity related to muscle deconditioning. Unlikely related to myocardial ischemia. Myocardial perfusion imaging last year was within normal limits. Continue low-dose aspirin therapy for life. Elderly discussed not well optimized and have suggested to add ezetimibe 10 mg to his regimen to target goal LDL less than 70 mg/dL. He was diffuse vascular disease and aggressive risk factor modification needs to be pursued. Continue aggressive blood pressure control. Continue pursue pulmonary treatment and follow-up. Optimized to undergo bronchoscopy to low to intermediate risk for perioperative cardiovascular morbidity mortality. (2) Essential hypertension: Code(s): I10 - Essential (primary) hypertension Category: Medical Plan: Hypertension which is currently well optimized advised to monitor blood pressure at home maintain a log. Goal blood pressure less than 130/84. Low-salt diet was discussed. Maintain activity level as tolerated. Follow up in the clinic in 1 year's time after an echocardiogram due to enlarged thoracic aorta. Thank you for allowing me to partake in his care Orders: Orders Lipid Panel 2 Months I25.10 - Atherosclerotic heart disease of [place] coronary artery without angina pectoris CA echo transthoracic complete 1 Year I25.10 - Atherosclerotic heart disease of [place] coronary artery without angina pectoris Medications: New ezetimibe 10 mg PO DAILY 30 tabs 11RF Coding Level of Care Code Est Pt Level 4 (84539) Complex EM visit Add On G2211 Diagnoses CAD (coronary artery disease) I25.10 Essential hypertension I10 CPT Codes EKG - CPT: 92517-[id number], Complete ([id number])
[2024-10-24 09:22] VITALS: BP 120/74; PULSE 78; BMI 19.6
--- OUTSIDE RECORDS SUMMARY | 2024-10-24 09:41 | XMS_ITS | Encounter Summary ---
Author Organization [facility] Address [address] [place] [address] Care Team Providers Care Applications Support Specialist Name Role Phone Francie Ann MD Primary Care Provider [phone] Reason for Referral * Imaging (Routine) - Pending Review Specialty Diagnoses / Procedures Referred By Kerline tripp Referred To Contact Radiology Diagnoses Solitary pulmonary nodule Procedures PET CT Skull to Mid Thigh Initial Angela Michelle Phone: tel: fax: [facility] Referral ID Status Reason Start Date Expiration Date V isits Requested Visits Authorized [id number] Pending Review 10/03/2024 10/03/2025 1 1 Reason for Visit * Imaging (Routine) - Pending Review Specialty Diagnoses / Procedures Referred By Kerline tripp Referred To Contact Radiology Diagnoses Solitary pulmonary nodule Procedures PET CT Skull to Mid Thigh Initial Angela Michelle Phone: tel: fax: [facility] Referral ID Status Reason Start Date Expiration Date V isits Requested Visits Authorized [id number] Pending Review 10/03/2024 10/03/2025 1 1 Encounter Details Date Type Department Care Team (Latest Contact Info) Description 10/04/2024 8:31 AM EST - 10/04/2024 11:59 PM EST Hospital Encounter [facility] PET Scan [address] [place] [address] Solitary pulmonary nodule Discharge Disposition: [...] Signed Date: 10/05/2024 13:08 ET Workstation ID: [id number] Transcribed By: Self Edit Transcribed Date: 10/05/2024 [...] Signed Date: 10/05/2024 13:08 ET Workstation ID: [id number] Transcribed By: Self Edit Transcribed Date: 10/05/2024 [...] 10/04/2024 documented in this encounter Care Teams Applications Support Specialist Relationship Specialty Start Date End Date Francie Ann MD [address] [place] [address] , [address] [facility] D/B/A: [facility] NABIL Mares PCP - General Internal Medicine 01/29/22 documented as of this encounter
--- OUTSIDE RECORDS SUMMARY | 2024-10-24 09:41 | XMS_ITS | Clinical Summary ---
Author Organization [facility] Address [address] [place] [address] Phone Care Team Providers Care Manager Case Management Name Role Phone Francie Ann MD Primary Care Provider [phone] Encounters Date Type Department Care Team Description 10/04/2024 8:31 AM EST - 10/04/2024 11:59 PM EST Hospital Encounter [facility] PET Scan [address] [place] [address] Solitary pulmonary nodule Discharge Disposition: Home or Self Care from Last 3 Months Surgical History Surgery Date Site/Laterality Comments TONSILLECTOMY ADENOIDECTOMY, BILATERAL MYRINGOTOMY AND TUBES PROCEDURE: [place] TONSILLECTOMY & ADENOIDECTOMY <AGE 13 ROTATOR CUFF [...] Signed Date: 10/05/2024 13:08 ET Workstation ID: [id number] Transcribed By: Self Edit Transcribed Date: 10/05/2024 [...] metallic hardware in this region. Procedure Note aFrhan Sexton MD - 10/05/2024 INDICATION: Lung lesion [...] Signed Date: 10/05/2024 13:08 ET Workstation ID: [id number] Transcribed By: Self Edit Transcribed Date: 10/05/2024 12:59 ET [facility] IMG PR PROCEDURES Final Result from Last 3 Months Care Teams Manager Case Management Relationship Specialty Start Date End Date Francie Ann MD [address] [place] [address] , [address] [facility] D/B/A: [facility] [place] PCP - General Internal Medicine 01/29/22
== END 2024-10-24 09:45 | disposition home or self-care (01) ==
LOC: HO.HCS 09:07
PROVIDERS: PCP Internal Medicine; Visit Provider Internal Medicine Cardiovascular Disease
DX: I25.10 Atherosclerotic heart disease of native coronary artery without angina pectoris (principal); I10 Essential (primary) hypertension
CPT/HCPCS: 93010; 99214; G2211

== ENCOUNTER → 2024-10-24 09:06 | Outpatient (BNVA) | payer MEDICARE, SELFPAY | PROVIDERS: PCP Internal Medicine; Visit Provider Internal Medicine Cardiovascular Disease | DX: I25.10 Atherosclerotic heart disease of native coronary artery without angina pectoris (principal); I10 Essential (primary) hypertension | CPT/HCPCS: 93005; 99212 ==

== ENCOUNTER 2024-11-10 09:27 | Outpatient (AMB) | payer MEDICARE, MEDICAID, SELFPAY ==
--- NOTE | 2024-11-10 09:34 | MHC.PC.OV ---
Vital Signs 11/10/24 09:36 Height 5 ft 6 in Weight 123 lb BMI 19.9 BP 130/72 Blood Pressure Location Lt brachial Position Sitting Pulse 74 Pulse Source Pulse Oximeter Pulse Oximetry (%) 97 Oxygen Delivery Method Room Air Intake Visit Reasons: Annual exam Intake Note: Patient here for an annual physical exam Director Emergency Services Required: No Accompanied by: Self / Same As Patient Allergies aspirin [ASA] Allergy (Mild, Verified 11/10/24 10:04) UPSET STOMACH PT TAKES BABY ASA INSTEAD, stomach upset acetaminophen [From Vicodin] Adverse Reaction (Severe, Verified 11/10/24 10:04) upset stomach hydrocodone [From Vicodin] Adverse Reaction (Severe, Verified 11/10/24 10:04) upset stomach Medication List - Last Reconciled 11/10/24 by Francie Ann MD albuterol sulfate 90 mcg/actuation 2 puffs inhalation 6XD PRN aspirin (Adult Low Dose Aspirin) 81 mg PO DAILY atorvastatin 80 mg PO DAILY 90 days bisacodyl (Dulcolax (bisacodyl)) 5 mg PO BEDTIME Breo Ellipta 200-25 mcg/dose (fluticasone furoate-vilanterol) 1 ea inhalation DAILY NS clotrimazole 10 mg PO TID PRN 10 days doxazosin 8 mg (2 x 4 mg) PO BEDTIME 90 days ezetimibe 10 mg PO DAILY finasteride 5 mg PO DAILY 90 days [id number] mcg (Centrum Silver Men) 1 tab PO DAILY omeprazole 20 mg PO DAILY 90 days oxycodone 10 mg PO Q6H PRN 30 days ropinirole 1 mg PO BEDTIME 90 days trazodone 100 mg PO BEDTIME PRN 90 days Tobacco use date assessed: 10/13/24 Fall risk assessment: No Falls in past year Last assessed Fall Risk: 11/10/24 Dental Screening Dental Screen Date: 10/13/24 HPI HPI Comments History of Present Illness Details The patient is a 78-year-old male presenting for his physical exam complaining of persistent cough after pneumonia. He reports experiencing a persistent cough which has been troublesome, and prior attempts with medications like Mucinex have not provided relief. He also acknowledges a history of recent pneumonia, which has exacerbated his symptoms related to his underlying COPD and pulmonary fibrosis. The patient experiences sleeping difficulties, with trazodone effectively helping him to fall asleep but not sustaining it throughout the night, which may require revisiting for adjustment in medication or additional interventions. Additionally, he is managing chronic pain related to his right shoulder, neck, and lower back with medications such as oxycodone. He has a known history of allergic reactions to Aspirin and Vicodin but tolerates a regimen of baby aspirin. His hypertension and cholesterol are maintained with ongoing use of atorvastatin, with recent laboratory tests confirming satisfactory control of cholesterol levels but an elevation in white blood cells. - Pneumococcal vaccination completed - Tetanus booster recommended due; last administered in 2010 - Colonoscopy completed in 2020 - Ongoing management of hypertension and cholesterol levels, confirmed via recent blood tests [facility] Medical History Ascending aortic aneurysm AAA (abdominal aortic aneurysm) without rupture Cough Diverticulitis Lower urinary tract symptoms Internal derangement of left shoulder Pulmonary nodule Preoperative clearance Pulmonary nodules (~10/15/23) Oral thrush Chronic pain syndrome Spondylosis, cervical Postlaminectomy syndrome of cervical region COPD (chronic obstructive pulmonary disease) Whiplash Left shoulder pain Lung density on x-ray Pulmonary fibrosis Pleural effusion H/O: pneumonia Felon of finger of left hand H/O: CVA (cerebrovascular accident) Left flank pain Aneurysmal dilatation Screening for colon cancer Annual physical exam CAD (coronary artery disease) Shoulder pain Pure hypercholesterolemia GERD (gastroesophageal reflux disease) Essential hypertension Neck pain Surgical History Rotator cuff arthropathy of left shoulder History of repair of right rotator cuff Hx of cataract extraction History of right cataract extraction Hx of neck surgery History of back surgery History of hand surgery History of partial colectomy History of esophagogastroduodenoscopy (EGD) Hx of colonoscopy Stented coronary artery History of foot surgery History of hemicolectomy History of cervical spinal surgery History of laminectomy History of hernia repair History of appendectomy Family History Father Bone cancer Mother CVD (cardiovascular disease) Brother No problems noted. Sister No problems noted. Daughter No problems noted. 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 1. Little interest or pleasure in doing things: not at all 2. Feeling down, depressed, or hopeless: not at all 3. Trouble falling or staying asleep, or sleeping too much: more than half the days 4. Feeling tired or having little energy: not at all 5. Poor appetite or overeating: not at all 6. Feeling bad about yourself - or that you are a failure or have let yourself or your family down: not at all 7. Trouble concentrating on things, such as reading the newspaper or watching television: not at all 8. Moving or speaking so slowly that other people could have noticed. Or the opposite - being so fidgety or restless that you have been moving around a lot more than usual: not at all 9. Thoughts that you would be better off or of hurting yourself in some way: not at all Total score: 2 Depression Screening Interpretation: Positive Depression Screening Follow-up: Existing condition and Follow-up Visit Requested Depression Screening Done: Yes 57230 - PHQ-9 Billing: Yes Source: Developed by Drs. Omar Cesar, Thalia Castillo, Bassam Pelletier and colleagues, with an educational becki from [employer]. Thrive Questionnaire Date Thrive assessed: 11/10/24 I am a: Patient What is your living situation today?: I have a steady place to live Within the past 12 months, did the food you bought not last and you didn't have the money to get more?: Sometimes True Within the past 12 months, did you worry whether your food would run out before you got money to buy more?: Often true Do you have trouble paying for medicines?: Yes Do you have trouble getting transportation to medical appointments?: No Do you have trouble paying your heating and electricity bill?: Yes Do you have trouble taking care of your child, family member or friend?: No Do you have trouble with day-to-day activities such as bathing, preparing meals, shopping, managing finances, etc.?: No Are you currently unemployed and looking for a job?: No Are you interested in more education?: No Please select the resources that you would like help with: None Currently or been in a relationship where the following occur: No concerns reported THRIVE Score: 3 AUDIT C Alcohol Use Questionnaire (AUDIT-C) 1. How often do you have a drink containing alcohol?: Never Total Score: 0 Score Reviewed/Action Taken: No CHAS-7 AMB Questionnaire CHAS-7 Date CHAS - 7 assessed: 11/10/24 Feeling nervous, anxious, or on edge: 0 = Not at all Not being able to stop or control worryin = Not at all Worrying too much about different things: 0 = Not at all Trouble relaxin = Not at all Being so restless that it is hard to sit still: 0 = Not at all Becoming easily annoyed or irritable: 0 = Not at all Feeling afraid as if something awful might happen: 0 = Not at all Total CHAS-7 score (0-4 normal; 5-9 mild; 10-14 moderate; 15-21 severe): 0 Source: Developed by Drs. Omar Cesar, Thalia Castillo, Bassam Pelletier and colleagues, with an educational becki from [employer]. CHAS-7 Assessment Billing CHAS-7 Assessment Tool: CHAS-7 Assessment 20546 Review of Systems Const All systems reviewed & are unremarkable except as noted in HPI and below Card Denies chest pain at rest, Denies chest pain with activity, Denies edema, Denies irregular heart rhythm, Denies claudication, Reports dyspnea, Reports dyspnea on exertion, Denies orthopnea, Denies paroxysmal nocturnal dyspnea and Denies slow heart rate Resp Reports cough, Reports dyspnea and Reports dyspnea on exertion GI Denies abdominal pain, Denies change in bowel habits, Denies excessive flatus, Denies nausea and Denies vomiting Denies urinary hesitancy, Denies urinary incontinence and Denies urinary urgency Neuro Denies behavioral changes and Denies lack of coordination Psych Denies behavioral changes Physical exam (Primary Care) Vital Signs: Last Vital Signs Pulse 74 11/10/24 09:36 BP 130/72 11/10/24 09:36 Pulse Ox 97 11/10/24 09:36 Oxygen Delivery Method Room Air 11/10/24 09:36 BMI result Body Mass Index 19.9 Tobacco/Smoking Status: Tobacco use Status Tobacco use date assessed 10/13/24 11/10/24 09:41 Patient Tobacco Use Status Former Tobacco user 11/10/24 09:41 e-Cigarette/Vaping Use Never Used 11/10/24 09:41 PHQ-9: PHQ-9 Score PHQ-9: Total score 2 11/10/24 10:12 Depression Screening Interpretation: Positive Depression Screening Follow-up: Existing condition and Follow-up Visit Requested Thrive Assessment: Date of Thrive Assessment Date Thrive assessed 11/10/24 11/10/24 09:41 Currently or been in a relationship where the following occur: No concerns reported HENCO Head: Yes normal to inspection, Yes normocephalic and Yes atraumatic Ears: external ears normal Eyes General: appearance normal, both eyes and all related structures Eyelids: Yes eyelids normal Conjunctivae: conjunctivae normal Neck Neck: Yes normal visual inspection and Yes supple Resp Effort & Inspection: normal respiratory effort Auscultation: clear to auscultation bilaterally Cardio Jugular venous distension: no JVD Rate: regular rate Rhythm: regular rhythm Heart sounds: S1 normal heart sound present and S2 normal heart sound present GI Inspection: Yes normal to inspection Palpation (GI): Soft to palpation and nontender Auscultation: normal bowel sounds Skin General skin exam: no rashes or lesions noted Neuro General: no focal motor deficits Extrem General: Yes full ROM Psych Appearance: grossly normal Coding Level of Care Code Est Pt Level 3 (26983) Est Pt Prev Care >65y(68143) Diagnoses Physical exam Z00.00 Chronic obstructive pulmonary disease, unspecified COPD type J44.9 COPD type: unspecified COPD Pulmonary fibrosis J84.10 Insomnia G47.00 Additional Codes CHAS-7 Assessment Billing - CHAS-7 Assessment Tool: CHAS-7 Assessment 71102 ([id number]) PHQ-9 - 92352 - PHQ-9 Billing: Yes ([id number]) Time Spent (min) 36 Assessment & Plan Assessment & Plan (1) Physical exam: Code(s): Z00.00 - Encounter for general adult medical examination without abnormal findings Category: Medical (2) COPD (chronic obstructive pulmonary disease): Comment: KNOWN CASE OF CHRONIC OBSTRUCTIVE PULMONARY DISEASE, MODERATELY SEVERE, CONTROLLED AT THIS TIME. HIS ACTIVITY LEVEL IS ONLY SLIGHTLY SUB OPTIMAL . Code(s): J44.9 - Chronic obstructive pulmonary disease, unspecified Category: Medical Qualifiers: COPD type: unspecified COPD Qualified Code(s): J44.9 - Chronic obstructive pulmonary disease, unspecified (3) Pulmonary fibrosis: Comment: As per his previous the CT scan, patient does have pleural and parenchymal scarring in right upper lobe, related to his previous surgery. Patient had thoracostomy and repair of ruptured lung in mid 90s. It is staying quite stable. Code(s): J84.10 - Pulmonary fibrosis, unspecified Category: Medical (4) Insomnia: Code(s): G47.00 - Insomnia, unspecified Category: Medical Plan The patient's recent emergency room visit necessitates a repeat chest X-ray to evaluate any enduring abnormalities in conjunction with past pneumonia and existing COPD. Modification of the inhaler regimen may be required pending respiratory evaluation at the upcoming plater printed circuit board panels appointment. For better management of his sleep disturbances, an increased dosage of trazodone to prolong its effect is suggested; this will assist in maintaining sleep. Management of chronic pain relies on continuing prescribed medications. Additionally, the ongoing control of hypertension and cholesterol measures is monitored, necessitating follow-up on the slightly elevated white blood cells to ensure there isn't an ongoing infection. Patient was informed and verbally consented to the use of an ambient scribe for clinic note documentation during this visit. During our discussion, I emphasized the importance of following up with pulmonology care and repeating the chest X-ray to ensure vigilance in the patient's ongoing respiratory care. We discussed the potential need to adjust inhaler medications if the current management is ineffective. The patient was made aware of his slightly elevated white blood cell results and advised that this could be monitored as part of assessing any ongoing infection or inflammation. We agreed on adjusting trazodone dosage to help maintain longer sleep duration. I highlighted the necessity of updating the tetanus vaccine and maintaining diligent management of his chronic pain and cardiovascular measures. Orders: Orders Complete Blood Count Auto Diff Today D64.9 - Anemia, unspecified Medications: New trazodone 150 mg PO BEDTIME PRN 90 tabs 1RF sleep 90 days Discontinued trazodone Discontinued Reason: Patient Completed Course 100 mg PO BEDTIME 90 days PRN 90 tabs 1RF sleep Patient Instructions: - Schedule repeat chest X-ray as soon as possible to monitor for any persistent concerns. - Continue using current medications for chronic pain as prescribed. - Take trazodone at adjusted dosage to sustain sleep and report any changes. - Attend the scheduled appointment with the plater printed circuit board panels on November 15 for respiratory care discussion. - Observe follow-up precautions for elevated white blood cell count. - Visit a pharmacy for a tetanus booster since last administered vaccine was in 2010. - Maintain lifestyle modifications, including avoidance of smoking and alcohol.
[2024-11-10 09:36] VITALS: BP 130/72; PULSE 74; O2SAT 97; BMI 19.9
--- OUTSIDE RECORDS SUMMARY | 2024-11-10 09:56 | XMS_ITS | Clinical Summary ---
Author Organization [facility] Address [address] [place] [address] Phone Care Team Providers Care Paraprofessional Interpreter Name Role Phone Francie Ann MD Primary Care Provider [phone] Encounters Date Type Department Care Team Description 10/04/2024 8:31 AM EST - 10/04/2024 11:59 PM EST Hospital Encounter [facility] PET Scan [address] [place] [address] Solitary pulmonary nodule Discharge Disposition: [...] (2 of 2) 03/17/2024 01/21/2024 RSV Immunization Adult Patients Completed 06/20/2023 Pneumococcal Vaccine: 50+ Years Completed [...] Signed Date: 10/05/2024 13:08 ET Workstation ID: [id number] Transcribed By: Self Edit Transcribed Date: 10/05/2024 [...] Signed Date: 10/05/2024 13:08 ET Workstation ID: [id number] Transcribed By: Self Edit Transcribed Date: 10/05/2024 12:59 ET Angela Michelle IM NM PROCEDURES Final Result from Last 3 Months Care Teams Paraprofessional Interpreter Relationship Specialty Start Date End Date Francie Ann MD [address] [place] [address] , [address] [facility]A: [facility] [place], [place] PCP - General Internal Medicine 01/29/22
== END 2024-11-10 10:20 | disposition home or self-care (01) ==
LOC: HO.HMCH 09:28
PROVIDERS: PCP Internal Medicine; Visit Provider Internal Medicine
DX: Z00.00 Encounter for general adult medical examination without abnormal findings (principal); J44.9 Chronic obstructive pulmonary disease, unspecified; J84.10 Pulmonary fibrosis, unspecified; G47.00 Insomnia, unspecified

== ENCOUNTER → 2024-11-10 09:27 | Outpatient (BNVA) | payer MEDICARE, SELFPAY | PROVIDERS: PCP Internal Medicine; Visit Provider Internal Medicine | DX: Z00.00 Encounter for general adult medical examination without abnormal findings (principal); R05.3 Chronic cough; J44.9 Chronic obstructive pulmonary disease, unspecified; J84.10 Pulmonary fibrosis, unspecified; G47.00 Insomnia, unspecified | CPT/HCPCS: 96127; 99212; 99397 ==

== ENCOUNTER 2024-11-18 11:46 | Day surgery (SDC) | payer MEDICARE, SELFPAY ==
--- OUTSIDE RECORDS SUMMARY | 2024-10-11 17:44 | XMS_ITS | Clinical Summary ---
Author Organization [facility] Address [address] [place] [address] Phone Care Team Providers Care County Surveyor Name Role Phone Francie Ann MD Primary Care Provider [phone] Encounters Date Type Department Care Team Description 10/04/2024 8:31 AM EST Hospital Encounter [facility] PET Scan [address] [place] [address] Solitary pulmonary nodule from Last 3 Months Surgical History Surgery Date Site/Laterality Comments TONSILLECTOMY ADENOIDECTOMY, BILATERAL MYRINGOTOMY AND TUBES PROCEDURE: AR TONSILLECTOMY & ADENOIDECTOMY <AGE 12 ROTATOR CUFF [...] Date Last Done Comments DTaP,Tdap,and Td Vaccines (2 - Td or Tdap) 05/21/2021 05/21/2011 Cholesterol Screening (Lipid Panel) 07/12/2022 Depression Screening 07/12/2022 Falls Risk Assessment 07/12/2022 Hepatitis C Screening 07/12/2022 Social Influencers of Health Screening 07/12/2022 Zoster Vaccines (2 of 2) 03/17/2024 01/21/2024 RSV Immunization Patients 60+ Years Old Completed 06/20/2023 Pneumococcal Vaccine: 50+ Years Completed 01/21/2024, 06/20/2023, 04/30/2021, Additional history exists COVID-19 Vaccine Completed 04/28/2024, 06/2023, 05/20/2022, Additional history exists Influenza Vaccine Completed 04/28/2024, , 05/20/2022, Additional history exists HIB Vaccines Aged Out No longer eligi [...] to complete this topic RSV Immunization Patients Under 20 months Aged Out No longer eligible based on patient's age to complete this topic Varicella Vaccines Aged Out No longer eligible based on patient's age to complete this topic Procedures Procedure Name Priority Date/Time Associated Diagnosis Comments PET CT SKULL TO MID THIGH INITIAL Routine 10/04/2024 9:57 AM EST Solitary pulmonary nodule from Last 3 Months Results * PET CT Skull to Mid Thigh Initial (10/04/2024 9:57 AM EST) Anatomical Region Laterality Modality Body Radiographic Mackenzie ging 10/05/2024 12:5 9 PM EST Impressions 10/05/2024 1:08 PM EST Metabolic activity within both lungs appears fairly complex associated with peripheral airspace disease, nodules as well as right upper lobe cavitary lesion. Consider both infectious/inflammatory as well as neoplastic causes. Focal activity along the cecum/ascending colon is nonspecific and may related to physiological process however wall thickening suspected underlying neoplastic lesion is not excluded. Consider correlation with colonoscopy. -------- FINAL REPORT -------- Dictated By: Farhan Sexton Dictated Date: 10/05/2024 12:59 ET Assigned Physician: Farhan Sexton Reviewed and Electronically Signed By: Farhan Sexton Signed Date: 10/05/2024 13:08 ET Workstation ID: [id number] Transcribed By: Self Edit Transcribed Date: 10/05/2024 12:59 ET Narrative 10/05/2024 1:08 PM EST INDICATION: Lung lesion on the right side noted on prior CAT scan, suspected lung cancer, initial treatment strategy Prior relevant studies: None Radiopharmaceutical: 12.5 mCi of F-18 FDG IV. Blood glucose: 86 mg/dl. PROCEDURE: Routine body FDG PET-CT imaging was performed from the skull base to the proximal/mid thighs and reconstructed in axial, coronal, and sagittal planes at the computer workstation with fused data from both the PET imaging study and attenuation correction CT. The CT portion of the examination was done strictly for attenuation correction and is not a true diagnostic CT examination. CTDI: 2.54 mGy FINDINGS: HEAD AND NECK: No abnormal FDG activity. THORAX: Abnormal activity noted within both lungs. On the right side cavitary process noted towards the lung apex with wall thickening and activity located along the wall thickening especially posteriorly with activity extending medially towards the hilum with SUV max of 6.3. FDG max of 5.7 in the right upper hilar region may represent hilar adenopathy versus central lesion. Scattered FDG avid small nodules noted within the right upper middle and lower lobes with FDG max 4.5 inferomedially within the right lower lobe. Peripheral airspace disease laterally in the left upper lobe with FDG max of 9.2. Peripheral airspace disease within the left lung base along the diaphragm with FDG max of 9.4. Smaller scattered nodules noted in the left upper and lower lobe with SUV max up to 4.9. Mild activity associated with pleural thickening within the left lung apex with SUV max of 2.4. No left hilar activity. No abnormal mediastinal activity. ABDOMEN/PELVIS: Focal activity associated with the cecum/ascending colon corresponding to region of wall thickening with FDG max up to 12.8. No abnormal hepatic or adrenal activity. No FDG avid abdominal or pelvic nodes. MUSCULOSKELETAL: Mild focal activity in the left shoulder correlating to postoperative changes with metallic hardware in this region. Procedure Note Farhan Sexton MD - 10/05/2024 INDICATION: Lung lesion on the right side noted on prior CAT scan,suspected lung cancer, initial treatment strategy Prior relevant studies: None Radiopharmaceutical: 12.5 mCi of F-18 FDG IV. Blood glucose: 86 mg/dl. PROCEDURE: Routine body FDG PET-CT imaging was performed from the skullbase to the proximal/mid thighs and reconstructed in axial, coronal, andsagittal planes at the computer workstation with fused data from both thePET imaging study and attenuation correction CT. The CT portion of theexamination was done strictly for attenuation correction and is not a truediagnostic CT examination. CTDI: 2.54 mGy FINDINGS: HEAD AND NECK: No abnormal FDG activity. THORAX: Abnormal activity noted within both lungs. On the right sidecavitary process noted towards the lung apex with wall thickening andactivity located along the wall thickening especially posteriorly withactivity extending medially towards the hilum with SUV max of 6.3. FDG maxof 5.7 in the right upper hilar region may represent hilar adenopathyversus central lesion. Scattered FDG avid small nodules noted within the right upper middle andlower lobes with FDG max 4.5 inferomedially within the right lower lobe. Peripheral airspace disease laterally in the left upper lobe with FDG maxof 9.2. Peripheral airspace disease within the left lung base along the diaphragmwith FDG max of 9.4. Smaller scattered nodules noted in the left upper and lower lobe with SUVmax up to 4.9. Mild activity associated with pleural thickening within the left lung apexwith SUV max of 2.4. No left hilar activity. No abnormal mediastinal activity. ABDOMEN/PELVIS: Focal activity associated with the cecum/ascending coloncorresponding to region of wall thickening with FDG max up to 12.8. No abnormal hepatic or adrenal activity. No FDG avid abdominal or pelvicnodes. MUSCULOSKELETAL: Mild focal activity in the left shoulder correlating topostoperative changes with metallic hardware in this region. IMPRESSION: Metabolic activity within both lungs appears fairly complex associatedwith peripheral airspace disease, nodules as well as right upper lobecavitary lesion. Consider both infectious/inflammatory as well asneoplastic causes. Focal activity along the cecum/ascending colon is nonspecific and mayrelated to physiological process however wall thickening suspectedunderlying neoplastic lesion is not excluded. Consider correlation withcolonoscopy. -------- FINAL REPORT -------- Dictated By: Farhan Sexton Dictated Date: 10/05/2024 12:59 ET Assigned Physician: Farhan Sexton Reviewed and Electronically Signed By: Farhan Sexton Signed Date: 10/05/2024 13:08 ET Workstation ID: [id number] Transcribed By: Self Edit Transcribed Date: 10/05/2024 12:59 ET Angela Michelle [facility] PROCEDURES Final Result from Last 3 Months Care Teams County Surveyor Relationship Specialty Start Date End Date Francie Ann MD [address] [facility] , [address] [facility]ician Associ D/B/A: [facility] NABIL Mares PCP - General Internal Medicine 01/29/22
--- OUTSIDE RECORDS SUMMARY | 2024-10-11 17:44 | XMS_ITS | Encounter Summary ---
Author Organization [facility] Address [address] [place] [address] Care Team Providers Care Windows Server Specialist Name Role Phone Francie Ann MD Primary Care Provider Reason for Referral * Imaging (Routine) - Pending Review Specialty Diagnoses / Procedures Referred By Kerline tripp Referred To Contact Radiology Diagnoses Solitary pulmonary nodule Procedures PET CT Skull to Mid Thigh Initial Angela Michelle Phone: tel: fax: [facility] Referral ID Status Reason Start Date Expiration Date V isits Requested Visits Authorized [id number] Pending Review 10/03/2024 10/03/2025 1 1 Reason for Visit * Imaging (Routine) - Pending Review Specialty Diagnoses / Procedures Referred By Kerline tripp Referred To Contact Radiology Diagnoses Solitary pulmonary nodule Procedures PET CT Skull to Mid Thigh Initial Angela Michelle Phone: tel: fax: [facility] Referral ID Status Reason Start Date Expiration Date V isits Requested Visits Authorized [id number] Pending Review 10/03/2024 10/03/2025 1 1 Encounter Details Date Type Department Care Team (Latest Contact Info) Description 10/04/2024 8:31 AM EST Hospital Encounter [facility] PET Scan [address] [place] [address] Solitary pulmonary nodule Social History Tobacco Use Types Packs/Day Years Used Date Smoking Tobacco: Never Assessed Alcohol Use Standard Drinks/Week Comments Yes 0 (1 standard drink = 0.6 oz pur e alcohol) Sex and Gender Information Value Date Recorded Sex Assigned at Not on file Legal Sex Male 10:06 PM EST Gender Identity Not on file Sexual Orientation Not on file documented as of this encounter Plan of Treatment Not on file documented as of this encounter Procedures Procedure Name Priority Date/Time Associated Diagnosis Comments PET CT SKULL TO MID THIGH INITIAL Routine 10/04/2024 9:57 AM EST Solitary pulmonary nodule documented in this encounter Results * PET CT Skull to Mid [...] Signed Date: 10/05/2024 13:08 ET Workstation ID: [id number] Transcribed By: Self Edit Transcribed Date: 10/05/2024 [...] Signed Date: 10/05/2024 13:08 ET Workstation ID: [id number] Transcribed By: Self Edit Transcribed Date: 10/05/2024 12:59 ET Angela Michelle [facility] PROCEDURES Final Result documented in this encounter Visit Diagnoses Diagnosis Solitary pulmonary nodule documented in this encounter Administered Medications Inactive Administered Medications - up to 3 most recent administrations Medication Order MAR Action Action Date Dose Rate Site F-18 FDG pet diag radio-isotope injection 12.5 millicurie 12.5 millicurie, intravenous, Once in imaging, Starting on Thu10/04/24 at 0850, For 1 dose Given 10/04/2024 8:50 AM EST 12.5 millicuries Left Antecubital documented in this encounter Orders Medications Ordered That Douglas ht Not Have Been Administered Count Last Ordered Date First Ordered Date F-18 FDG pet diag radio-isot ope injection 12.5 millicurie 1 10/04/2024 documented in this encounter Care Teams Windows Server Specialist Relationship Specialty Start Date End Date Francie Ann MD [address] [facility] , [address] [facility] Physician Associ D/B/A: [facility] NABIL Mares PCP - General Internal Medicine 01/29/22 documented as of this encounter
--- NOTE | 2024-10-19 12:08 | P.CONAN_ITS ---
Documented by User: Karen Milian NP 11/17/24 12:21 HPI - Anesthesia Eval Consult details Narrative: 78yo M for Bronchoscopy Fiberoptic, 11/18/24 TB precautions Follows [facility] Cardiology q1-2 years. Last office visit 10/2023. Had stress test, echo, carotid US after visit - OK prior CAD stenting remotely in 2008 AAA @ 4.6 PMFSH Active Problems Active Problems: All Active Problems Constipation (Acute) Pneumonia (Acute) Constipation (Acute) Cough (Acute) Cavitary lesion of lung (Acute) Osteoarthritis of right hip (Acute) Bronchitis (Acute) Right hip pain (Acute) Left hip pain (Acute) Neck pain (Acute) Lumbar radiculopathy (Acute) Incomplete bladder emptying (Acute) Rotator cuff arthropathy of left shoulder (Acute) Status post rotator cuff repair (Acute ~08/26/23) Pre-op evaluation (Acute) Right ankle pain (Acute) Left rotator cuff tear (Acute) Bladder trabeculation (Acute) Bladder diverticulum (Acute) Enlarged prostate (Acute) Urinary frequency (Acute) Nocturia (Acute) BPH (benign prostatic hyperplasia) (Acute) Impaired glucose tolerance (Acute) Cataract (Acute) Tendonitis of left rotator cuff (Acute) Biceps tendonitis on left (Acute) Physical exam (Acute) Painful arc syndrome of left shoulder (Acute) Arthritis of shoulder region, left, degenerative (Acute) Cervicalgia (Acute) Pulmonary nodule (Acute) Scarring of lung (Acute) Cervical spine degeneration (Acute) Mass of soft tissue of left upper extremity (Acute) Carotid stenosis, bilateral (Acute) Tubular adenoma of colon (Acute) LVH (left ventricular hypertrophy) (Acute) COPD (chronic obstructive pulmonary disease) (Acute) Lower urinary tract symptoms (Acute) Internal derangement of left shoulder (Acute) Pulmonary nodule (Acute) Pulmonary nodules (Acute ~10/15/23) Oral thrush (Acute) Chronic pain syndrome (Acute) Spondylosis, cervical (Acute) Postlaminectomy syndrome of cervical region (Acute) Left shoulder pain (Acute) Lung density on x-ray (Acute) Pulmonary fibrosis (Acute) Pleural effusion (Acute) H/O: CVA (cerebrovascular accident) (Acute) Screening for colon cancer (Acute) CAD (coronary artery disease) (Acute) Shoulder pain (Acute) Pure hypercholesterolemia (Acute) GERD (gastroesophageal reflux disease) (Acute) Essential hypertension (Acute) Neck pain (Acute) Past Medical History Medical History Ascending aortic aneurysm AAA (abdominal aortic aneurysm) without rupture Cough Diverticulitis Lower urinary tract symptoms Internal derangement of left shoulder Pulmonary nodule Preoperative clearance Pulmonary nodules (~10/15/23) Oral thrush Chronic pain syndrome Spondylosis, cervical Postlaminectomy syndrome of cervical region COPD (chronic obstructive pulmonary disease) Whiplash Left shoulder pain Lung density on x-ray Pulmonary fibrosis Pleural effusion H/O: pneumonia Felon of finger of left hand H/O: CVA (cerebrovascular accident) Left flank pain Aneurysmal dilatation Screening for colon cancer Annual physical exam CAD (coronary artery disease) Shoulder pain Pure hypercholesterolemia GERD (gastroesophageal reflux disease) Essential hypertension Neck pain Family History Family History Father Bone cancer Mother CVD (cardiovascular disease) Brother No problems noted. Sister No problems noted. Daughter No problems noted. Family history of problems with anesthesia: No Surgical History Surgical History Rotator cuff arthropathy of left shoulder History of repair of right rotator cuff Hx of cataract extraction History of right cataract extraction Hx of neck surgery History of back surgery History of hand surgery History of partial colectomy History of esophagogastroduodenoscopy (EGD) Hx of colonoscopy Stented coronary artery History of foot surgery History of hemicolectomy History of cervical spinal surgery History of laminectomy History of hernia repair History of appendectomy History of Problems with Anesthesia: No Social History Social History Household Members Other:: Daughter Housing: House Are you a primary manager medicare marketing to a significant other at home: No Do you presently have visiting nurse or other home services: No Alcohol intake: never Patient Tobacco Use Status: Former Tobacco user Years Smoked: once in a while e-Cigarette/Vaping Use: Never Used Second Hand Smoke Exposure: Yes 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 Have you been hit, kicked, punched, or otherwise hurt by someone within the past year? 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 Cognitive needs: No Hearing needs: No Vision needs: Yes (Glasses) Meds Allergies Allergy/AdvReac Type Severity Reaction Status Date / Time aspirin [ASA] Allergy Mild UPSET Verified 11/18/24 12:31 STOMACH PT TAKES BABY ASA INSTEAD, stomach upset acetaminophen [From Vicodin] AdvReac Severe upset Verified 11/18/24 12:31 stomach hydrocodone [From Vicodin] AdvReac Severe upset Verified 11/18/24 12:31 stomach Home Medications ?Medication ?Instructions ?Recorded ?Confirmed ?Last Taken ?Type aspirin 81 mg tablet,delayed 81 mg PO DAILY 07/12/20 11/18/24 08/25/23 History release (Adult Low Dose Aspirin) [id number] 300 mcg-K 60 1 tab PO DAILY 07/12/20 11/18/24 Unknown History mcg-lycop 600 mcg-lutein 300 mcg tablet (Centrum Silver Men) Exam Pertinent Lab Results Pertinent Lab Results: Laboratory Tests 10/18/24 16:42 WBC 18.7 H Hgb 11.2 L D Hct 34.1 L Plt Count 476 H D Sodium 136 Potassium 4.2 Chloride 104 Carbon Dioxide 23 BUN 20 H Creatinine 0.85 Narrative Narrative: PET scan at [facility] 10/04/2024 which showed Impression: Metabolic activity within both lungs appears fairly complex associated with peripheral airspace disease, nodules as well as right upper lobe cavitary lesion. Consider both infectious/inflammatory as well as neoplastic causes Focal activity along the cecum/ascending colon is nonspecific and may related to physiologic process however wall thickening suspected underlying neoplastic lesion is not excluded consider correlation with colonoscopy. 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 ECHO 2023 Conclusions: - Normal left ventricular size, thickness, and systolic function. The visually estimated ejection fraction is between 55-60%. - Normal right ventricular cavity size and systolic function. - There is mild dilatation of the ascending aorta measuring 4.20 cm. NM cardiolite stress test 2023 Impression: 1. Normal myocardial perfusion 2. Gated LVEF is 59% 3. Transient ischemic dilatation not present Assessment and Plan Assessment Anesthesia Assessment: Chart Reviewed Final Anesthetic Review Family History of Problems with Anesthesia: No History of Problems with Anesthesia: No Documented by User: Vicky Levy MD 11/18/24 12:48 [facility], [facility] Past Medical History Medical History Ascending aortic aneurysm AAA (abdominal aortic aneurysm) without rupture Cough Diverticulitis Lower urinary tract symptoms Internal derangement of left shoulder Pulmonary nodule Preoperative clearance Pulmonary nodules (~10/15/23) Oral thrush Chronic pain syndrome Spondylosis, cervical Postlaminectomy syndrome of cervical region COPD (chronic obstructive pulmonary disease) Whiplash Left shoulder pain Lung density on x-ray Pulmonary fibrosis Pleural effusion H/O: pneumonia Felon of finger of left hand H/O: CVA (cerebrovascular accident) Left flank pain Aneurysmal dilatation Screening for colon cancer Annual physical exam CAD (coronary artery disease) Shoulder pain Pure hypercholesterolemia GERD (gastroesophageal reflux disease) Essential hypertension Neck pain Family History Family History Father Bone cancer Mother CVD (cardiovascular disease) Brother No problems noted. Sister No problems noted. Daughter No problems noted. Surgical History Surgical History Rotator cuff arthropathy of left shoulder History of repair of right rotator cuff Hx of cataract extraction History of right cataract extraction Hx of neck surgery History of back surgery History of hand surgery History of partial colectomy History of esophagogastroduodenoscopy (EGD) Hx of colonoscopy Stented coronary artery History of foot surgery History of hemicolectomy History of cervical spinal surgery History of laminectomy History of hernia repair History of appendectomy Social History Social History Household Members Other:: Daughter Housing: House Are you a primary manager medicare marketing to a significant other at home: No Do you presently have visiting nurse or other home services: No Alcohol intake: never Patient Tobacco Use Status: Former Tobacco user Years Smoked: once in a while e-Cigarette/Vaping Use: Never Used Second Hand Smoke Exposure: Yes 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 Have you been hit, kicked, punched, or otherwise hurt by someone within the past year? 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 Cognitive needs: No Hearing needs: No Vision needs: Yes (Glasses) Meds Allergies Allergy/AdvReac Type Severity Reaction Status Date / Time aspirin [ASA] Allergy Mild UPSET Verified 11/18/24 12:31 STOMACH PT TAKES BABY ASA INSTEAD, stomach upset acetaminophen [From Vicodin] AdvReac Severe upset Verified 11/18/24 12:31 stomach hydrocodone [From Vicodin] AdvReac Severe upset Verified 11/18/24 12:31 stomach Home Medications ?Medication ?Instructions ?Recorded ?Confirmed ?Last Taken ?Type aspirin 81 mg tablet,delayed 81 mg PO DAILY 07/12/20 11/18/24 08/25/23 History release (Adult Low Dose Aspirin) gnyjixyb-kn-dmpeb 300 mcg-K 60 1 tab PO DAILY 07/12/20 11/18/24 Unknown History mcg-lycop 600 mcg-lutein 300 mcg tablet (Centrum Silver Men) Exam Airway Mallampati Class: II TM Dist: >3cm Neck ROM: Limited Heart: rrr Lungs: rhonchorus Assessment and Plan Assessment Anesthesia Assessment: Anesthesia Plan Discussed Final Anesthetic Review NPO: Yes ASA Class: III Final Preanesthetic Review: No Changes in Pt Med Stat, Meds/Allgs Chart Reviewed, Consent Obtained/Reviewed and Anes Risks/Benef Reviewed Patient Risk: Intermediate Procedure Risk: Intermediate Anesthetic Plan Anesthetic Plan: GA Disposition: Standard PACU
[2024-10-19 13:07] VITALS: BMI 19.9
[2024-11-18] VITALS (10 sets, daily range): BP systolic 79–126; BP diastolic 40–65; PULSE 62–73; RESP 18–20; TEMP 36.2–36.6; O2SAT 94–98; BMI 19.4
--- NOTE | ~2024-11-18 | XR_ITS ---
EXAMINATION: XR CHEST CLINICAL INFORMATION: bronchosopcy; status post right lung biopsy. COMPARISON: 10/18/2024. CT chest dated 07/04/2024. PET/CT 10/04/2024. TECHNIQUE: Frontal view of the chest was obtained. FINDINGS: The cardiac size is normal. The aorta is mildly uncoiled and diffusely calcified. Enlarged pulmonary arteries in the hilar regions suggesting pulmonary arterial hypertension. Mild retraction of the right nelson superiorly. There is pulmonary hyperaeration. A thick-walled cavitary abnormality in the right apex is unchanged. There are overlying surgical clips. Wedge-shaped opacity in the left lateral midlung is unchanged, as are patchy opacities in the left greater than right lung bases. There is no effusion or perceptible pneumothorax. Cervical fusion device at C6-7. Mild spinal degenerative changes. Surgical anchors noted in the left humeral head. XR/XR chest 1V IMPRESSION: No pneumothorax identified. Otherwise, stable pathologic changes in both lungs. Electronically signed by: Aj Bustos MD 11/18/2024 02:56 PM EDT
--- NOTE | 2024-11-18 12:25 | MHC.SHP ---
Pre-Procedural Eval Section A - 24 Hr Update-Section A only Date of Service: 11/18/24 The patient is an INPATIENT: No Changes since office visit: No Cold of Flu in the past 2 weeks, No New Medical Problems, No Changes in Medication and No Patient answered all questions Section B - Complete if H&P > 30 days Chief Complaint: Other disorders of lung Details of Present Illness: 78 y.o man with chronic cough and chest congestion Relevant Family History (Specify if Yes): No Present Medications: see Short Stay Collaborative assessment Medical History: Significant History History of Previous Operations: No relevant previous surgery Allergies: Allergies Allergy/AdvReac Type Severity Reaction Status Date / Time aspirin [ASA] Allergy Mild UPSET Verified 11/10/24 10:04 STOMACH PT TAKES BABY ASA INSTEAD, stomach upset acetaminophen [From Vicodin] AdvReac Severe upset Verified 11/10/24 10:04 stomach hydrocodone [From Vicodin] AdvReac Severe upset Verified 11/10/24 10:04 stomach Review of Systems Sugical H&P ROS: Negative: Constitution, Cardiovascular, Neurological, Psychiatric, Hem-Onc, Allergic/Immunologic, Gastrointestinal and Genitourinary and Yes, Specify: Respiratory (cough) Exam Surgical H&P Exam: Normal: HEENT, Normal: Heart, Normal: Lungs, Normal: Extremities, Normal: Abdomen, Normal: Skin and Normal: Neurological Plan Diagnosis/Plan: Change (cavirary lung disease and pneumonia, plan for a diagnostic bronchoscopy) I have reviewed the history and physical and performed a pertinent physical examination on my patient. No changes have occurred unless specified. Time Spent With Patient Time: Total time managing care of this patient today ____ minutes.
[2024-11-18] MEDS: Lactated Ringers 1,000 ML 100 ML IVCONT (12:36)
--- NOTE | 2024-11-19 03:18 | OP_ITS ---
DATE OF SERVICE: 11/18/2024 SURGEON: Boubacar Jamison MD PREOPERATIVE DIAGNOSIS: Cavitary lung disease. POSTOPERATIVE DIAGNOSIS: Cavitary lung disease. PROCEDURE PERFORMED: ESTIMATED BLOOD LOSS: COMPLICATIONS: ANESTHESIA: General endotracheal intubation. ASSISTANTS: SPECIMENS: ASA CLASSIFICATION: III. PROCEDURES PERFORMED: Bronchoscopy with transbronchial biopsies, brushings, and washings. DESCRIPTION OF PROCEDURE: After the patient was adequately sedated and intubated, the flexible digital bronchoscope was inserted with ET tube to the level of main franklin. The main franklin appeared to be sharp and normal in appearance. After that, the bronchoscope was navigated to the entire tracheobronchial tree that was extended up to the subsegmental airways. The patient had evidence of bronchiectatic airways and also moderate degree of purulent secretions primarily from the left upper lobe area and also the right upper lobe area. There was some area of erythema primarily in the right upper lobe opening, but no overt areas suggesting of endobronchial lesions or cancer. No evidence of any active bleeding. He did have some pigmentation to the mucosa secondary to likely smoking history. The bronchoscope was navigated to the right upper lobe where it was visualized closely primarily the apical and the posterior segment looking for any endobronchial disease. No evidence initially. Using microscopic and also a cytologic brush, that was introduced both into the right upper lobe and specimen was sent to the appropriate location. There was indeed some debris which appeared to be whitish in color, could be necrotic tissue primarily from the posterior segment of the right upper lobe. Washings were also provided. No evidence of any bleeding for that procedure. Subsequently after that, another brush was introduced into the left lower lobe for cytology and another brushing was also provided on the left upper and left lower lobe for microbiology. All the specimens and the brushings were sent to the appropriate location. Using forceps biopsies, we navigated to the right upper lobe posterior and apical segment and endobronchial biopsies and transbronchial biopsies were collected from that area placing the same formalin container. From the posterior segment, there was some additional debris that came out, appeared to be again necrotic tissue or purulent secretions that came out in clumps and that tissue will be sent to pathology. Some other tissue also collected through the washings and were sent to over to microbiology as well. The patient did not have any evidence of bleeding at the end of procedure, so therefore epinephrine was not used. After the airways were completely cleared off any debris and secretions, the bronchoscope was then removed. The total endoscopic time approximately around 25 minutes. Patient tolerated the procedure well and chest x-ray postoperatively still demonstrating the significant right upper lobe cavity. No evidence of any pneumothorax. No complications. TREAD CUTTER: None. MD MERLE Robles/GAL / [id number]
--- NOTE | 2024-11-20 20:55 | P.BOP_ITS ---
Brief Operative Note Date of Service: 11/20/24 Pre-op diagnosis: Cavitary lung disease Procedure: Bronchosocpy with transbronchial biopsies, brushings, washings Implants: Surgeon: Boubacar Jamison MD Anesthesia: GETA Was an Branch Operations Coordinator used for this Procedure?: No Estimated blood loss (mL): 0 Pathology: other (RUL transbronchial biopsies) Condition: stable Disposition: same day
== END 2024-11-18 15:42 | disposition home or self-care (01) ==
PROVIDERS: PCP Internal Medicine; Visit Provider Hospitalist
PROC: 0BJ08ZZ Inspection of Tracheobronchial Tree, Via Natural or Artificial Opening Endoscopic (ICD-10-PCS; CPT 31622; principal; 2024-11-18 13:30)
DX: J98.4 Other disorders of lung (principal); B37.1 Pulmonary candidiasis; J44.9 Chronic obstructive pulmonary disease, unspecified; R91.1 Solitary pulmonary nodule; J84.10 Pulmonary fibrosis, unspecified; J90 Pleural effusion, not elsewhere classified; Z87.01 Personal history of pneumonia (recurrent); Z87.891 Personal history of nicotine dependence; Z86.73 Personal history of transient ischemic attack (TIA), and cerebral infarction without residual deficits; G89.4 Chronic pain syndrome; M96.1 Postlaminectomy syndrome, not elsewhere classified; I25.10 Atherosclerotic heart disease of native coronary artery without angina pectoris; I71.40 Abdominal aortic aneurysm, without rupture, unspecified; I10 Essential (primary) hypertension; E78.00 Pure hypercholesterolemia, unspecified; Z79.82 Long term (current) use of aspirin; Z79.51 Long term (current) use of inhaled steroids; Z79.899 Other long term (current) drug therapy; Z88.5 Allergy status to narcotic agent; Z98.890 Other specified postprocedural states
CPT/HCPCS: 31628; 31623; 71045; 87070; 87102; 87106; 87116; 87118; 87205; 87206; 88112; 88305; 88312; J0171; J2003; J2371; J2405; J2704; J3010

== ENCOUNTER → 2024-11-18 11:46 | Outpatient (BNV) | payer MEDICARE, SELFPAY | PROVIDERS: PCP Internal Medicine; Visit Provider Hospitalist | DX: J98.4 Other disorders of lung (principal) | CPT/HCPCS: 31623; 31628 ==

== ENCOUNTER → 2024-11-18 14:28 | Outpatient (BNV) | payer MEDICARE, SELFPAY | PROVIDERS: PCP Internal Medicine; Visit Provider Radiology Diagnostic Radiology | DX: Z48.813 Encounter for surgical aftercare following surgery on the respiratory system (principal) | CPT/HCPCS: 71045 ==

== ENCOUNTER 2024-12-28 13:15 | Outpatient (AMB) | payer MEDICARE, SELFPAY ==
--- NOTE | 2024-12-28 13:21 | MHC.PC.OV ---
Vital Signs 12/28/24 13:22 Height 5 ft 6 in Weight 116 lb BMI 18.7 BP 112/70 Blood Pressure Location Lt brachial Position Sitting Pulse 91 Pulse Source Pulse Oximeter Pulse Oximetry (%) 95 Oxygen Delivery Method Room Air Intake Visit Reasons: discuss concerns about confusion Appeals Assistant Required: No Accompanied by: Daughter Holly Allergies aspirin [ASA] Allergy (Mild, Verified 12/28/24 13:29) UPSET STOMACH PT TAKES BABY ASA INSTEAD, stomach upset acetaminophen [From Vicodin] Adverse Reaction (Severe, Verified 12/28/24 13:29) upset stomach hydrocodone [From Vicodin] Adverse Reaction (Severe, Verified 12/28/24 13:29) upset stomach Medication List - Last Reconciled 12/28/24 by Francie Ann MD albuterol sulfate 90 mcg/actuation 2 puffs inhalation 6XD PRN aspirin (Adult Low Dose Aspirin) 81 mg PO DAILY atorvastatin 80 mg PO DAILY 90 days bisacodyl (Dulcolax (bisacodyl)) 5 mg PO BEDTIME Breo Ellipta 200-25 mcg/dose (fluticasone furoate-vilanterol) 1 ea inhalation DAILY NS clotrimazole 10 mg PO TID PRN 10 days doxazosin 8 mg (2 x 4 mg) PO BEDTIME 90 days ezetimibe 10 mg PO DAILY finasteride 5 mg PO DAILY 90 days [id number]-[id number] mcg (Centrum Silver Men) 1 tab PO DAILY omeprazole 20 mg PO DAILY 90 days oxycodone 10 mg PO Q6H PRN 30 days ropinirole 1 mg PO BEDTIME 90 days trazodone 150 mg PO BEDTIME PRN 90 days Tobacco use date assessed: 10/13/24 Fall risk assessment: No Falls in past year Last assessed Fall Risk: 12/28/24 Dental Screening Dental Screen Date: 10/13/24 HPI HPI Comments History of Present Illness Details The patient is a 78-year-old male presenting with memory loss and confusion. These symptoms began approximately two and a half to three weeks ago. The patient reports frequently getting lost in familiar surroundings, such as taking much longer to drive to his daughter's house, a destination he has visited many times over the years. Also, he has been leaving food out and forgetting about it, attributing some recent episodes of not feeling well to potentially consuming this food. He was hospitalized for pneumonia, during which his head CT revealed normal findings. Since his recovery from pneumonia, he has not returned to his cognitive baseline. The increase in trazodone for sleep issues coincided with the onset of more acute confusion. There is concurrent use of oxycodone, which may also contribute to his cognitive changes. This combination of medications is suspected to play a role in the progressing memory concerns, although this needs further evaluation. FORMERLY [facility] Medical History (Updated 12/28/24 @ 13:54 by Francie Ann MD) Ascending aortic aneurysm AAA (abdominal aortic aneurysm) without rupture Cough Diverticulitis Lower urinary tract symptoms Internal derangement of left shoulder Pulmonary nodule Preoperative clearance Pulmonary nodules (~10/15/23) Oral thrush Chronic pain syndrome Spondylosis, cervical Postlaminectomy syndrome of cervical region COPD (chronic obstructive pulmonary disease) Whiplash Left shoulder pain Lung density on x-ray Pulmonary fibrosis Pleural effusion H/O: pneumonia Felon of finger of left hand H/O: CVA (cerebrovascular accident) Left flank pain Aneurysmal dilatation Screening for colon cancer Annual physical exam CAD (coronary artery disease) Shoulder pain Pure hypercholesterolemia GERD (gastroesophageal reflux disease) Essential hypertension Neck pain Surgical History Rotator cuff arthropathy of left shoulder History of repair of right rotator cuff Hx of cataract extraction History of right cataract extraction Hx of neck surgery History of back surgery History of hand surgery History of partial colectomy History of esophagogastroduodenoscopy (EGD) Hx of colonoscopy Stented coronary artery History of foot surgery History of hemicolectomy History of cervical spinal surgery History of laminectomy History of hernia repair History of appendectomy Family History Father Bone cancer Mother CVD (cardiovascular disease) Brother No problems noted. Sister No problems noted. Daughter No problems noted. 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 Cognitive needs: No Hearing needs: No Vision needs: Yes (Glasses) Questionnaire Thrive Questionnaire Date Thrive assessed: 11/10/24 I am a: Patient What is your living situation today?: I have a steady place to live Within the past 12 months, did the food you bought not last and you didn't have the money to get more?: Sometimes True Within the past 12 months, did you worry whether your food would run out before you got money to buy more?: Often true Do you have trouble paying for medicines?: Yes Do you have trouble getting transportation to medical appointments?: No Do you have trouble paying your heating and electricity bill?: Yes Do you have trouble taking care of your child, family member or friend?: No Do you have trouble with day-to-day activities such as bathing, preparing meals, shopping, managing finances, etc.?: No Are you currently unemployed and looking for a job?: No Are you interested in more education?: No Please select the resources that you would like help with: None Currently or been in a relationship where the following occur: No concerns reported THRIVE Score: 3 AUDIT C Alcohol Use Questionnaire (AUDIT-C) 1. How often do you have a drink containing alcohol?: Never Total Score: 0 CHAS-7 AMB Questionnaire CHAS-7 Date CHAS - 7 assessed: 11/10/24 Feeling nervous, anxious, or on edge: 0 = Not at all Not being able to stop or control worryin = Not at all Worrying too much about different things: 0 = Not at all Source: Developed by Drs. Omar Cesar, Thalia Castillo, Bassam Pelletier and colleagues, with an educational becki from [employer]. Review of Systems Const All systems reviewed & are unremarkable except as noted in HPI and below Card Denies chest pain at rest, Denies chest pain with activity, Denies edema, Denies irregular heart rhythm, Denies claudication, Denies dyspnea, Denies dyspnea on exertion, Denies orthopnea, Denies paroxysmal nocturnal dyspnea and Denies slow heart rate Resp Denies cough, Denies dyspnea and Denies dyspnea on exertion Neuro Reports confusion Psych Reports confusion Physical exam (Primary Care) Vital Signs: Last Vital Signs Pulse 91 12/28/24 13:22 BP 112/70 12/28/24 13:22 Pulse Ox 95 12/28/24 13:22 Oxygen Delivery Method Room Air 12/28/24 13:22 BMI result Body Mass Index 18.7 Tobacco/Smoking Status: Tobacco use Status Tobacco use date assessed 10/13/24 12/28/24 13:26 Patient Tobacco Use Status Former Tobacco user 12/28/24 13:26 e-Cigarette/Vaping Use Never Used 12/28/24 13:26 Thrive Assessment: Date of Thrive Assessment Date Thrive assessed 11/10/24 12/28/24 13:26 Currently or been in a relationship where the following occur: No concerns reported Const General: confusion Orientation/consciousness: confusion Resp Effort & Inspection: normal respiratory effort Auscultation: clear to auscultation bilaterally Cardio Jugular venous distension: no JVD Rate: regular rate Rhythm: regular rhythm Heart sounds: S1 normal heart sound present and S2 normal heart sound present Neuro General: no focal motor deficits and confusion Extrem General: Yes full ROM Coding Level of Care Code Est Pt Level 4 (54042) Complex EM visit Add On G2211 Diagnoses Confusion R41.0 Insomnia G47.00 Arthritis of shoulder region, left, degenerative M19.012 Chronic obstructive pulmonary disease, unspecified COPD type J44.9 COPD type: unspecified COPD Pure hypercholesterolemia E78.00 Gastroesophageal reflux disease, unspecified whether esophagitis present K21.9 Esophagitis presence: esophagitis presence not specified Time Spent (min) 23 Assessment & Plan Assessment & Plan (1) Confusion: Code(s): R41.0 - Disorientation, unspecified Category: Medical (2) Insomnia: Code(s): G47.00 - Insomnia, unspecified Category: Medical (3) Arthritis of shoulder region, left, degenerative: Code(s): M19.012 - Primary osteoarthritis, left shoulder Category: Medical (4) COPD (chronic obstructive pulmonary disease): Comment: KNOWN CASE OF CHRONIC OBSTRUCTIVE PULMONARY DISEASE, MODERATELY SEVERE, CONTROLLED AT THIS TIME. HIS ACTIVITY LEVEL IS ONLY SLIGHTLY SUB OPTIMAL . Code(s): J44.9 - Chronic obstructive pulmonary disease, unspecified Category: Medical Qualifiers: COPD type: unspecified COPD Qualified Code(s): J44.9 - Chronic obstructive pulmonary disease, unspecified (5) Pure hypercholesterolemia: Code(s): E78.00 - Pure hypercholesterolemia, unspecified Category: Medical (6) GERD (gastroesophageal reflux disease): Code(s): K21.9 - Gastro-esophageal reflux disease without esophagitis Category: Medical Qualifiers: Esophagitis presence: esophagitis presence not specified Qualified Code(s): K21.9 - Gastro-esophageal reflux disease without esophagitis Plan The plan includes performing an MRI of the brain to check for structural brain changes since the patient is experiencing memory loss and confusion. Other investigations include comprehensive fasting labs to evaluate thyroid function, vitamin levels, and organ function. Adjustments to and monitoring of trazodone are recommended to assess its impact on cognitive function, alongside evaluating the role of long-term oxycodone use. A neurology referral is completed for cognitive evaluation. Additionally, educating the patient and family on vital pulmonary follow-up is emphasized due to biopsy findings suggestive of a mycobacterial infection. End-of-life care discussions were initiated, including ah-hmf-[id number] preferences and healthcare proxy documentation. MOLST FILLED WITH PATIENT TODAY. Patient was informed and verbally consented to the use of an ambient scribe for clinic note documentation during this visit. Orders: Orders UA CC w/rflx Micro + Cult Today R30.0 - Dysuria IRON PROFILE Today D64.9 - Anemia, unspecified Vitamin B12 and Folate Today E53.8 - Deficiency of other specified B group vitamins Lipid Panel Today E78.5 - Hyperlipidemia, unspecified Comprehensive Met. Panel Today R41.0 - Disorientation, unspecified Complete Blood Count Auto Diff Today D64.9 - Anemia, unspecified Vitamin D 25-OH Total Today E55.9 - Vitamin D deficiency, unspecified Thyroid Stimulating Hormone Today R41.0 - Disorientation, unspecified MR head/brain wo con Today R41.0 - Disorientation, unspecified Referrals Neurology Referral R41.0 - Disorientation, unspecified Patient Instructions: - Schedule and attend an MRI of the brain - Go to the lab for fasting tests as soon as possible - Temporarily stop taking trazodone; monitor effects on sleep and memory - Reschedule and attend pulmonary and urology appointments - Follow up with neurology as referred - Discuss and finalize healthcare proxy and DNR preferences with family - Monitor cognitive symptoms and report any significant changes
[2024-12-28 13:22] VITALS: BP 112/70; PULSE 91; O2SAT 95; BMI 18.7
--- OUTSIDE RECORDS SUMMARY | 2024-12-28 13:48 | XMS_ITS | Clinical Summary ---
Author Organization [facility] Address [address] [place] [address] Phone Care Team Providers Care Allied Health Teacher Name Role Phone Francie Ann MD Primary Care Provider [phone] Encounters Date Type Department Care Team Description 10/04/2024 8:31 AM EST - 10/04/2024 11:59 PM EST Hospital Encounter [facility] PET Scan [address] [place] [address] Solitary pulmonary nodule Discharge Disposition: Home or Self Care from Last 3 Months Surgical History Surgery Date Site/Laterality Comments TONSILLECTOMY ADENOIDECTOMY, BILATERAL MYRINGOTOMY AND TUBES PROCEDURE: [place] TONSILLECTOMY & ADENOIDECTOMY <AGE 12 ROTATOR CUFF [...] Zoster Vaccines (2 of 2) 03/17/2024 01/21/2024 COVID-19 Vaccine ( season) 2024 04/28/2024, 06/20/2023, 05/20/2022, Additional history exists RSV Immunization Adult Patients Completed 06/20/2023 Pneumococcal Vaccine: 50+ Years Completed 01/21/2024, 06/20/2023, 04/30/2021, Additional history exists Influenza Vaccine Completed 04/28/2024, [...] age to complete this topic Meningococcal B Vaccine Aged Out No l onger eligible based on patient's age to complete [...] Signed Date: 10/05/2024 13:08 ET Workstation ID: [id number] Transcribed By: Self Edit Transcribed Date: 10/05/2024 [...] Signed Date: 10/05/2024 13:08 ET Workstation ID: [id number] Transcribed By: Self Edit Transcribed Date: 10/05/2024 12:59 ET us Angela Michelle IM NM PROCEDURES Final Result from Last 3 Months Care Teams Allied Health Teacher Relationship Specialty Start Date End Date Francie Ann MD [address] [place] [address] , [address] [facility] D[facility] [place] PCP - General Internal Medicine 01/29/22
== END 2024-12-28 14:00 | disposition home or self-care (01) ==
LOC: HO.HMCH 13:16
PROVIDERS: PCP Internal Medicine; Visit Provider Internal Medicine
DX: R41.0 Disorientation, unspecified (principal); G47.00 Insomnia, unspecified; M19.012 Primary osteoarthritis, left shoulder; J44.9 Chronic obstructive pulmonary disease, unspecified; E78.00 Pure hypercholesterolemia, unspecified; K21.9 Gastro-esophageal reflux disease without esophagitis

== ENCOUNTER → 2024-12-28 13:15 | Outpatient (BNVA) | payer MEDICARE, SELFPAY | PROVIDERS: PCP Internal Medicine; Visit Provider Internal Medicine | DX: R41.0 Disorientation, unspecified (principal); G47.00 Insomnia, unspecified; M19.012 Primary osteoarthritis, left shoulder; J44.9 Chronic obstructive pulmonary disease, unspecified; E78.00 Pure hypercholesterolemia, unspecified; K21.9 Gastro-esophageal reflux disease without esophagitis | CPT/HCPCS: 99212 ==

== ENCOUNTER 2024-12-29 09:33 | Outpatient (REF) | payer MEDICARE, SELFPAY ==
[2024-12-29 10:39] LABS: MANUAL DIFF FLAG NO
--- OUTSIDE RECORDS SUMMARY | 2024-12-29 10:39 | XMS_ITS | Clinical Summary ---
Author Organization [facility] Address [address] [place] [address] Phone Care Team Providers Care Accounting File Clerk Name Role Phone Francie Ann MD Primary Care Provider [phone] Encounters Date Type Department Care Team Description 10/04/2024 8:31 AM EST - 10/04/2024 11:59 PM EST Hospital Encounter [facility] PET Scan [address] [place] [address] Solitary pulmonary nodule Discharge Disposition: Home or Self Care from Last 3 Months Surgical History Surgery Date Site/Laterality Comments TONSILLECTOMY ADENOIDECTOMY, BILATERAL MYRINGOTOMY AND TUBES PROCEDURE: IN TONSILLECTOMY & ADENOIDECTOMY <AGE 13 ROTATOR CUFF [...] Signed Date: 10/05/2024 13:08 ET Workstation ID: [id number] Transcribed By: Self Edit Transcribed Date: 10/05/2024 [...] Signed Date: 10/05/2024 13:08 ET Workstation ID: [id number] Transcribed By: Self Edit Transcribed Date: 10/05/2024 12:59 ET us Angela Michelle IM NM PROCEDURES Final Result from Last 3 Months Care Teams Accounting File Clerk Relationship Specialty Start Date End Date Francie Ann MD [address] [place] [address] , [address] [facility] [place] [facility] D/B/A: [facility] [place] PCP - General Internal Medicine 01/29/22
[2024-12-29 11:22] LABS: Basophils Percent Auto 0.5 % (0-2); Eosinophils Absolute Auto 0.1 X10*3/uL (0.0-0.4); Eosinophils Percent Auto 0.7 % (0-4); Hematocrit 37.9 % (42.0-52.0); Hemoglobin 12.3 g/dl (14.0-18.0); Imm Gran Abs Auto 0.04 X10*3/uL (0.00-0.03); Imm Gran Pct Auto 0.5 % (0.0-0.4); Lymphocytes Absolute Auto 0.9 X10*3/uL (1.2-4.9); Lymphocytes Percent Auto 10.1 % (20-40); Mean Corpuscular HGB Conc 32.5 g/dl (31.0-36.0); Mean Corpuscular Hemoglobin 24.9 pg (27.0-33.0); Mean Corpuscular Volume 76.9 fL (80.0-98.0); Mean Platelet Volume 8.3 fL (9.4-12.4); Monocytes Absolute Auto 0.9 X10*3/uL (0.1-1.2); Monocytes Percent Auto 10.4 % (2-11); Neutrophils Absolute Auto 6.8 x10*3/uL (2.0-8.3); Neutrophils Percent Auto 77.8 % (45-73); Platelet Count 502 X10*3/uL (160-400); Red Blood Count 4.93 X10*6/uL (4.60-5.80); Red Cell Distribution Width 16.5 % (11.0-16.0); White Blood Count 8.7 X10*3/uL (4.8-10.8)
[2024-12-29 12:14] LABS: Appearance Urine Clear; Color Urine Dark Yellow; Glucose Urine UA Negative (Negative); Leukocyte Esterase Urine Negative (Negative); Nitrite Urine Negative (Negative); PH 5.5 (5.0-9.0); Specific Gravity - Urine >= 1.030 (1.005-1.025); Urine Blood Negative (Negative); Urine Ketones Trace mg/dL (Negative); Urine Protein Trace mg/dL (Neg-Trace)
[2024-12-29 12:18] LABS: Folate 13.3 ng/mL (> or = 4.0); Vitamin B12 891 pg/mL (200-900)
[2024-12-29 13:04] LABS: Alanine Aminotransferase 13 U/L (0-40); Albumin Level 3.9 g/dL (3.5-5.0); Alkaline Phosphatase 139 U/L (39-117); Anion Gap 13 (12-20); Aspartate Amino Transferase 22 U/L (5-37); Bilirubin Total 0.6 mg/dL (0.0-1.0); Blood Urea Nitrogen 19 mg/dL (9-16); Calcium 9.7 mg/dL (8.4-10.2); Carbon Dioxide 25 mmol/L (22-29); Chloride 103 mmol/L (96-108); Cholesterol 132 mg/dL (<200); Estimated Glomerular Filt Rate > 60; Glucose Random 111 mg/dL (60-115); HDL Cholesterol 37 mg/dL (>40); Iron 13 mcg/dL (45-160); LDL Cholesterol Calculated 82 mg/dL (<100); Percent Iron Saturation 5 % (15-50); Sodium 137 mmol/L (135-145); Thyroid Stimulating Hormone 0.96 uIU/mL (0.32-4.0); Total Iron Binding Capacity 256 mcg/dL (228-428); Total Protein 7.2 g/dL (6.5-8.0); Triglycerides 68 mg/dL (<150); Unsaturated Iron Binding 243 ug/dL; Vitamin D 25-OH Total 49.7 ng/mL (>30)
== END 2024-12-29 09:34 | disposition home or self-care (01) ==
LOC: HO.LAB 09:33
PROVIDERS: Absent Provider Internal Medicine; PCP Internal Medicine; Visit Provider Internal Medicine
DX: J44.9 Chronic obstructive pulmonary disease, unspecified (principal); R30.0 Dysuria; E53.8 Deficiency of other specified B group vitamins; E78.5 Hyperlipidemia, unspecified; D64.9 Anemia, unspecified; R41.0 Disorientation, unspecified; E55.9 Vitamin D deficiency, unspecified; Z22.39 Carrier of other specified bacterial diseases; J84.10 Pulmonary fibrosis, unspecified; J98.4 Other disorders of lung
CPT/HCPCS: 36415; 80053; 80061; 81003; 82306; 82607; 82746; 83540; 84443; 85025; 99212

== ENCOUNTER 2024-12-29 09:33 | Outpatient (AMB) | payer MEDICARE, SELFPAY ==
[2024-12-29 09:38] VITALS: BP 112/60; PULSE 101; O2SAT 97; BMI 18.7
--- NOTE | 2024-12-29 09:38 | MHC.OFFVIS ---
Vital Signs 12/29/24 09:38 Height 5 ft 6 in Weight 115 lb 11.883 oz BMI 18.7 BP 112/60 Blood Pressure Location Lt brachial Position Sitting Pulse 101 H Pulse Source Pulse Oximeter Pulse Oximetry (%) 97 Oxygen Delivery Method Room Air Intake Visit Reasons: S/p bronchoscopy Intake Note: pt is here for follow up and states he is coughging and shortness of breath, since pneumonia he has some mental health changes that pcp is working up. her for bronch results. Home Lighting Adviser Required: No Allergies aspirin [ASA] Allergy (Mild, Verified 12/29/24 09:51) UPSET STOMACH PT TAKES BABY ASA INSTEAD, stomach upset acetaminophen [From Vicodin] Adverse Reaction (Severe, Verified 12/29/24 09:51) upset stomach hydrocodone [From Vicodin] Adverse Reaction (Severe, Verified 12/29/24 09:51) upset stomach Medication List - Last Reconciled 12/29/24 by Angela Michelle MD albuterol sulfate 90 mcg/actuation 2 puffs inhalation 6XD PRN aspirin (Adult Low Dose Aspirin) 81 mg PO DAILY atorvastatin 80 mg PO DAILY 90 days bisacodyl (Dulcolax (bisacodyl)) 5 mg PO BEDTIME Breo Ellipta 200-25 mcg/dose (fluticasone furoate-vilanterol) 1 ea inhalation DAILY NS clotrimazole 10 mg PO TID PRN 10 days doxazosin 8 mg (2 x 4 mg) PO BEDTIME 90 days ezetimibe 10 mg PO DAILY finasteride 5 mg PO DAILY 90 days [id number]-[id number]-[id number]-qghted [id number] mcg (Centrum Silver Men) 1 tab PO DAILY omeprazole 20 mg PO DAILY 90 days oxycodone 10 mg PO Q6H PRN 30 days ropinirole 1 mg PO BEDTIME 90 days trazodone 150 mg PO BEDTIME PRN 90 days Do you need a note to return to daycare/school/sports/work: No HPI HPI S/p bronchoscopy: Details: Be is 78 years old thin built gentleman, with advanced chronic obstructive pulmonary disease and persistent cavitary lesion in the right upper lobe. He had bronchoscopy performed by Dr. Jamison. The lab report shows that it is, negative for malignant cells He has growth of mycobacterium avium , ( atypical TB ) which is most likely overgrowth due to his persistent cavitary lesion, He continues to have frequent cough with some expectoration, Shortness of breath is not as much as long as he is sitting and resting. He does have shortness of breath on walking around. He is staying mostly in the house and does not walk around much. He has the suboptimal nutritional support and is gradually losing weight. Today his daughter came with him, and she is looking after his nutrition, and providing all possible support. [facility] Medical History (Updated 12/29/24 @ 10:09 by Angela Michelle MD) Mycobacterium avium complex colonization Ascending aortic aneurysm AAA (abdominal aortic aneurysm) without rupture Cough Diverticulitis Lower urinary tract symptoms Internal derangement of left shoulder Pulmonary nodule Preoperative clearance Pulmonary nodules (~10/15/23) Oral thrush Chronic pain syndrome Spondylosis, cervical Postlaminectomy syndrome of cervical region COPD (chronic obstructive pulmonary disease) Whiplash Left shoulder pain Lung density on x-ray Pulmonary fibrosis Pleural effusion H/O: pneumonia Felon of finger of left hand H/O: CVA (cerebrovascular accident) Left flank pain Aneurysmal dilatation Screening for colon cancer Annual physical exam CAD (coronary artery disease) Shoulder pain Pure hypercholesterolemia GERD (gastroesophageal reflux disease) Essential hypertension Neck pain Surgical History Rotator cuff arthropathy of left shoulder History of repair of right rotator cuff Hx of cataract extraction History of right cataract extraction Hx of neck surgery History of back surgery History of hand surgery History of partial colectomy History of esophagogastroduodenoscopy (EGD) Hx of colonoscopy Stented coronary artery History of foot surgery History of hemicolectomy History of cervical spinal surgery History of laminectomy History of hernia repair History of appendectomy Family History Father Bone cancer Mother CVD (cardiovascular disease) Brother No problems noted. Sister No problems noted. Daughter No problems noted. 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 Cognitive needs: No Hearing needs: No Vision needs: Yes (Glasses) Review of Systems Const All systems reviewed & are unremarkable except as noted in HPI and below Eyes Reports no additional complaints ENT Reports no additional complaints Card Denies chest pain, Denies irregular heart rhythm and Denies leg edema Resp Reports as per HPI GI Reports heartburn (Controlled with med) Reports no additional complaints Musc Reports back pain Skin/Breast Reports system reviewed and no additional complaints, except as documented Neuro Reports no additional complaints Psych Reports no additional complaints Endo Reports no additional complaints Physical Exam Vital Signs: Last Vital Signs Pulse 101 H 12/29/24 09:38 BP 112/60 12/29/24 09:38 Pulse Ox 97 12/29/24 09:38 Oxygen Delivery Method Room Air 12/29/24 09:38 BMI result Body Mass Index 18.7 Const General: comfortable, no acute distress, alert and awake Orientation/consciousness: patient oriented x3 HEENT Head: Yes normal to inspection General nose exam: No nasal polyps present and No nasal discharge present Face and sinus: Yes sinuses nontender Mouth: oropharynx normal Throat: Yes posterior oropharynx normal Eyes General: appearance normal, both eyes and all related structures Neck Neck: Yes normal visual inspection, Yes no lymphadenopathy, Yes trachea midline and Yes no JVD Thyroid: Thyroid normal Chest Chest palpation & inspection: normal inspection of the chest, normal palpation of entire chest wall and no tenderness Resp Other: Percussion note hyper-resonant on both sides, Breath sounds are distant with prolonged expiratory phase. No wheezes rhonchi or crepitations are heard. Cardio Palpation: normal PMI Rate: regular rate Rhythm: regular rhythm Heart sounds: no gallops and no murmurs Peripheral pulses: Peripheral pulses 2+ throughout GI Palpation (GI): Soft to palpation, nontender, No hepatosplenomegaly present and no masses Auscultation: normal bowel sounds Back/Spine/Pelvis Thoracic/Lumbar Spine: thoracic and lumbar spine normal to inspection Skin General skin exam: no rashes or lesions noted Neuro General: patient oriented x3 and no focal motor deficits Cranial nerves: Yes CN's II-XII intact bilaterally Extrem General: Yes normal to inspection, Yes no clubbing, cyanosis or edema and Yes no calf tenderness Psych Appearance: grossly normal and well kempt Speech and movement: Normal speech and movement present Results Reviewed Results Reviewed: Results of bronchoscopy and the sputum cultures reviewed with the patient. Patient had growth of mycobacterium avium complex, no malignant cells. Assessment & Plan Assessment & Plan (1) COPD (chronic obstructive pulmonary disease): Comment: KNOWN CASE OF CHRONIC OBSTRUCTIVE PULMONARY DISEASE, MODERATELY SEVERE, CONTROLLED AT THIS TIME. HIS ACTIVITY LEVEL IS ONLY SLIGHTLY SUB OPTIMAL . Code(s): J44.9 - Chronic obstructive pulmonary disease, unspecified Category: Medical Qualifiers: COPD type: unspecified COPD Qualified Code(s): J44.9 - Chronic obstructive pulmonary disease, unspecified Plan: Continue to use Breo Ellipta 200-251 inhalation daily, albuterol HFA 2 puffs Q 6 hours p.r.n.. (2) Pulmonary fibrosis: Comment: As per his previous the CT scan, patient does have pleural and parenchymal scarring in right upper lobe, related to his previous surgery. Patient had thoracostomy and repair of ruptured lung in mid 90s. It is staying quite stable. Code(s): J84.10 - Pulmonary fibrosis, unspecified Category: Medical Plan: No further treatment (3) Cavitary lesion of lung: Comment: Has had chronic cavitary lesion in the right upper lobe. Recent bronchoscopy and culture of sputum, grew mycobacterium avium complex. Code(s): J98.4 - Other disorders of lung Category: Medical Plan: See below under mycobacterium avium (4) Mycobacterium avium complex colonization: Comment: Patient has chronic colonization, with mycobacterium avium complex. This is result of chronic , bronchitis and chronic cavitary lesion in the right upper lobe. Would be difficult to treat and eradicate. At present he does not have any fever chills or significant amount of expectoration. Code(s): Z22.39 - Carrier of other specified bacterial diseases Category: Medical Plan: Treatment of MAC . Is difficult in his case. It would require at least 3 anti TB meds, which he may not tolerate. I would start with azithromycin 250 mg 1 daily on continuous basis, if he tolerates it well then increase the dose to 500 mg daily. Next step would be to add ethambutol or rifampin, Patient to be seen on a monthly basis. Medications: New azithromycin 250 mg PO DAILY 36 days 36 tabs 0RF COPD? Mycobacterium Avium MDD Chronic Bronchitis/MAC Coding Level of Care Code Est Pt Level 4 (38164) Diagnoses Chronic obstructive pulmonary disease, unspecified COPD type J44.9 COPD type: unspecified COPD Pulmonary fibrosis J84.10 Cavitary lesion of lung J98.4 Mycobacterium avium complex colonization Z22.39
--- OUTSIDE RECORDS SUMMARY | 2024-12-29 09:51 | XMS_ITS | Clinical Summary ---
Author Organization [facility] Address [address] [place] [address] Phone Care Team Providers Care Internal Medicine Doctor Name Role Phone Francie Ann MD Primary Care Provider [phone] Encounters Date Type Department Care Team Description 10/04/2024 8:31 AM EST - 10/04/2024 11:59 PM EST Hospital Encounter [facility] PET Scan [address] [place] [address] Solitary pulmonary nodule Discharge Disposition: [...] Signed Date: 10/05/2024 13:08 ET Workstation ID: [id number] Transcribed By: Self Edit Transcribed Date: 10/05/2024 [...] Signed Date: 10/05/2024 13:08 ET Workstation ID: [id number] Transcribed By: Self Edit Transcribed Date: 10/05/2024 12:59 ET us Angela Michelle IM NM PROCEDURES Final Result from Last 3 Months Care Teams Internal Medicine Doctor Relationship Specialty Start Date End Date Francie Ann MD [address] [place] [address] , [address] [facility] D[facility]A: [facility] [place] PCP - General Internal Medicine 01/29/22
== END 2024-12-29 10:01 | disposition home or self-care (01) ==
LOC: HO.HPS 09:34
PROVIDERS: PCP Internal Medicine; Visit Provider Internal Medicine
DX: J44.9 Chronic obstructive pulmonary disease, unspecified (principal); J84.10 Pulmonary fibrosis, unspecified; J98.4 Other disorders of lung; Z22.39 Carrier of other specified bacterial diseases
CPT/HCPCS: 99214

== ENCOUNTER 2025-01-21 11:11 | Outpatient (REF) | payer MEDICARE, SELFPAY ==
--- NOTE | ~2025-01-21 | XR_ITS ---
CLINICAL HISTORY: R O metallic foreign body in eye. Exam: AP, Esposito, and lateral view of the orbits. MRI Screening XR PRE MRI SCREENING Comparison: None Findings: No acute fractures. Paranasal sinuses and mastoids are clear. Patient is edentulous. No radiopaque foreign body. IMPRESSION: 1. No metallic foreign bodies in the orbits. This document has been electronically signed by: German Grimaldo MD on 01/21/2025 11:51:38
--- NOTE | ~2025-01-21 | MR_ITS ---
CLINICAL HISTORY: R41.0 - Disorientation, unspecified MR Brain without gadolinium Comparison: None Findings: No restricted diffusion. No intra-axial mass or hemorrhage. Mild cerebral atrophy and compensatory ventriculomegaly. There are a few scattered T2 and FLAIR foci of hyperintensity in the periventricular and subcortical white matter of both cerebral hemispheres, consistent with chronic small-vessel ischemic gliosis of aging. No midline shift. No hydrocephalus. Vascular flow voids are intact. There has been previous bilateral lens surgery in the globes. The sinuses are clear. There is a small amount of fluid within the left mastoid air cells. No focal bone lesion. IMPRESSION: 1. No acute intracranial findings. 2. Mild cerebral atrophy and mild chronic small-vessel ischemic gliosis. 3. Small left mastoid effusion. This document has been electronically signed by: Cole Mijares MD on 01/21/2025 14:49:28
--- OUTSIDE RECORDS SUMMARY | 2025-01-21 11:13 | XMS_ITS | Clinical Summary ---
Author Organization [facility] Address [address] [place] [address] Phone Care Team Providers Care Finance Officer Name Role Phone Francie Ann MD Primary Care Provider [phone] Surgical History Surgery Date Site/Laterality Comments TONSILLECTOMY ADENOIDECTOMY, BILATERAL MYRINGOTOMY AND TUBES PROCEDURE: [place] TONSILLECTOMY & ADENOIDECTOMY <AGE 13 ROTATOR CUFF [...] (2 of 2) 03/17/2024 01/21/2024 COVID-19 Vaccine (2023- season) 2024 04/28/2024, 06/20/2023, 05/20/2022, Additional history [...] age to complete this topic Care Teams Finance Officer Relationship Specialty Start Date End Date Francie Ann MD [address] [place] [address] , [address] [facility] D/B/A: [facility] NABIL Mares PCP - General Internal Medicine 01/29/22
== END 2025-01-21 11:12 | disposition home or self-care (01) ==
LOC: HO.MRI 11:11
PROVIDERS: PCP Internal Medicine; Visit Provider Internal Medicine
DX: R41.0 Disorientation, unspecified (principal)
CPT/HCPCS: 70551

== ENCOUNTER → 2025-01-21 11:16 | Outpatient (BNV) | payer MEDICARE, SELFPAY | PROVIDERS: PCP Internal Medicine; Visit Provider Radiology Diagnostic Radiology | DX: G31.9 Degenerative disease of nervous system, unspecified (principal) | CPT/HCPCS: 70551 ==

== ENCOUNTER 2025-01-26 09:54 | Outpatient (AMB) | payer MEDICARE, SELFPAY ==
[2025-01-26 10:11] VITALS: BP 102/64; PULSE 77; O2SAT 96; BMI 19.2
--- NOTE | 2025-01-26 10:11 | A.OFFVIS_ITS ---
Vital Signs 01/26/25 10:11 Height 5 ft 6 in Weight 119 lb 0.794 oz BMI 19.2 BP 102/64 Blood Pressure Location Lt brachial Position Sitting Pulse 77 Pulse Source Pulse Oximeter Pulse Oximetry (%) 96 Oxygen Delivery Method Room Air Intake Visit Reasons: COPD Intake Note: pt is here for follow up and states he is feeling okay, cough is not as congested. did will on zithromax. Relay Motorman Required: No Allergies aspirin (ASA) Allergy (Mild, Verified 01/26/25 10:39) UPSET STOMACH PT TAKES BABY ASA INSTEAD, stomach upset acetaminophen (From Vicodin) Adverse Reaction (Severe, Verified 01/26/25 10:39) upset stomach hydrocodone (From Vicodin) Adverse Reaction (Severe, Verified 01/26/25 10:39) upset stomach Medication List - Last Reconciled 01/26/25 by Angela Michelle MD albuterol sulfate 90 mcg/actuation 2 puffs inhalation 6XD PRN aspirin (Adult Low Dose Aspirin) 81 mg PO DAILY atorvastatin 80 mg PO DAILY 90 days azithromycin 250 mg PO DAILY 36 days MDD Chronic Bronchitis/MAC bisacodyl (Dulcolax (bisacodyl)) 5 mg PO BEDTIME Breo Ellipta 200-25 mcg/dose (fluticasone furoate-vilanterol) 1 ea inhalation DAILY NS clotrimazole 10 mg PO TID PRN 10 days doxazosin 8 mg (2 x 4 mg) PO BEDTIME 90 days ezetimibe 10 mg PO DAILY ferrous sulfate 325 mg PO DAILY 90 days finasteride 5 mg PO DAILY 90 days [id number] mcg (Centrum Silver Men) 1 tab PO DAILY omeprazole 20 mg PO DAILY 90 days oxycodone 10 mg PO Q6H PRN 30 days ropinirole 1 mg PO BEDTIME 90 days Do you need a note to return to daycare/school/sports/work: No HPI HPI COPD: Details: This 79 years old gentleman is here for follow-up after 1 month, In addition to advanced COPD he is also being treated for mycobacterium avium infection. He was started on azithromycin 250 mg daily which he has been taking every day, and denies any side effects. He as well as his both claims that his cough is less, he feels less congested, and does not bring up much phlegm. His appetite is somewhat improved, he has gained a few lb of weight. He is using his Breo once a day and albuterol inhaler only as needed He is not a cigarette smoker but he does smoke marijuana 2 to 3 times a day. [facility] Medical History Mycobacterium avium complex colonization Ascending aortic aneurysm AAA (abdominal aortic aneurysm) without rupture Cough Diverticulitis Lower urinary tract symptoms Internal derangement of left shoulder Pulmonary nodule Preoperative clearance Pulmonary nodules (~10/15/23) Oral thrush Chronic pain syndrome Spondylosis, cervical Postlaminectomy syndrome of cervical region COPD (chronic obstructive pulmonary disease) Whiplash Left shoulder pain Lung density on x-ray Pulmonary fibrosis Pleural effusion H/O: pneumonia Felon of finger of left hand H/O: CVA (cerebrovascular accident) Left flank pain Aneurysmal dilatation Screening for colon cancer Annual physical exam CAD (coronary artery disease) Shoulder pain Pure hypercholesterolemia GERD (gastroesophageal reflux disease) Essential hypertension Neck pain Surgical History Rotator cuff arthropathy of left shoulder History of repair of right rotator cuff Hx of cataract extraction History of right cataract extraction Hx of neck surgery History of back surgery History of hand surgery History of partial colectomy History of esophagogastroduodenoscopy (EGD) Hx of colonoscopy Stented coronary artery History of foot surgery History of hemicolectomy History of cervical spinal surgery History of laminectomy History of hernia repair History of appendectomy Family History Father Bone cancer Mother CVD (cardiovascular disease) Brother No problems noted. Sister No problems noted. Daughter No problems noted. 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 Cognitive needs: No Hearing needs: No Vision needs: Yes (Glasses) Review of Systems Const All systems reviewed & are unremarkable except as noted in HPI and below Eyes Reports no additional complaints ENT Reports no additional complaints Card Denies chest pain, Denies irregular heart rhythm and Denies leg edema Resp Reports as per HPI GI Reports heartburn (Controlled with med) Reports no additional complaints Musc Reports back pain Skin/Breast Reports system reviewed and no additional complaints, except as documented Neuro Reports no additional complaints Psych Reports no additional complaints Endo Reports no additional complaints Physical Exam Vital Signs: Last Vital Signs Pulse 77 01/26/25 10:11 BP 102/64 01/26/25 10:11 Pulse Ox 96 01/26/25 10:11 Oxygen Delivery Method Room Air 01/26/25 10:11 BMI result Body Mass Index 19.2 Const General: comfortable, no acute distress, alert and awake Orientation/consciousness: patient oriented x3 HEENT Head: Yes normal to inspection General nose exam: No nasal polyps present and No nasal discharge present Face and sinus: Yes sinuses nontender Mouth: oropharynx normal Throat: Yes posterior oropharynx normal Eyes General: appearance normal, both eyes and all related structures Neck Neck: Yes normal visual inspection, Yes no lymphadenopathy, Yes trachea midline and Yes no JVD Thyroid: Thyroid normal Chest Chest palpation & inspection: normal inspection of the chest, normal palpation of entire chest wall and no tenderness Resp Other: Percussion note hyper-resonant on both sides, Breath sounds are distant with prolonged expiratory phase. No wheezes rhonchi or crepitations are heard. Cardio Palpation: normal PMI Rate: regular rate Rhythm: regular rhythm Heart sounds: no gallops and no murmurs Peripheral pulses: Peripheral pulses 2+ throughout GI Palpation (GI): Soft to palpation, nontender, No hepatosplenomegaly present and no masses Auscultation: normal bowel sounds Back/Spine/Pelvis Thoracic/Lumbar Spine: thoracic and lumbar spine normal to inspection Skin General skin exam: no rashes or lesions noted Neuro General: patient oriented x3 and no focal motor deficits Cranial nerves: Yes CN's II-XII intact bilaterally Extrem General: Yes normal to inspection, Yes no clubbing, cyanosis or edema and Yes no calf tenderness Psych Appearance: grossly normal and well kempt Speech and movement: Normal speech and movement present Assessment & Plan Assessment & Plan (1) COPD (chronic obstructive pulmonary disease): Comment: KNOWN CASE OF CHRONIC OBSTRUCTIVE PULMONARY DISEASE, MODERATELY SEVERE, CONTROLLED AT THIS TIME. HIS ACTIVITY LEVEL IS BACK TO NORMAL BUT STILL REMAINS MINIMAL. Code(s): J44.9 - Chronic obstructive pulmonary disease, unspecified Category: Medical Qualifiers: COPD type: unspecified COPD Qualified Code(s): J44.9 - Chronic obstructive pulmonary disease, unspecified Plan: CONTINUE BREO ELLIPTA 200 25 1 INHALATION DAILY. USE ALBUTEROL HFA 2 PUFFS Q 6 HOURS ONLY P.R.N. (2) Pulmonary nodules: Onset Date: ~10/15/23 Comment: Multiple small nodules in the left upper lobe. Will monitor with yearly CT scan. 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 HAD BRONCHOSCOPY EXAMINATION AND BRONCHIAL WASHINGS. THE MAIN ORGANISM GROWN WAS MAVIUM . HE IS BEING TREATED WITH AZITHROMYCIN P.O. DAILY Code(s): R91.8 - Other nonspecific abnormal finding of lung field Category: Medical Plan: CONTINUE AZITHROMYCIN, DOZE IT INCREASED TO 500 MG DAILY (3) Cavitary lesion of lung: Comment: Has had chronic cavitary lesion in the right upper lobe. Recent bronchoscopy and culture of sputum, grew mycobacterium avium complex. Code(s): J98.4 - Other disorders of lung Category: Medical Plan: NOTED ABOVE UNDER PULMONARY NODULES, HE IS BEING TREATED WITH AZITHROMYCIN, FOR MYCOBACTERIUM COMPLEX. .HE IS TOLERATING IT OKAY (4) Mycobacterium avium complex colonization: Comment: Patient has chronic colonization, with mycobacterium avium complex. This is result of chronic , bronchitis and chronic cavitary lesion in the right upper lobe. Would be difficult to treat and eradicate. At present he does not have any fever chills or significant amount of expectoration. HE IS ON AZITHROMYCIN 2 MG ONCE A DAY AND IS TOLERATING WELL. CLINICALLY DEFINITELY IMPROVED, WITH LESS COUGH, LESS CHEST CONGESTION. Code(s): Z22.39 - Carrier of other specified bacterial diseases Category: Medical Plan: PLAN IS TO INCREASE AZITHROMYCIN TO 500 MG ONCE A DAY. WILL CHECK HIM IN 2 MONTHS, I DID NOT GO TO TRIPLE THERAPY BECAUSE OF HIGH INCIDENCE OF SIDE EFFECTS WITH THAT. AFTER A FEW MONTHS MAY ADD A 2ND AGENT SUCH RIFAMPIN ARE ETHAMBUTOL. BUT AT THE SAME TIME IT MAY BE BEST TO CONTINUE HIM ONLY 1 AGENT SO THAT HE CAN BE MORE COMPLIANT AND KEEP ON TOLERATING IT WELL. Medications: New azithromycin 500 mg PO DAILY 30 tabs 3RF MYCOBACTERIUM AVIUM 30 days Coding Level of Care Code Est Pt Level 3 (90076) Diagnoses Chronic obstructive pulmonary disease, unspecified COPD type J44.9 COPD type: unspecified COPD Pulmonary nodules R91.8 Cavitary lesion of lung J98.4 Mycobacterium avium complex colonization Z22.39
--- OUTSIDE RECORDS SUMMARY | 2025-01-26 10:57 | XMS_ITS | Clinical Summary ---
Author Organization [facility] Address [address] [place] [address] Phone Care Team Providers Care Video Game Repair Technician Name Role Phone Francie Ann MD Primary Care Provider [phone] Surgical History Surgery Date Site/Laterality Comments TONSILLECTOMY ADENOIDECTOMY, BILATERAL MYRINGOTOMY AND TUBES PROCEDURE: [place] TONSILLECTOMY & ADENOIDECTOMY <AGE 13 ROTATOR CUFF [...] age to complete this topic Care Teams Video Game Repair Technician Relationship Specialty Start Date End Date Francie Ann MD [address] [place] [address] , [address] [facility] D/B/A: [facility] NABIL Mares PCP - General Internal Medicine 01/29/22
== END 2025-01-26 10:42 | disposition home or self-care (01) ==
LOC: HO.HPS 09:54
PROVIDERS: PCP Internal Medicine; Visit Provider Internal Medicine
DX: J44.9 Chronic obstructive pulmonary disease, unspecified (principal); R91.8 Other nonspecific abnormal finding of lung field; J98.4 Other disorders of lung; Z22.39 Carrier of other specified bacterial diseases
CPT/HCPCS: 99213

== ENCOUNTER → 2025-01-26 09:54 | Outpatient (BNVA) | payer MEDICARE, SELFPAY | PROVIDERS: PCP Internal Medicine; Visit Provider Internal Medicine | DX: J44.9 Chronic obstructive pulmonary disease, unspecified (principal); J98.4 Other disorders of lung; R91.8 Other nonspecific abnormal finding of lung field; Z22.39 Carrier of other specified bacterial diseases | CPT/HCPCS: 99212 ==

== ENCOUNTER → 2025-03-07 11:52 | Outpatient (BNV) | payer MEDICARE, SELFPAY | PROVIDERS: PCP Internal Medicine; Referring Provider Student in an Organized Health Care Education/Training Program; Visit Provider Internal Medicine Medical Oncology | DX: D50.9 Iron deficiency anemia, unspecified (principal) | CPT/HCPCS: 99204 ==

== ENCOUNTER 2025-03-30 11:21 | Outpatient (AMB) | payer MEDICARE, SELFPAY ==
[2025-03-30 11:33] VITALS: BP 120/60; PULSE 60; O2SAT 97; BMI 18.9
--- NOTE | 2025-03-30 11:33 | A.OFFVIS_ITS ---
Vital Signs 03/30/25 11:33 Height 5 ft 6 in Weight 116 lb 13.52 oz BMI 18.9 BP 120/60 Blood Pressure Location Lt brachial Position Sitting Pulse 60 Pulse Source Pulse Oximeter Pulse Oximetry (%) 97 Oxygen Delivery Method Room Air Intake Visit Reasons: COPD Intake Note: pt is here for follow up and states he does have a cough with some production, and short of breath, but the cough is dry Bottom Precipitator Operator Required: No Allergies aspirin (ASA) Allergy (Mild, Verified 03/30/25 12:01) UPSET STOMACH PT TAKES BABY ASA INSTEAD, stomach upset acetaminophen (From Vicodin) Adverse Reaction (Severe, Verified 03/30/25 12:01) upset stomach hydrocodone (From Vicodin) Adverse Reaction (Severe, Verified 03/30/25 12:01) upset stomach Medication List - Last Reconciled 03/30/25 by Angela Michelle MD albuterol sulfate 90 mcg/actuation 2 puffs inhalation 6XD PRN aspirin (Adult Low Dose Aspirin) 81 mg PO DAILY atorvastatin 80 mg PO DAILY 90 days azithromycin 500 mg PO DAILY bisacodyl (Dulcolax (bisacodyl)) 5 mg PO BEDTIME Breo Ellipta 200-25 mcg/dose (fluticasone furoate-vilanterol) 1 ea inhalation DAILY NS clotrimazole 10 mg PO TID PRN 10 days doxazosin 8 mg (2 x 4 mg) PO BEDTIME 90 days ezetimibe 10 mg PO DAILY ferrous sulfate 325 mg PO DAILY 90 days finasteride 5 mg PO DAILY 90 days [id number] mcg (Centrum Silver Men) 1 tab PO DAILY omeprazole 20 mg PO DAILY 90 days oxycodone 10 mg PO Q6H PRN 30 days ropinirole 1 mg PO BEDTIME 90 days Do you need a note to return to daycare/school/sports/work: No HPI HPI COPD: Details: This 79 years old gentleman, with severe obstructive airway disorder, and cavitary/nodular lesions in the lungs especially in the right lung, is being treated. for COPD as well as Atypical mycobacterium avium super infection. He has been on azithromycin 500 mg p.o. daily for the last 2 months and is tolerating very well. He denies any side effects from azithromycin, And his daughter who came with him, claims that his appetite is better, cough is definitely less and less productive. He sleeps fairly good. [facility] Medical History Mycobacterium avium complex colonization Ascending aortic aneurysm AAA (abdominal aortic aneurysm) without rupture Cough Diverticulitis Lower urinary tract symptoms Internal derangement of left shoulder Pulmonary nodule Preoperative clearance Pulmonary nodules (~10/15/23) Oral thrush Chronic pain syndrome Spondylosis, cervical Postlaminectomy syndrome of cervical region COPD (chronic obstructive pulmonary disease) Whiplash Left shoulder pain Lung density on x-ray Pulmonary fibrosis Pleural effusion H/O: pneumonia Felon of finger of left hand H/O: CVA (cerebrovascular accident) Left flank pain Aneurysmal dilatation Screening for colon cancer Annual physical exam CAD (coronary artery disease) Shoulder pain Pure hypercholesterolemia GERD (gastroesophageal reflux disease) Essential hypertension Neck pain Surgical History Rotator cuff arthropathy of left shoulder History of repair of right rotator cuff Hx of cataract extraction History of right cataract extraction Hx of neck surgery History of back surgery History of hand surgery History of partial colectomy History of esophagogastroduodenoscopy (EGD) Hx of colonoscopy Stented coronary artery History of foot surgery History of hemicolectomy History of cervical spinal surgery History of laminectomy History of hernia repair History of appendectomy Family History Father Bone cancer Mother CVD (cardiovascular disease) Brother No problems noted. Sister No problems noted. Daughter No problems noted. 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 Cognitive needs: No Hearing needs: No Vision needs: Yes (Glasses) Review of Systems Const All systems reviewed & are unremarkable except as noted in HPI and below Eyes Reports no additional complaints ENT Reports no additional complaints Card Denies chest pain, Denies irregular heart rhythm and Denies leg edema Resp Reports as per HPI GI Reports heartburn (Controlled with med) Reports no additional complaints Musc Reports back pain Skin/Breast Reports system reviewed and no additional complaints, except as documented Neuro Reports no additional complaints Psych Reports no additional complaints Endo Reports no additional complaints Physical Exam Vital Signs: Last Vital Signs Pulse 60 03/30/25 11:33 BP 120/60 03/30/25 11:33 Pulse Ox 97 03/30/25 11:33 Oxygen Delivery Method Room Air 03/30/25 11:33 BMI result Body Mass Index 18.9 Const General: comfortable, no acute distress, alert and awake Orientation/consciousness: patient oriented x3 HEENT Head: Yes normal to inspection General nose exam: No nasal polyps present and No nasal discharge present Face and sinus: Yes sinuses nontender Mouth: oropharynx normal Throat: Yes posterior oropharynx normal Eyes General: appearance normal, both eyes and all related structures Neck Neck: Yes normal visual inspection, Yes no lymphadenopathy, Yes trachea midline and Yes no JVD Thyroid: Thyroid normal Chest Chest palpation & inspection: normal inspection of the chest, normal palpation of entire chest wall and no tenderness Resp Other: Percussion note hyper-resonant on both sides, Breath sounds are distant with prolonged expiratory phase. No wheezes rhonchi or crepitations are heard. Cardio Palpation: normal PMI Rate: regular rate Rhythm: regular rhythm Heart sounds: no gallops and no murmurs Peripheral pulses: Peripheral pulses 2+ throughout GI Palpation (GI): Soft to palpation, nontender, No hepatosplenomegaly present and no masses Auscultation: normal bowel sounds Back/Spine/Pelvis Thoracic/Lumbar Spine: thoracic and lumbar spine normal to inspection Skin General skin exam: no rashes or lesions noted Neuro General: patient oriented x3 and no focal motor deficits Cranial nerves: Yes CN's II-XII intact bilaterally Extrem General: Yes normal to inspection, Yes no clubbing, cyanosis or edema and Yes no calf tenderness Psych Appearance: grossly normal and well kempt Speech and movement: Normal speech and movement present Assessment & Plan Assessment & Plan (1) COPD (chronic obstructive pulmonary disease): Comment: KNOWN CASE OF CHRONIC OBSTRUCTIVE PULMONARY DISEASE, MODERATELY SEVERE, CONTROLLED AT THIS TIME. HIS ACTIVITY LEVEL IS BACK TO NORMAL BUT STILL REMAINS MINIMAL. Code(s): J44.9 - Chronic obstructive pulmonary disease, unspecified Category: Medical Qualifiers: COPD type: unspecified COPD Qualified Code(s): J44.9 - Chronic obstructive pulmonary disease, unspecified Plan: Breo 200-25 1 inhalation daily Albuterol HFA 2 puffs Q 4-6 hours p.r.n. for persistent cough or wheezing (2) Pulmonary fibrosis: Comment: As per his previous the CT scan, patient does have pleural and parenchymal scarring in right upper lobe, related to his previous surgery. Patient had thoracostomy and repair of ruptured lung in mid 90s. It is staying quite stable. Code(s): J84.10 - Pulmonary fibrosis, unspecified Category: Medical Plan: Just needs to be watched no active treatment. (3) Cavitary lesion of lung: Comment: Has had chronic cavitary lesion in the right upper lobe. Recent bronchoscopy and culture of sputum, grew mycobacterium avium complex. Code(s): J98.4 - Other disorders of lung Category: Medical Plan: The patient has been explained very well that the treatment for AVM complex is difficult. But we can try to treat him with triple therapy . Watching for the side effects, and progress. So far he has done very well with azithromycin 500 mg daily, tolerating it well, and his symptoms are definitely improved. Next step is to add rifampin , and see if he can tolerated well . The dose will be 300 mg PO DAILY , TO BE INCREASED TO 300 MG B.I.D. AFTER THE NEXT VISIT. (4) Pulmonary nodules: Onset Date: ~10/15/23 Comment: Multiple small nodules in the left upper lobe. Will monitor with yearly CT scan. 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 HAD BRONCHOSCOPY EXAMINATION AND BRONCHIAL WASHINGS. THE MAIN ORGANISM GROWN WAS MAVIUM . NO NEOPLASTIC CELLS WERE FOUND. HE IS BEING TREATED WITH AZITHROMYCIN P.O. DAILY Code(s): R91.8 - Other nonspecific abnormal finding of lung field Category: Medical Plan: CONTINUE TREATMENT FOR AVM COMPLEX , ADDING THE ANTI TUBERCULOSIS AGENTS 1 X 1. NOTED ABOVE HE IS TOLERATING AZITHROMYCIN 500 MG P.O. DAILY. I A.M. ADDING RIFAMPIN , CAUTIOUSLY AND HE WILL BE WATCH FOR ANY SIDE EFFECTS / BENEFITS. Medications: New rifampin 300 mg PO DAILY 30 caps 3RF MYCOBACTERIUM AVIUM INFECTION 30 days Coding Level of Care Code Est Pt Level 4 (74043) Diagnoses Chronic obstructive pulmonary disease, unspecified COPD type J44.9 COPD type: unspecified COPD Pulmonary fibrosis J84.10 Cavitary lesion of lung J98.4 Pulmonary nodules R91.8
== END 2025-03-30 11:55 | disposition home or self-care (01) ==
LOC: HO.HPS 11:22
PROVIDERS: PCP Internal Medicine; Visit Provider Internal Medicine
DX: J44.9 Chronic obstructive pulmonary disease, unspecified (principal); J84.10 Pulmonary fibrosis, unspecified; J98.4 Other disorders of lung; R91.8 Other nonspecific abnormal finding of lung field
CPT/HCPCS: 99214

== ENCOUNTER → 2025-03-30 11:21 | Outpatient (BNVA) | payer MEDICARE, SELFPAY | PROVIDERS: PCP Internal Medicine; Visit Provider Internal Medicine | DX: J44.9 Chronic obstructive pulmonary disease, unspecified (principal); J84.10 Pulmonary fibrosis, unspecified; J98.4 Other disorders of lung; A31.0 Pulmonary mycobacterial infection; R91.8 Other nonspecific abnormal finding of lung field; Z87.891 Personal history of nicotine dependence | CPT/HCPCS: 99212 ==

== ENCOUNTER 2025-04-12 09:53 | Outpatient (REF) | payer MEDICARE, SELFPAY ==
[2025-04-12 11:28] LABS: MANUAL DIFF FLAG NO
[2025-04-12 11:54] LABS: Hematocrit 42.3 % (42.0-52.0); Hemoglobin 14.1 g/dl (14.0-18.0); Imm Gran Abs Auto 0.03 X10*3/uL (0.00-0.03); Imm Gran Pct Auto 0.4 % (0.0-0.4); Lymphocytes Absolute Auto 1.0 X10*3/uL (1.2-4.9); Mean Corpuscular HGB Conc 33.3 g/dl (31.0-36.0); Mean Corpuscular Hemoglobin 26.4 pg (27.0-33.0); Mean Corpuscular Volume 79.1 fL (80.0-98.0); NRBC Abs Auto 0.000 X10*3/uL (0.0-0.012); NRBC Pct Auto 0.0 /100WBC (0.0-0.2); Platelet Count 378 X10*3/uL (160-400); Red Blood Count 5.35 X10*6/uL (4.60-5.80); White Blood Count 7.9 X10*3/uL (4.8-10.8)
[2025-04-12 12:44] LABS: Magnesium 2.1 mg/dL (1.6-2.6)
[2025-04-12 12:53] LABS: Thyroid Stimulating Hormone 1.01 uIU/mL (0.32-4.0)
[2025-04-12 12:54] LABS: HIV Num 1 0.07 S/CO (0.00-0.99)
[2025-04-12 12:55] LABS: Syphilis Screen Nonreactive (Nonreactive)
[2025-04-12 13:08] LABS: Folate 7.2 ng/mL (> or = 4.0); Vitamin B12 721 pg/mL (200-900)
== END 2025-04-12 09:54 | disposition home or self-care (01) ==
LOC: HO.LAB 09:53
PROVIDERS: PCP Internal Medicine; Visit Provider Internal Medicine
DX: Z11.4 Encounter for screening for human immunodeficiency virus [HIV] (principal); E53.8 Deficiency of other specified B group vitamins; R41.3 Other amnesia; R25.2 Cramp and spasm; D64.9 Anemia, unspecified; J84.10 Pulmonary fibrosis, unspecified; J44.9 Chronic obstructive pulmonary disease, unspecified; K21.9 Gastro-esophageal reflux disease without esophagitis; D50.9 Iron deficiency anemia, unspecified; R91.8 Other nonspecific abnormal finding of lung field; J91.8 Pleural effusion in other conditions classified elsewhere; J98.4 Other disorders of lung; I25.10 Atherosclerotic heart disease of native coronary artery without angina pectoris; F11.20 Opioid dependence, uncomplicated; Z79.82 Long term (current) use of aspirin; Z79.899 Other long term (current) drug therapy
CPT/HCPCS: 36415; 82607; 82746; 83735; 84443; 85025; 86780; 87389; 99212

== ENCOUNTER 2025-04-12 09:53 | Outpatient (AMB) | payer MEDICARE, SELFPAY ==
--- NOTE | 2025-04-12 09:58 | A.OFFPC_ITS ---
Vital Signs 04/12/25 09:59 Height 5 ft 6 in Weight 114 lb 8 oz BMI 18.5 BP 110/78 Blood Pressure Location Lt brachial Position Sitting Pulse 80 Pulse Source Pulse Oximeter Temp 97.3 F Temp Source Temporal Artery Scan Pulse Oximetry (%) 95 Oxygen Delivery Method Room Air Intake Visit Reasons: bp,copd Intake Note: Patient is here to follow up on BP, COPD. Warehouse Shipping Receiving Clerk Required: No Furnace Attendant: Present Accompanied by: Daughter Allergies aspirin (ASA) Allergy (Mild, Verified 04/12/25 10:16) UPSET STOMACH PT TAKES BABY ASA INSTEAD, stomach upset acetaminophen (From Vicodin) Adverse Reaction (Severe, Verified 04/12/25 10:16) upset stomach hydrocodone (From Vicodin) Adverse Reaction (Severe, Verified 04/12/25 10:16) upset stomach Medication List - Last Reconciled 04/12/25 by Francie Ann MD albuterol sulfate 90 mcg/actuation 2 puffs inhalation 6XD PRN aspirin (Adult Low Dose Aspirin) 81 mg PO DAILY atorvastatin 80 mg PO DAILY 90 days azithromycin 500 mg PO DAILY bisacodyl (Dulcolax (bisacodyl)) 5 mg PO BEDTIME Breo Ellipta 200-25 mcg/dose (fluticasone furoate-vilanterol) 1 ea inhalation DAILY NS clotrimazole 10 mg PO TID PRN 10 days doxazosin 8 mg (2 x 4 mg) PO BEDTIME 90 days ezetimibe 10 mg PO DAILY ferrous sulfate 325 mg PO DAILY 90 days finasteride 5 mg PO DAILY 90 days [id number]-[id number] [id number] mcg (Centrum Silver Men) 1 tab PO DAILY omeprazole 20 mg PO DAILY 90 days oxycodone 10 mg PO Q6H PRN 30 days rifampin 300 mg PO DAILY 30 days ropinirole 1 mg PO BEDTIME 90 days Tobacco use date assessed: 04/12/25 Fall risk assessment: No Falls in past year Last assessed Fall Risk: 04/12/25 Dental Screening Dental Screen Date: 10/13/24 HPI HPI Comments History of Present Illness Details The patient is a 79-year-old male presenting with a follow-up on his chronic conditions including COPD, pulmonary fibrosis, and cognitive decline. He has a history of Chronic Obstructive Pulmonary Disease (COPD) and pulmonary fibrosis, with a recent bronchial biopsy in November revealing Mycobacterium avium complex colonization. His pulmonary conditions are managed by pulmonology, and he reports no cavitary lesions, chest pain, or dyspnea at present. The patient also has a history of gastroesophageal reflux disease (GERD) and anemia, which are part of his chronic medical issues. He is followed by cardiology for coronary artery disease, with stable cholesterol levels noted in recent assessments. Cognitive decline has been observed by family members, with symptoms of decre ased cognition and memory loss. A brain MRI showed mild cerebral atrophy and chronic ischemic changes, and he is scheduled for a neurology appointment this month. He has been forgetting to take his medications and requires assistance from family members for medication management. The patient has opioid dependence on oxycodone due to chronic pain, which he reports is well-managed. [facility] Medical History (Updated 04/12/25 @ 12:16 by Francie Ann MD) Mycobacterium avium complex colonization Ascending aortic aneurysm AAA (abdominal aortic aneurysm) without rupture Cough Diverticulitis Lower urinary tract symptoms Internal derangement of left shoulder Pulmonary nodule Preoperative clearance Pulmonary nodules (~10/15/23) Oral thrush Chronic pain syndrome Spondylosis, cervical Postlaminectomy syndrome of cervical region COPD (chronic obstructive pulmonary disease) Whiplash Left shoulder pain Lung density on x-ray Pulmonary fibrosis Pleural effusion H/O: pneumonia Felon of finger of left hand H/O: CVA (cerebrovascular accident) Left flank pain Aneurysmal dilatation Screening for colon cancer Annual physical exam CAD (coronary artery disease) Shoulder pain Pure hypercholesterolemia GERD (gastroesophageal reflux disease) Essential hypertension Neck pain Surgical History Rotator cuff arthropathy of left shoulder History of repair of right rotator cuff Hx of cataract extraction History of right cataract extraction Hx of neck surgery History of back surgery History of hand surgery History of partial colectomy History of esophagogastroduodenoscopy (EGD) Hx of colonoscopy Stented coronary artery History of foot surgery History of hemicolectomy History of cervical spinal surgery History of laminectomy History of hernia repair History of appendectomy Family History Father Bone cancer Mother CVD (cardiovascular disease) Brother No problems noted. Sister No problems noted. Daughter No problems noted. 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 Cognitive needs: No Hearing needs: No Vision needs: Yes (Glasses) Questionnaire Thrive Questionnaire Date Thrive assessed: 11/10/24 I am a: Patient What is your living situation today?: I have a steady place to live Within the past 12 months, did the food you bought not last and you didn't have the money to get more?: Sometimes True Within the past 12 months, did you worry whether your food would run out before you got money to buy more?: Often true Do you have trouble paying for medicines?: Yes Do you have trouble getting transportation to medical appointments?: No Do you have trouble paying your heating and electricity bill?: Yes Do you have trouble taking care of your child, family member or friend?: No Do you have trouble with day-to-day activities such as bathing, preparing meals, shopping, managing finances, etc.?: No Are you currently unemployed and looking for a job?: No Are you interested in more education?: No Please select the resources that you would like help with: None Currently or been in a relationship where the following occur: No concerns reported THRIVE Score: 3 CHAS-7 AMB Questionnaire CHAS-7 Date CHAS - 7 assessed: 11/10/24 Trouble relaxin = Not at all Being so restless that it is hard to sit still: 3 = Nearly every day Becoming easily annoyed or irritable: 0 = Not at all Feeling afraid as if something awful might happen: 0 = Not at all Source: Developed by Drs. Omar Cesar, Thalia Castillo, Bassam Pelletier and colleagues, with an educational becki from [employer] Review of Systems Const All systems reviewed & are unremarkable except as noted in HPI and below Card Denies chest pain at rest, Denies chest pain with activity, Denies edema, Denies irregular heart rhythm, Denies claudication, Denies dyspnea, Denies dyspnea on exertion, Denies orthopnea, Denies paroxysmal nocturnal dyspnea and Denies slow heart rate Resp Denies cough, Denies dyspnea and Denies dyspnea on exertion Physical exam (Primary Care) Vital Signs: Last Vital Signs Temp 97.3 F 04/12/25 09:59 Pulse 80 04/12/25 09:59 BP 110/78 04/12/25 09:59 Pulse Ox 95 04/12/25 09:59 Oxygen Delivery Method Room Air 04/12/25 09:59 BMI result Body Mass Index 18.5 Tobacco/Smoking Status: Tobacco use Status Tobacco use date assessed 04/12/25 04/12/25 10:04 Patient Tobacco Use Status Former Tobacco user 04/12/25 10:04 e-Cigarette/Vaping Use Never Used 04/12/25 10:04 Thrive Assessment: Date of Thrive Assessment Date Thrive assessed 11/10/24 04/12/25 10:04 Currently or been in a relationship where the following occur: No concerns repo rted Resp Effort & Inspection: normal respiratory effort Auscultation: clear to auscultation bilaterally Cardio Jugular venous distension: no JVD Rate: regular rate Rhythm: regular rhythm Heart sounds: S1 normal heart sound present and S2 normal heart sound present Extrem General: Yes full ROM Coding Level of Care Code Est Pt Level 4 (44650) Complex EM visit Add On G2211 Diagnoses Pulmonary fibrosis J84.10 Chronic obstructive pulmonary disease, unspecified COPD type J44.9 COPD type: unspecified COPD Gastroesophageal reflux disease, unspecified whether esophagitis present K21.9 Esophagitis presence: esophagitis presence not specified Iron deficiency anemia D50.9 Memory loss R41.3 Pulmonary nodules R91.8 Cavitary lesion of lung J98.4 Opioid dependence F11.20 CAD (coronary artery disease) I25.10 Time Spent (min) 22 Assessment & Plan Assessment & Plan (1) Pulmonary fibrosis: Comment: As per his previous the CT scan, patient does have pleural and parenchymal scarring in right upper lobe, related to his previous surgery. Patient had thoracostomy and repair of ruptured lung in mid 90s. It is staying quite stable. Code(s): J84.10 - Pulmonary fibrosis, unspecified Category: Medical (2) COPD (chronic obstructive pulmonary disease): Comment: KNOWN CASE OF CHRONIC OBSTRUCTIVE PULMONARY DISEASE, MODERATELY SEVERE, CONTROLLED AT THIS TIME. HIS ACTIVITY LEVEL IS BACK TO NORMAL BUT STILL REMAINS MINIMAL. Code(s): J44.9 - Chronic obstructive pulmonary disease, unspecified Category: Medical Qualifiers: COPD type: unspecified COPD Qualified Code(s): J44.9 - Chronic obstructive pulmonary disease, unspecified (3) GERD (gastroesophageal reflux disease): Code(s): K21.9 - Gastro-esophageal reflux disease without esophagitis Category: Medical Qualifiers: Esophagitis presence: esophagitis presence not specified Qualified Code(s): K21.9 - Gastro-esophageal reflux disease without esophagitis (4) Iron deficiency anemia: Code(s): D50.9 - Iron deficiency anemia, unspecified Category: Medical (5) Memory loss: Code(s): R41.3 - Other amnesia Category: Medical (6) Pulmonary nodules: Onset Date: ~10/15/23 Comment: Multiple small nodules in the left upper lobe. Will monitor with yearly CT scan. 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 HAD BRONCHOSCOPY EXAMINATION AND BRONCHIAL WASHINGS. THE MAIN ORGANISM GROWN WAS MAVIUM . NO NEOPLASTIC CELLS WERE FOUND. HE IS BEING TREATED WITH AZITHROMYCIN P.O. DAILY Code(s): R91.8 - Other nonspecific abnormal finding of lung field Category: Medical (7) Cavitary lesion of lung: Comment: Has had chronic cavitary lesion in the right upper lobe. Recent bronchoscopy and culture of sputum, grew mycobacterium avium complex. Code(s): J98.4 - Other disorders of lung Category: Medical (8) Opioid dependence: Code(s): F11.20 - Opioid dependence, uncomplicated Category: Medical (9) CAD (coronary artery disease): Comment: Sees Dr Peña Code(s): I25.10 - Atherosclerotic heart disease of [place] coronary artery without angina pectoris Category: Medical Plan Plan 1. Chronic obstructive pulmonary disease, unspecified J44.9 HCC 111 The patient's COPD is managed by pulmonology, with no current reports of dyspnea or chest pain. 2. Pulmonary fibrosis, unspecified J84.10 HCC 112 Pulmonary fibrosis is being monitored by pulmonology, with no cavitary lesions noted. 3. Gastro-esophageal reflux disease without esophagitis K21.9 GERD is part of the patient's chronic conditions, with no specific management changes discussed. 4. Anemia, unspecified D64.9 Anemia is noted as a chronic condition, with no specific management changes discussed. 5. Atherosclerotic heart disease of [place] coronary artery without angina pectoris I25.10 Coronary artery disease is managed by cardiology, with stable cholesterol levels. 6. Other symptoms and signs involving cognitive functions and awareness R41.89 Cognitive decline is observed, with a brain MRI showing mild cerebral atrophy and chronic ischemic changes. The patient is scheduled for a neurology appointment this month. 7. Opioid dependence, uncomplicated F11.20 HCC 55 The patient has opioid dependence on oxycodone for chronic pain, which is reportedly well-managed. Orders: Orders Thyroid Stimulating Hormone Today R41.3 - Other amnesia Magnesium Today R25.2 - Cramp and spasm Syphilis Screen Today R41.3 - Other amnesia Vitamin B12 and Folate Today E53.8 - Deficiency of other specified B group vitamins HIV Ab/Ag Today Z11.4 - Encounter for screening for human immunodeficiency virus [HIV] Medications: Refilled oxycodone 10 mg PO Q6H PRN 120 tabs 0RF pain 30 days
[2025-04-12 09:59] VITALS: BP 110/78; PULSE 80; TEMP 36.3; O2SAT 95; BMI 18.5
--- OUTSIDE RECORDS SUMMARY | 2025-04-12 11:09 | XMS_ITS | Clinical Summary ---
Author Organization [facility] Address [address] [place] [address] Phone Care Team Providers Care Facial Operator Name Role Phone Francie Ann MD Primary Care Provider [phone] Surgical History Surgery Date Site/Laterality Comments TONSILLECTOMY ADENOIDECTOMY, BILATERAL MYRINGOTOMY AND TUBES PROCEDURE: ND TONSILLECTOMY & ADENOIDECTOMY <AGE 13 ROTATOR CUFF [...] 05/21/2021 05/21/2011 Cholesterol Screening (Lipid Panel) 07/12/2022 Falls Risk Assessment 07/12/2022 Hepatitis C Screening 07/12/2022 Social Influencers of Health Screening 07/12/2022 Zoster Vaccines (2 of 2) 03/17/2024 01/21/2024 Depression Screening 08/10/2024 COVID-19 Vaccine ( season) 2025 04/28/2024, 06/20/2023, 05/20/2022, Additional history exists Influenza Vaccine (#1) 2025 , 06/20/2023, 05/20/2022, Additional history exists RSV Immunization Adult Patients Completed 06/20/2023 Pneumococcal Vaccine: 50+ Years Completed 01/21/2024, 06/20/2023, 04/30/2021, Additional history exists HIB Vaccines Aged Out [...] age to complete this topic Care Teams Facial Operator Relationship Specialty Start Date End Date Francie Ann MD [address] [place] [address] , [address] [facility] D/B/A: [facility] Internal [facility] NABIL Mares PCP - General Internal Medicine 01/29/22
== END 2025-04-12 10:36 | disposition home or self-care (01) ==
LOC: HO.HMCH 09:54
PROVIDERS: PCP Internal Medicine; Visit Provider Internal Medicine
DX: J84.10 Pulmonary fibrosis, unspecified (principal); J44.9 Chronic obstructive pulmonary disease, unspecified; F11.20 Opioid dependence, uncomplicated; K21.9 Gastro-esophageal reflux disease without esophagitis; D50.9 Iron deficiency anemia, unspecified; R41.3 Other amnesia; R91.8 Other nonspecific abnormal finding of lung field; J98.4 Other disorders of lung; I25.10 Atherosclerotic heart disease of native coronary artery without angina pectoris

== ENCOUNTER 2025-04-14 11:01 | Outpatient (AMB) | payer MEDICARE, SELFPAY ==
[2025-04-14 11:04] VITALS: BP 122/83; PULSE 74; BMI 18.2
--- NOTE | 2025-04-14 11:04 | A.OFFVIS_ITS ---
Vital Signs 3 04/14/25 11:04 Height 5 ft 6 in Weight 112 lb 14.027 oz BMI 18.2 BP 122/83 Blood Pressure Location Rt brachial Position Sitting Pulse 74 Intake Visit Reasons: Anemia returning pt Intake Note: Be returns to in office follow up for anemia. CC: Per patient's daughter the patient is losing weight and gets stomach pains a lot. He also reports seeing black stools sometimes. Patient taking 2 abx for fluid on rt side of his chest. Survey Compiler Required: No Accompanied by: Daughter Allergies acetaminophen (From Vicodin) Adverse Reaction (Severe, Verified 04/14/25 11:10) upset stomach hydrocodone (From Vicodin) Adverse Reaction (Severe, Verified 04/14/25 11:10) upset stomach HPI HPI Anemia returning pt: Details: 74-year-old male here repeat screening colonoscopy as his last was in 2020 with a large TA. He is referred by Francie Ann MD of [facility] [place] PMX Aneurysmal dilatation (Acute) CAD (coronary artery disease) (Acute) COPD (chronic obstructive pulmonary disease) (Acute) with pulmonary fibrosis Essential hypertension (Acute) History of CVA AAA GERD (gastroesophageal reflux disease) (Acute) LVH (left ventricular hypertrophy) (Acute) Neck pain (Acute) Pure hypercholesterolemia (Acute) Shoulder pain (Acute) Mycobacterium avium in colonization-cavitary lesion of the lung Lumbar and cervical DJD with radiculopathy Hip pain Bladder diverticulum BPH Shoulder arthritis Carotid stenosis Chronic pain syndrome * SURGICAL HISTORY History of appendectomy History of cervical spinal surgery History of foot surgery History of hemicolectomy History of hernia repair History of laminectomy Stented coronary artery Colonoscopy-2020 Russell equaled large TA Rotator cuff repair Cataract surgery * ALLERGIES aspirin - UPSET STOMACH PT TAKES BABY ASA INSTEAD, stomach upset acetaminophen - upset stomach hydrocodone * [facility]: Laboratory Tests 03/07/25 04/12/25 12:14 11:21 WBC 7.9 Hgb 14.1 Hct 42.3 Plt Count 378 Total Bilirubin 0.6 AST 31 ALT 14 Alkaline Phosphatase 153 H TSH 1.01 Laboratory Tests 03/07/25 12:14 Estimated GFR > 60 TODAY'S VISIT Apparently he also wants to be considered for anemia. [facility] Medical History Mycobacterium avium complex colonization Ascending aortic aneurysm AAA (abdominal aortic aneurysm) without rupture Cough Diverticulitis Lower urinary tract symptoms Internal derangement of left shoulder Pulmonary nodule Preoperative clearance Pulmonary nodules (~10/15/23) Oral thrush Chronic pain syndrome Spondylosis, cervical Postlaminectomy syndrome of cervical region COPD (chronic obstructive pulmonary disease) Whiplash Left shoulder pain Lung density on x-ray Pulmonary fibrosis Pleural effusion H/O: pneumonia Felon of finger of left hand H/O: CVA (cerebrovascular accident) Left flank pain Aneurysmal dilatation Screening for colon cancer Annual physical exam CAD (coronary artery disease) Shoulder pain Pure hypercholesterolemia GERD (gastroesophageal reflux disease) Essential hypertension Neck pain Surgical History Rotator cuff arthropathy of left shoulder History of repair of right rotator cuff Hx of cataract extraction History of right cataract extraction Hx of neck surgery History of back surgery History of hand surgery History of partial colectomy History of esophagogastroduodenoscopy (EGD) Hx of colonoscopy Stented coronary artery History of foot surgery History of hemicolectomy History of cervical spinal surgery History of laminectomy History of hernia repair History of appendectomy Family History (Updated 04/14/25 @ 11:16 by Jennifer Milian [facility]) Father Bone cancer Colon cancer Mother CVD (cardiovascular disease) Brother Esophagus cancer Sister No problems noted. Daughter No problems noted. 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 Cognitive needs: No Hearing needs: No Vision needs: Yes (Glasses) Review of Systems Const Denies fatigue, Denies fever(s), Denies night sweats, Denies poor appetite and Reports weight loss Eyes Details: glasses Reports requires corrective lenses ENT Reports Normal hearing present, Denies dysphagia, Denies odynophagia, Denies throat swelling and Denies tongue swelling Card Reports dyspnea on exertion Resp Reports dyspnea on exertion GI Details: Denies abdominal pain, Denies melena, Denies bloating, Denies hematochezia, Denies constipation, Denies GI cramping, Denies dysphagia, Denies excessive flatus, Denies early satiety, Denies heartburn, Denies diarrhea, Denies nausea, Denies odynophagia, Denies vomiting and Denies hematemesis Skin/Breast Denies pruritus, Denies lesions, Denies rash and Denies jaundice Neuro Reports Normal hearing present, Denies Abnormal speech present and Reports memory loss Psych Reports memory loss Endo Denies fatigue Aller/Immun Denies throat swelling and Denies tongue swelling Physical Exam Vital Signs: Last Vital Signs Pulse 74 04/14/25 11:04 BP 122/83 04/14/25 11:04 BMI result Body Mass Index 18.2 Const General: cooperative, no acute distress, well developed and well groomed Nutritional Appearance: well nourished and thin Orientation/consciousness: oriented to person, oriented to place and oriented to time Limitations: No language barrier and other limitations HEENT Head: Yes normocephalic and Yes atraumatic Eyes General: appearance normal, both eyes and all related structures Pupils: Equal, round and reactive pupils present Neck Neck: Yes normal visual inspection and Yes no lymphadenopathy Thyroid: Thyroid normal Resp Effort & Inspection: normal respiratory effort and able to speak in complete sentences Auscultation: rhonchi (Clears with cough) lower bilaterally and wheezes scattered wheezes Cardio Rate: regular rate Rhythm: regular rhythm Heart sounds: Normal, physiologic split S2 sound present Peripheral pulses: radial pulses present and posterior tibial pulses present GI Inspection: No distended and No Abdominal panniculus present Palpation (GI): Soft to palpation, nontender, no guarding, not rigid and No hepatosplenomegaly present Percussion: Yes normal to percussion Auscultation: normal bowel sounds Rectal Exam - Male: Yes deferred Abdomen image: 2 1. surgical scar Skin General skin exam: no rashes or lesions noted, turgor normal, skin not dry, no jaundice, No spider nevi and no striae Rashes: no rashes Nails: normal Neuro General: oriented to person, oriented to place and oriented to time Cranial nerves: Yes Equal, round and reactive pupils present and Yes Normal hearing present Speech: No Abnormal speech present Extrem General: Yes normal to inspection, No clubbing, No cyanosis and No edema Psych Appearance: grossly normal and well kempt Mental Status: other Speech and movement: Normal speech and movement present Affect: normal affect Attitude: cooperative Thought process: Other thought process findings present Thought content: other Insight: Poor insight present (Psych) Judgement: Poor judgement present (Psych) Assessment & Plan Assessment & Plan (1) Tubular adenoma of colon: Comment: Large cecal polyp 11/2020 scope, repeat in 3 years; Diminutive on [id number] Code(s): D12.6 - Benign neoplasm of colon, unspecified Category: Medical (2) Anemia: Code(s): D64.9 - Anemia, unspecified Category: Medical (3) Opioid dependence: Code(s): F11.20 - Opioid dependence, uncomplicated Category: Medical (4) Memory loss: Code(s): R41.3 - Other amnesia Category: Medical (5) Confusion: Code(s): R41.0 - Disorientation, unspecified Category: Medical (6) COPD (chronic obstructive pulmonary disease): Comment: KNOWN CASE OF CHRONIC OBSTRUCTIVE PULMONARY DISEASE, MODERATELY SEVERE, CONTROLLED AT THIS TIME. HIS ACTIVITY LEVEL IS BACK TO NORMAL BUT STILL REMAINS MINIMAL. Code(s): J44.9 - Chronic obstructive pulmonary disease, unspecified Category: Medical Qualifiers: COPD type: unspecified COPD Qualified Code(s): J44.9 - Chronic obstructive pulmonary disease, unspecified (7) Pleural effusion: Code(s): J90 - Pleural effusion, not elsewhere classified Category: Medical (8) Cavitary lesion of lung: Comment: Has had chronic cavitary lesion in the right upper lobe. Recent bronchoscopy and culture of sputum, grew mycobacterium avium complex. Code(s): J98.4 - Other disorders of lung Category: Medical (9) Carotid stenosis, bilateral: Comment: Scheduled to have carotid USS Code(s): I65.23 - Occlusion and stenosis of bilateral carotid arteries Category: Medical Plan He is here today with his PHILOSOPHY FACULTY MEMBER who is helpful. He denies any bowel or upper GI problems. He has coronary artery disease and sees Dr. Peña, he also has COPD and a cavitary lesion that has a mycobacterium variant but is not tuberculosis, he sees Dr. Michelle for this and we will need clearance from both of these providers. There are no prior problems with anesthesia or sedation. Infectious disease as above. The patient has memory and cognitive problems so you will need to communicate with his PHILOSOPHY FACULTY MEMBER any findings from colonoscopy. Orders: Referrals 2 GI Procedure Notification D12.6 - Benign neoplasm of colon, unspecified, D64.9 - Anemia, unspecified Medications: New 2 peg 3350-electrolytes 236-22.74-6.74 -5.86 gram (Golytely) until fecal effluent is clear; do not exceed a total volume of 2,000 mL 240 mL PO Q10M 4,000 mL 0RF 1 day Z12.11 - Encounter for screening for malignant neoplasm of colon bisacodyl (Dulcolax (bisacodyl)) 10 mg (2 x 5 mg) PO BEDTIME 4 tabs 0RF 2 days Coding Level of Care Code New Pt Level 3 (06608) Diagnoses Tubular adenoma of colon D12.6 Anemia D64.9 Opioid dependence F11.20 Memory loss R41.3 Confusion R41.0 Chronic obstructive pulmonary disease, unspecified COPD type J44.9 COPD type: unspecified COPD Pleural effusion J90 Cavitary lesion of lung J98.4 Carotid stenosis, bilateral I65.23
--- OUTSIDE RECORDS SUMMARY | 2025-04-14 12:03 | XMS_ITS | Clinical Summary ---
Author Organization [facility] Address [address] [place] [address] Phone Care Team Providers Care Bottling Line Operator Name Role Phone Francie Ann MD Primary Care Provider [phone] Surgical History Surgery Date Site/Laterality Comments TONSILLECTOMY [...] age to complete this topic Care Teams Bottling Line Operator Relationship Specialty Start Date End Date Francie Ann MD [address] [place] [address] , [address] [facility] D/B/A: [facility] NABIL Mares PCP - General Internal Medicine 01/29/22
== END 2025-04-14 12:07 | disposition home or self-care (01) ==
LOC: HO.HGI 11:02
PROVIDERS: PCP Internal Medicine; Visit Provider Nurse Practitioner
DX: D12.6 Benign neoplasm of colon, unspecified (principal); D64.9 Anemia, unspecified; F11.20 Opioid dependence, uncomplicated; R41.3 Other amnesia; R41.0 Disorientation, unspecified; J44.9 Chronic obstructive pulmonary disease, unspecified; J90 Pleural effusion, not elsewhere classified; J98.4 Other disorders of lung; I65.23 Occlusion and stenosis of bilateral carotid arteries
CPT/HCPCS: 99203

== ENCOUNTER → 2025-04-14 11:01 | Outpatient (BNVA) | payer MEDICARE, SELFPAY | PROVIDERS: PCP Internal Medicine; Visit Provider Nurse Practitioner | DX: D12.6 Benign neoplasm of colon, unspecified (principal); D64.9 Anemia, unspecified; F11.20 Opioid dependence, uncomplicated; R41.3 Other amnesia; R41.0 Disorientation, unspecified; J44.9 Chronic obstructive pulmonary disease, unspecified; J90 Pleural effusion, not elsewhere classified; J98.4 Other disorders of lung; I65.23 Occlusion and stenosis of bilateral carotid arteries; I10 Essential (primary) hypertension | CPT/HCPCS: 99202 ==

== ENCOUNTER 2025-05-03 09:26 | Outpatient (AMB) | payer MEDICARE, SELFPAY ==
--- NOTE | 2025-05-03 09:30 | A.OFFVIS_ITS ---
Vital Signs 05/03/25 09:31 Height 5 ft 6 in Weight 116 lb 6 oz BMI 18.8 BP 110/70 Blood Pressure Location Rt brachial Position Sitting Pulse 70 Pulse Source Pulse Oximeter Pulse Oximetry (%) 97 Oxygen Delivery Method Room Air Intake Visit Reasons: INP-Disorientation Intake Note: Disorientation Donor Services Specialist Required: No Accompanied by: Daughter - Holly Allergies acetaminophen (From Vicodin) Adverse Reaction (Severe, Verified 05/03/25 09:30) upset stomach hydrocodone (From Vicodin) Adverse Reaction (Severe, Verified 05/03/25 09:30) upset stomach Medication List - Last Reconciled 05/03/25 by Tami Erickson MD albuterol sulfate 90 mcg/actuation 2 puffs inhalation 6XD PRN aspirin (Adult Low Dose Aspirin) 81 mg PO DAILY atorvastatin 80 mg PO DAILY 90 days azithromycin 500 mg PO DAILY bisacodyl (Dulcolax (bisacodyl)) 10 mg (2 x 5 mg) PO BEDTIME 2 days Breo Ellipta 200-25 mcg/dose (fluticasone furoate-vilanterol) 1 ea inhalation DAILY NS clotrimazole 10 mg PO TID PRN 10 days doxazosin 8 mg (2 x 4 mg) PO BEDTIME 90 days ezetimibe 10 mg PO DAILY ferrous sulfate 325 mg PO DAILY 90 days finasteride 5 mg PO DAILY 90 days memantine 7 mg PO DAILY memantine 21 mg PO DAILY memantine 14 mg PO DAILY memantine 28 mg PO DAILY [id number] mcg (Centrum Silver Men) 1 tab PO DAILY oxycodone 10 mg PO Q6H PRN 30 days rifampin 300 mg PO DAILY 30 days ropinirole 1 mg PO BEDTIME 90 days rotigotine (Neupro) 4 mg transdermal DAILY 30 days HPI Comments Details: 79y/o Right handed male with complex medicla history comes for evaluation of cognitive changes. He is accompanied by his daughter who helps with history . His problem became noticeable 4 mths ago - he was getting lost going to familiar places like his grand daughters house. He was driving and getting lost often . he stopped driving recently. He has short term recall issues, forgets all conversations, difficulty focusing . Once in a while has problem with using microwave. he is independent in all his ADLS- joseph shis own laundry , showers ,cooking etc.He needs reminders to take his medications. About 8 mths ago he had Pneumonia - but he is still on antibiotics - he never completely recovered from it. He has chronic sleep issues -he has severe restless legs , wake sup with pain in his legs and sometimes screams in sleep.He has loud snoring and excessive daytime sleepiness. He is an ex smoker - quit 40 years ago - he has COPD. He smokes marijuana [facility] Medical History (Updated 05/03/25 @ 10:01 by Tami Erickson MD) Restless legs syndrome (RLS) Snoring Cognitive disorder Mycobacterium avium complex colonization Ascending aortic aneurysm AAA (abdominal aortic aneurysm) without rupture Cough Diverticulitis Lower urinary tract symptoms Internal derangement of left shoulder Pulmonary nodule Preoperative clearance Pulmonary nodules (~10/15/23) Oral thrush Chronic pain syndrome Spondylosis, cervical Postlaminectomy syndrome of cervical region COPD (chronic obstructive pulmonary disease) Whiplash Left shoulder pain Lung density on x-ray Pulmonary fibrosis Pleural effusion H/O: pneumonia Felon of finger of left hand H/O: CVA (cerebrovascular accident) Left flank pain Aneurysmal dilatation Screening for colon cancer Annual physical exam CAD (coronary artery disease) Shoulder pain Pure hypercholesterolemia GERD (gastroesophageal reflux disease) Essential hypertension Neck pain Surgical History Rotator cuff arthropathy of left shoulder History of repair of right rotator cuff Hx of cataract extraction History of right cataract extraction Hx of neck surgery History of back surgery History of hand surgery History of partial colectomy History of esophagogastroduodenoscopy (EGD) Hx of colonoscopy Stented coronary artery History of foot surgery History of hemicolectomy History of cervical spinal surgery History of laminectomy History of hernia repair History of appendectomy Family History Father Bone cancer Colon cancer Mother CVD (cardiovascular disease) Brother Esophagus cancer Sister No problems noted. Daughter No problems noted. 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 Cognitive needs: No Hearing needs: No Vision needs: Yes (Glasses) Physical Exam Vital Signs: Last Vital Signs Pulse 70 05/03/25 09:31 BP 110/70 05/03/25 09:31 Pulse Ox 97 05/03/25 09:31 Oxygen Delivery Method Room Air 05/03/25 09:31 BMI result Body Mass Index 18.8 Const General: cooperative, comfortable and no acute distress Nutritional Appearance: average body habitus Orientation/consciousness: oriented to person and oriented to place Neuro General: oriented to person, oriented to place, gait normal, tone normal, moves all extremities and no focal motor deficits Cranial nerves: Yes Facial sensation intact/muscles of mastication intact, Yes Bilaterally intact EOM present, Yes Nystagmus not present, Yes Normal facial strength present, Yes Midline tongue present, Yes Symmetric palate elevation present and Yes Ability to bilaterally elevate shoulders present Cognition (Neuro): abnormal cognition Gait exam (Neuro): Antalgic gait present Motor exam (neuro): 5/5 motor strength present throughout and Normal motor muscle tone present throughout Deep tendon reflexes (DTR's): Right triceps reflex intensity grade: 2+, Left triceps reflex intensity grade: 2+, Rt Biceps (C5, C6): 2+, Left biceps reflex intensity grade: 2+, Right brachioradialis reflex intensity grade: 2+, Left brachioradialis reflex intensity grade: 2+, Right patellar reflex intensity grade: 3+ and Left patellar reflex intensity grade: 3+ Coordination: [id number] test normal Orientation What is the (year) (season) (date) (day) (month)?: season Where are we (state) (county) (town or city) (hospital) (floor)?: state, town or city, hospital/clinic and floor Registration Name of 3 unrelated objects clearly and slowly, then ask patient to repeat all 3 of them. (1st repeat determines score. Make sure they can repeat all three): object 1, object 2 and object 3 Attention & Calculation (CHOOSE ONE) Spell WORLD backwards (DLROW): 5 letters Language Show patient a wristwatch & ask what it is. Repeat for pencil.: watch and pencil Ask the patient to repeat the phrase 'No ifs, ands, or buts' after you.: correct Ask the patient to 'take a piece of paper with their right hand' 'fold paper in half' 'place paper on floor': take paper in right hand and fold paper in half Print the sentence 'CLOSE YOUR EYES' on a piece. If patient actually closes eyes then score.: followed written direction Give patient a blank piece of paper & ask to write a sentence. Score if it contains a noun & verb.: sentence contains subject and verb Ask patient to copy figure of intersecting pentagons exactly. Score if all 10 angles & 2 intersects are included.: all 10 angles present & 2 are intersected Score Score: 21 Results Reviewed Results Reviewed: MRI [facility] 01/2025 . No acute intracranial findings. 2. Mild cerebral atrophy and mild chronic small-vessel ischemic gliosis. 3. 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 Code(s): F09 - Unspecified mental disorder due to known physiological condition Category: Medical (2) Snoring: Code(s): R06.83 - Snoring Category: Medical (3) Restless legs syndrome (RLS): Code(s): G25.81 - Restless legs syndrome Category: Medical Plan SLeep study to evaluate for sleep apnea Add neupro patch 4 mg qd for RLS D?c ropinirole Reviewed MRI and labs will refer for cognitive therapy will add memantine Xr 7 mg and titrate upto 28 mg Orders: Orders RT PSG in-lab sleep study Today F09 - Unspecified mental disorder due to known physiological condition, G47.00 - Insomnia, unspecified, J44.9 - Chronic obstructive pulmonary disease, unspecified, R06.83 - Snoring, R25.2 - Cramp and spasm Medications: New memantine 7 mg PO DAILY 30 ea 0RF memantine after 30 day course of 14 mg 21 mg PO DAILY 30 ea 0RF rotigotine (Neupro) 4 mg transdermal DAILY 30 ea 6RF 30 days memantine after 1 month of 7 mg 14 mg PO DAILY 30 ea 0RF memantine after 30 day course of 21 mg 28 mg PO DAILY 30 ea 6RF Discontinued ropinirole Discontinued Reason: Doctor's Order 1 mg PO BEDTIME 90 days 90 tabs 3RF Coding Level of Care Code New Pt Level 4 (13740) Complex EM visit Add On G2211 Diagnoses Cognitive disorder F09 Snoring R06.83 Restless legs syndrome (RLS) G25.81
[2025-05-03 09:31] VITALS: BP 110/70; PULSE 70; O2SAT 97; BMI 18.8
--- OUTSIDE RECORDS SUMMARY | 2025-05-03 11:15 | XMS_ITS | Clinical Summary ---
Author Organization [facility] Address [address] [place] [address] Phone Care Team Providers Care Wind Turbine Mechanical Engineer Name Role Phone Francie Ann MD Primary Care Provider [phone] Surgical History Surgery Date Site/Laterality Comments TONSILLECTOMY ADENOIDECTOMY, BILATERAL MYRINGOTOMY AND TUBES PROCEDURE: [place] TONSILLECTOMY & ADENOIDECTOMY <AGE 13 ROTATOR CUFF [...] age to complete this topic Care Teams Wind Turbine Mechanical Engineer Relationship Specialty Start Date End Date Francie Ann MD [address] [place] [address] , [address] [facility] D/B/A: [facility] NABIL Mares PCP - General Internal Medicine 01/29/22
== END 2025-05-03 10:13 | disposition home or self-care (01) ==
LOC: HO.HSMS 09:27
PROVIDERS: PCP Internal Medicine; Visit Provider Psychiatry & Neurology Neurology
DX: R41.89 Other symptoms and signs involving cognitive functions and awareness (principal); R06.83 Snoring; G25.81 Restless legs syndrome
CPT/HCPCS: 99204; G2211

== ENCOUNTER → 2025-05-03 09:26 | Outpatient (BNVA) | payer MEDICARE, SELFPAY | PROVIDERS: PCP Internal Medicine; Visit Provider Psychiatry & Neurology Neurology | DX: F09 Unspecified mental disorder due to known physiological condition (principal); R06.83 Snoring; G25.81 Restless legs syndrome; Z87.891 Personal history of nicotine dependence; Z79.82 Long term (current) use of aspirin | CPT/HCPCS: 99202 ==

== ENCOUNTER 2025-05-11 15:16 | Inpatient (IN) | payer MEDICARE, SELFPAY ==
--- NOTE | 2025-05-11 | ECG_ITS ---
Test Reason : WEAKNESS Blood Pressure : */* mmHG Vent. Rate : 63 BPM Atrial Rate : 63 BPM P-R Int : 166 ms QRS Dur : 94 ms QT Int : 450 ms P-R-T Axes : 78 71 76 degrees QTcB Int : 460 ms Sinus rhythm with Premature atrial complexes with Aberrant conduction Cannot rule out Anterior infarct , age undetermined Abnormal ECG When compared with ECG of 06-Aug-2023 08:11, Aberrant conduction is now Present Referred By: Generic ED Physician Electronically Signed By: BERNARDO SANDOVAL
--- NOTE | ~2025-05-11 | CT_ITS ---
CLINICAL HISTORY: n v CT abdomen and pelvis with contrast Comparison 10/18/2024 06:30 PM EDT Findings: Multiple bilateral lung base nodules. Largest nodule on left measures 2 cm. Nodules are not fully imaged on this study. Question metastatic disease, consider chest CT. Bilateral lung base scarring noted. Degenerative change lumbar spine and hips. No acute bony abnormalities. Tiny hepatic cysts, liver otherwise unremarkable. Pancreas, spleen and adrenal glands unremarkable. Cholecystectomy. No significant focal renal abnormalities. No renal stones or hydronephrosis. Abdominal aorta is normal in caliber. No free fluid or adenopathy in the pelvis. No diverticulitis. Appendix not identified. Impression: Probable metastatic disease in lung bases Consider nonemergent chest CT No acute process in the abdomen This document has been electronically signed by: Tristan Hernandez MD on 05/11/2025 20:02:43
--- NOTE | ~2025-05-11 | XR_ITS ---
CLINICAL HISTORY: mass 2 view chest x-ray Comparison: 11/18/2024 Findings: Stable large right upper lobe cavitary lesion. Question cavitary mass versus infectious process. Stable lateral left nonspecific consolidation. Bilateral lung base nodules, greater on left. Overall findings may represent malignancy. Unusual infectious etiologies are possible. Stable chronic right costophrenic angle scar. Heart size normal. No bony abnormality. Impression: Stable right apical cavitary lesion Question infection versus mass Stable nodules and left consolidation Metastatic disease and pneumonia are in the differential This document has been electronically signed by: Tristan Hernandez MD on 05/11/2025 21:19:53
--- NOTE | ~2025-05-11 | CT_ITS ---
CLINICAL HISTORY: weakness lung mass CT angiography chest with contrast. With MIP MPR Postprocessing. Comparison: None provided Findings: Acute appearing small peripheral pulmonary emboli including right upper lobe. Main pulmonary artery measures at the upper limits of normal. Calcified and noncalcified plaque involving the tortuous aorta and its branches. Ascending thoracic aorta measures 3.9 cm diameter. Small mediastinal and hilar lymph nodes are nonspecific and likely reactive. Mild mediastinal fluid present. Mild cardiomegaly noted. Calcifications nonspecific of the right lung apex may reflect previous pleurodesis and/or procedure changes. Severe emphysematous changes of the both lungs, right worse than left with mild wall thickening and without pneumothorax accounting for right upper large bulla/bleb (measuring 7.7 cm). Small right pleural effusion. Multiple pulmonary opacities appear nodule predominantly in the lower lobes, left worse than right. Multiple also present in the lingula measuring 2.5 cm. Masslike consolidation including of the left lower lobe measuring 3.1 cm (imaged 110 of series 7). Differential considerations include lung neoplasm with pulmonary metastasis. Infectious inflammatory etiologies could also be considered and/or superimposed. Moderate to severe stenosis of the imaged celiac axis, proximally. Mild stenosis of the imaged SMA and renal arteries by CT. Fat deposition of the imaged liver in the imaged abdomen. Spleen is nonenlarged. Mild vertebral height losses appear old/chronic and accentuated by multifocal Schmorl's nodes. Cervical spine hardware noted without definite hardware loosening. Facet arthropathy is multifocal. IMPRESSION: 1. Small pulmonary emboli appear acute in the right upper lobe. 2. Multifocal airspace disease concerning for pulmonary metastasis and/or lung neoplasm. Superimposed infectious/inflammatory etiologies can be considered. 3. Severe emphysematous changes without pneumothorax accounting for right apical bulla/bleb with likely previous procedure change and/or pleurodesis. This document has been electronically signed by: Mohan Santos MD on 05/12/2025 02:46:13
[2025-05-11 16:12] VITALS: BP 139/78; PULSE 62; O2SAT 94
[2025-05-11 16:13] VITALS: BP 143/78; PULSE 65; RESP 19; TEMP 36.4; O2SAT 95
[2025-05-11 16:15] VITALS: BP 143/78; PULSE 66; RESP 16; TEMP 36.4; O2SAT 94; BMI 19.2
[2025-05-11 16:43] LABS: MANUAL DIFF FLAG NO
[2025-05-11 16:50] LABS: Hematocrit 37.8 % (42.0-52.0); Hemoglobin 12.8 g/dl (14.0-18.0); Imm Gran Abs Auto 0.01 X10*3/uL (0.00-0.03); Imm Gran Pct Auto 0.1 % (0.0-0.4); Lymphocytes Absolute Auto 0.9 X10*3/uL (1.2-4.9); Mean Corpuscular HGB Conc 33.9 g/dl (31.0-36.0); Mean Corpuscular Hemoglobin 27.0 pg (27.0-33.0); Mean Corpuscular Volume 79.7 fL (80.0-98.0); NRBC Abs Auto 0.000 X10*3/uL (0.0-0.012); NRBC Pct Auto 0.0 /100WBC (0.0-0.2); Platelet Count 308 X10*3/uL (160-400); Red Blood Count 4.74 X10*6/uL (4.60-5.80); White Blood Count 6.9 X10*3/uL (4.8-10.8)
[2025-05-11 17:00] LABS: Alanine Aminotransferase 7 U/L (0-40); Albumin Level 3.6 g/dL (3.5-5.0); Alkaline Phosphatase 108 U/L (39-117); Anion Gap 10 (12-20); Aspartate Amino Transferase 26 U/L (5-37); Blood Urea Nitrogen 14 mg/dL (9-16); Calcium 8.6 mg/dL (8.4-10.2); Carbon Dioxide 23 mmol/L (22-29); Chloride 107 mmol/L (96-108); Creatinine Clr Calc Pharmacy 66.5; Estimated Glomerular Filt Rate > 60; Potassium 3.9 mmol/L (3.3-5.1); Sodium 136 mmol/L (135-145); Total Protein 6.4 g/dL (6.5-8.0)
[2025-05-11 17:11] LABS: Troponin-I High Sensitivity < 2.7 ng/L (<3.5-35.0)
--- NOTE | 2025-05-11 18:09 | ECG_ITS ---
Test Reason : REPEAT Blood Pressure : */* mmHG Vent. Rate : 58 BPM Atrial Rate : 58 BPM P-R Int : 180 ms QRS Dur : 94 ms QT Int : 480 ms P-R-T Axes : 85 60 73 degrees QTcB Int : 471 ms Sinus bradycardia Cannot rule out Anterior infarct (cited on or before 11-May-2025) Abnormal ECG When compared with ECG of 11-May-2025 16:28, Aberrant conduction is no longer Present Referred By: Lynda Hair Electronically Signed By: BERNARDO SANDOVAL
--- NOTE | 2025-05-11 18:10 | ED.WEAKNESS ---
HPI - Weakness General Chief complaint: Weakness Stated complaint: WEAK,NAUSEA PER DTR,ON NEW MEDS PER EMS Time Seen by Provider: 05/11/25 17:52 History of Present Illness HPI Narrative: Patient is a 79-year-old male presents today with having increasing weakness. Question nausea patient complaining of nausea earlier but now feels better patient lives alone reports generally unwell no suicidal homicidal thoughts. Has a history of restless leg syndrome history of opiate dependency. Patient has a home. No fever no chills. No pain on urination. No coughing or congestion. No change in weight no change in sleep pattern. Related Data Home Medications ?Medication ?Instructions ?Recorded ?Confirmed aspirin 81 mg tablet,delayed 81 mg PO DAILY 07/12/20 05/03/25 release (Adult Low Dose Aspirin) [id number] 300 mcg-K 60 1 tab PO DAILY 07/12/20 05/03/25 mcg-lycop 600 mcg-lutein 300 mcg tablet (Centrum Silver Men) azithromycin 500 mg tablet 500 mg PO DAILY 03/30/25 05/11/25 rotigotine 4 mg/24 hour 1 patch topical DAILY 05/11/25 05/11/25 transdermal 24 hour patch (Neupro) Previous Rx's ?Medication ?Instructions ?Recorded albuterol sulfate 90 mcg/actuation 2 puff inhalation 6XD PRN 06/17/24 aerosol inhaler shortness of breath or wheezing #1 ea finasteride 5 mg tablet 5 mg PO DAILY 90 days #90 tabs 09/09/24 doxazosin 4 mg tablet 8 mg (2 x 4 mg) PO BEDTIME 90 days 10/13/24 #180 tabs ezetimibe 10 mg tablet 10 mg PO DAILY #30 tabs 10/24/24 atorvastatin 80 mg tablet 80 mg PO DAILY 90 days #90 tabs 12/16/24 clotrimazole 10 mg lindsey 10 mg PO TID PRN oral thrush 10 12/20/24 days #30 gaurav ferrous sulfate 325 mg (65 mg 325 mg PO DAILY 90 days #90 tabs 12/31/24 iron) tablet rifampin 300 mg capsule 300 mg PO DAILY MYCOBACTERIUM 03/30/25 AVIUM INFECTION 30 days #30 caps Breo Ellipta 200 mcg-25 mcg/dose 1 ea inhalation DAILY #60 ea 03/31/25 powder for inhalation (fluticasone furoate-vilanterol) oxycodone 10 mg tablet 10 mg PO Q6H PRN pain 30 days #120 04/12/25 tabs bisacodyl 5 mg tablet,delayed 10 mg (2 x 5 mg) PO BEDTIME 2 days 04/14/25 release (Dulcolax (bisacodyl)) #4 tabs memantine 14 mg capsule 14 mg PO DAILY #30 ea 05/03/25 sprinkle,extended release 24hr memantine 21 mg capsule 21 mg PO DAILY #30 ea 05/03/25 sprinkle,extended release 24hr memantine 28 mg capsule 28 mg PO DAILY #30 ea 05/03/25 sprinkle,extended release 24hr memantine 7 mg capsule 7 mg PO DAILY #30 ea 05/03/25 sprinkle,extended release 24hr rotigotine 4 mg/24 hour 4 mg transdermal DAILY 30 days #30 05/03/25 transdermal 24 hour patch (Neupro) ea Allergies Allergy/AdvReac Type Severity Reaction Status Date / Time acetaminophen (From Vicodin) AdvReac Severe upset Verified 05/11/25 16:16 stomach hydrocodone (From Vicodin) AdvReac Severe upset Verified 05/11/25 16:16 stomach Review of Systems Review of Systems: Positive weakness Yes all other systems are reviewed and are negative PMFSH Past Medical History Attestation statement: The following information was validated with the patient. Medical History Restless legs syndrome (RLS) Snoring Cognitive disorder Mycobacterium avium complex colonization Ascending aortic aneurysm AAA (abdominal aortic aneurysm) without rupture Cough Diverticulitis Lower urinary tract symptoms Internal derangement of left shoulder Pulmonary nodule Preoperative clearance Pulmonary nodules (~10/15/23) Oral thrush Chronic pain syndrome Spondylosis, cervical Postlaminectomy syndrome of cervical region COPD (chronic obstructive pulmonary disease) Whiplash Left shoulder pain Lung density on x-ray Pulmonary fibrosis Pleural effusion H/O: pneumonia Felon of finger of left hand H/O: CVA (cerebrovascular accident) Left flank pain Aneurysmal dilatation Screening for colon cancer Annual physical exam CAD (coronary artery disease) Shoulder pain Pure hypercholesterolemia GERD (gastroesophageal reflux disease) Essential hypertension Neck pain Surgical History Rotator cuff arthropathy of left shoulder History of repair of right rotator cuff Hx of cataract extraction History of right cataract extraction Hx of neck surgery History of back surgery History of hand surgery History of partial colectomy History of esophagogastroduodenoscopy (EGD) Hx of colonoscopy Stented coronary artery History of foot surgery History of hemicolectomy History of cervical spinal surgery History of laminectomy History of hernia repair History of appendectomy Family History Family History Father Bone cancer Colon cancer Mother CVD (cardiovascular disease) Brother Esophagus cancer Sister No problems noted. Daughter No problems noted. Social History Social History Household Members: None Household Members Other:: Daughter Housing: House Are you a primary home care manager to a significant other at home: No Do you presently have visiting nurse or other home services: No Alcohol intake: never Patient Tobacco Use Status: Former Tobacco user Years Smoked: once in a while Smoked in Last 30 Days: No e-Cigarette/Vaping Use: Never Used Second Hand Smoke Exposure: Yes Use of substances other than those prescribed or required for medical reasons: No Substance Use Type: Marijuana Advance Directives: No Advance Directives Information Provided: No Advance Directives Date on File: 09/13/12 Do you have a plan to hurt others: No Plan service: No Current occupational status: retired 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 Oriented X3. No acute distress. Eyes: Pupils equal, round and reactive to light. ENT: Pharynx normal. Neck: Normal inspection. Neck supple. No lymph nodes noted. No crepitus CVS: Normal heart rate and rhythm. Pulses normal. Normal S1 and S2 Respiratory: No respiratory distress. Breath sounds normal. No Wheezing. No rales Abdomen: Soft and nontender. No rigidity. No distention. good BS x4 Skin: Skin warm and dry. Normal skin color. Normal skin turgor. Extremities: No lower extremity edema. Neurovascular intact to all extremities. No Lacerations. No Rash Neuro: Oriented X 3. No motor deficit. No sensory deficit. Moving all extermities. No slurred speech Vital Signs: Vital Signs: Last Vital Signs Temp 97.8 F 05/12/25 00:56 Pulse 67 05/12/25 00:56 Resp 20 05/12/25 00:56 BP 127/57 L 05/12/25 00:56 Pulse Ox 93 05/12/25 00:56 O2 Del Method Room Air 05/12/25 00:56 BMI result Body Mass Index 19.2 Medications Administered Discontinued Medications Generic Name Dose Route Start Last Admin Trade Name Freq PRN Reason Stop Dose Admin Sodium Chloride 1,000 mls @ 999 mls/hr 05/11/25 18:15 05/11/25 20:57 Ns IV 05/11/25 19:15 Infused .Q1H1M BASIL Infusion Iohexol 100 ml 05/11/25 19:11 05/11/25 19:11 Iohexol 350 Mg/Ml 100 Ml Infus..Btl IV 05/11/25 19:12 85 ml ONCE ONE Administration Iohexol 65 ml 05/12/25 01:30 05/12/25 01:42 Iohexol 350 Mg/Ml 100 Ml Infus..Btl IV 05/12/25 01:31 65 ml ONCE ONE Administration Ondansetron HCl 4 mg 05/11/25 19:23 05/11/25 19:27 Ondansetron Hcl 4 Mg/2 Ml Vial IVPUSH 05/11/25 19:24 4 mg ONCE ONE Administration Medical Decision Making Medical Decision Making MDM Narrative: Patient is feeling generalized weakness malaise feeling unwell. Had some nausea earlier some vomiting earlier. Lives alone. Has a history of cavitary lesions in the lungs. Diagnosed with mycobacterium avium complex colonization. Baseline is on azithromycin. Patient's CT scan showed a question mass. Question metastatic disease to the lung. In the setting of COPD. Patient had nonspecific shortness of breath. Question this is chronic. Nevertheless a CT angio of the chest was ordered. To rule out the possibility of PE. Changes in the pulmonary cavitary lesion. Patient's white count is normal. Patient's hemoglobin is baseline at 12.8. Kidney functions are normal troponin is normal no signs of ACS patient's TSH is normal urine showed no signs of infection. COVID flu RSV were all negative. CT of the abdomen pelvis did not show an acute obstruction abscess perforation per Radiology. The CTA of the chest was done. The result is currently pending. From previous pulmonary no by Dr. peterson This 79 years old gentleman, with severe obstructive airway disorder, and cavitary/nodular lesions in the lungs especially in the right lung, is being treated. for COPD as well as Atypical mycobacterium avium super infection. He has been on azithromycin 500 mg p.o. daily for the last 2 months and is tolerating very well. He denies any side effects from azithromycin, CTA of the chest is currently pending Differential Diagnosis Differential Diagnoses: The differential diagnosis associated with the presentation includes PE, pneumonia, baseline cavitary lesion, obstruction, abscess, perforation Admission/Observation Consideration of admission/observation: Escalation of care including admission/observation considered Lab Data MDM Lab Attestation statement: I reviewed the patient's lab results. 05/11/25 16:37 05/11/25 16:37 Labs: Lab Results 05/11/25 05/11/25 05/11/25 Range/Units 16:37 18:17 21:00 WBC 6.9 (4.8-10.8) X10*3/uL RBC 4.74 (4.60-5.80) X10*6/uL Hgb 12.8 L (14.0-18.0) g/dl Hct 37.8 L (42.0-52.0) % MCV 79.7 L (80.0-98.0) fL MCH 27.0 (27.0-33.0) pg MCHC 33.9 (31.0-36.0) g/dl RDW 15.2 (11.0-16.0) % Plt Count 308 (160-400) X10*3/uL MPV 8.1 L (9.4-12.4) fL Immature Gran % (Auto) 0.1 (0.0-0.4) % Neut % (Auto) 75.2 H (45-73) % Lymph % (Auto) 13.6 L (20-40) % [place] % (Auto) 9.2 (2-11) % Eos % (Auto) 1.3 (0-4) % Baso % (Auto) 0.6 (0-2) % Lymph # (Auto) 0.9 L (1.2-4.9) X10*3/uL [place] # (Auto) 0.6 (0.1-1.2) X10*3/uL Eos # (Auto) 0.1 (0.0-0.4) X10*3/uL Baso # (Auto) 0.0 (0.0-0.2) X10*3/uL Abs Immat Gran (auto) 0.01 (0.00-0.03) X10*3/uL Absolute Neuts (auto) 5.2 (2.0-8.3) x10*3/uL Absolute Nucleated RBC 0.000 (0.0-0.012) X10*3/uL Nucleated RBC % (auto) 0.0 (0.0-0.2) /100WBC Sodium 136 (135-145) mmol/L Potassium 3.9 (3.3-5.1) mmol/L Chloride 107 (96-108) mmol/L Carbon Dioxide 23 (22-29) mmol/L Anion Gap 10 L (12-20) BUN 14 (9-16) mg/dL Creatinine 0.70 (0.5-1.4) mg/dL Estim Creat Clear Calc 66.5 Estimated GFR > 60 Random Glucose 87 (60-115) mg/dL Calcium 8.6 (8.4-10.2) mg/dL Total Bilirubin 0.3 (0.0-1.0) mg/dL AST 26 (5-37) U/L ALT 7 (0-40) U/L Alkaline Phosphatase 108 (39-117) U/L Troponin I High Sens < 2.7 (<3.5-35.0) ng/L Total Protein 6.4 L (6.5-8.0) g/dL Albumin 3.6 (3.5-5.0) g/dL TSH 1.14 (0.32-4.0) uIU/mL Urine Color Yellow Urine Appearance Clear Urine pH 6.5 (5.0-9.0) Ur Specific [place] 1.025 (1.005-1.025) Urine Protein Negative (Neg-Trace) mg/dL Urine Glucose (UA) Negative (Negative) mg/dL Urine Ketones 15 (Negative) mg/dL Urine Blood Negative (Negative) Urine Nitrite Negative (Negative) Ur Leukocyte Esterase Negative (Negative) Urine RBC 0-2 (0-2) /HPF Urine WBC 0-5 (0-5) /HPF Ur Squamous Epith Cells 0-2 (0-2) /HPF Urine Bacteria None Seen (None Seen) Hyaline Casts 0-2 (0-2) /LPF Influenza Type A (PCR) NEGATIVE (Negative) Influenza Type B (PCR) NEGATIVE (Negative) RSV RNA Qual (PCR) NEGATIVE (Negative) SARS-CoV-2 RNA (RT-PCR) NEGATIVE (Negative) Independent Interpretation I performed an independent interpretation of an: EKG (Sinus heart rate is 60 [place] QRS QTC normal no significant changes except for positive PVCs) and CT Scan (CT abdomen pelvis showed no obvious obstruction) Interpretation: CTA angio of the chest is still pending Radiology Impression Discussion of test interpretation with radiology: I have reviewed the radiologist's reading. External Record Review External record reviewed: Inpatient record and Office record (Previous pulmonary records from about a month ago was reviewed) Chronic Conditions History of COPD. History of right lung cavitary lesion Social Determinants Patient?s care significantly limited by Social Determinants of Health including: Inadequate housing, Alcoholism and drug addiction in family and Problems related to primary support group Discharge Plan Discharge Clinical Impression: Weakness, Nausea & vomiting Patient Disposition: Still a Patient Prescriptions: No Action finasteride 5 mg tablet 5 mg PO DAILY 90 Days Qty: 90 1RF doxazosin 4 mg tablet 8 mg PO BEDTIME 90 Days Qty: 180 1RF Rx Instructions: this is an increase in the dose atorvastatin 80 mg tablet 80 mg PO DAILY 90 Days Qty: 90 1RF clotrimazole 10 mg lindsey 10 mg PO TID PRN (Reason: oral thrush) 10 Days Qty: 30 1RF ferrous sulfate 325 mg (65 mg iron) tablet 325 mg PO DAILY 90 Days Qty: 90 3RF fluticasone furoate-vilanterol [Breo Ellipta] 200-25 mcg/dose blister with device 1 ea inhalation DAILY Qty: 60 0RF oxycodone 10 mg tablet 10 mg PO Q6H PRN (Reason: pain) 30 Days Qty: 120 0RF Neupro 4 mg/24 hour patch 24 hour 1 patch topical DAILY aspirin [Adult Low Dose Aspirin] 81 mg tablet,delayed release (DR/EC) 81 mg PO DAILY Centrum Silver Men 300-600-300 mcg tablet 1 tab PO DAILY ezetimibe 10 mg tablet 10 mg PO DAILY Qty: 30 11RF albuterol sulfate 90 mcg/actuation HFA aerosol inhaler 2 puff inhalation 6XD PRN (Reason: shortness of breath or wheezing) Qty: 1 6RF Neupro 4 mg/24 hour patch 24 hour 4 mg transdermal DAILY 30 Days Qty: 30 6RF memantine 7 mg capsule,sprinkle,ER 24hr 7 mg PO DAILY Qty: 30 0RF memantine 14 mg capsule,sprinkle,ER 24hr 14 mg PO DAILY Qty: 30 0RF Rx Instructions: after 1 month of 7 mg memantine 21 mg capsule,sprinkle,ER 24hr 21 mg PO DAILY Qty: 30 0RF Rx Instructions: after 30 day course of 14 mg memantine 28 mg capsule,sprinkle,ER 24hr 28 mg PO DAILY Qty: 30 6RF Rx Instructions: after 30 day course of 21 mg azithromycin 500 mg tablet 500 mg PO DAILY rifampin 300 mg capsule 300 mg PO DAILY 30 Days Qty: 30 3RF bisacodyl [Dulcolax (bisacodyl)] 5 mg tablet,delayed release (DR/EC) 10 mg PO BEDTIME 2 Days Qty: 4 0RF Print Language: Czech
[2025-05-11 18:16] VITALS: BP 138/80; PULSE 67; RESP 18; TEMP 36.4; O2SAT 97
[2025-05-11 18:52] LABS: Thyroid Stimulating Hormone 1.14 uIU/mL (0.32-4.0)
[2025-05-11 19:00] LABS: Resp Syncy Virus RNA Qual PCR NEGATIVE (Negative); SARS COV2 PCR INHOUSE NEGATIVE (Negative)
[2025-05-11] MEDS: iohexoL 350 MG/ML 100 ML INFUS..BTL IV (19:11)
[2025-05-11 21:12] LABS: Appearance Urine Clear; Glucose Urine UA Negative (Negative); PH 6.5 (5.0-9.0); Specific Gravity - Urine 1.025 (1.005-1.025)
[2025-05-11 22:20] VITALS: BP 131/70; PULSE 67; RESP 20; TEMP 36.9; O2SAT 95
[2025-05-12] VITALS (7 sets, daily range): BP systolic 127–157; BP diastolic 57–86; PULSE 50–68; RESP 14–20; TEMP 36.3–36.7; O2SAT 93–97; BMI 19.2; BMI 19.5
[2025-05-12] MEDS: iohexoL 350 MG/ML 100 ML INFUS..BTL 65 ML IV (01:42)
--- NOTE | 2025-05-12 04:04 | PM.IMHP ---
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 Patient has not been able to eat or drink for the last 2 days. Patient states he was fine prior to that. Patient has not been around anyone with illness. Patient has not recently traveled. Patient denies any current chest pain or shortness of breath at rest but is reporting severe abdominal pain but denies any hemoptysis or coffee-ground emesis and is not having any bloody stool. Patient denies constipation or diarrhea. Patient denies being diagnosed with cancer so far. Patient denies any falls at home. Patient currently living alone but has a supportive his daughter who is also managing his medications. Patient is presenting today currently frail, thin with no energy complaining of persistent nausea. Patient has not smoked in over 40 years and does not use oxygen at home. Workup in the emergency department included chest x-ray which indicated stable right apical cavitary lesion with question of infection versus mass. Stable nodules some left consolidation noted. Differentials per radiologist's include metastatic disease and/or pneumonia. CTA completed which identified small pulmonary emboli acutely in the right upper lobe with multi focal airspace disease concerning for pulmonary metastasis and/or lung neoplasm. Per radiologist's superimposed infectious/inflammatory etiologies can be considered. As above patient has this history. In addition severe emphysematous changes noted without pneumothorax with right apical bulla/bleb disease. CT of the abdomen notes probable metastatic disease in the lung base with no acute process in the abdomen.. Hemodynamics currently stable. Patient does not present with signs of sepsis. Patient has no leukocytosis and microcytic anemia is stable with an H and H is 12.8 and 37.8. Platelets 308K. LFTs are within normal limits. Electrolytes all within normal limits. UA negative for UTI. Patient also negative for COVID, flu and RSV. Review of Systems Review of Systems: Patient currently denies any chest pain or shortness breath at rest. Patient is reporting significant abdominal pain with nausea. Patient has had no emesis since arrival. Patient denies any hemoptysis or coffee-ground emesis. Patient denies any diarrhea or constipation. Patient denies any bright red stool. Patient denies any falls at home. [facility] Medical History Restless legs syndrome (RLS) Snoring Cognitive disorder Mycobacterium avium complex colonization Ascending aortic aneurysm AAA (abdominal aortic aneurysm) without rupture Cough Diverticulitis Lower urinary tract symptoms Internal derangement of left shoulder Pulmonary nodule Preoperative clearance Pulmonary nodules (~10/15/23) Oral thrush Chronic pain syndrome Spondylosis, cervical Postlaminectomy syndrome of cervical region COPD (chronic obstructive pulmonary disease) Whiplash Left shoulder pain Lung density on x-ray Pulmonary fibrosis Pleural effusion H/O: pneumonia Felon of finger of left hand H/O: CVA (cerebrovascular accident) Left flank pain Aneurysmal dilatation Screening for colon cancer Annual physical exam CAD (coronary artery disease) Shoulder pain Pure hypercholesterolemia GERD (gastroesophageal reflux disease) Essential hypertension Neck pain Cognitive capacity: Currently alert and orientated x3 Functional capacity: uses cane/walker Family History Father Bone cancer Colon cancer Mother CVD (cardiovascular disease) Brother Esophagus cancer Sister No problems noted. Daughter No problems noted. Surgical History Rotator cuff arthropathy of left shoulder History of repair of right rotator cuff Hx of cataract extraction History of right cataract extraction Hx of neck surgery History of back surgery History of hand surgery History of partial colectomy History of esophagogastroduodenoscopy (EGD) Hx of colonoscopy Stented coronary artery History of foot surgery History of hemicolectomy History of cervical spinal surgery History of laminectomy History of hernia repair History of appendectomy Social History Household Members: None Household Members Other:: Daughter Housing: House Are you a primary palliative care nurse practitioner to a significant other at home: No Do you presently have visiting nurse or other home services: No Alcohol intake: never Patient Tobacco Use Status: Former Tobacco user Years Smoked: once in a while Smoked in Last 30 Days: No e-Cigarette/Vaping Use: Never Used Second Hand Smoke Exposure: Yes Use of substances other than those prescribed or required for medical reasons: No Substance Use Type: Marijuana Advance Directives: No Advance Directives Information Provided: No Advance Directives Date on File: 09/13/12 Do you have a plan to hurt others: No Plan service: No Current occupational status: retired 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 Cognitive needs: No Hearing needs: No Vision needs: Yes (Glasses) Ebola Risk: Travel/Contact With Anyone From Affected Area/s: No Has Patient Experienced Ebola Symptoms: No Meds Allergies Allergy/AdvReac Type Severity Reaction Status Date / Time acetaminophen (From Vicodin) AdvReac Severe upset Verified 05/11/25 16:16 stomach hydrocodone (From Vicodin) AdvReac Severe upset Verified 05/11/25 16:16 stomach Active Medications: Current Medications Acetaminophen (Acetaminophen 325 Mg Tablet) 650 mg PO Q6H PRN PRN Reason: Pain, Mild 1-3,fever,headache Calcium Carbonate (Calcium Carbonate 750 Mg Tab.Chew) 750 mg PO Q4H PRN PRN Reason: Heartburn Magnesium Hydroxide (Milk Of Magnesia 30 Ml Oral.Susp) 30 ml PO DAILY PRN PRN Reason: Constipation Melatonin (Melatonin 3 Mg Tablet) 6 mg PO BEDTIME PRN PRN Reason: Insomnia Polyethylene Glycol (Polyethylene Glycol 3350 17 Gm Powd.Pack) 17 gm PO DAILY PRN PRN Reason: Constipation Senna (Sennosides 8.6 Mg Tablet) 17.2 mg PO BEDTIME PRN PRN Reason: Constipation Sodium Chloride (0.9 % Sodium Chloride Flush 3 Ml Syringe) 3 ml IVFLUSH [facility] Medications ?Medication ?Instructions ?Recorded ?Confirmed ?Last Taken ?Type aspirin 81 mg tablet,delayed 81 mg PO DAILY 07/12/20 05/03/25 08/25/23 History release (Adult Low Dose Aspirin) [id number]-sr-[id number] 300 mcg-K 60 1 tab PO DAILY 07/12/20 05/03/25 Unknown History mcg-lycop 600 mcg-lutein 300 mcg tablet (Centrum Silver Men) azithromycin 500 mg tablet 500 mg PO DAILY 03/30/25 05/11/25 Unknown History rotigotine 4 mg/24 hour 1 patch topical DAILY 05/11/25 05/11/25 Unknown History transdermal 24 hour patch (Neupro) Physical Exam Vital Signs and Narrative: Vital Signs: Last Vital Signs Temp 97.5 F 05/12/25 03:31 Pulse 68 05/12/25 03:31 Resp 15 05/12/25 03:31 BP 134/77 05/12/25 03:31 Pulse Ox 95 05/12/25 03:31 O2 Del Method Room Air 05/12/25 03:31 BMI result Body Mass Index 19.2 Alert and orientated X3, patient appears fragile, thin and ill. Neuro: CN II-X11 intact, no deficits, visual acuity intact EYES: PERRLA, EOM intact, sclerae nonicteric, conjunctiva pink ENT: hearing intact, uvula midline, lips moist, nares patent no epistaxis, no thrush Cardiac: S1 S2 RRR, no murmur, no JVD, no edema in Lower ext Pulmonary: lungs diminished bilaterally Abdominal: BS , minimally active noted tenderness with palpation in the mid epigastric and umbilicus area, noted guarding on exam MSK: strength 3-4/5 upper and lower extremities : no CVA tenderness no bladder distension Extremities: no edema in lower extremities, PT and DP pulses palpable +2 Psych: mood mildly anxious withunderlying fatigue, judgement and insight good Skin no new rashes or lesions Results Labs 05/11/25 16:37 05/11/25 16:37 Labs: Laboratory Results - last 24 hr 05/11/25 05/11/25 05/11/25 16:37 18:17 21:00 MCV 79.7 L MCH 27.0 MCHC 33.9 RDW 15.2 Plt Count 308 MPV 8.1 L Immature Gran % (Auto) 0.1 Neut % (Auto) 75.2 H Lymph % (Auto) 13.6 L Spencer % (Auto) 9.2 Eos % (Auto) 1.3 Baso % (Auto) 0.6 Lymph # (Auto) 0.9 L Spencer # (Auto) 0.6 Eos # (Auto) 0.1 Baso # (Auto) 0.0 Abs Immat Gran (auto) 0.01 Absolute Neuts (auto) 5.2 Absolute Nucleated RBC 0.000 Nucleated RBC % (auto) 0.0 Anion Gap 10 L Estim Creat Clear Calc 66.5 Estimated GFR > 60 Random Glucose 87 Calcium 8.6 Total Bilirubin 0.3 AST 26 ALT 7 Alkaline Phosphatase 108 Troponin I High Sens < 2.7 Total Protein 6.4 L Albumin 3.6 TSH 1.14 Urine Color Yellow Urine Appearance Clear Urine pH 6.5 Ur Specific [place] 1.025 Urine Protein Negative Urine Glucose (UA) Negative Urine Ketones 15 Urine Blood Negative Urine Nitrite Negative Ur Leukocyte Esterase Negative Urine RBC 0-2 Urine WBC 0-5 Ur Squamous Epith Cells 0-2 Urine Bacteria None Seen Hyaline Casts 0-2 Influenza Type A (PCR) NEGATIVE Influenza Type B (PCR) NEGATIVE RSV RNA Qual (PCR) NEGATIVE SARS-CoV-2 RNA (RT-PCR) NEGATIVE ECG Attestation: I personally reviewed and interpreted this ECG as follows: (Sinus rhythm with PACs QTC 460) Prior ECG tracings: available for review Imaging Radiologist's Impressions: CTA IMPRESSION: 1. Small pulmonary emboli appear acute in the right upper lobe. 2. Multifocal airspace disease concerning for pulmonary metastasis and/or lung neoplasm. Superimposed infectious/inflammatory etiologies can be considered. 3. Severe emphysematous changes without pneumothorax accounting for right apical bulla/bleb with likely previous procedure change and/or pleurodesis. Chest x-ray Impression: Stable right apical cavitary lesion Question infection versus mass Stable nodules and left consolidation Metastatic disease and pneumonia are in the differential CT Abd pelvis Impression: Probable metastatic disease in lung bases Consider nonemergent chest CT No acute process in the abdomen Assessment and Plan (1) Pulmonary embolism: Qualifiers: Pulmonary embolism type: multiple subsegmental (without acute cor pulmonale) Qualified Code(s): I26.94 - Multiple subsegmental thrombotic pulmonary emboli without acute cor pulmonale Status: Acute (2) Mycobacterium avium complex colonization: Status: Acute Plan Patient is a 79-year-old male with past medical history microcytic anemia, 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 Patient has not been able to eat or consume fluids for the last 2 days. New findings on diagnostic scans indicate possible probable metastatic disease in the lung bases noting that patient has a stable cavitary lesion on chest x-ray. This is concerning as patient appears thin and frail. Patient does not meet the criteria for sepsis on admission. Pulmonary embolism/ small in RUL (no saddle PE present) Patient is started on weight based Lovenox Hematology consulted Oxygen prn, currently tolerating RA ? metastatic lung disese via CTA: Last Bronch neg for malignant cells (see below) Ongoing mycobacterium bacterial lung infection/ PNA with question of probable metastatic disease in the lung bases Pulmonary consulted Heme/Onc consulted Previous bronchoscopy November 2024: Bronchial brushings negative for malignant cells Patient is continued on rifampin Quantaferrin gold testing pending, Tspot in the past negative No hx of HIV, last test negative COVID, RSV and FLU negative Antiemetics ordered, pt currently NPO due to nausea on IVF with dextrose (BG 87 mg/dL) COPD/emphysema Duo nebs p.r.n. Antitussives Incentive spirometer Supportive care Microcytic anemia Continue ferrous sulfate H&H stable no indication for transfusion or iron supplementation IV Newly diagnosed with early vascular dementia Patient recently started on memantine Patient currently lives alone but is care for by his daughter Case management consulted in case patient's needs change for discharge Restless leg syndrome Pt started on Rotigotine patch and taken off requip per neuro DVT prophylaxis: Weight based Lovenox Med rec pending Full code status Quality Stroke Does the patient have a stroke diagnosis?: No Reason for No Anti-thrombotic by Day Two: N/A - Med Ordered VTE Prior VTE?: No VTE Risk Level:: Medical - moderate - high VTE Device Contraindication: N/A - Device Ordered VTE Drug Contraindication: N/A - Med Ordered
[2025-05-12 06:21] LABS: Hematocrit 36.2 % (42.0-52.0); Hemoglobin 12.2 g/dl (14.0-18.0); Mean Corpuscular HGB Conc 33.7 g/dl (31.0-36.0); Mean Corpuscular Hemoglobin 26.8 pg (27.0-33.0); Mean Corpuscular Volume 79.6 fL (80.0-98.0); NRBC Abs Auto 0.000 X10*3/uL (0.0-0.012); NRBC Pct Auto 0.0 /100WBC (0.0-0.2); Platelet Count 318 X10*3/uL (160-400); Red Blood Count 4.55 X10*6/uL (4.60-5.80); White Blood Count 6.7 X10*3/uL (4.8-10.8)
[2025-05-12 06:25] LABS: INTERNATIONAL NORM RATIO 1.1 (0.9-1.1); Prothrombin Time 12.2 SEC (10.9-12.4)
[2025-05-12 06:28] LABS: Partial Thromboplastin Time 38.7 SEC (26.7-34.1)
[2025-05-12 06:36] LABS: Lipase 35 U/L (8-78); Magnesium 1.9 mg/dL (1.6-2.6)
[2025-05-12 08:03] LABS: Carcinoembryonic Antigen 7.10 ng/mL
--- NOTE | 2025-05-12 10:49 | MHC.CM.PN ---
CM met with Patient at bedside, in the ED, and addressed IMM with him, providing Patient with the original and a copy will be placed on the chart.Patient lives in a 2 family house with his Daughter/HCP/Holly, who will transport at time of dc. Patient required no services nor DME SUPERVISOR HISTOLOGY and home self care is his goal. CM has initiated and will follow for dc planning. PCP is Dr. Francie Patel.
--- NOTE | 2025-05-12 11:27 | PM.HEMONCCN ---
Subjective - Subjective Chief complaint: Weakness Patient: new to practice Consult date: 05/12/25 Requesting Physician: Hospitalist Primary Care Provider: Unknown Physician Civil Design Technician Utilized?: No - Brazilian Speaking HPI - Consult Narrative Reason for consult: PE, possible lung metastasis Narrative: Be Fontenot is a 79 year old male with past medical history significant for LUZ MARINA, on rifampin dementia, COPD/emphysema who was brought in by ambulance at the request of his daughter for worsening weakness. Patient is a poor historian and states that he does not know why he is here. As per chart history, patient has not been able to eat or drink for last 2 days. He is not getting around much. He lives alone. He does not know if he is losing weight. He did recall that Dr. Michelle is his healthcare recruiter. Workup in the emergency department included chest x-ray which indicated stable right apical cavitary lesion with question of infection versus mass. Stable nodules some left consolidation noted. Differentials per radiologist's include metastatic disease and/or pneumonia. CTA completed which identified small pulmonary emboli acutely in the right upper lobe with multi focal airspace disease concerning for pulmonary metastasis and/or lung neoplasm. Per radiologist's superimposed infectious/inflammatory etiologies can be considered. As above patient has this history. In addition severe emphysematous changes noted without pneumothorax with right apical bulla/bleb disease. Patient denies any new symptoms such as worsening cough, hemoptysis or shortness of breath. Review of Systems - Constitutional Reports as per [facility] Oncology Screenings - ECOG Performance Status ECOG Performance Status: 3 [facility] Medical History: Medical History (Last Reviewed 05/12/25 @ 04:39 [facility] AAA (abdominal aortic aneurysm) without rupture Aneurysmal dilatation Annual physical exam Ascending aortic aneurysm CAD (coronary artery disease) Chronic pain syndrome Cognitive disorder COPD (chronic obstructive pulmonary disease) Cough Diverticulitis Essential hypertension Felon of finger of left hand GERD (gastroesophageal reflux disease) H/O: CVA (cerebrovascular accident) H/O: pneumonia Internal derangement of left shoulder Left flank pain Left shoulder pain Lower urinary tract symptoms Lung density on x-ray Mycobacterium avium complex colonization Neck pain Oral thrush Pleural effusion Postlaminectomy syndrome of cervical region Preoperative clearance Pulmonary fibrosis Pulmonary nodule Pulmonary nodules Onset Date: ~10/15/23 Pure hypercholesterolemia Restless legs syndrome (RLS) Screening for colon cancer Shoulder pain Snoring Spondylosis, cervical Whiplash Functional capacity: uses cane/walker Family History: Family History (Last Reviewed 05/12/25 @ 04:39 by HUGH Cheatham) Father Bone cancer Colon cancer Mother CVD (cardiovascular disease) Brother Esophagus cancer Sister No problems noted. Daughter No problems noted. Surgical History: Surgical History (Last Reviewed 05/12/25 @ 04:39 by HUGH Cheatham) History of appendectomy History of back surgery History of cervical spinal surgery History of esophagogastroduodenoscopy (EGD) History of foot surgery History of hand surgery History of hemicolectomy History of hernia repair History of laminectomy History of partial colectomy History of repair of right rotator cuff History of right cataract extraction Hx of cataract extraction Hx of colonoscopy Hx of neck surgery Rotator cuff arthropathy of left shoulder Stented coronary artery Social History: Social History (Last Reviewed 05/12/25 @ 04:39 by HUGH Cheatham) Living Situation History: Household Members: None Household Members Other:: Daughter Housing: House Are you a primary managed care analyst to a significant other at home: No Do you presently have visiting nurse or other home services: No Alcohol History Details: 1. How often do you have a drink containing alcohol?: a. 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 - Travel History Ebola Risk: Travel/Contact With Anyone From Affected Area/s: No Has Patient Experienced Ebola Symptoms: No Home Medications and Allergies Current Medications: Current Medications Acetaminophen (Acetaminophen 325 Mg Tablet) 650 mg PO Q6H PRN PRN Reason: Pain, Mild 1-3,fever,headache Calcium Carbonate (Calcium Carbonate 750 Mg Tab.Chew) 750 mg PO Q4H PRN PRN Reason: Heartburn Enoxaparin Sodium (Enoxaparin Sodium 60 Mg/0.6 Ml Syringe) 50 mg 1 mg/kg (50 mg) SUBCUT Q12H [facility] Guaifenesin (Guaifenesin 200 Mg/10 Ml 10 Ml Liquid) 10 ml PO Q4H PRN PRN Reason: Cough Dextrose/Sodium Chloride (D5ns) 1,000 mls @ 100 mls/hr IVCONT .Q10H [facility] Last Admin: 05/12/25 06:12 Dose: 100 mls/hr Piperacillin Sod/Tazobactam (Sod 4.5 gm/ Sodium Chloride) 100 mls @ 200 mls/hr IV Q6H [facility] Last Infusion: 05/12/25 09:39 Dose: Infused Magnesium Hydroxide (Milk Of Magnesia 30 Ml Oral.Susp) 30 ml PO DAILY PRN PRN Reason: Constipation Melatonin (Melatonin 3 Mg Tablet) 6 mg PO BEDTIME PRN PRN Reason: Insomnia Ondansetron HCl (Ondansetron Hcl 4 Mg/2 Ml Vial) 4 mg IVPUSH Q4H PRN PRN Reason: Nausea and Vomiting Last Admin: 05/12/25 04:37 Dose: 4 mg Polyethylene Glycol (Polyethylene Glycol 3350 17 Gm Powd.Pack) 17 gm PO DAILY PRN PRN Reason: Constipation Senna (Sennosides 8.6 Mg Tablet) 17.2 mg PO BEDTIME PRN PRN Reason: Constipation Sodium Chloride (0.9 % Sodium Chloride Flush 3 Ml Syringe) 3 ml IVFLUSH QSHIFT [facility] Last Admin: 05/12/25 08:59 Dose: Not Given Home Medications ?Medication ?Instructions ?Recorded ?Confirmed ?Type aspirin 81 mg tablet,delayed 81 mg PO DAILY 07/12/20 05/03/25 History release (Adult Low Dose Aspirin) [id number]-ym-wctpe 300 mcg-K 60 1 tab PO DAILY 07/12/20 05/03/25 History mcg-lycop 600 mcg-lutein 300 mcg tablet (Centrum Silver Men) azithromycin 500 mg tablet 500 mg PO DAILY 03/30/25 05/11/25 History rotigotine 4 mg/24 hour 1 patch topical DAILY 05/11/25 05/11/25 History transdermal 24 hour patch (Neupro) omeprazole 20 mg capsule,delayed 20 mg PO DAILY@0630 05/12/25 History release ropinirole 1 mg tablet 1 mg PO BEDTIME 05/12/25 History Allergies Allergy/AdvReac Type Severity Reaction Status Date / Time acetaminophen (From Vicodin) AdvReac Severe upset Verified 05/11/25 16:16 stomach hydrocodone (From Vicodin) AdvReac Severe upset Verified 05/11/25 16:16 stomach Physical Exam Vital signs: Vital Signs Temp 97.4 F 05/12/25 05:52 Pulse 64 05/12/25 05:52 Resp 14 05/12/25 05:52 BP 134/72 05/12/25 05:52 Pulse Ox 97 05/12/25 05:52 O2 Del Method Room Air 05/12/25 05:52 Intake & Output 05/11/25 05/12/25 05/12/25 18:59 06:59 18:59 Intake Total 2050 / 2050 100 / 100 Output Total 475 / 475 Balance 1575 / 1575 100 / 100 Urine Output (Average ml/kg/hr) 0.73 0.73 Intake: Intake, IV Amount 2049 / 2049 100 / 100 0.9 % Sodium Chloride 1,000 ml 1000 / 1000 @ 999 mls/hr IV .Q1H1M [facility] Rx#: [id number] Piperacillin Sodium/Tazobactam 50 / 50 3.375 gm In 0.9 % Sodium Chloride 50 ml @ 100 mls/hr IV ONCE ONE Rx#:[id number] Piperacillin Sodium/Tazobactam 100 / 100 4.5 gm In 0.9 % Sodium Chloride 100 ml @ 200 mls/hr IV Q6H [facility] Rx#:[id number] 0.9 % Sodium Chloride 1,000 ml 1000 / 1000 @ 999 mls/hr IVCONT .Q1H1M ONE Rx#:[id number] Output: Output, Urine Amount 475 / 475 Other: Weight 54.1 kg Weight 54.1 kg - Constitutional Present: no acute distress, thin, chronically ill appearing - Routine HEENT Exam Head: Present: normal inspection Eye: Present: EOMI - Routine Neck Exam Absent: lymphadenopathy - Routine Cardiovascular Exam Cardiovascular: Present: S1, S2 - Routine Abdominal Exam Present: diminished bowel sounds - Routine Extremities Exam Absent: calf tenderness - Routine Neurological Exam Present: alert Hem/Onc Consult Result - Labs CBC & Chem 7: 05/12/25 05:39 05/11/25 16:37 Labs: Short CBC 05/11/25 05/12/25 Range/Units 16:37 05:39 WBC 6.9 6.7 (4.8-10.8) X10*3/uL Hgb 12.8 L 12.2 L (14.0-18.0) g/dl Hct 37.8 L 36.2 L (42.0-52.0) % Plt Count 308 318 (160-400) X10*3/uL BMP 05/11/25 16:37 Sodium 136 Potassium 3.9 Chloride 107 Carbon Dioxide 23 BUN 14 Creatinine 0.70 Calcium 8.6 Liver Function 05/11/25 Range/Units 16:37 Total Bilirubin 0.3 (0.0-1.0) mg/dL AST 26 (5-37) U/L ALT 7 (0-40) U/L Alkaline Phosphatase 108 (39-117) U/L Albumin 3.6 (3.5-5.0) g/dL Urine 05/11/25 Range/Units 21:00 Urine Color Yellow Urine Appearance Clear Urine pH 6.5 (5.0-9.0) Ur Specific [place] 1.025 (1.005-1.025) Urine Protein Negative (Neg-Trace) mg/dL Urine Glucose (UA) Negative (Negative) mg/dL Assessment and Plan Patient Active problem list reviewed?: Yes (1) Pulmonary embolism Status: Acute Assessment and plan: 1. This is a 79-year-old male with COPD, LUZ MARINA on rifampin was brought in because of generalized weakness and failure to thrive. CT angiogram revealed small pulmonary emboli acute in the right upper lobe as well as multifocal airspace disease concerning for pulmonary metastasis or lung neoplasm. Superimposed infectious/inflammatory etiologies could also be considered. I personally reviewed scans, he has had progression of lung nodules with several new lesions appearing since his last CAT scan of chest in June 2024. Agree with anticoagulation for acute pulmonary embolus. He is not giving any acute symptoms of either chest pain, cough or shortness of breath. CT abdomen/pelvis shows no evidence of malignancy. He would need outpatient biopsy of 1 of the lung nodules to confirm diagnosis. Patient is willing to undergo biopsy and treatment of malignancy if he is diagnosed with it. Thank you for the consultation. - Time Spent With Patient Time Spent with Patient (in minutes): 20
--- NOTE | 2025-05-12 12:26 | PHA.MEDREC ---
Pharmacy Consult ? Medication Reconciliation Pharmacy has completed the medication reconciliation. Pt poor historian and now able to give any info about his medications and said to call his daughter Holly; Called and spoke with pt daughter (Holly [phone]) and she verified pt medications with pt Rx Bottles. Holly stated pt still taking Tamsulosin 0.4mg tabs 1 BID and stated all pt meds are filled at [facility] on [facility] now (Use to fill at [facility] on [facility]); I called pt pharmacy ([facility]) and they have no fill history for that medication, I called pt daughter back and she re-read the bottle and discovered that medication was originally filled at [facility] and was already as of 03/2024 and it looked like pt was still taking it since it was in his morning med box with his other medications but daughter isnt sure why
--- NOTE | 2025-05-12 12:33 | PHA.MEDREC ---
Addendum entered by Nisha Dow RPh 05/12/25 14:23: MED REC REVIEWED BY [facility] Original Note: Pharmacy Consult ? Medication Reconciliation Pharmacy has completed the medication reconciliation. Pt poor historian and now able to give any info about his medications and said to call his daughter Holly; Called and spoke with pt daughter (Holly [phone]) and she verified pt medications with pt Rx Bottles. Holly stated pt still taking Tamsulosin 0.4mg tabs 1 BID and stated all pt meds are filled at [facility] on [facility] now (Use to fill at [facility] on [facility]); I called pt pharmacy ([facility]) and they have no fill history for that medication, I called pt daughter back and she re-read the bottle and discovered that medication was originally filled at [facility] and was already as of 03/2024 and it looked like pt was still taking it since it was in his morning med box with his other medications but daughter isnt sure why. Pt taking Memantine 7mg tabs and daughter states pt is increasing every 30 days until he gets to 28mg daily. Pt stopped Omeprazole for Rifampin and Azithromycin antibiotics and pt stopped Ropinirole and replaced that with Neupro patches.
--- NOTE | 2025-05-12 13:32 | PC.NURSE ---
Iphone given to dtdonaldo Barrera per patients request and permisssion
--- NOTE | 2025-05-12 14:25 | PM.EVENT ---
Event Note Date of Service: 05/12/25 Event Note: Chart reviewed patient examined. Agree with history and physical and plan as outlined by night admit her Time Spent With Patient Time: Total time managing care of this patient today ____ minutes.
--- NOTE | 2025-05-12 14:37 | PC.NURSE ---
Pt getting bedside echo
--- NOTE | 2025-05-12 15:38 | MHC.CLN ---
CONSULT DIET RX REGULAR. BMI=19.2 AND IS 84% IBW. QUALIFIES UNDERWEIGHT. ADDING ENSURE TID TO PROMOTE NUTRITIONAL INTAKE. SUPPLEMENT PROVIDES 1050 KCALS, 60 G PROTEIN. FOLLOW FOR PO INTAKE.
--- NOTE | 2025-05-12 16:14 | PM.CNPUL ---
History of Present Illness History of Present Illness Consult date: 05/12/25 Chief complaint: RUL pulmonary emboli, pneumonia Narrative: This is an inpatient pulmonary consultation. 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 Workup in the emergency department included chest x-ray which indicated stable right apical cavitary lesion with question of infection versus mass. Stable nodules some left consolidation noted. Differentials per radiologist's include metastatic disease and/or pneumonia. CTA completed which identified small pulmonary emboli acutely in the right upper lobe with multi focal airspace disease concerning for pulmonary metastasis and/or lung neoplasm. Per radiologist's superimposed infectious/inflammatory etiologies can be considered. As above patient has this history. In addition severe emphysematous changes noted without pneumothorax with right apical bulla/bleb disease. CT of the abdomen notes probable metastatic disease in the lung base with no acute process in the abdomen.. Hemodynamics currently stable. Patient does not present with signs of sepsis. Patient has no leukocytosis and microcytic anemia is stable with an H and H is 12.8 and 37.8. Platelets 308K. LFTs are within normal limits. Electrolytes all within normal limits. UA negative for UTI. Patient also negative for COVID, flu and RSV. Review of Systems Review of Systems: Yes all other systems are reviewed and are negative Constitutional: Constitutional: Denies fatigue, Denies fever(s), Reports lethargy and Reports malaise Cardiovascular: Cardiovascular: Denies chest pain and Denies dyspnea Respiratory: Respiratory: Denies dyspnea Gastrointestinal: Gastrointestinal: Reports abdominal pain, Reports constipation, Denies nausea and Denies vomiting Genitourinary: Genitourinary: Denies dysuria Endocrine: Endocrine: Denies fatigue [facility] Past Medical History Medical History Restless legs syndrome (RLS) Snoring Cognitive disorder Mycobacterium avium complex colonization Ascending aortic aneurysm AAA (abdominal aortic aneurysm) without rupture Cough Diverticulitis Lower urinary tract symptoms Internal derangement of left shoulder Pulmonary nodule Preoperative clearance Pulmonary nodules (~03/07/24) Oral thrush Chronic pain syndrome Spondylosis, cervical Postlaminectomy syndrome of cervical region COPD (chronic obstructive pulmonary disease) Whiplash Left shoulder pain Lung density on x-ray Pulmonary fibrosis Pleural effusion H/O: pneumonia Felon of finger of left hand H/O: CVA (cerebrovascular accident) Left flank pain Aneurysmal dilatation Screening for colon cancer Annual physical exam CAD (coronary artery disease) Shoulder pain Pure hypercholesterolemia GERD (gastroesophageal reflux disease) Essential hypertension Neck pain Family History Family History Father Bone cancer Colon cancer Mother CVD (cardiovascular disease) Brother Esophagus cancer Sister No problems noted. Daughter No problems noted. Surgical History Surgical History Rotator cuff arthropathy of left shoulder History of repair of right rotator cuff Hx of cataract extraction History of right cataract extraction Hx of neck surgery History of back surgery History of hand surgery History of partial colectomy History of esophagogastroduodenoscopy (EGD) Hx of colonoscopy Stented coronary artery History of foot surgery History of hemicolectomy History of cervical spinal surgery History of laminectomy History of hernia repair History of appendectomy Social History Social History Household Members: None Household Members Other:: Daughter Housing: House Are you a primary complex care nurse to a significant other at home: No Do you presently have visiting nurse or other home services: No Alcohol intake: never Patient Tobacco Use Status: Former Tobacco user Years Smoked: once in a while Smoked in Last 30 Days: No e-Cigarette/Vaping Use: Never Used Second Hand Smoke Exposure: Yes Use of substances other than those prescribed or required for medical reasons: No Substance Use Type: Marijuana Advance Directives: No Advance Directives Information Provided: No Advance Directives Date on File: 09/13/12 Do you have a plan to hurt others: No Plan service: No Current occupational status: retired 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 Cognitive needs: No Hearing needs: No Vision needs: Yes (Glasses) Travel History Ebola Risk: Travel/Contact With Anyone From Affected Area/s: No Has Patient Experienced Ebola Symptoms: No Meds Allergies Allergy/AdvReac Type Severity Reaction Status Date / Time acetaminophen (From Vicodin) AdvReac Severe upset Verified 05/11/25 16:16 stomach hydrocodone (From Vicodin) AdvReac Severe upset Verified 05/11/25 16:16 stomach Active Medications: Current Medications Acetaminophen (Acetaminophen 325 Mg Tablet) 650 mg PO Q6H PRN PRN Reason: Pain, Mild 1-3,fever,headache Albuterol Sulfate (Albuterol Sulfate 90 Mcg 8 Gm Inhaler) 2 puff INHALE 6XD PRN PRN Reason: shortness of breath or wheezing Aspirin (Aspirin Enteric Coated 81 Mg Tablet.) 81 mg PO DAILY [facility] Atorvastatin Calcium (Atorvastatin Calcium 80 Mg Tablet) 80 mg PO DAILY [facility] Calcium Carbonate (Calcium Carbonate 750 Mg Tab.Chew) 750 mg PO Q4H PRN PRN Reason: Heartburn Doxazosin Mesylate (Doxazosin Mesylate 2 Mg Tablet) 8 mg PO BEDTIME [facility]; Protocol Ezetimibe (Ezetimibe 10 Mg Tablet) 10 mg PO DAILY [facility] Enoxaparin Sodium (Enoxaparin Sodium 60 Mg/0.6 Ml Syringe) 50 mg 1 mg/kg (50 mg) SUBCUT Q12H [facility] Finasteride (Finasteride 5 Mg Tablet) 5 mg PO DAILY [facility] Fluticasone/Vilanterol (Fluticasone/Vilanterol 200/25 Blst.W.Dev) 1 puff INHALE RDAILY [facility] Guaifenesin (Guaifenesin 200 Mg/10 Ml 10 Ml Liquid) 10 ml PO Q4H PRN PRN Reason: Cough Dextrose/Sodium Chloride (D5ns) 1,000 mls @ 100 mls/hr IVCONT .Q10H [facility] Last Admin: 05/12/25 06:12 Dose: 100 mls/hr Piperacillin Sod/Tazobactam (Sod 4.5 gm/ Sodium Chloride) 100 mls @ 200 mls/hr IV Q6H [facility] Last Infusion: 05/12/25 09:39 Dose: Infused Magnesium Hydroxide (Milk Of Magnesia 30 Ml Oral.Susp) 30 ml PO DAILY PRN PRN Reason: Constipation Melatonin (Melatonin 3 Mg Tablet) 6 mg PO BEDTIME PRN PRN Reason: Insomnia Omeprazole (Omeprazole 20 Mg Capsule.) 20 mg PO DAILY@0630 [facility] Ondansetron HCl (Ondansetron Hcl 4 Mg/2 Ml Vial) 4 mg IVPUSH Q4H PRN PRN Reason: Nausea and Vomiting Last Admin: 05/12/25 04:37 Dose: 4 mg Polyethylene Glycol (Polyethylene Glycol 3350 17 Gm Powd.Pack) 17 gm PO DAILY PRN PRN Reason: Constipation Rifampin (Rifampin 300 Mg Capsule) 300 mg PO DAILY [facility] Senna (Sennosides 8.6 Mg Tablet) 17.2 mg PO BEDTIME PRN PRN Reason: Constipation Sodium Chloride (0.9 % Sodium Chloride Flush 3 Ml Syringe) 3 ml IVFLUSH QSHIFT [facility] Last Admin: 05/12/25 08:59 Dose: Not Given Tamsulosin HCl (Tamsulosin Hcl 0.4 Mg Capsule) 0.4 mg PO BID [facility] Home Medications ?Medication ?Instructions ?Recorded ?Confirmed ?Last Taken ?Type aspirin 81 mg tablet,delayed 81 mg PO DAILY 07/12/20 05/12/25 05/10/25 History release (Adult Low Dose Aspirin) azithromycin 500 mg tablet 500 mg PO DAILY 03/30/25 05/12/25 05/10/25 History rotigotine 4 mg/24 hour 1 patch topical DAILY 05/11/25 05/12/25 05/10/25 History transdermal 24 hour patch (Neupro) omeprazole 20 mg capsule,delayed 20 mg PO DAILY@0630 05/12/25 05/12/25 05/10/25 History release tamsulosin 0.4 mg capsule 0.4 mg PO BID 05/12/25 05/12/25 Unknown History Physical Exam Vital Signs: Vital Signs: Last Vital Signs Temp 97.5 F 05/12/25 13:19 Pulse 59 05/12/25 13:19 Resp 16 05/12/25 13:19 BP 157/86 H 05/12/25 13:19 Pulse Ox 96 05/12/25 13:19 O2 Del Method Room Air 05/12/25 13:19 BMI result Body Mass Index 19.2 Const: General: no acute distress and awake Orientation/consciousness: patient oriented x3 HEENT: Head: Yes normal to inspection Eyes: General: appearance normal, both eyes and all related structures Neck: Neck: Yes normal visual inspection and Yes no lymphadenopathy Chest: Chest palpation & inspection: normal inspection of the chest, normal palpation of entire chest wall and no tenderness Cardio: Palpation: normal PMI Rate: regular rate Rhythm: regular rhythm Heart sounds: no gallops and no murmurs Peripheral pulses: Peripheral pulses 2+ throughout GI: Palpation (GI): Soft to palpation, nontender, No hepatosplenomegaly present and no masses Auscultation: normal bowel sounds Back/Spine/Pelvis: Thoracic/Lumbar Spine: thoracic and lumbar spine normal to inspection Skin: General skin exam: no rashes or lesions noted Neuro: General: patient oriented x3 and no focal motor deficits Extrem: General: Yes normal to inspection, Yes no clubbing, cyanosis or edema and Yes no calf tenderness Psych: Appearance: grossly normal and well kempt Speech and movement: Normal speech and movement present Results Laboratory Findings 05/12/25 05:39 05/11/25 16:37 ABG, PT/INR, D-dimer: PT/INR, D-dimer PT 12.2 SEC (10.9-12.4) 05/12/25 05:39 INR 1.1 (0.9-1.1) 05/12/25 05:39 Abnormal lab findings: Abnormal Labs 05/11/25 05/12/25 16:37 05:39 RBC 4.55 L Hgb 12.8 L 12.2 L Hct 37.8 L 36.2 L MCV 79.7 L 79.6 L MCH 26.8 L MPV 8.1 L 8.4 L Neut % (Auto) 75.2 H Lymph % (Auto) 13.6 L Lymph # (Auto) 0.9 L APTT 38.7 H Anion Gap 10 L Phosphorus 2.6 L Total Protein 6.4 L Assessment and Plan (1) Pulmonary embolism: Qualifiers: Pulmonary embolism type: multiple subsegmental (without acute cor pulmonale) Qualified Code(s): I26.94 - Multiple subsegmental thrombotic pulmonary emboli without acute cor pulmonale Status: Acute (2) Mycobacterium avium complex colonization: Status: Acute (3) COPD (chronic obstructive pulmonary disease): Qualifiers: COPD type: unspecified COPD Qualified Code(s): J44.9 - Chronic obstructive pulmonary disease, unspecified Status: Acute (4) Cavitary lesion of lung: Status: Acute (5) Pulmonary nodule: Status: Acute Plan would treat with Eliquis PO Start MAC therapy with Azithromycin/Ethambutol/Rifampin REspiratory therapy Would repeat imaging in 6-8 weeks, if persistent densities consider CT guided biopsy Procedures Date of Service Date of Service: 05/12/25
[2025-05-12] MEDS: 0.9 % Sodium Chloride Flush 3 ML SYRINGE IVFLUSH (21:05)
[2025-05-13] VITALS (8 sets, daily range): BP systolic 102–147; BP diastolic 58–76; PULSE 49–64; RESP 16–19; TEMP 36.1–36.6; O2SAT 91–97
[2025-05-13] MEDS: guaiFENesin 200 MG/10 ML 10 ML LIQUID PO ×2 (02:51→22:54)
[2025-05-13 04:45] LABS: INTERNATIONAL NORM RATIO 1.1 (0.9-1.1); Prothrombin Time 12.7 SEC (10.9-12.4)
[2025-05-13 07:18] LABS: Hematocrit 32.7 % (42.0-52.0); Hemoglobin 11.4 g/dl (14.0-18.0); Mean Corpuscular HGB Conc 34.9 g/dl (31.0-36.0); Mean Corpuscular Hemoglobin 27.5 pg (27.0-33.0); Mean Corpuscular Volume 78.8 fL (80.0-98.0); NRBC Abs Auto 0.000 X10*3/uL (0.0-0.012); NRBC Pct Auto 0.0 /100WBC (0.0-0.2); Platelet Count 258 X10*3/uL (160-400); Red Blood Count 4.15 X10*6/uL (4.60-5.80); White Blood Count 5.9 X10*3/uL (4.8-10.8)
[2025-05-13] MEDS: 0.9 % Sodium Chloride Flush 3 ML SYRINGE IVFLUSH ×3 (08:36→20:39)
[2025-05-13] MEDS: Aspirin Enteric Coated 81 MG TABLET.DR PO (08:37)
--- NOTE | 2025-05-13 11:19 | ECG_ITS ---
Test Reason : chest pain Blood Pressure : */* mmHG Vent. Rate : 52 BPM Atrial Rate : 52 BPM P-R Int : 166 ms QRS Dur : 94 ms QT Int : 486 ms P-R-T Axes : 76 68 77 degrees QTcB Int : 451 ms Sinus bradycardia Cannot rule out Anterior infarct (cited on or before 11-May-2025) Abnormal ECG When compared with ECG of 12-May-2025 09:15, No significant change was found Referred By: Donis Hussein Electronically Signed By: BERNARDO SANDOVAL
[2025-05-13] MEDS: Fluticasone/Vilanterol 200/25 BLST.W.DEV 1 PUFF INHALE (11:29)
--- NOTE | 2025-05-13 12:43 | P.PNIM_ITS ---
Subjective Subjective Date of Service: 05/13/25 Interval History: Episode of self-limiting chest pain after coughing fit. No acute issues otherwise overnight Review of Systems Admits to reproducible chest pain that began after coughing Denies shortness of breath Denies nausea vomiting diarrhea Denies fever chills Physical Exam 2 Vital Signs: Vital Signs: Last Vital Signs Temp 97.7 F 05/13/25 12:00 Pulse 54 05/13/25 12:00 Resp 18 05/13/25 12:00 BP 129/72 05/13/25 12:00 Pulse Ox 94 05/13/25 12:00 O2 Del Method Room Air 05/13/25 12:00 BMI result Body Mass Index 19.5 Const: Other: Awake alert ill-appearing Resp: Other: Scattered coarse rhonchi throughout Cardio: Other: No S4; positive S1-S2; no S3 murmurs rubs or gallops GI: Other: Soft nontender nondistended normoactive bowel sounds Extrem: Other: No edema bilaterally Objective Data Active Medications Acetaminophen (Acetaminophen 325 Mg Tablet) 650 mg PO Q6H PRN PRN Reason: Pain, Mild 1-3,fever,headache Albuterol Sulfate (Albuterol Sulfate 90 Mcg 8 Gm Inhaler) 2 puff INHALE 6XD PRN PRN Reason: shortness of breath or wheezing Aspirin (Aspirin Enteric Coated 81 Mg Tablet.) 81 mg PO DAILY [facility] Last Admin: 05/13/25 08:37 Dose: 81 mg Documented By: KELVIN Atorvastatin Calcium (Atorvastatin Calcium 80 Mg Tablet) 80 mg PO DAILY [facility] Last Admin: 05/13/25 08:37 Dose: 80 mg Documented By: KELVIN Azithromycin (Azithromycin 500 Mg Tablet) 500 mg PO Q24H [facility] Last Admin: 05/12/25 18:27 Dose: 500 mg Documented By: GUERLINE Calcium Carbonate (Calcium Carbonate 750 Mg Tab.Chew) 750 mg PO Q4H PRN PRN Reason: Heartburn Doxazosin Mesylate (Doxazosin Mesylate 2 Mg Tablet) 8 mg PO BEDTIME [facility]; Protocol Last Admin: 05/12/25 21:04 Dose: 8 mg Documented By: LISA Ezetimibe (Ezetimibe 10 Mg Tablet) 10 mg PO DAILY [facility] Last Admin: 05/13/25 08:37 Dose: 10 mg Documented By: KELVIN Enoxaparin Sodium (Enoxaparin Sodium 60 Mg/0.6 Ml Syringe) 50 mg 1 mg/kg (50 mg) SUBCUT Q12H [facility] Last Admin: 05/13/25 02:50 Dose: 50 mg Documented By: LISA Finasteride (Finasteride 5 Mg Tablet) 5 mg PO DAILY [facility] Last Admin: 05/13/25 08:37 Dose: 5 mg Documented By: KELVIN Fluticasone/Vilanterol (Fluticasone/Vilanterol 200/25 Blst.W.Dev) 1 puff INHALE RDAILY [facility] Last Admin: 05/13/25 11:29 Dose: 1 puff Documented By: RAJ Guaifenesin (Guaifenesin 200 Mg/10 Ml 10 Ml Liquid) 10 ml PO Q4H PRN PRN Reason: Cough Last Admin: 05/13/25 02:51 Dose: 10 ml Documented By: LISA Piperacillin Sod/Tazobactam (Sod 4.5 gm/ Sodium Chloride) 100 mls @ 200 mls/hr IV Q6H [facility] Last Infusion: 05/13/25 09:27 Dose: Infused Documented By: KELVIN Magnesium Hydroxide (Milk Of Magnesia 30 Ml Oral.Susp) 30 ml PO DAILY PRN PRN Reason: Constipation Melatonin (Melatonin 3 Mg Tablet) 6 mg PO BEDTIME PRN PRN Reason: Insomnia Memantine (Memantine Hcl 10 Mg Tablet) 10 mg PO DAILY [facility] Morphine Sulfate (Morphine Sulfate 4 Mg/Ml Cartridge) 4 mg IVPUSH Q4H PRN; Protocol PRN Reason: Pain, Severe (Pain Scale 7-10) Non-Formulary Medication (Rotigotine [Neupro]) 1 patch TOPICAL DAILY [facility] Omeprazole (Omeprazole 20 Mg Capsule.Dr) 20 mg PO DAILY@0630 [facility] Last Admin: 05/13/25 05:38 Dose: 20 mg Documented By: LISA Ondansetron HCl (Ondansetron Hcl 4 Mg/2 Ml Vial) 4 mg IVPUSH Q4H PRN PRN Reason: Nausea and Vomiting Last Admin: 05/12/25 19:51 Dose: 4 mg Documented By: LISA Oxycodone HCl (Oxycodone Hcl Immed Release 5 Mg Tablet) 10 mg PO Q4H PRN PRN Reason: Pain, Moderate(Pain Scale 4-6) Polyethylene Glycol (Polyethylene Glycol 3350 17 Gm Powd.Pack) 17 gm PO DAILY PRN PRN Reason: Constipation Rifampin (Rifampin 300 Mg Capsule) 600 mg PO DAILY [facility] Last Admin: 05/13/25 08:37 Dose: 600 mg Documented By: KELVIN Senna (Sennosides 8.6 Mg Tablet) 17.2 mg PO BEDTIME PRN PRN Reason: Constipation Sodium Chloride (0.9 % Sodium Chloride Flush 3 Ml Syringe) 3 ml IVFLUSH QSHIFT [facility] Last Admin: 05/13/25 08:36 Dose: 3 ml Documented By: KELVIN Tamsulosin HCl (Tamsulosin Hcl 0.4 Mg Capsule) 0.4 mg PO BID [facility] Last Admin: 05/13/25 08:37 Dose: 0.4 mg Documented By: KELVIN Labs 05/13/25 06:46 05/11/25 16:37 Labs: Laboratory Results - last 24 hr 05/13/25 05/13/25 04:30 06:46 MCV 78.8 L MCH 27.5 MCHC 34.9 RDW 15.1 Plt Count 258 MPV 8.1 L Absolute Nucleated RBC 0.000 Nucleated RBC % (auto) 0.0 PT 12.7 H INR 1.1 Assessment and Plan (1) Pulmonary embolism: Status: Acute (2) Mycobacterium avium complex colonization: Status: Acute Plan Patient is a 79-year-old male with past medical history microcytic anemia, 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 Patient has not been able to eat or consume fluids for the last 2 days. New findings on diagnostic scans indicate possible probable metastatic disease in the lung bases noting that patient has a stable cavitary lesion on chest x-ray. This is concerning as patient appears thin and frail. Patient does not meet the criteria for sepsis on admission. 1.Pulmonary embolism/ small in RUL (no saddle PE present) -start Eliquis 10 mg p.o. b.i.d. -Hematology consulted.. We will continue outpatient workup -Oxygen prn, currently tolerating RA 2.Ongoing mycobacterium bacterial lung infection/ PNA -Pulmonary consulted...recommendations implemented -continue current therapies and titrate O2 3.COPD/emphysema -Duo nebs p.r.n. -aggressive treatment of numbers 1 and 2 4. Vascular dementia -continue current therapies -we will ultimately need PT consultation for decision on home with services or placement Kathe Full code Quality Stroke Does the patient have a stroke diagnosis?: No Reason for No Anti-thrombotic by Day Two: N/A - Med Ordered VTE Prior VTE?: No VTE Risk Level:: Medical - moderate - high VTE Device Contraindication: N/A - Device Ordered VTE Drug Contraindication: N/A - Med Ordered
[2025-05-13 12:44] LABS: Troponin-I High Sensitivity 6.1 ng/L (<3.5-35.0)
[2025-05-13 13:26] LABS: Hematocrit 32.6 % (42.0-52.0); Hemoglobin 11.4 g/dl (14.0-18.0); Mean Corpuscular HGB Conc 35.0 g/dl (31.0-36.0); Mean Corpuscular Hemoglobin 27.3 pg (27.0-33.0); Mean Corpuscular Volume 78.2 fL (80.0-98.0); NRBC Abs Auto 0.000 X10*3/uL (0.0-0.012); NRBC Pct Auto 0.0 /100WBC (0.0-0.2); Platelet Count 222 X10*3/uL (160-400); Red Blood Count 4.17 X10*6/uL (4.60-5.80); White Blood Count 5.6 X10*3/uL (4.8-10.8)
[2025-05-13 13:34] LABS: INTERNATIONAL NORM RATIO 1.1 (0.9-1.1); Prothrombin Time 12.3 SEC (10.9-12.4)
[2025-05-13 13:36] LABS: Partial Thromboplastin Time 32.4 SEC (26.7-34.1)
--- NOTE | 2025-05-13 19:52 | PC.NURSE ---
Around 11:00am patient was coughing and started to experience chest tightness non radiating pain.Provider notified EKG done provider came to bedside and read the ekg it was normal, blood work was also done.
[2025-05-13] MEDS: ROTIGOTINE 1 EACH TOPICAL (22:53)
[2025-05-14 03:48] VITALS: BP 150/74; PULSE 64; RESP 17; TEMP 36.7; O2SAT 95
[2025-05-14 07:29] LABS: Hematocrit 34.9 % (42.0-52.0); Hemoglobin 11.8 g/dl (14.0-18.0); Mean Corpuscular HGB Conc 33.8 g/dl (31.0-36.0); Mean Corpuscular Hemoglobin 26.8 pg (27.0-33.0); Mean Corpuscular Volume 79.1 fL (80.0-98.0); NRBC Abs Auto 0.000 X10*3/uL (0.0-0.012); NRBC Pct Auto 0.0 /100WBC (0.0-0.2); Platelet Count 260 X10*3/uL (160-400); Red Blood Count 4.41 X10*6/uL (4.60-5.80); White Blood Count 5.5 X10*3/uL (4.8-10.8)
[2025-05-14 08:00] VITALS: BP 118/58; PULSE 59; RESP 19; TEMP 36.4; O2SAT 95
[2025-05-14] MEDS: 0.9 % Sodium Chloride Flush 3 ML SYRINGE IVFLUSH ×2 (08:29→15:16)
[2025-05-14] MEDS: Aspirin Enteric Coated 81 MG TABLET.DR PO (09:45)
[2025-05-14] MEDS: ROTIGOTINE 1 EACH TOPICAL (10:04)
--- NOTE | 2025-05-14 11:18 | HO.PM.IMPN ---
Subjective Subjective Date of Service: 05/14/25 Interval History: No chest pain or sob has copugh with sputum production of green stuff Physical Exam Vital Signs: Vital Signs: Last Vital Signs Temp 97.5 F 05/14/25 08:00 Pulse 59 05/14/25 08:00 Resp 19 05/14/25 08:00 BP 118/58 L 05/14/25 08:00 Pulse Ox 95 05/14/25 08:00 O2 Del Method Room Air 05/14/25 08:00 BMI result Body Mass Index 19.5 Const: Other: Awake alert ill-appearing Resp: Other: Scattered coarse rhonchi throughout Cardio: Other: No S4; positive S1-S2; no S3 murmurs rubs or gallops GI: Other: Soft nontender nondistended normoactive bowel sounds Extrem: Other: No edema bilaterally Objective Data Active Medications Acetaminophen (Acetaminophen 325 Mg Tablet) 650 mg PO Q6H PRN PRN Reason: Pain, Mild 1-3,fever,headache Albuterol Sulfate (Albuterol Sulfate 90 Mcg 8 Gm Inhaler) 2 puff INHALE 6XD PRN PRN Reason: shortness of breath or wheezing Aspirin (Aspirin Enteric Coated 81 Mg Tablet.) 81 mg PO DAILY [facility] Last Admin: 05/14/25 09:45 Dose: 81 mg Documented By: STARLA Atorvastatin Calcium (Atorvastatin Calcium 80 Mg Tablet) 80 mg PO DAILY [facility] Last Admin: 05/14/25 09:45 Dose: 80 mg Documented By: STARLA Azithromycin (Azithromycin 500 Mg Tablet) 500 mg PO Q24H [facility] Last Admin: 05/13/25 16:36 Dose: 500 mg Documented By: GREGGDONDilma Calcium Carbonate (Calcium Carbonate 750 Mg Tab.Chew) 750 mg PO Q4H PRN PRN Reason: Heartburn Doxazosin Mesylate (Doxazosin Mesylate 2 Mg Tablet) 8 mg PO BEDTIME [facility]; Protocol Last Admin: 05/13/25 20:38 Dose: 8 mg Documented By: LISA Ezetimibe (Ezetimibe 10 Mg Tablet) 10 mg PO DAILY [facility] Last Admin: 05/14/25 09:45 Dose: 10 mg Documented By: STARLA Enoxaparin Sodium (Enoxaparin Sodium 60 Mg/0.6 Ml Syringe) 50 mg 1 mg/kg (50 mg) SUBCUT Q12H [facility] Last Admin: 05/14/25 03:05 Dose: 50 mg Documented By: LISA Finasteride (Finasteride 5 Mg Tablet) 5 mg PO DAILY [facility] Last Admin: 05/14/25 09:45 Dose: 5 mg Documented By: STARLA Fluticasone/Vilanterol (Fluticasone/Vilanterol 200/25 Blst.W.Dev) 1 puff INHALE RDAILY [facility] Last Admin: 05/14/25 08:24 Dose: Not Given Documented By: RAJ Non-Admin Reason: Patient Condition Contraindication Guaifenesin (Guaifenesin 200 Mg/10 Ml 10 Ml Liquid) 10 ml PO Q4H PRN PRN Reason: Cough Last Admin: 05/13/25 22:54 Dose: 10 ml Documented By: LISA Piperacillin Sod/Tazobactam (Sod 4.5 gm/ Sodium Chloride) 100 mls @ 200 mls/hr IV Q6H [facility] Last Infusion: 05/14/25 10:18 Dose: Infused Documented By: STARLA Magnesium Hydroxide (Milk Of Magnesia 30 Ml Oral.Susp) 30 ml PO DAILY PRN PRN Reason: Constipation Melatonin (Melatonin 3 Mg Tablet) 6 mg PO BEDTIME PRN PRN Reason: Insomnia Memantine (Memantine Hcl 10 Mg Tablet) 10 mg PO DAILY [facility] Morphine Sulfate (Morphine Sulfate 4 Mg/Ml Cartridge) 4 mg IVPUSH Q4H PRN; Protocol PRN Reason: Pain, Severe (Pain Scale 7-10) Last Admin: 05/14/25 04:23 Dose: 4 mg Documented By: LISA Pt Own (Rotigotine [ (Neupro] 1 Patch)) 1 patch TOPICAL DAILY [facility] Last Admin: 05/14/25 10:04 Dose: 1 patch Documented By: STARLA Omeprazole (Omeprazole 20 Mg Capsule.Dr) 20 mg PO DAILY@0630 [facility] Last Admin: 05/14/25 06:23 Dose: Not Given Documented By: LISA Non-Admin Reason: Patient Refused Ondansetron HCl (Ondansetron Hcl 4 Mg/2 Ml Vial) 4 mg IVPUSH Q4H PRN PRN Reason: Nausea and Vomiting Last Admin: 05/14/25 08:29 Dose: 4 mg Documented By: STARLA Oxycodone HCl (Oxycodone Hcl Immed Release 5 Mg Tablet) 10 mg PO Q4H PRN PRN Reason: Pain, Moderate(Pain Scale 4-6) Polyethylene Glycol (Polyethylene Glycol 3350 17 Gm Powd.Pack) 17 gm PO DAILY PRN PRN Reason: Constipation Rifampin (Rifampin 300 Mg Capsule) 600 mg PO DAILY [facility] Last Admin: 05/14/25 09:45 Dose: 600 mg Documented By: STARLA Senna (Sennosides 8.6 Mg Tablet) 17.2 mg PO BEDTIME PRN PRN Reason: Constipation Sodium Chloride (0.9 % Sodium Chloride Flush 3 Ml Syringe) 3 ml IVFLUSH QSHIFT [facility] Last Admin: 05/14/25 08:29 Dose: 3 ml Documented By: STARLA Tamsulosin HCl (Tamsulosin Hcl 0.4 Mg Capsule) 0.4 mg PO BID [facility] Last Admin: 05/14/25 09:46 Dose: 0.4 mg Documented By: STARLA Labs 05/14/25 06:47 05/11/25 16:37 Labs: Laboratory Results - last 24 hr 05/13/25 05/13/25 05/14/25 12:10 13:18 06:47 MCV 78.2 L 79.1 L MCH 27.3 26.8 L MCHC 35.0 33.8 RDW 15.3 15.0 Plt Count 222 260 MPV 7.9 L 8.6 L Absolute Nucleated RBC 0.000 0.000 Nucleated RBC % (auto) 0.0 0.0 PT 12.3 INR 1.1 APTT 32.4 Troponin I High Sens 6.1 D Assessment and Plan (1) Pulmonary embolism: Status: Acute (2) Mycobacterium avium complex colonization: Status: Acute Plan Patient is a 79-year-old male with past medical history microcytic anemia, 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 Patient has not been able to eat or consume fluids for the last 2 days. New findings on diagnostic scans indicate possible probable metastatic disease in the lung bases noting that patient has a stable cavitary lesion on chest x-ray. This is concerning as patient appears thin and frail. Patient does not meet the criteria for sepsis on admission. Pulmonary embolism/ small in RUL (no saddle PE present) -start Eliquis 10 mg p.o. b.i.d. -Hematology consulted.. We will continue outpatient workup -Oxygen prn, currently tolerating RA Ongoing mycobacterium bacterial lung infection/ PNA -Pulmonary recommends MAC treatment with Azithromycin/Ethambutol/Rifampin COPD/emphysema -Duo nebs p.r.n. -aggressive treatment of numbers 1 and 2 Vascular dementia -continue current therapies -we will ultimately need PT consultation for decision on home with services or placement Pulmonary noculdes sultanaley metastatic disease, will need outpatient Bx Eliquis Full code doesn't need tele at this time Quality Stroke Does the patient have a stroke diagnosis?: No Reason for No Anti-thrombotic by Day Two: N/A - Med Ordered VTE Prior VTE?: No VTE Risk Level:: Medical - moderate - high VTE Device Contraindication: N/A - Device Ordered VTE Drug Contraindication: N/A - Med Ordered
[2025-05-14 12:00] VITALS: BP 167/85; PULSE 55; RESP 18; TEMP 36.4; O2SAT 94
[2025-05-14 13:58] LABS: INTERNATIONAL NORM RATIO 1.1 (0.9-1.1); Prothrombin Time 12.2 SEC (10.9-12.4)
[2025-05-14 16:00] VITALS: BP 154/81; PULSE 60; RESP 18; TEMP 36.4; O2SAT 94
[2025-05-14 19:16] VITALS: BP 153/94; PULSE 55; RESP 18; TEMP 36.6; O2SAT 94
[2025-05-14] MEDS: Dextrose 5 % and Lactated Ring 1,000 ML 80 ML IVCONT (19:38)
--- NOTE | 2025-05-14 21:17 | PC.NURSE ---
Pt nauseous refusing PO medications, not due for PRN nausea medication, given on previous shift.
[2025-05-14 23:53] VITALS: BP 143/74; PULSE 55; RESP 18; TEMP 36.3; O2SAT 95
[2025-05-15] VITALS (8 sets, daily range): BP systolic 138–165; BP diastolic 77–97; PULSE 52–63; RESP 16–18; TEMP 36.4–37; O2SAT 94–97
[2025-05-15] MEDS: 0.9 % Sodium Chloride Flush 3 ML SYRINGE IVFLUSH (05:45)
[2025-05-15] MEDS: oxyCODONE HCl Immed Release 5 MG TABLET 10 MG PO ×2 (07:16→11:33)
[2025-05-15] MEDS: Fluticasone/Vilanterol 200/25 BLST.W.DEV 1 PUFF INHALE (08:06)
[2025-05-15] MEDS: Aspirin Enteric Coated 81 MG TABLET.DR PO (08:10)
--- NOTE | 2025-05-15 09:03 | P.PNIM_ITS ---
Subjective Subjective Date of Service: 05/15/25 Interval History: c/o of nausea, and feeling sick not eating much Physical Exam 2 Vital Signs: Vital Signs: Last Vital Signs Temp 98.1 F 05/15/25 07:48 Pulse 63 05/15/25 08:08 Resp 18 05/15/25 08:08 BP 155/78 H 05/15/25 07:48 Pulse Ox 95 05/15/25 07:48 O2 Del Method Room Air 05/15/25 07:48 BMI result Body Mass Index 19.5 Const: Other: Frail looking, alert, emaciated rrr s1s2, lungs paolo rhonchi abd s, nd, nt ext: no edema Objective Data Active Medications Acetaminophen (Acetaminophen 325 Mg Tablet) 650 mg PO Q6H PRN PRN Reason: Pain, Mild 1-3,fever,headache Albuterol Sulfate (Albuterol Sulfate 90 Mcg 8 Gm Inhaler) 2 puff INHALE 6XD PRN PRN Reason: shortness of breath or wheezing Apixaban (Apixaban 5 Mg Tablet) 10 mg PO BID [facility] Stop: 05/21/25 21:01 Last Admin: 05/15/25 04:16 Dose: 10 mg Documented By: SE Aspirin (Aspirin Enteric Coated 81 Mg Tablet.Dr) 81 mg PO DAILY [facility] Last Admin: 05/15/25 08:10 Dose: 81 mg Documented By: JANELL Atorvastatin Calcium (Atorvastatin Calcium 80 Mg Tablet) 80 mg PO DAILY [facility] Last Admin: 05/15/25 08:10 Dose: 80 mg Documented By: JANELL Azithromycin (Azithromycin 500 Mg Tablet) 500 mg PO Q24H [facility] Last Admin: 05/14/25 15:15 Dose: 500 mg Documented By: STARLA Calcium Carbonate (Calcium Carbonate 750 Mg Tab.Chew) 750 mg PO Q4H PRN PRN Reason: Heartburn Doxazosin Mesylate (Doxazosin Mesylate 2 Mg Tablet) 8 mg PO BEDTIME [facility]; Protocol Last Admin: 05/14/25 21:13 Dose: Not Given Documented By: BOB Non-Admin Reason: Patient Refused Ezetimibe (Ezetimibe 10 Mg Tablet) 10 mg PO DAILY [facility] Last Admin: 05/15/25 08:10 Dose: 10 mg Documented By: JANELL Finasteride (Finasteride 5 Mg Tablet) 5 mg PO DAILY [facility] Last Admin: 05/15/25 08:10 Dose: 5 mg Documented By: JANELL Fluticasone/Vilanterol (Fluticasone/Vilanterol 200/25 Blst.W.Dev) 1 puff INHALE RDAILY [facility] Last Admin: 05/15/25 08:06 Dose: 1 puff Documented By: REESE Guaifenesin (Guaifenesin 200 Mg/10 Ml 10 Ml Liquid) 10 ml PO Q4H PRN PRN Reason: Cough Last Admin: 05/13/25 22:54 Dose: 10 ml Documented By: LISA Piperacillin Sod/Tazobactam (Sod 4.5 gm/ Sodium Chloride) 100 mls @ 200 mls/hr IV Q6H [facility] Last Infusion: 05/15/25 08:49 Dose: Infused Documented By: JANELL Dextrose/Lactated Ringer's (D5lr) 1,000 mls @ 80 mls/hr IVCONT .[id number] [facility] Last Infusion: 05/15/25 08:12 Dose: Infused Documented By: JANELL Magnesium Hydroxide (Milk Of Magnesia 30 Ml Oral.Susp) 30 ml PO DAILY PRN PRN Reason: Constipation Melatonin (Melatonin 3 Mg Tablet) 6 mg PO BEDTIME PRN PRN Reason: Insomnia Memantine (Memantine Hcl 10 Mg Tablet) 10 mg PO DAILY [facility] Last Admin: 05/15/25 08:10 Dose: 10 mg Documented By: JANELL Morphine Sulfate (Morphine Sulfate 4 Mg/Ml Cartridge) 4 mg IVPUSH Q4H PRN; Protocol PRN Reason: Pain, Severe (Pain Scale 7-10) Last Admin: 05/14/25 17:30 Dose: 4 mg Documented By: PAT Pt Own (Rotigotine [ (Neupro] 1 Patch)) 1 patch TOPICAL DAILY [facility] Last Admin: 05/14/25 10:04 Dose: 1 patch Documented By: STARLA Omeprazole (Omeprazole 20 Mg Capsule.Dr) 20 mg PO DAILY@0630 [facility] Last Admin: 05/15/25 05:44 Dose: 20 mg Documented By: SE Ondansetron HCl (Ondansetron Hcl 4 Mg/2 Ml Vial) 4 mg IVPUSH Q4H PRN PRN Reason: Nausea and Vomiting Last Admin: 05/14/25 17:18 Dose: 4 mg Documented By: PAT Oxycodone HCl (Oxycodone Hcl Immed Release 5 Mg Tablet) 10 mg PO Q4H PRN PRN Reason: Pain, Moderate(Pain Scale 4-6) Last Admin: 05/15/25 07:16 Dose: 10 mg Documented By: JANELL Polyethylene Glycol (Polyethylene Glycol 3350 17 Gm Powd.Pack) 17 gm PO DAILY PRN PRN Reason: Constipation Rifampin (Rifampin 300 Mg Capsule) 600 mg PO DAILY [facility] Last Admin: 05/15/25 08:10 Dose: 600 mg Documented By: JANELL Senna (Sennosides 8.6 Mg Tablet) 17.2 mg PO BEDTIME PRN PRN Reason: Constipation Sodium Chloride (0.9 % Sodium Chloride Flush 3 Ml Syringe) 3 ml IVFLUSH QSHIFT [facility] Last Admin: 05/15/25 05:45 Dose: 3 ml Documented By: SE Tamsulosin HCl (Tamsulosin Hcl 0.4 Mg Capsule) 0.4 mg PO BID [facility] Last Admin: 05/15/25 08:10 Dose: 0.4 mg Documented By: JANELL Labs 05/14/25 06:47 05/11/25 16:37 Labs: Laboratory Results - last 24 hr 05/14/25 13:11 PT 12.2 INR 1.1 Assessment and Plan (1) Pulmonary embolism: Status: Acute (2) Mycobacterium avium complex colonization: Status: Acute Plan Patient is a 79-year-old male with past medical history microcytic anemia, 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 Patient has not been able to eat or consume fluids for the last 2 days. New findings on diagnostic scans indicate possible probable metastatic disease in the lung bases noting that patient has a stable cavitary lesion on chest x-ray. This is concerning as patient appears thin and frail. Patient does not meet the criteria for sepsis on admission. Pulmonary embolism/ small in RUL (no saddle PE present) Was on Levenox and has transitioned to Eliquis Oncology recommend outpatient Bx of lung nodule -Oxygen prn, currently tolerating RA Ongoing mycobacterium bacterial lung infection/ PNA -Pulmonary recommends MAC treatment with Azithromycin/Ethambutol (not available)Rifampin COPD/emphysema -Duo daisha p.r.n. Vascular dementia -continue current therapies -we will ultimately need PT consultation for decision on home with services or placement Pulmonary noculdsuzanna wilder metastatic disease, will need outpatient Bx Kathe Full code doesn't need tele at this time Quality Stroke Does the patient have a stroke diagnosis?: No Reason for No Anti-thrombotic by Day Two: N/A - Med Ordered VTE Prior VTE?: No VTE Risk Level:: Medical - moderate - high VTE Device Contraindication: N/A - Device Ordered VTE Drug Contraindication: N/A - Med Ordered
[2025-05-15] MEDS: ROTIGOTINE 1 EACH TOPICAL (11:34)
--- NOTE | 2025-05-15 14:04 | MHC.CM.PN ---
Not medically cleared for dc. Awaiting PT eval. CM will continue to follow.
--- NOTE | 2025-05-15 14:08 | MHC.CLN ---
F/U DIET RX REGULAR. ENSURE TID PROVIDES 1050 KCALS, 60 G PROTEIN. PO INTAKE VARIABLE, 0-50%. QUALIFIES MODERATELY MALNOURISHED IN THE CONTEXT OF CHRONIC ILLNESS. NO SKIN ISSUES NOTED. FOLLOW FOR PO INTAKE AND WEIGHT.
[2025-05-16] VITALS (7 sets, daily range): BP systolic 116–164; BP diastolic 72–95; PULSE 52–75; RESP 16–18; TEMP 36.4–36.8; O2SAT 95–96
[2025-05-16] MEDS: Dextrose 5 % and Lactated Ring 1,000 ML 80 ML IVCONT ×2 (01:43→16:30)
[2025-05-16 06:07] LABS: Quantiferon TB Gold Plus 1 NEGATIVE (NEGATIVE); TB Test (QFT) Mitogen -Nil 3.98 IU/mL; TB Test (QFT) Nil 0.03 IU/mL; TB Test (QFT) Plus TB1 -Nil 0.01 IU/mL; TB Test (QFT) Plus TB2 -Nil 0.02 IU/mL
[2025-05-16] MEDS: 0.9 % Sodium Chloride Flush 3 ML SYRINGE IVFLUSH (07:57)
[2025-05-16] MEDS: Aspirin Enteric Coated 81 MG TABLET.DR PO (08:00)
[2025-05-16] MEDS: ROTIGOTINE 1 EACH TOPICAL (08:01)
--- NOTE | 2025-05-16 10:38 | P.PNIM_ITS ---
Subjective Subjective Date of Service: 05/16/25 Interval History: c/o of nausea, and feeling sick not eating much, appear cachectic still Physical Exam 2 Vital Signs: Vital Signs: Last Vital Signs Temp 98.3 F 05/16/25 07:24 Pulse 54 05/16/25 07:24 Resp 16 05/16/25 07:24 BP 154/79 H 05/16/25 07:24 Pulse Ox 96 05/16/25 07:24 O2 Del Method Room Air 05/16/25 07:24 BMI result Body Mass Index 19.5 Const: Other: Frail looking, alert, emaciated rrr s1s2, lungs paolo rhonchi abd s, nd, nt ext: no edema Objective Data Active Medications Acetaminophen (Acetaminophen 325 Mg Tablet) 650 mg PO Q6H PRN PRN Reason: Pain, Mild 1-3,fever,headache Albuterol Sulfate (Albuterol Sulfate 90 Mcg 8 Gm Inhaler) 2 puff INHALE 6XD PRN PRN Reason: shortness of breath or wheezing Apixaban (Apixaban 5 Mg Tablet) 10 mg PO BID [facility] Stop: 05/21/25 21:01 Last Admin: 05/16/25 07:59 Dose: 10 mg Documented By: MERA Aspirin (Aspirin Enteric Coated 81 Mg Tablet.) 81 mg PO DAILY [facility] Last Admin: 05/16/25 08:00 Dose: 81 mg Documented By: MERA Atorvastatin Calcium (Atorvastatin Calcium 80 Mg Tablet) 80 mg PO DAILY [facility] Last Admin: 05/16/25 08:00 Dose: 80 mg Documented By: MERA Azithromycin (Azithromycin 500 Mg Tablet) 500 mg PO Q24H [facility] Last Admin: 05/15/25 15:27 Dose: 500 mg Documented By: DEYVI Calcium Carbonate (Calcium Carbonate 750 Mg Tab.Chew) 750 mg PO Q4H PRN PRN Reason: Heartburn Doxazosin Mesylate (Doxazosin Mesylate 2 Mg Tablet) 8 mg PO BEDTIME [facility]; Protocol Last Admin: 05/15/25 22:32 Dose: Not Given Documented By: GARFIELD Non-Admin Reason: Patient Refused Ezetimibe (Ezetimibe 10 Mg Tablet) 10 mg PO DAILY [facility] Last Admin: 05/16/25 08:00 Dose: 10 mg Documented By: MERA Finasteride (Finasteride 5 Mg Tablet) 5 mg PO DAILY [facility] Last Admin: 05/16/25 08:00 Dose: 5 mg Documented By: MERA Fluticasone/Vilanterol (Fluticasone/Vilanterol 200/25 Blst.W.Dev) 1 puff INHALE RDAILY [facility] Last Admin: 05/16/25 08:09 Dose: Not Given Documented By: REESE Non-Admin Reason: Patient Refused Guaifenesin (Guaifenesin 200 Mg/10 Ml 10 Ml Liquid) 10 ml PO Q4H PRN PRN Reason: Cough Last Admin: 05/13/25 22:54 Dose: 10 ml Documented By: LISA Piperacillin Sod/Tazobactam (Sod 4.5 gm/ Sodium Chloride) 100 mls @ 200 mls/hr IV Q6H [facility] Last Infusion: 05/16/25 08:54 Dose: Infused Documented By: MEAR Dextrose/Lactated Ringer's (D5lr) 1,000 mls @ 80 mls/hr IVCONT .[id number] [facility] Last Admin: 05/16/25 01:43 Dose: 80 mls/hr Documented By: CARMINA Magnesium Hydroxide (Milk Of Magnesia 30 Ml Oral.Susp) 30 ml PO DAILY PRN PRN Reason: Constipation Melatonin (Melatonin 3 Mg Tablet) 6 mg PO BEDTIME PRN PRN Reason: Insomnia Memantine (Memantine Hcl 10 Mg Tablet) 10 mg PO DAILY [facility] Last Admin: 05/16/25 08:00 Dose: 10 mg Documented By: MERA Morphine Sulfate (Morphine Sulfate 4 Mg/Ml Cartridge) 4 mg IVPUSH Q4H PRN; Protocol PRN Reason: Pain, Severe (Pain Scale 7-10) Last Admin: 05/14/25 17:30 Dose: 4 mg Documented By: PAT Pt Own (Rotigotine [ (Neupro] 1 Patch)) 1 patch TOPICAL DAILY [facility] Last Admin: 05/16/25 08:01 Dose: 1 patch Documented By: MERA Omeprazole (Omeprazole 20 Mg Capsule.Dr) 20 mg PO DAILY@0630 [facility] Last Admin: 05/16/25 06:03 Dose: Not Given Documented By: GARFIELD Non-Admin Reason: Patient Refused Ondansetron HCl (Ondansetron Hcl 4 Mg/2 Ml Vial) 4 mg IVPUSH Q4H PRN PRN Reason: Nausea and Vomiting Last Admin: 05/16/25 07:56 Dose: 4 mg Documented By: MERA Oxycodone HCl (Oxycodone Hcl Immed Release 5 Mg Tablet) 10 mg PO Q4H PRN PRN Reason: Pain, Moderate(Pain Scale 4-6) Last Admin: 05/15/25 11:33 Dose: 10 mg Documented By: JANELL Polyethylene Glycol (Polyethylene Glycol 3350 17 Gm Powd.Pack) 17 gm PO DAILY PRN PRN Reason: Constipation Rifampin (Rifampin 300 Mg Capsule) 600 mg PO DAILY [facility] Last Admin: 05/16/25 08:00 Dose: 600 mg Documented By: MERA Senna (Sennosides 8.6 Mg Tablet) 17.2 mg PO BEDTIME PRN PRN Reason: Constipation Sodium Chloride (0.9 % Sodium Chloride Flush 3 Ml Syringe) 3 ml IVFLUSH QSHIFT [facility] Last Admin: 05/16/25 07:57 Dose: 3 ml Documented By: MERA Tamsulosin HCl (Tamsulosin Hcl 0.4 Mg Capsule) 0.4 mg PO BID [facility] Last Admin: 05/16/25 07:59 Dose: 0.4 mg Documented By: MERA Labs 05/14/25 06:47 05/11/25 16:37 Labs: Laboratory Results - last 24 hr 05/12/25 05:39 TB Test (QFT) Gold Plus NEGATIVE TB Test (QFT) Nil 0.03 TB Test Mitogen - Nil 3.98 TB Test (QFT) +TB1 -NIL 0.01 TB Test (QFT) +TB2 -NIL 0.02 Assessment and Plan (1) Pulmonary embolism: Status: Acute (2) Mycobacterium avium complex colonization: Status: Acute Plan Patient is a 79-year-old male with past medical history microcytic anemia, 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 Patient has not been able to eat or consume fluids for the last 2 days. New findings on diagnostic scans indicate possible probable metastatic disease in the lung bases noting that patient has a stable cavitary lesion on chest x-ray. This is concerning as patient appears thin and frail. Patient does not meet the criteria for sepsis on admission. Pulmonary embolism/ small in RUL (no saddle PE present) Was on Levenox and has transitioned to Eliquis Oncology recommend outpatient Bx of lung nodule -Oxygen prn, currently tolerating RA Ongoing mycobacterium bacterial lung infection/ PNA -Pulmonary recommends MAC treatment with Azithromycin/Ethambutol (not available)Rifampin COPD/emphysema -Duo nebs p.r.n. moderate protein calory malnutrition with adult failure to thrive, nutrition consult, ivf in the mean time Vascular dementia -continue current therapies -we will ultimately need PT consultation for decision on home with services or placement Pulmonary william wilder metastatic disease, will need outpatient Bx Eliquis Full code doesn't need tele at this time Quality Stroke Does the patient have a stroke diagnosis?: No Reason for No Anti-thrombotic by Day Two: N/A - Med Ordered VTE Prior VTE?: No VTE Risk Level:: Medical - moderate - high VTE Device Contraindication: N/A - Device Ordered VTE Drug Contraindication: N/A - Med Ordered
[2025-05-16 11:56] LABS: Hematocrit 38.0 % (42.0-52.0); Hemoglobin 13.2 g/dl (14.0-18.0); Mean Corpuscular HGB Conc 34.7 g/dl (31.0-36.0); Mean Corpuscular Hemoglobin 27.2 pg (27.0-33.0); Mean Corpuscular Volume 78.4 fL (80.0-98.0); NRBC Abs Auto 0.000 X10*3/uL (0.0-0.012); NRBC Pct Auto 0.0 /100WBC (0.0-0.2); Platelet Count 192 X10*3/uL (160-400); Red Blood Count 4.85 X10*6/uL (4.60-5.80); White Blood Count 5.8 X10*3/uL (4.8-10.8)
[2025-05-16 12:00] LABS: Anion Gap 10 (12-20); Blood Urea Nitrogen 4 mg/dL (9-16); Calcium 8.7 mg/dL (8.4-10.2); Carbon Dioxide 29 mmol/L (22-29); Chloride 99 mmol/L (96-108); Creatinine Clr Calc Pharmacy 56.8; Estimated Glomerular Filt Rate > 60; Potassium 3.5 mmol/L (3.3-5.1); Sodium 134 mmol/L (135-145)
[2025-05-17] VITALS (7 sets, daily range): BP systolic 127–163; BP diastolic 79–93; PULSE 58–67; RESP 14–18; TEMP 36.2–36.7; O2SAT 95–97
[2025-05-17] MEDS: 0.9 % Sodium Chloride Flush 3 ML SYRINGE IVFLUSH ×3 (02:28→20:19)
[2025-05-17] MEDS: oxyCODONE HCl Immed Release 5 MG TABLET 10 MG PO ×3 (03:05→22:04)
[2025-05-17] MEDS: ROTIGOTINE 1 EACH TOPICAL (07:43)
[2025-05-17] MEDS: Aspirin Enteric Coated 81 MG TABLET.DR PO (07:47)
[2025-05-17] MEDS: Fluticasone/Vilanterol 200/25 BLST.W.DEV 1 PUFF INHALE (08:14)
--- NOTE | 2025-05-17 10:22 | MHC.CM.PN ---
Per MD rounds patient not medically cleared for dc, likely tomorrow. CM met with patient and daughter/HCP to review dc plan. They are in agreement w/ STR @ [facility]. Auth is pending. Daughter, Holly, will bring in copy of HCP.
--- NOTE | 2025-05-17 12:54 | MHC.CLN ---
F/U DIET RX REGULAR. ENSURE TID PROVIDES 1050 KCALS, 60 G PROTEIN. PO INTAKE VARIABLE WITH REPORTED POOR PO DUE TO NAUSEA. FOLLOW FOR PO INTAKE AND WEIGHT.
--- NOTE | 2025-05-17 16:13 | P.PNIM_ITS ---
Subjective Subjective Date of Service: 05/17/25 Interval History: c/o of nausea, and feeling sick and eating very little Physical Exam 2 Vital Signs: Vital Signs: Last Vital Signs Temp 97.8 F 05/17/25 15:11 Pulse 67 05/17/25 15:11 Resp 16 05/17/25 15:11 BP 163/93 H 05/17/25 15:11 Pulse Ox 95 05/17/25 15:11 O2 Del Method Room Air 05/17/25 15:11 BMI result Body Mass Index 19.5 Const: Other: Frail looking, alert, emaciated rrr s1s2, lungs paolo rhonchi abd s, nd, nt ext: no edema Objective Data Active Medications Acetaminophen (Acetaminophen 325 Mg Tablet) 650 mg PO Q6H PRN PRN Reason: Pain, Mild 1-3,fever,headache Last Admin: 05/17/25 09:53 Dose: 650 mg Documented By: MERA Albuterol Sulfate (Albuterol Sulfate 90 Mcg 8 Gm Inhaler) 2 puff INHALE 6XD PRN PRN Reason: shortness of breath or wheezing Apixaban (Apixaban 5 Mg Tablet) 10 mg PO BID [facility] Stop: 05/21/25 21:01 Last Admin: 05/17/25 07:47 Dose: 10 mg Documented By: MERA Aspirin (Aspirin Enteric Coated 81 Mg Tablet.Dr) 81 mg PO DAILY [facility] Last Admin: 05/17/25 07:47 Dose: 81 mg Documented By: MERA Atorvastatin Calcium (Atorvastatin Calcium 80 Mg Tablet) 80 mg PO DAILY [facility] Last Admin: 05/17/25 07:47 Dose: 80 mg Documented By: MERA Azithromycin (Azithromycin 500 Mg Tablet) 500 mg PO Q24H [facility] Last Admin: 05/17/25 15:49 Dose: 500 mg Documented By: MERA Calcium Carbonate (Calcium Carbonate 750 Mg Tab.Chew) 750 mg PO Q4H PRN PRN Reason: Heartburn Last Admin: 05/17/25 07:40 Dose: 750 mg Documented By: MERA Doxazosin Mesylate (Doxazosin Mesylate 2 Mg Tablet) 8 mg PO BEDTIME [facility]; Protocol Last Admin: 05/16/25 21:30 Dose: 8 mg Documented By: GARFIELD Ezetimibe (Ezetimibe 10 Mg Tablet) 10 mg PO DAILY [facility] Last Admin: 05/17/25 07:47 Dose: 10 mg Documented By: MERA Finasteride (Finasteride 5 Mg Tablet) 5 mg PO DAILY [facility] Last Admin: 05/17/25 07:47 Dose: 5 mg Documented By: MERA Fluticasone/Vilanterol (Fluticasone/Vilanterol 200/25 Blst.W.Dev) 1 puff INHALE RDAILY [facility] Last Admin: 05/17/25 08:14 Dose: 1 puff Documented By: ROBERTO CARLOS Guaifenesin (Guaifenesin 200 Mg/10 Ml 10 Ml Liquid) 10 ml PO Q4H PRN PRN Reason: Cough Last Admin: 05/13/25 22:54 Dose: 10 ml Documented By: LISA Piperacillin Sod/Tazobactam (Sod 4.5 gm/ Sodium Chloride) 100 mls @ 200 mls/hr IV Q6H [facility] Last Admin: 05/17/25 15:50 Dose: 200 mls/hr Documented By: MERA Magnesium Hydroxide (Milk Of Magnesia 30 Ml Oral.Susp) 30 ml PO DAILY PRN PRN Reason: Constipation Melatonin (Melatonin 3 Mg Tablet) 6 mg PO BEDTIME PRN PRN Reason: Insomnia Memantine (Memantine Hcl 10 Mg Tablet) 10 mg PO DAILY [facility] Last Admin: 05/17/25 07:47 Dose: 10 mg Documented By: MERA Morphine Sulfate (Morphine Sulfate 4 Mg/Ml Cartridge) 4 mg IVPUSH Q4H PRN; Protocol PRN Reason: Pain, Severe (Pain Scale 7-10) Last Admin: 05/14/25 17:30 Dose: 4 mg Documented By: PAT Pt Own (Rotigotine [ (Neupro] 1 Patch)) 1 patch TOPICAL DAILY [facility] Last Admin: 05/17/25 07:43 Dose: 1 patch Documented By: MERA Omeprazole (Omeprazole 20 Mg Capsule.Dr) 20 mg PO DAILY@0630 [facility] Last Admin: 05/17/25 05:54 Dose: 20 mg Documented By: GARFIELD Ondansetron HCl (Ondansetron Hcl 4 Mg/2 Ml Vial) 4 mg IVPUSH Q4H PRN PRN Reason: Nausea and Vomiting Last Admin: 05/17/25 07:41 Dose: 4 mg Documented By: MERA Oxycodone HCl (Oxycodone Hcl Immed Release 5 Mg Tablet) 10 mg PO Q4H PRN PRN Reason: Pain, Moderate(Pain Scale 4-6) Last Admin: 05/17/25 11:16 Dose: 10 mg Documented By: MERA Polyethylene Glycol (Polyethylene Glycol 3350 17 Gm Powd.Pack) 17 gm PO DAILY PRN PRN Reason: Constipation Rifampin (Rifampin 300 Mg Capsule) 600 mg PO DAILY [facility] Last Admin: 05/17/25 07:47 Dose: 600 mg Documented By: MERA Senna (Sennosides 8.6 Mg Tablet) 17.2 mg PO BEDTIME PRN PRN Reason: Constipation Sodium Chloride (0.9 % Sodium Chloride Flush 3 Ml Syringe) 3 ml IVFLUSH QSHIFT [facility] Last Admin: 05/17/25 15:50 Dose: 3 ml Documented By: MERA Tamsulosin HCl (Tamsulosin Hcl 0.4 Mg Capsule) 0.4 mg PO BID [facility] Last Admin: 05/17/25 07:47 Dose: 0.4 mg Documented By: MERA Labs 05/16/25 11:41 05/16/25 11:41 Labs: Laboratory Results - last 24 hr 05/12/25 05:39 TB Test (QFT) Gold Plus NEGATIVE TB Test (QFT) Nil 0.03 TB Test Mitogen - Nil 3.98 TB Test (QFT) +TB1 -NIL 0.01 TB Test (QFT) +TB2 -NIL 0.02 Assessment and Plan (1) Pulmonary embolism: Status: Acute (2) Mycobacterium avium complex colonization: Status: Acute Plan Patient is a 79-year-old male with past medical history microcytic anemia, 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 Patient has not been able to eat or consume fluids for the last 2 days. New findings on diagnostic scans indicate possible probable metastatic disease in the lung bases noting that patient has a stable cavitary lesion on chest x-ray. This is concerning as patient appears thin and frail. Patient does not meet the criteria for sepsis on admission. Pulmonary embolism/ small in RUL (no saddle PE present) Was on Levenox and has transitioned to Eliquis Oncology recommend outpatient Bx of lung nodule -Oxygen prn, currently tolerating RA Ongoing mycobacterium bacterial lung infection/ PNA -Pulmonary recommends MAC treatment with Azithromycin/Ethambutol (not available)Rifampin change to po meds soon COPD/emphysema -Duo nebs p.r.n. moderate protein calory malnutrition with adult failure to thrive, nutrition consult, ivf in the mean time Vascular dementia -continue current therapies -we will ultimately need PT consultation for decision on home with services or placement Pulmonary william wilder metastatic disease, will need outpatient Bx Eliquis Full code doesn't need tele at this time anticipated dc home, no indication for PT Quality Stroke Does the patient have a stroke diagnosis?: No Reason for No Anti-thrombotic by Day Two: N/A - Med Ordered VTE Prior VTE?: No VTE Risk Level:: Medical - moderate - high VTE Device Contraindication: N/A - Device Ordered VTE Drug Contraindication: N/A - Med Ordered
[2025-05-18 04:00] VITALS: BP 149/88; PULSE 69; RESP 16; TEMP 36.2; O2SAT 96
[2025-05-18] MEDS: oxyCODONE HCl Immed Release 5 MG TABLET 10 MG PO (05:44)
[2025-05-18 06:23] LABS: Hematocrit 37.3 % (42.0-52.0); Hemoglobin 13.2 g/dl (14.0-18.0); Mean Corpuscular HGB Conc 35.4 g/dl (31.0-36.0); Mean Corpuscular Hemoglobin 27.2 pg (27.0-33.0); Mean Corpuscular Volume 76.9 fL (80.0-98.0); NRBC Abs Auto 0.000 X10*3/uL (0.0-0.012); NRBC Pct Auto 0.0 /100WBC (0.0-0.2); Platelet Count 192 X10*3/uL (160-400); Red Blood Count 4.85 X10*6/uL (4.60-5.80); White Blood Count 5.7 X10*3/uL (4.8-10.8)
[2025-05-18 08:00] VITALS: BP 149/82; PULSE 70; RESP 16; TEMP 36.5; O2SAT 95
[2025-05-18] MEDS: Fluticasone/Vilanterol 200/25 BLST.W.DEV 1 PUFF INHALE (08:08)
[2025-05-18 08:09] VITALS: PULSE 70; RESP 17; O2SAT 96
[2025-05-18] MEDS: Aspirin Enteric Coated 81 MG TABLET.DR PO (08:38)
[2025-05-18] MEDS: 0.9 % Sodium Chloride Flush 3 ML SYRINGE IVFLUSH ×2 (08:43→15:22)
[2025-05-18] MEDS: ROTIGOTINE 1 EACH TOPICAL (10:35)
--- NOTE | 2025-05-18 11:05 | PC.NURSE ---
patient refuses sequentials,risks explained,encouraged activity
--- NOTE | 2025-05-18 11:09 | P.DS_ITS ---
DS: Providers Provider Date of Service: 05/18/25 Date of admission: 05/12/25 03:29 Date of discharge: 05/18/25 Primary care physician: Francie Ann MD Consults: 05/12/25 03:57 Consult to Pulmonology Routine Consulting Provider: [facility] Reason for consultation: hx mycobacterum, abnormal CTA PE and ? mets vs PNA Has provider been notified: No 05/12/25 04:02 Consult to Pulmonology Routine Consulting Provider: [facility] Reason for consultation: mycobacterial lung inf, current abn CTA Has provider been notified: No 05/12/25 04:09 Consult to Hematology / Oncology Routine Consulting Provider: [facility] Oncology/Hematology Reason for consultation: new dx PE Has provider been notified: No 05/12/25 04:47 Consult to Case Management Routine Comment: may have new cancer dx, lives alone, daughter invo DS: Diagnosis Discharge Diagnosis (1) Pulmonary embolism: Status: Acute (2) Mycobacterium avium complex colonization: Status: Acute DS: Summary Hospital Course Hospital Course: admission hpi Chief Complaint: Weakness Patient is a 79-year-old male with past medical history microcytic anemia, 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 Patient has not been able to eat or drink for the last 2 days. Patient states he was fine prior to that. Patient has not been around anyone with illness. Patient has not recently traveled. Patient denies any current chest pain or shortness of breath at rest but is reporting severe abdominal pain but denies any hemoptysis or coffee-ground emesis and is not having any bloody stool. Patient denies constipation or diarrhea. Patient denies being diagnosed with cancer so far. Patient denies any falls at home. Patient currently living alone but has a supportive his daughter who is also managing his medications. Patient is presenting today currently frail, thin with no energy complaining of persistent nausea. Patient has not smoked in over 40 years and does not use oxygen at home. Workup in the emergency department included chest x-ray which indicated stable right apical cavitary lesion with question of infection versus mass. Stable nodules some left consolidation noted. Differentials per radiologist's include metastatic disease and/or pneumonia. CTA completed which identified small pulmonary emboli acutely in the right upper lobe with multi focal airspace disease concerning for pulmonary metastasis and/or lung neoplasm. Per radiologist's superimposed infectious/inflammatory etiologies can be considered. As above patient has this history. In addition severe emphysematous changes noted without pneumothorax with right apical bulla/bleb disease. CT of the abdomen notes probable metastatic disease in the lung base with no acute process in the abdomen.. Hemodynamics currently stable. Patient does not present with signs of sepsis. Patient has no leukocytosis and microcytic anemia is stable with an H and H is 12.8 and 37.8. Platelets 308K. LFTs are within normal limits. Electrolytes all within normal limits. UA negative for UTI. Patient also negative for COVID, flu and RSV. 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 Patient has not been able to eat or consume fluids for the last 2 days. New findings on diagnostic scans indicate possible probable metastatic disease in the lung bases noting that patient has a stable cavitary lesion on chest x-ray. This is concerning as patient appears thin and frail. Patient does not meet the criteria for sepsis on admission. Pulmonary embolism/ small in RUL (no saddle PE present), was started on Lovenox and then transitioned to Eliquis 10 mg bid for 7 days, and will followed by 5 mg twice daily. Seen by oncology and recommends outpatient biopsy for lung nodule. Not requiring onxygen Ongoing mycobacterium bacterial lung infection/ PNA -Pulmonary recommends MAC treatment with Azithromycin/Ethambutol and Rifampin and to follow up with Pulmononary clinic COPD/emphysema, presently without exacerbation -Duo nebs p.r.n. moderate protein calory malnutrition with adult failure to thrive, nutrition consult, ivf in the mean time Vascular dementia -continue current therapies -we will ultimately need PT consultation for decision on home with services or placement Pulmonary noculdes meño metastatic disease, will need outpatient Bx, to follow up with oncology clinic to arrange Biopsy, will need to be of eliquis for at least 3 days Time Attestation Discharge Coordination Time (in mins): 40 Quality: Safe Use of Opioids Does Pt have an Active Cancer Diagnosis on the Problem List?: No Quality: Stroke Does the patient have a stroke diagnosis?: No Physical Exam Vital Signs: Vital Signs: Last Vital Signs Temp 97.7 F 05/18/25 08:00 Pulse 70 05/18/25 08:09 Resp 17 05/18/25 08:09 BP 149/82 H 05/18/25 08:00 Pulse Ox 95 05/18/25 08:00 O2 Del Method Room Air 05/18/25 08:00 BMI result Body Mass Index 19.5 DS: Data Data Completed and Pending Labs on day of discharge: Laboratory Results - last 24 hr 05/18/25 05:36 WBC 5.7 RBC 4.85 Hgb 13.2 L Hct 37.3 L MCV 76.9 L MCH 27.2 MCHC 35.4 RDW 15.2 Plt Count 192 MPV 9.0 L Absolute Nucleated RBC 0.000 Nucleated RBC % (auto) 0.0 Discharge Plan Discharge Anticipated Discharge Date/Time: 05/18/25 11:10 Patient Disposition: Xfer SNF Discharge Diagnosis: Pneumonia, LUZ MARINA Referrals: [facility] [Outside] - 1 Day Referral Note: short term rehab Angela Michelle MD [Physician, Pulmonology] - 1 Week Referral Note: LUZ MARINA follow up Grazyna Nagy MD [Physician, Hematology & Oncology] - 1 Week Referral Note: pulmonary nodule and PE on eliquis, biopsy to be arranged Francie Velazquez MD [Primary Care Provider, Internal Medicine] - 1 Week Discharge Medications: New Eliquis 5 mg tablet See Rx Instructions .ROUTE .COMPLEX 4 Days Qty: 90 0RF Rx Instructions: take 2 tabs twice daily for 4 days or 8 more doses, then after take 1 tab twice daily Continued finasteride 5 mg tablet 5 mg PO DAILY 90 Days Qty: 90 1RF doxazosin 4 mg tablet 8 mg PO BEDTIME 90 Days Qty: 180 1RF Rx Instructions: this is an increase in the dose atorvastatin 80 mg tablet 80 mg PO DAILY 90 Days Qty: 90 1RF ferrous sulfate 325 mg (65 mg iron) tablet 325 mg PO DAILY 90 Days Qty: 90 3RF fluticasone furoate-vilanterol [Breo Ellipta] 200-25 mcg/dose blister with device 1 ea inhalation DAILY Qty: 60 0RF oxycodone 10 mg tablet 10 mg PO Q6H PRN (Reason: pain) 30 Days Qty: 120 0RF Neupro 4 mg/24 hour patch 24 hour 1 patch topical DAILY omeprazole 20 mg capsule,delayed release(DR/EC) 20 mg PO DAILY@0630 tamsulosin 0.4 mg Capsule 0.4 mg PO BID aspirin [Adult Low Dose Aspirin] 81 mg tablet,delayed release (DR/EC) 81 mg PO DAILY ezetimibe 10 mg tablet 10 mg PO DAILY Qty: 30 11RF albuterol sulfate 90 mcg/actuation HFA aerosol inhaler 2 puff inhalation 6XD PRN (Reason: shortness of breath or wheezing) Qty: 1 6RF memantine 7 mg capsule,sprinkle,ER 24hr 7 mg PO DAILY Qty: 30 0RF azithromycin 500 mg tablet 500 mg PO DAILY Changed rifampin 300 mg capsule 600 mg PO DAILY 30 Days Qty: 30 3RF Discharge Orders: Discharge Order (Routine); Ordered 05/18/25 Ordered By: Joe Cramer Diet: Advance to usual diet Activity on Discharge: As tolerated Stand Alone Forms: Patient Portal Discharge page Print Language: Romanian Care Plan Goals: recovery from pneumonia, briana RAZA Health Concerns: pneumonia pulmonary nodule LUZ MARINA Plan of Treatment: take Rifampin, Azithro and Ethambutol as recommended follow up with oncology clinic for follow up and biopsy to be arranged Assessment: see above
[2025-05-18 11:52] VITALS: BP 153/89; PULSE 69; RESP 16; TEMP 36.4; O2SAT 94
--- NOTE | 2025-05-18 13:04 | MHC.CM.PN ---
Addendum entered by Ambika Laura RN 05/18/25 13:05: IMM delivered. Original Note: Patient medically cleared for dc. Patient and daughter remain agreeable to STR. [facility] has auth. BLS transport scheduled for 4pm. Daughter provided copy of HCP.
[2025-05-18 15:31] VITALS: BP 157/83; PULSE 71; RESP 16; TEMP 36.3; O2SAT 94
== END 2025-05-18 16:44 | disposition skilled nursing facility (03) | DRG 175 ==
LOC: HO.ED 05-12 03:05 → HO.EDOVER 05-12 03:34 → HO.IMC 05-12 16:09 → HO.S3 05-14 14:10
PROVIDERS: Hospitalist; Internal Medicine; Nurse Practitioner Family; Admitting Provider Internal Medicine; Emergency Provider Emergency Medicine Emergency Medical Services; PCP Internal Medicine; Visit Provider Internal Medicine
DX: I26.99 Other pulmonary embolism without acute cor pulmonale (principal); J18.9 Pneumonia, unspecified organism; A31.0 Pulmonary mycobacterial infection; E44.0 Moderate protein-calorie malnutrition; Z68.1 Body mass index [BMI] 19.9 or less, adult; C78.02 Secondary malignant neoplasm of left lung; C78.01 Secondary malignant neoplasm of right lung; G25.81 Restless legs syndrome; R62.7 Adult failure to thrive; I25.10 Atherosclerotic heart disease of native coronary artery without angina pectoris; F01.50 Vascular dementia, unspecified severity, without behavioral disturbance, psychotic disturbance, mood disturbance, and anxiety; J43.9 Emphysema, unspecified; Z20.822 Contact with and (suspected) exposure to COVID-19; Z79.899 Other long term (current) drug therapy
CPT/HCPCS: 36415; 71046; 71275; 74177; 80048; 80053; 81001; 82378; 83605; 83615; 83690; 83735; 84100; 84443; 84484; 85025; 85027; 85610; 85730; 86480; 87637; 93005; 97116; 97161; 99221; 99285; J1650; J2270; J2405; J2543; Q9967

== ENCOUNTER → 2025-05-11 16:28 | Outpatient (BNV) | payer MEDICARE, SELFPAY | PROVIDERS: Admitting Provider Internal Medicine; Emergency Provider Emergency Medicine Emergency Medical Services; PCP Internal Medicine; Visit Provider Internal Medicine | DX: I49.1 Atrial premature depolarization (principal); R00.1 Bradycardia, unspecified | CPT/HCPCS: 93010 ==

== ENCOUNTER → 2025-05-11 18:08 | Outpatient (BNV) | payer MEDICARE, SELFPAY | PROVIDERS: Emergency Provider Emergency Medicine Emergency Medical Services; Visit Provider Radiology Diagnostic Radiology | DX: R11.2 Nausea with vomiting, unspecified (principal); R91.8 Other nonspecific abnormal finding of lung field; J98.4 Other disorders of lung | CPT/HCPCS: 71046; 74177 ==

== ENCOUNTER → 2025-05-12 00:04 | Outpatient (BNV) | payer MEDICARE, SELFPAY | PROVIDERS: Emergency Provider Emergency Medicine Emergency Medical Services; Visit Provider Radiology Neuroradiology | DX: J43.9 Emphysema, unspecified (principal); I26.99 Other pulmonary embolism without acute cor pulmonale | CPT/HCPCS: 71275 ==

== ENCOUNTER 2025-05-12 03:29 | Outpatient (BNV) | payer MEDICARE, SELFPAY | END 2025-05-13 11:19 | PROVIDERS: Admitting Provider Internal Medicine; Emergency Provider Emergency Medicine Emergency Medical Services; PCP Internal Medicine; Visit Provider Internal Medicine | DX: R00.1 Bradycardia, unspecified (principal) | CPT/HCPCS: 93010 ==

== ENCOUNTER → 2025-05-12 03:29 | Outpatient (BNV) | payer MEDICARE, SELFPAY | PROVIDERS: Admitting Provider Internal Medicine; Emergency Provider Emergency Medicine Emergency Medical Services; PCP Internal Medicine; Visit Provider Hospitalist | DX: I26.94 Multiple subsegmental thrombotic pulmonary emboli without acute cor pulmonale (principal); Z22.39 Carrier of other specified bacterial diseases; J44.9 Chronic obstructive pulmonary disease, unspecified; J98.4 Other disorders of lung; R91.1 Solitary pulmonary nodule | CPT/HCPCS: 99223 ==

== ENCOUNTER → 2025-05-12 03:29 | Outpatient (BNV) | payer MEDICARE, SELFPAY | PROVIDERS: Admitting Provider Internal Medicine; Emergency Provider Emergency Medicine Emergency Medical Services; PCP Internal Medicine; Visit Provider Internal Medicine | DX: I26.99 Other pulmonary embolism without acute cor pulmonale (principal) | CPT/HCPCS: 99222 ==

== ENCOUNTER → 2025-05-12 03:29 | Outpatient (BNV) | payer MEDICARE, SELFPAY | PROVIDERS: Admitting Provider Internal Medicine; Emergency Provider Emergency Medicine Emergency Medical Services; PCP Internal Medicine; Visit Provider Hospitalist | DX: I26.94 Multiple subsegmental thrombotic pulmonary emboli without acute cor pulmonale (principal); Z22.39 Carrier of other specified bacterial diseases | CPT/HCPCS: 99223; 99232; 99239; 99499 ==

== ENCOUNTER 2025-06-02 10:26 | Outpatient (AMB) | payer MEDICARE, SELFPAY ==
--- NOTE | 2025-06-02 10:32 | A.OFFPC_ITS ---
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 Required: No Accompanied by: Daughter Allergies acetaminophen (From Vicodin) Adverse Reaction (Severe, Verified 06/02/25 10:35) upset stomach hydrocodone (From Vicodin) Adverse Reaction (Severe, Verified 06/02/25 10:35) upset stomach Tobacco use date assessed: 06/02/25 Fall risk assessment: No Falls in past year Last assessed Fall Risk: 06/02/25 Dental Screening Dental Screen Date: 06/02/25 Did you have a dental visit in the last 12 months?: No Did you have a dental problem in the last 6 months where you did not have access to dental care?: No Was dental information given to patient?: No HPI HPI Comments History of Present Illness Details 79 y/o Female patient who presents to [facility] today for HDF. His past medical history significant for microcytic anemia, mycobacterial lung infection on Rifampin, bronchoscopy November 2024, negative for malignant cells of the lung, early vascular dementia now on memantine, COPD/emphysema, hyperlipidemia, BPH and RLS. He is accompanied by his Daugther who provides the medical history. He was admitted at [facility] on 05/12 - 05/18 for an evaluation and treatment of Pneumonia and pulmonary Nodules. New findings on diagnostic scans indicate possi ble probable metastatic disease in the lung bases noting that patient has a stable cavitary lesion on chest x-ray. Small Pulmonary embolisim in RUL (no saddle PE present), was started on Eliquis 5 mg twice daily. He will be following up with Hem/oncology (Dr. Nagy) and he will need Outpatient Bx for lung nodule. Ongoing mycobacterium bacterial lung infection/ PNA - He continues to be on Azithromycin/Ethambutol and Rifampin and he will be following with Pulmononary clinic (). He was admitted to SNF ([facility]) on 05/18 - 05/31 for PT/OT. [facility] Medical History COPD (chronic obstructive pulmonary disease) Restless legs syndrome (RLS) Snoring Cognitive disorder Mycobacterium avium complex colonization Ascending aortic aneurysm AAA (abdominal aortic aneurysm) without rupture Cough Diverticulitis Lower urinary tract symptoms Internal derangement of left shoulder Pulmonary nodule Preoperative clearance Pulmonary nodules (~10/15/23) Oral thrush Chronic pain syndrome Spondylosis, cervical Postlaminectomy syndrome of cervical region COPD (chronic obstructive pulmonary disease) Whiplash Left shoulder pain Lung density on x-ray Pulmonary fibrosis Pleural effusion H/O: pneumonia Felon of finger of left hand H/O: CVA (cerebrovascular accident) Left flank pain Aneurysmal dilatation Screening for colon cancer Annual physical exam CAD (coronary artery disease) Shoulder pain Pure hypercholesterolemia GERD (gastroesophageal reflux disease) Essential hypertension Neck pain Surgical History Rotator cuff arthropathy of left shoulder History of repair of right rotator cuff Hx of cataract extraction History of right cataract extraction Hx of neck surgery History of back surgery History of hand surgery History of partial colectomy History of esophagogastroduodenoscopy (EGD) Hx of colonoscopy Stented coronary artery History of foot surgery History of hemicolectomy History of cervical spinal surgery History of laminectomy History of hernia repair History of appendectomy Family History Father Bone cancer Colon cancer Mother CVD (cardiovascular disease) Brother Esophagus cancer Sister No problems noted. Daughter No problems noted. 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 Cognitive needs: No Hearing needs: No Vision needs: Yes (Glasses) Questionnaire Thrive Questionnaire Date Thrive assessed: 11/10/24 I am a: Patient What is your living situation today?: I have a steady place to live Within the past 12 months, did the food you bought not last and you didn't have the money to get more?: Sometimes True Within the past 12 months, did you worry whether your food would run out before you got money to buy more?: Often true Do you have trouble paying for medicines?: Yes Do you have trouble getting transportation to medical appointments?: No Do you have trouble paying your heating and electricity bill?: Yes Do you have trouble taking care of your child, family member or friend?: No Do you have trouble with day-to-day activities such as bathing, preparing meals, shopping, managing finances, etc.?: No Are you currently unemployed and looking for a job?: No Are you interested in more education?: No Please select the resources that you would like help with: None Currently or been in a relationship where the following occur: No concerns reported THRIVE Score: 3 CHAS-7 AMB Questionnaire CHAS-7 Date CHAS - 7 assessed: 11/10/24 Source: Developed by Drs. Omar Cesar, Thalia Castillo, Bassam Pelletier and colleagues, with an educational becki from [employer]. Review of Systems Const All systems reviewed & are unremarkable except as noted in HPI and below Physical exam (Primary Care) Vital Signs: Last Vital Signs Temp 96.9 F 06/02/25 10:34 Pulse 74 06/02/25 10:34 Resp 18 06/02/25 10:34 BP 130/70 06/02/25 10:34 Pulse Ox 94 06/02/25 10:34 Oxygen Delivery Method Room Air 06/02/25 10:34 BMI result Body Mass Index 18.7 Tobacco/Smoking Status: Tobacco use Status Tobacco use date assessed 06/02/25 06/02/25 10:44 Patient Tobacco Use Status Former Tobacco user 06/02/25 10:44 e-Cigarette/Vaping Use Never Used 06/02/25 10:44 Thrive Assessment: Date of Thrive Assessment Date Thrive assessed 11/10/24 06/02/25 10:44 Currently or been in a relationship where the following occur: No concerns reported Const General: no acute distress, alert and awake Nutritional Appearance: thin Resp Effort & Inspection: normal respiratory effort Cardio Heart sounds: S1 normal heart sound present and S2 normal heart sound present Neuro General: moves all extremities Psych Speech and movement: Normal speech and movement present Coding Level of Care Code Est Pt Level 4 (20101) Diagnoses Pneumonia J18.9 Pneumonia type: due to Mycoplasma pneumoniae Pulmonary nodule R91.1 Time Spent (min) 20 Assessment & Plan Assessment & Plan (1) Pneumonia: Code(s): J18.9 - Pneumonia, unspecified organism Category: Medical Qualifiers: Pneumonia type: due to Mycoplasma pneumoniae Plan: Resolved. (2) Pulmonary nodule: Code(s): R91.1 - Solitary pulmonary nodule Category: Medical Plan: He will be following up with Hem/Onc and Pulmonology.
[2025-06-02 10:34] VITALS: BP 130/70; PULSE 74; RESP 18; TEMP 36.1; O2SAT 94; BMI 18.7
--- OUTSIDE RECORDS SUMMARY | 2025-06-02 11:56 | XMS_ITS | Clinical Summary ---
Author Organization [facility] Address [address] [place] [address] Phone Care Team Providers Care Panel Flow Machine Operator Name Role Phone Francie Ann MD Primary Care Provider Surgical History Surgery Date Site/Laterality Comments TONSILLECTOMY ADENOIDECTOMY, BILATERAL MYRINGOTOMY AND TUBES PROCEDURE: HI TONSILLECTOMY & ADENOIDECTOMY <AGE 13 ROTATOR CUFF [...] age to complete this topic Care Teams Panel Flow Machine Operator Relationship Specialty Start Date End Date Francie Ann MD [address] [place] [address] , [address] [facility] Physician Associ D/B/A: [facility] NABIL Mares PCP - General Internal Medicine 01/29/22
== END 2025-06-02 11:15 | disposition home or self-care (01) ==
LOC: HO.HMCH 10:27
PROVIDERS: PCP Internal Medicine; Visit Provider Nurse Practitioner Family
DX: J18.9 Pneumonia, unspecified organism (principal); R91.1 Solitary pulmonary nodule

== ENCOUNTER → 2025-06-02 10:26 | Outpatient (BNVA) | payer MEDICARE, SELFPAY | PROVIDERS: PCP Internal Medicine; Visit Provider Nurse Practitioner Family | DX: J18.9 Pneumonia, unspecified organism (principal); R91.1 Solitary pulmonary nodule | CPT/HCPCS: 99212 ==

== ENCOUNTER 2025-06-06 11:25 | Outpatient (AMB) | payer MEDICARE, SELFPAY ==
--- NOTE | 2025-06-06 11:30 | A.OFFVIS_ITS ---
Vital Signs 06/06/25 11:31 Height 5 ft 6 in Weight 114 lb 10.246 oz BMI 18.5 BP 120/64 Blood Pressure Location Lt brachial Position Sitting Pulse 66 Pulse Source Pulse Oximeter Pulse Oximetry (%) 96 Oxygen Delivery Method Room Air Intake Visit Reasons: COPD Intake Note: pt is here for [facility] follow up and was told he had pnuemonia and went to rehab and states he is feeling better but has a cough with some phlegm. Human Resources Operations Coordinator Required: No Spectroscopist: Spectroscopist offered & declined Allergies acetaminophen (From Vicodin) Adverse Reaction (Severe, Verified 06/06/25 16:53) upset stomach hydrocodone (From Vicodin) Adverse Reaction (Severe, Verified 06/06/25 16:53) upset stomach Medication List - Last Reconciled 06/06/25 by Angela Michelle MD albuterol sulfate 90 mcg/actuation 2 puffs inhalation 6XD PRN apixaban (Eliquis) take 2 tabs twice daily for 4 days or 8 more doses, then after take 1 tab twice daily 4 days aspirin (Adult Low Dose Aspirin) 81 mg PO DAILY atorvastatin 80 mg PO DAILY 90 days azithromycin 500 mg PO DAILY Breo Ellipta 200-25 mcg/dose (fluticasone furoate-vilanterol) 1 ea inhalation DAILY NS doxazosin 8 mg (2 x 4 mg) PO BEDTIME 90 days ezetimibe 10 mg PO DAILY ferrous sulfate 325 mg PO DAILY 90 days finasteride 5 mg PO DAILY 90 days memantine 28 mg PO DAILY memantine 14 mg PO DAILY 1 month MDD 14mg memantine 21 mg PO DAILY 3 months MDD 21mg omeprazole 20 mg PO DAILY@0630 oxycodone 10 mg PO Q6H PRN 30 days rifampin 600 mg (2 x 300 mg) PO DAILY 30 days rotigotine (Neupro) 1 patch topical DAILY tamsulosin 0.4 mg PO BID 30 days Do you need a note to return to daycare/school/sports/work: No HPI HPI COPD: Details: This 79 years old gentleman with history of chronic obstructive pulmonary disease due to his previous smoking, Has had cavitary disease of the lungs., especially in the right upper lobe and scattered nodular densities in both lungs, Had bronchoscopy and bronchial washing in November 2024. .Cytology negative for any malignant cells The culture grew atypical mycobacterium organisms ( mycobacterium avium complex ) He is being treated for atypical mycobacterium organisms. Initially with azithromycin, 500 mg daily which he tolerated well then rifampin was added which also was tolerated by him well. Now recently he was in the hospital with the question of the multifocal pneumonia. Treated with broad-spectrum antibiotics and oxygen. Discharged to rehab facility on 05/18, and discharged home a few days ago. He comes today for follow-up. Has no further fever or chills, has mild cough. Has usual shortness of breath. Appetite is fair. He and his for worried about the possibility of lung cancer. The reports of chest x-ray as well as CT scan of the chest indicate possible infectious lesions in the lungs versus metastatic disease. [facility] Medical History (Updated 06/07/25 @ 09:01 by Angela Michelle MD) Mycobacterium avium infection COPD (chronic obstructive pulmonary disease) Restless legs syndrome (RLS) Snoring Cognitive disorder Mycobacterium avium complex colonization Ascending aortic aneurysm AAA (abdominal aortic aneurysm) without rupture Cough Diverticulitis Lower urinary tract symptoms Internal derangement of left shoulder Pulmonary nodule Preoperative clearance Pulmonary nodules (~10/15/23) Oral thrush Chronic pain syndrome Spondylosis, cervical Postlaminectomy syndrome of cervical region COPD (chronic obstructive pulmonary disease) Whiplash Left shoulder pain Lung density on x-ray Pulmonary fibrosis Pleural effusion H/O: pneumonia Felon of finger of left hand H/O: CVA (cerebrovascular accident) Left flank pain Aneurysmal dilatation Screening for colon cancer Annual physical exam CAD (coronary artery disease) Shoulder pain Pure hypercholesterolemia GERD (gastroesophageal reflux disease) Essential hypertension Neck pain Surgical History Rotator cuff arthropathy of left shoulder History of repair of right rotator cuff Hx of cataract extraction History of right cataract extraction Hx of neck surgery History of back surgery History of hand surgery History of partial colectomy History of esophagogastroduodenoscopy (EGD) Hx of colonoscopy Stented coronary artery History of foot surgery History of hemicolectomy History of cervical spinal surgery History of laminectomy History of hernia repair History of appendectomy Family History Father Bone cancer Colon cancer Mother CVD (cardiovascular disease) Brother Esophagus cancer Sister No problems noted. Daughter No problems noted. 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 Cognitive needs: No Hearing needs: No Vision needs: Yes (Glasses) Review of Systems Const All systems reviewed & are unremarkable except as noted in HPI and below Eyes Reports no additional complaints ENT Reports no additional complaints Card Denies chest pain, Denies irregular heart rhythm and Denies leg edema Resp Reports as per HPI GI Reports heartburn (Controlled with med) Reports no additional complaints Musc Reports back pain Skin/Breast Reports system reviewed and no additional complaints, except as documented Neuro Reports no additional complaints Psych Reports no additional complaints Endo Reports no additional complaints Physical Exam Vital Signs: Last Vital Signs Pulse 66 06/06/25 11:31 BP 120/64 06/06/25 11:31 Pulse Ox 96 06/06/25 11:31 Oxygen Delivery Method Room Air 06/06/25 11:31 BMI result Body Mass Index 18.5 Const General: comfortable, no acute distress, alert and awake Orientation/consciousness: patient oriented x3 HEENT Head: Yes normal to inspection General nose exam: No nasal polyps present and No nasal discharge present Face and sinus: Yes sinuses nontender Mouth: oropharynx normal Throat: Yes posterior oropharynx normal Eyes General: appearance normal, both eyes and all related structures Neck Neck: Yes normal visual inspection, Yes no lymphadenopathy, Yes trachea midline and Yes no JVD Thyroid: Thyroid normal Chest Chest palpation & inspection: normal inspection of the chest, normal palpation of entire chest wall and no tenderness Resp Other: Percussion note hyper-resonant on both sides, Breath sounds are distant with prolonged expiratory phase. No wheezes rhonchi or crepitations are heard. Cardio Palpation: normal PMI Rate: regular rate Rhythm: regular rhythm Heart sounds: no gallops and no murmurs Peripheral pulses: Peripheral pulses 2+ throughout GI Palpation (GI): Soft to palpation, nontender, No hepatosplenomegaly present and no masses Auscultation: normal bowel sounds Back/Spine/Pelvis Thoracic/Lumbar Spine: thoracic and lumbar spine normal to inspection Skin General skin exam: no rashes or lesions noted Neuro General: patient oriented x3 and no focal motor deficits Cranial nerves: Yes CN's II-XII intact bilaterally Extrem General: Yes normal to inspection, Yes no clubbing, cyanosis or edema and Yes no calf tenderness Psych Appearance: grossly normal and well kempt Speech and movement: Normal speech and movement present Results Reviewed Results Reviewed: CTA of lungs. On 05/11/2025, indicated small peripheral pulmonary emboli including right upper lobe. Multifocal airspace disease in both lungs raising possibility of inflammatory/infectious process versus metastatic lung disease Assessment & Plan Assessment & Plan (1) Cavitary lesion of lung: Comment: Has had chronic cavitary lesion in the right upper lobe. Recent bronchoscopy and culture of sputum, grew mycobacterium avium complex. He was initially started on azithromycin 500 mg daily which he tolerated very well. Now since his hospitalization rifampin 600 mg daily has been added and he is tolerating it well. After a few more weeks I intend to add ethambutol to his regimen. As long as he keeps on tolerating the regiment it will be continued for at least 6 months. Code(s): J98.4 - Other disorders of lung Category: Medical Plan: as above (2) Pulmonary nodules: Onset Date: ~10/15/23 Comment: Multiple small nodules in the left upper lobe. Will monitor with yearly CT scan. 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 HAD BRONCHOSCOPY EXAMINATION AND BRONCHIAL WASHINGS. THE MAIN ORGANISM GROWN WAS MYCOBATERIUM AVIUM (MAC ) NO NEOPLASTIC CELLS WERE FOUND. HE IS BEING TREATED WITH TRIPLE ANTI TB REGIMEN . Code(s): R91.8 - Other nonspecific abnormal finding of lung field Category: Medical Plan: ABOVE (3) Mycobacterium avium infection: Comment: PER CULTURE OF BRONCHIAL WASHINGS Code(s): A31.0 - Pulmonary mycobacterial infection Category: Medical Plan: PATIENT IS ON AZITHROMYCIN WHICH HE HAS TOLERATED. VERY WELL RIFAMPIN 600 MG DAILY HAS BEEN ADDED AND SO FAR HE IS TOLERATING, PLAN IS TO ADD ETHAMBUTOL AFTER A FEW MORE WEEKS . AND HE WILL BE KEPT ON THIS REGIMEN 6 MONTHS OR LONG HE CAN TOLERATE. COMPLETE ERADICATION OF THIS INFECTION IS NOT EXPECTED. (4) Pulmonary embolism: Comment: DURING HIS RECENT HOSPITALIZATION A FEW WEEKS AGO, CTA OF THE CHEST SHOWED SMALL PULMONARY EMBOLI ESPECIALLY IN THE RIGHT UPPER LOBE. HE HAS BEEN STARTED ON ANTICOAGULATION. Code(s): I26.99 - Other pulmonary embolism without acute cor pulmonale Category: Medical Qualifiers: Pulmonary embolism type: multiple subsegmental (without acute cor pulmonale) Qualified Code(s): I26.94 - Multiple subsegmental thrombotic pulmonary emboli without acute cor pulmonale Plan: PATIENT IS ON ELIQUIS 5 MG B.I.D.. HE IS BEING FOLLOWED UP BY HEMATOLOGY SERVICE Coding Level of Care Code Est Pt Level 4 (77308) Diagnoses Cavitary lesion of lung J98.4 Pulmonary nodules R91.8 Mycobacterium avium infection A31.0 Multiple subsegmental pulmonary emboli without acute cor pulmonale I26.94 Pulmonary embolism type: multiple subsegmental (without acute cor pulmonale)
[2025-06-06 11:31] VITALS: BP 120/64; PULSE 66; O2SAT 96; BMI 18.5
--- OUTSIDE RECORDS SUMMARY | 2025-06-06 14:37 | XMS_ITS | Clinical Summary ---
Author Organization [facility] Address [address] [place] [address] Phone Care Team Providers Care Roller Inspector Name Role Phone Francie Ann MD Primary Care Provider [phone] Surgical History Surgery Date Site/Laterality Comments TONSILLECTOMY ADENOIDECTOMY, BILATERAL MYRINGOTOMY AND TUBES PROCEDURE: [place] TONSILLECTOMY & ADENOIDECTOMY <AGE 13 ROTATOR CUFF [...] age to complete this topic Care Teams Roller Inspector Relationship Specialty Start Date End Date Francie Ann MD [address] [place] [address] , [address] [facility] D/B/A: [facility] NABIL Mares PCP - General Internal Medicine 01/29/22
== END 2025-06-06 11:53 | disposition home or self-care (01) ==
LOC: HO.HPS 11:26
PROVIDERS: PCP Internal Medicine; Visit Provider Internal Medicine
DX: J98.4 Other disorders of lung (principal); R91.8 Other nonspecific abnormal finding of lung field; A31.0 Pulmonary mycobacterial infection; I26.94 Multiple subsegmental thrombotic pulmonary emboli without acute cor pulmonale
CPT/HCPCS: 99214

== ENCOUNTER → 2025-06-06 11:25 | Outpatient (BNVA) | payer MEDICARE, SELFPAY | PROVIDERS: PCP Internal Medicine; Visit Provider Internal Medicine | DX: J98.4 Other disorders of lung (principal); A31.0 Pulmonary mycobacterial infection; I26.94 Multiple subsegmental thrombotic pulmonary emboli without acute cor pulmonale; R91.8 Other nonspecific abnormal finding of lung field; Z79.01 Long term (current) use of anticoagulants; Z87.891 Personal history of nicotine dependence; Z79.899 Other long term (current) drug therapy; Z79.2 Long term (current) use of antibiotics | CPT/HCPCS: 99212 ==

== ENCOUNTER → 2025-06-19 19:30 | Outpatient (REF) | payer MEDICARE, SELFPAY ==
--- OUTSIDE RECORDS SUMMARY | 2025-06-19 20:47 | XMS_ITS | Clinical Summary ---
Author Organization [facility] Address [address] [place] [address] Phone Care Team Providers Care Loop Puller Name Role Phone Francie Ann MD Primary Care Provider [phone] Surgical History Surgery Date Site/Laterality Comments TONSILLECTOMY ADENOIDECTOMY, BILATERAL MYRINGOTOMY AND TUBES PROCEDURE: [place] TONSILLECTOMY & ADENOIDECTOMY <AGE 13 ROTATOR CUFF [...] age to complete this topic Care Teams Loop Puller Relationship Specialty Start Date End Date Francie Ann MD [address] [place] [address] , [address] [facility] Physician Associ D/B/A: [facility] NABIL Mares PCP - General Internal Medicine 01/29/22
== END ==
LOC: HO.SL 19:30
PROVIDERS: PCP Internal Medicine; Visit Provider Psychiatry & Neurology Neurology
DX: G47.33 Obstructive sleep apnea (adult) (pediatric) (principal); F09 Unspecified mental disorder due to known physiological condition; J44.9 Chronic obstructive pulmonary disease, unspecified; R06.83 Snoring; G47.00 Insomnia, unspecified; R25.2 Cramp and spasm
CPT/HCPCS: 95810

== ENCOUNTER → 2025-06-19 20:38 | Outpatient (BNV) | payer MEDICARE, SELFPAY | PROVIDERS: PCP Internal Medicine; Visit Provider Psychiatry & Neurology Neurology | DX: G47.33 Obstructive sleep apnea (adult) (pediatric) (principal) | CPT/HCPCS: 95810 ==

== ENCOUNTER 2025-07-17 13:54 | Outpatient (AMB) | payer MEDICARE, SELFPAY ==
--- NOTE | 2025-07-17 14:07 | A.OFFVIS_ITS ---
Vital Signs 07/17/25 14:10 Height 5 ft 6 in Weight 123 lb 7.342 oz BMI 19.9 BP 128/70 Blood Pressure Location Lt brachial Position Sitting Pulse 69 Pulse Source Pulse Oximeter Pulse Oximetry (%) 97 Oxygen Delivery Method Room Air Intake Visit Reasons: COPD Intake Note: pt is here for follow up and states he is feeling good. Scrap Picker Required: No Allergies acetaminophen (From Vicodin) Adverse Reaction (Severe, Verified 07/17/25 14:25) upset stomach hydrocodone (From Vicodin) Adverse Reaction (Severe, Verified 07/17/25 14:25) upset stomach Medication List - Last Reconciled 07/17/25 by Angela Michelle MD albuterol sulfate 90 mcg/actuation 2 puffs inhalation 6XD PRN apixaban (Eliquis) take 2 tabs twice daily for 4 days or 8 more doses, then after take 1 tab twice daily 4 days apixaban (Eliquis) 5 mg PO BID 90 days aspirin (Adult Low Dose Aspirin) 81 mg PO DAILY atorvastatin 80 mg PO DAILY 90 days azithromycin 500 mg PO DAILY Breo Ellipta 200-25 mcg/dose (fluticasone furoate-vilanterol) 1 ea inhalation DAILY NS doxazosin 8 mg (2 x 4 mg) PO BEDTIME 90 days ezetimibe 10 mg PO DAILY ferrous sulfate 325 mg PO DAILY 90 days finasteride 5 mg PO DAILY 90 days memantine 28 mg PO DAILY memantine 14 mg PO DAILY 1 month MDD 14mg memantine 21 mg PO DAILY 3 months MDD 21mg omeprazole 20 mg PO DAILY@0630 oxycodone 10 mg PO Q6H PRN 30 days rifampin 600 mg (2 x 300 mg) PO DAILY 30 days rotigotine (Neupro) 1 patch topical DAILY tamsulosin 0.4 mg PO BID 30 days Do you need a note to return to daycare/school/sports/work: No HPI HPI COPD: Details: TAYLOR, NOW 79 YEARS OLD,, BEING TREATED FOR ADVANCED COPD AND MYCOBACTERIUM AVIUM INFECTION( COLONIZATION ) ALSO HAS HAD SMALL PULMONARY EMBOLI IN THE RIGHT UPPER LOBE. HE IS ON ELIQUIS 5 MG B.I.D. HE IS ON BREO ELLIPTA ONCE A DAY FOR COPD WHICH IS REMAINING FAIRLY STABLE, AND HAS NOT NEEDED TO USE THE ALBUTEROL IN THE LAST 2 MONTHS. HE IS TOLERATING HIS ANTITUBERCULOUS AGENTS, AZITHROMYCIN AND RIFAMPIN SO FAR VERY WELL WITHOUT ANY SIDE EFFECTS. HE IS ACTUALLY FEELING BETTER AND WALKS AROUND WITHOUT MUCH SHORTNESS OF BREATH. COUGH AND EXPECTORATION MINIMAL. [facility] Medical History (Updated 07/17/25 @ 14:37 by Angela Michelle MD) COPD (chronic obstructive pulmonary disease) Mycobacterium avium infection Restless legs syndrome (RLS) Snoring Cognitive disorder Mycobacterium avium complex colonization Ascending aortic aneurysm AAA (abdominal aortic aneurysm) without rupture Cough Diverticulitis Lower urinary tract symptoms Internal derangement of left shoulder Pulmonary nodule Preoperative clearance Pulmonary nodules (~10/15/23) Oral thrush Chronic pain syndrome Spondylosis, cervical Postlaminectomy syndrome of cervical region COPD (chronic obstructive pulmonary disease) Whiplash Left shoulder pain Lung density on x-ray Pulmonary fibrosis Pleural effusion H/O: pneumonia Felon of finger of left hand H/O: CVA (cerebrovascular accident) Left flank pain Aneurysmal dilatation Screening for colon cancer Annual physical exam CAD (coronary artery disease) Shoulder pain Pure hypercholesterolemia GERD (gastroesophageal reflux disease) Essential hypertension Neck pain Surgical History Rotator cuff arthropathy of left shoulder History of repair of right rotator cuff Hx of cataract extraction History of right cataract extraction Hx of neck surgery History of back surgery History of hand surgery History of partial colectomy History of esophagogastroduodenoscopy (EGD) Hx of colonoscopy Stented coronary artery History of foot surgery History of hemicolectomy History of cervical spinal surgery History of laminectomy History of hernia repair History of appendectomy Family History Father Bone cancer Colon cancer Mother CVD (cardiovascular disease) Brother Esophagus cancer Sister No problems noted. Daughter No problems noted. 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 Cognitive needs: No Hearing needs: No Vision needs: Yes (Glasses) Review of Systems Const All systems reviewed & are unremarkable except as noted in HPI and below Eyes Reports no additional complaints ENT Reports no additional complaints Card Denies chest pain, Denies irregular heart rhythm and Denies leg edema Resp Reports as per HPI GI Reports heartburn (Controlled with med) Reports no additional complaints Musc Reports back pain Skin/Breast Reports system reviewed and no additional complaints, except as documented Neuro Reports no additional complaints Psych Reports no additional complaints Endo Reports no additional complaints Physical Exam Vital Signs: Last Vital Signs Pulse 69 07/17/25 14:10 BP 128/70 07/17/25 14:10 Pulse Ox 97 07/17/25 14:10 Oxygen Delivery Method Room Air 07/17/25 14:10 BMI result Body Mass Index 19.9 Const General: comfortable, no acute distress, alert and awake Orientation/consciousness: patient oriented x3 HEENT Head: Yes normal to inspection General nose exam: No nasal polyps present and No nasal discharge present Face and sinus: Yes sinuses nontender Mouth: oropharynx normal Throat: Yes posterior oropharynx normal Eyes General: appearance normal, both eyes and all related structures Neck Neck: Yes normal visual inspection, Yes no lymphadenopathy, Yes trachea midline and Yes no JVD Thyroid: Thyroid normal Chest Chest palpation & inspection: normal inspection of the chest, normal palpation of entire chest wall and no tenderness Resp Other: Percussion note hyper-resonant on both sides, Breath sounds are distant with prolonged expiratory phase. No wheezes rhonchi or crepitations are heard. Cardio Palpation: normal PMI Rate: regular rate Rhythm: regular rhythm Heart sounds: no gallops and no murmurs Peripheral pulses: Peripheral pulses 2+ throughout GI Palpation (GI): Soft to palpation, nontender, No hepatosplenomegaly present and no masses Auscultation: normal bowel sounds Back/Spine/Pelvis Thoracic/Lumbar Spine: thoracic and lumbar spine normal to inspection Skin General skin exam: no rashes or lesions noted Neuro General: patient oriented x3 and no focal motor deficits Cranial nerves: Yes CN's II-XII intact bilaterally Extrem General: Yes normal to inspection, Yes no clubbing, cyanosis or edema and Yes no calf tenderness Psych Appearance: grossly normal and well kempt Speech and movement: Normal speech and movement present Assessment & Plan Assessment & Plan (1) COPD (chronic obstructive pulmonary disease): Comment: KNOWN CASE OF CHRONIC OBSTRUCTIVE PULMONARY DISEASE, MODERATELY SEVERE, CONTROLLED AT THIS TIME. HIS ACTIVITY LEVEL IS BACK TO NORMAL BUT STILL REMAINS MINIMAL. Code(s): J44.9 - Chronic obstructive pulmonary disease, unspecified Category: Medical Qualifiers: COPD type: unspecified COPD Qualified Code(s): J44.9 - Chronic obstructive pulmonary disease, unspecified Plan: CONTINUE BREO ELLIPTA 200 -25 1 INHALATION DAILY ALBUTEROL HFA 2 PUFFS Q 4-6 HOURS ONLY P.R.N.. (2) Pulmonary fibrosis: Comment: As per his previous the CT scan, patient does have pleural and parenchymal scarring in right upper lobe, related to his previous surgery. Patient had thoracostomy and repair of ruptured lung in mid s. It is staying quite stable. Code(s): J84.10 - Pulmonary fibrosis, unspecified Category: Medical Plan: NO SPECIAL TREATMENT AT THIS TIME (3) Pulmonary nodules: Onset Date: ~10/15/23 Comment: Multiple small nodules in the left upper lobe. Will monitor with yearly CT scan. 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 HAD BRONCHOSCOPY EXAMINATION AND BRONCHIAL WASHINGS. THE MAIN ORGANISM GROWN WAS MYCOBATERIUM AVIUM (MAC ) NO NEOPLASTIC CELLS WERE FOUND. HE IS BEING TREATED WITH TRIPLE ANTI TB REGIMEN . Code(s): R91.8 - Other nonspecific abnormal finding of lung field Category: Medical Plan: THE POSSIBILITY OF NEOPLASTIC PROCESS IS LOW. THE ABNORMAL FINDINGS ARE MAINLY BECAUSE OF ATYPICAL MYCOBACTERIUM AVIUM INFECTION , WHICH IS BEING TREATED. (4) Pulmonary embolism: Comment: DURING HIS HOSPITALIZATION IN [place] CTA OF THE CHEST SHOWED SMALL PULMONARY EMBOLI ESPECIALLY IN THE RIGHT UPPER LOBE. HE HAS BEEN ON ANTICOAGULATION, ( ELIQUIS 5 MG BID ) Code(s): I26.99 - Other pulmonary embolism without acute cor pulmonale Category: Medical Qualifiers: Pulmonary embolism type: multiple subsegmental (without acute cor pulmonale) Qualified Code(s): I26.94 - Multiple subsegmental thrombotic pulmonary emboli without acute cor pulmonale Plan: CONTINUE ANTICOAGULATION NOTED ABOVE. (5) Mycobacterium avium infection: Comment: PER CULTURE OF BRONCHIAL WASHINGS , HE WAS DIAGNOSED TO HAVE MYCOBACTERIUM AVIUM INFECTION. HE HAS TOLERATED AZITHROMYCIN AND RIFAMPIN WITHOUT ANY SIDE EFFECTS. SYMPTOMATICALLY HE IS DEFINITELY FEELING MUCH BETTER. Code(s): A31.0 - Pulmonary mycobacterial infection Category: Medical Plan: CONTINUE AZITHROMYCIN 5 MG DAILY RIFAMPIN 600 MG P.O. DAILY ( 2X 300 MG ) I WILL ADD ETHAMBUTOL , 400 MG B.I.D. HE IS INSTRUCTED TO WATCH FOR ANY GASTRIC OR OTHER SIDE EFFECTS. Medications: New ethambutol 800 mg (2 x 400 mg) PO DAILY 60 tabs 4RF MYCOBACTERIUM AVIUM 30 days Coding Level of Care Code Est Pt Level 3 (17293) Diagnoses Chronic obstructive pulmonary disease, unspecified COPD type J44.9 COPD type: unspecified COPD Pulmonary fibrosis J84.10 Pulmonary nodules R91.8 Multiple subsegmental pulmonary emboli without acute cor pulmonale I26.94 Pulmonary embolism type: multiple subsegmental (without acute cor pulmonale) Mycobacterium avium infection A31.0
[2025-07-17 14:10] VITALS: BP 128/70; PULSE 69; O2SAT 97; BMI 19.9
--- OUTSIDE RECORDS SUMMARY | 2025-07-17 22:41 | XMS_ITS | Clinical Summary ---
Author Organization [facility] Address [address] [place] [address] Phone Care Team Providers Care Ct Scan Tech Name Role Phone Francie Ann MD Primary Care Provider [phone] Surgical History Surgery Date Site/Laterality Comments TONSILLECTOMY [...] on file Sexual Orientation Not on file Last Filed Vital Signs Vital Sign Reading [...] 03/17/2024 01/21/2024 Depression Screening 08/10/2024 COVID-19 Vaccine (2024- season) 2025 04/28/2024, 06/20/2023, 05/20/2022, Additional history [...] age to complete this topic Care Teams Ct Scan Tech Relationship Specialty Start Date End Date Francie Ann MD [address] [place] [address] , [address] [facility] Physician Associ D/B/A: [facility] NABIL Mares PCP - General Internal Medicine 01/29/22
== END 2025-07-17 14:31 | disposition home or self-care (01) ==
LOC: HO.HPS 13:55
PROVIDERS: PCP Internal Medicine; Visit Provider Internal Medicine
DX: J44.9 Chronic obstructive pulmonary disease, unspecified (principal); J84.10 Pulmonary fibrosis, unspecified; R91.8 Other nonspecific abnormal finding of lung field; I26.94 Multiple subsegmental thrombotic pulmonary emboli without acute cor pulmonale; A31.0 Pulmonary mycobacterial infection
CPT/HCPCS: 99213

== ENCOUNTER → 2025-07-17 13:54 | Outpatient (BNVA) | payer MEDICARE, SELFPAY | PROVIDERS: PCP Internal Medicine; Visit Provider Internal Medicine | DX: J44.9 Chronic obstructive pulmonary disease, unspecified (principal); J84.10 Pulmonary fibrosis, unspecified; I26.94 Multiple subsegmental thrombotic pulmonary emboli without acute cor pulmonale; A31.0 Pulmonary mycobacterial infection; R91.8 Other nonspecific abnormal finding of lung field | CPT/HCPCS: 99212 ==